=== PATIENT | female | born 1945 | race Two or more races ===

== ENCOUNTER 2017-11-19 17:27 | Inpatient (IN) | payer MEDICARE, OTHER ==
[~2017-11-19] VITALS: Ht 160 cm; Wt 80.8 kg
--- NOTE | 2017-11-19 17:56 | NUR ---
PT BIBRA FROM HOME TO ER BED 07. PER REPORT, FAMILY CALLED 911 CONCERNED ABOUT PT'S WEAKNESS FOR ABOUT 4 DAYS NOW. PT IS VINCENTIAN SPEAKING, PLACED ON MONITOR. AWAITING MD CHERRY.
--- NOTE | 2017-11-19 17:57 | NUR ---
BLOOD SUGAR 385
[2017-11-19] MEDS ORDERED: IV NS 0.9% 500 ML BAG IV ONE (18:30)
[2017-11-19 18:48] LABS: BASOPHILS # (AUTO) 0.1 /CMM (0.0-0.2); BASOPHILS % (AUTO) 0.8 % (0.0-2.0); EOSINOPHILS % (AUTO) 0.9 % (0.0-6.0); HEMATOCRIT 38 % (33-45); HEMOGLOBIN 12.6 g/dL (11.5-14.8); LYMPHOCYTES # (AUTO) 2.1 /CMM (0.8-4.8); LYMPHOCYTES % (AUTO) 25.2 % (20.0-44.0); MEAN CORPUSCULAR HEMOGLOBIN 29 PG (26.0-33.0); MEAN CORPUSCULAR HGB CONC 33 g/dl (31.0-36.0); MEAN CORPUSCULAR VOLUME 87 fL (82-100); MONOCYTES # (AUTO) 0.6 /CMM (0.1-1.30); MONOCYTES % (AUTO) 6.9 % (2.0-12.0); NEUTROPHILS # (AUTO) 5.6 /CMM (1.8-8.9); NEUTROPHILS % (AUTO) 66.2 % (43.0-81.0); PLATELET COUNT (AUTO) 218 /CMM (150-450); RED BLOOD CELL COUNT(AUTO) 4.39 MIL/uL (4.0-5.2); WHITE BLOOD COUNT (AUTO) 8.4 K/uL (4.3-11.0)
[2017-11-19 19:04] LABS: ALANINE AMINOTRANSFERASE 26 U/L (12-78); ALBUMIN 2.7 g/dL (3.4-5.0); ALKALINE PHOSPHATASE 89 U/L (46-116); ASPARTATE AMINOTRANSFERASE 16 U/L (15-37); BILIRUBIN,DIRECT 0.1 mg/dL (0.0-0.2); BILIRUBIN,TOTAL 0.3 mg/dL (0.2-1.0); CARBON DIOXIDE 25 mmol/L (21-32); CHLORIDE 101 mmol/L (98-107); CREATININE 1.7 mg/dL (0.6-1.3); POTASSIUM 5.1 mmol/L (3.5-5.1); SODIUM SERUM 134 mmol/L (136-145); TOTAL PROTEIN, SERUM 6.5 g/dL (6.4-8.2); UREA NITROGEN, BLOOD 65 mg/dL (7-18)
[2017-11-19 19:06] LABS: GLUCOSE 386 mg/dL (74-106); TROPONIN I < 0.017 ng/mL (0.00-0.056)
[2017-11-19 19:13] LABS: INR 0.86 (0.85-1.15)
[2017-11-19] MEDS ORDERED: IV NS 0.9% 1,000 ML BAG IV ONE (19:30)
--- NOTE | 2017-11-19 19:30 | NUR ---
MEDICATED PT ORDERED
[2017-11-19 19:41] LABS: APPEARANCE,URINE Clear (CLEAR); BILIRUBIN,URINE Negative (NEGATIVE); BLOOD, URINE Trace-intact Ery/uL (NEGATIVE); COLOR,URINE Yellow (YELLOW); KETONES,URINE Negative (NEGATIVE); LEUKOCYTE ESTERASE ,URINE Small (NEGATIVE); NITRITE, URINE Positive (NEGATIVE); PROTEIN,URINE Negative (NEGATIVE); UGLUCOSE 250 MG/DL mg/dL (NEGATIVE); UROBILINOGEN,URINE 0.2 EU/dL (0.2)
--- NOTE | 2017-11-19 19:43 | NUR ---
REPORT GIVEN TO SAÚL BOTELLO FOR VIMAL.
[2017-11-19 19:53] LABS: BACTERIA,URINE 3+ /HPF (None Seen); SQUAMOUS EPITHELIAL CELL,UR Few /HPF (None Seen)
[2017-11-19] MEDS ORDERED: CEFTRIAXONE 1GM BAG (ER ONLY) 1 GM/50 ML PIGGYBACK IV ONE (20:00)
--- NOTE | 2017-11-19 20:18 | NUR ---
CALLED NURSING DEVULCANIZER TENDER FOR TELE BED FOR THIS PT.
--- NOTE | 2017-11-19 20:22 | NUR ---
PT IS ASSIGNED TO [facility] RM#: [id number], DX: UROSEPSIS, AND ACCEPTING: MALIKA MARTIN DNP
[2017-11-19 21:00] VITALS: BP 149/77
--- NOTE | 2017-11-19 21:00 | NUR ---
TELE/RN NOTES RECEIVED PT. FROM ER VIA [facility]. PT. IS AWAKE, ALERT AND ORIENTED X2. BREATHING EVEN AND UNLABORED ON ROOM AIR. NO SOB, RESPIRATORY DISTRESS OR S/S OF PAIN NOTED AT THIS TIME. ORIENTED PT. TO ROOM. PLACED EXTERNAL SEWING MACHINE ADJUSTER ON PT. CURRENT RHYTHM = SINUS RHYTHM WITH PVCS HR 76. PT. WITH RIGHT FOREARM 20 GAUGE IV SALINE LOCK PRESENT, PATENT AND INTACT. BED LOCKED AND IN LOWEST POSITION, SIDE RAILS UP X3, BED ALARM ON, AWAITING ADMITTING ORDERS, WILL CONTINUE TO MONITOR.
--- NOTE | 2017-11-19 21:05 | NUR ---
transported pt to tele bed without incident
--- NOTE | 2017-11-19 21:50 | NUR ---
TELE/RN NOTES CALLED [facility] ECOLOGY PROFESSOR TO NOTIFY MARGARITO MARTIN PT. LACTIC ACID REFLEX RESULTED AT 2.3 AND AWAITING ADMISSION ORDERS. PER [facility]OLOG[facility] PROFESSOR SERVICE SECURITY CONTROL ASSESSOR VERONICA WILL BE PAGED. AWAITING CALL BACK.
--- NOTE | 2017-11-19 22:28 | NUR ---
TELE/RN NOTES RECEIVED NO CALL BACK FROM MARGARITO MARTIN. CALLED [facility] GARNETT MECHANIC SERVICE AGAIN TO NOTIFY MARGARITO MARTIN PT. LACTIC ACID REFLEX RESULTED AT 2.3 AND AWAITING ADMISSION ORDERS. PER [facility] SERV[facility] MARGARITO MARTIN WILL BE PAGED AGAIN. WILL CONTINUE TO WAIT FOR CALL BACK.
--- NOTE | 2017-11-19 22:40 | NUR ---
TELE/RN NOTES SPOKE WITH [facility] GEODETIC COMPUTATOR MARGARITO MARTIN, NOTIFIED HIM PT. LACTIC ACID REFLEX RESULTED AT 2.3, AND PT. LATEST BLOOD SUGAR IN ER RESULTED AT 386 AND NO INSULIN HAS BEEN GIVEN YET. PER MARGARITO MARTIN "OK, IM WORKING ON THE ADMITTING ORDERS". WILL CONTINUE TO MONITOR.
[2017-11-19] MEDS ORDERED: MAG HYDROX/AL HYDROX/SIMETH 30 ML UDC PO PRN (23:30)
[2017-11-19] MEDS ORDERED: DEXTROSE 50%-WATER 50 ML DISP.SYRIN IV PRN (23:30)
[2017-11-19] MEDS ORDERED: Z GUARD REMEDY 2 OZ OINT TP PRN (23:30)
[2017-11-19] MEDS ORDERED: CEFTRIAXONE 1 G in IV NS 0.9% 50 ML IV SCH (23:30)
[2017-11-19] MEDS ORDERED: MAGNESIUM HYDROXIDE 30 ML UDC PO PRN (23:30)
[2017-11-19] MEDS ORDERED: HYDROCODONE/APAP 5/325MG 1 EACH TABLET PO PRN (23:30)
[2017-11-19] MEDS ORDERED: ACETAMINOPHEN 325 MG TABLET PO PRN (23:30)
[2017-11-19] MEDS ORDERED: ONDANSETRON HCL/PF 4 MG/2 ML VIAL IVP PRN (23:30)
[2017-11-20] VITALS: BP 132/63
[2017-11-20] MEDS: IV NS 0.9% 1,000 ML IV PRN (00:15)
[2017-11-20] MEDS: BLOOD SUGAR DIAGNOSTIC 1 EACH STRIP IN SCH ×5 (00:18→20:29)
[2017-11-20] MEDS: *INSULIN REGULAR(HUMULIN R)HUM 100 UNIT/ML VIAL SQ PRN ×2 (00:25→20:41)
[2017-11-20 04:00] VITALS: BP 128/60
[2017-11-20 06:30] LABS: BASOPHILS % (AUTO) 0.5 % (0.0-2.0); EOSINOPHILS % (AUTO) 2.4 % (0.0-6.0); HEMATOCRIT 39 % (33-45); HEMOGLOBIN 12.8 g/dL (11.5-14.8); LYMPHOCYTES # (AUTO) 2.1 /CMM (0.8-4.8); LYMPHOCYTES % (AUTO) 27.4 % (20.0-44.0); MEAN CORPUSCULAR HEMOGLOBIN 29 PG (26.0-33.0); MEAN CORPUSCULAR HGB CONC 33 g/dl (31.0-36.0); MEAN CORPUSCULAR VOLUME 88 fL (82-100); MONOCYTES # (AUTO) 0.6 /CMM (0.1-1.30); NEUTROPHILS # (AUTO) 4.7 /CMM (1.8-8.9); NEUTROPHILS % (AUTO) 61.7 % (43.0-81.0); PLATELET COUNT (AUTO) 182 /CMM (150-450); RDW COEFFICIENT OF VARIATION 13.6 (11.5-15.0); RED BLOOD CELL COUNT(AUTO) 4.36 MIL/uL (4.0-5.2); WHITE BLOOD COUNT (AUTO) 7.5 K/uL (4.3-11.0)
[2017-11-20 06:38] LABS: CALCIUM, SERUM 7.8 mg/dL (8.5-10.1); CARBON DIOXIDE 30 mmol/L (21-32); CHLORIDE 107 mmol/L (98-107); CREATININE 1.1 mg/dL (0.6-1.3); GLUCOSE 164 mg/dL (74-106); MAGNESIUM 1.4 mg/dL (1.8-2.4); PHOSPHORUS 3.5 mg/dL (2.5-4.9); POTASSIUM 4.3 mmol/L (3.5-5.1); SODIUM SERUM 143 mmol/L (136-145); UREA NITROGEN, BLOOD 42 mg/dL (7-18)
[2017-11-20 06:42] LABS: CHOLESTEROL 156 mg/dL (<200); HDL CHOLESTEROL 48 mg/dL (40-60); LDL 90 mg/dL (0-99); THYROID STIMULATING HORMONE 0.749 uIU/mL (0.358-3.74); TRIGLYCERIDES 139 mg/dL (30-150)
[2017-11-20] MEDS: INSULIN REGULAR, HUMAN 100 UNIT/ML 3 ML VIAL SQ PRN ×3 (06:50→17:18)
--- NOTE | 2017-11-20 06:50 | NUR ---
TELE/RN NOTES PT. IS LYING IN BED RESTING. BREATHING EVEN AND UNLABORED ON ROOM AIR. NO SOB, RESPIRATORY DISTRESS OR S/S OF PAIN NOTED AT THIS TIME. PT. WITH EXTERNAL SOLID GLASS ROD DOWEL MACHINE OPERATOR PRESENT AND INTACT CURRENT RHYTHM = SINUS EUGENIE WITH BBB HR 59. PT. WITH RIGHT FOREARM 20 GAUGE PERIPHERAL IV PRESENT, PATENT AND INTACT ADMINISTERING TO PT. NS @ 75 ML/HR. ALL PT. NEEDS MET. BED LOCKED AND IN LOWEST POSITION, SIDE RAILS UP X3, BED ALARM ON, AWAITING ADMITTING ORDERS, WILL ENDORSE TO DAYSHIFT NURSE FOR CONTINUITY OF CARE.
[2017-11-20] MEDS ORDERED: BLOOD SUGAR DIAGNOSTIC 1 EACH STRIP IN SCH (07:30)
--- NOTE | 2017-11-20 07:30 | NUR ---
DIRECTOR OF CAMPUS RECREATION OPENING NOTE RECEIVED PATIENT IN BED. ALERT ORIENTED X2-3. ON ROOM AIR TOLERATING WELL. IN NO APPARENT DISTRESS OR DISCOMFORT AT THIS TIME. RESPIRATIONS EVEN AND UNLABORED. ABLE TO COMMUNICATE NEEDS IN [place]. DENIES PAIN AND SOB AT THIS TIME. PATIENT IS ON TELE MONITORING SINUS RHYTHM WITH PVC'S. +1 PITTING EDEMA OBSERVED ON BILATERAL LOWER EXTREMITIES. RIGHT FOREARM 18G IVC WITH FLUIDS RUNNING AT 75ML/HR. PATIENT KEPT CLEAN AND COMFORTABLE. ALL NEEDS ATTENDED. SAFETY MEASURES IN PLACE, BED IN LOW LOCKED POSITION, SIDE RAILS UP X2, CALL LIGHT WITHIN EASY REACH. WILL CONTINUE TO MONITOR.
[2017-11-20 08:00] VITALS: BP 125/71
[2017-11-20] MEDS: HEPARIN SODIUM, PORCINE 5000 UNITS/1 ML VIAL SQ SCH ×2 (08:47→21:04)
[2017-11-20] MEDS ORDERED: PANTOPRAZOLE 40 MG VIAL IV SCH (09:00)
--- NOTE | 2017-11-20 09:32 | NUR ---
WOUND CARE CONSULT: PT PRESENTS WITH BLANCHABLE REDNESS TO BUTTOCKS. PT ABLE TO ASSIST WITH TURNING AND REPOSITIONING IN BED. CURRENT KIMBERLY SCORE IS 16. WILL SEE PRN. ALL SKIN PROTECTION RECOMMENDATIONS DISCUSSED WITH NURSING STAFF. MD IN AGREEMENT WITH PLAN OF CARE.
[2017-11-20] MEDS ORDERED: IV NS 0.9% 250 ML IV ONE (11:00)
[2017-11-20] MEDS: Magnesium 1GM/D5W 100ML PREMIX 100 ML IV SCH ×4 (11:48→15:05)
[2017-11-20] MEDS ORDERED: CARV12.52 PO (15:47)
[2017-11-20] MEDS ORDERED: ASPI-1152 PO (15:47)
[2017-11-20] MEDS ORDERED: METF10004 PO (15:47)
[2017-11-20] MEDS ORDERED: MONT10TA22 PO (15:47)
[2017-11-20] MEDS ORDERED: FOLI1TAB16 PO (15:47)
[2017-11-20] MEDS ORDERED: ESCI10TA PO (15:47)
[2017-11-20] MEDS ORDERED: FERR325T23 PO (15:47)
[2017-11-20] MEDS ORDERED: ESOM40CA PO (15:47)
[2017-11-20] MEDS ORDERED: SPIR50TA5 PO (15:47)
[2017-11-20] MEDS ORDERED: ATOR20TA PO (15:47)
[2017-11-20] MEDS ORDERED: POTA-10 PO (15:47)
[2017-11-20] MEDS ORDERED: DONE10TA44 PO (15:47)
[2017-11-20] MEDS ORDERED: AMLO1CAP9 PO (15:47)
[2017-11-20] MEDS ORDERED: LINA145C PO (15:47)
[2017-11-20 16:00] VITALS: BP 142/77
[2017-11-20] MEDS: FERROUS SULFATE (325 MG) 325 MG/TAB TABLET PO SCH (17:16)
[2017-11-20] MEDS: CARVEDILOL 12.5 MG TABLET PO SCH (17:16)
--- NOTE | 2017-11-20 19:44 | NUR ---
MS RN CLOSING NOTE PATIENT IN BED. ALERT ORIENTED X2. FORGETFUL. ON ROOM AIR TOLERATING WELL. IN NO APPARENT DISTRESS OR DISCOMFORT AT THIS TIME. RESPIRATIONS EVEN AND UNLABORED. ABLE TO COMMUNICATE NEEDS IN [place]. DENIES PAIN AND SOB AT THIS TIME. +1 PITTING EDEMA OBSERVED ON BILATERAL LOWER EXTREMITIES. RIGHT FOREARM 18G IVC WITH FLUIDS RUNNING AT 75ML/HR. PATIENT KEPT CLEAN AND COMFORTABLE. ALL NEEDS ATTENDED. SAFETY MEASURES IN PLACE, BED IN LOW LOCKED POSITION, SIDE RAILS UP X2, CALL LIGHT WITHIN EASY REACH, FAMILY AT BEDSIDE. WILL ENDORSE TO PM NURSE FOR VIMAL.
--- NOTE | 2017-11-20 19:50 | NUR ---
MS/RN OPENING NOTES PATIENT IN BED, RESTING COMFORTABLY IN BED, AWAKE, WITH GOOD EYE CONTACT, NO GUARDING OR GRIMACE, CALM AND COOPERTAIVE, FAMILY AT BED SIDE, RECEIVED REPORT FROM AM RN FOR VIMAL, MONITORING FOR ANY CHANGES, SAFETY MEASURES, CALL LIGHTS WITHIN REACH, BED IN LOCK POSITION, BED ALRM, PATIENT FORGETFUL, MONITOR FOR HYPO/HYPERGLYCEMIA, DISCUSSED PLAN OF CARE, MAGNESIUM WAS REPLACED BY AM RN, WILL MONITOR.
[2017-11-20 19:53] VITALS: BP 126/67
[2017-11-20] MEDS ORDERED: CEFTRIAXONE 1 G in IV D5W 50 ML IV SCH (21:00)
[2017-11-20] MEDS ORDERED: CEFTRIAXONE 1 G in IV NS 0.9% 50 ML IV SCH (21:00)
--- NOTE | 2017-11-20 21:00 | NUR ---
MS/RN NOTES DISCUSSED CARE APTT WITH PHARMACY FOR HEPARIN SQ 5000 UNITS WITH APTT RESULT AT 21 LOW BUT NOT CRITICAL, CHARGE NURSE AWARE AND DISCUSSED HX OF CVA, AND BLE EDEMATUS, WITH MD ORDER DVT PROPHYLAXIS, MONITORING FOR ANY CHANGES.,
[2017-11-20 21:01] VITALS: BP 126/67
[2017-11-20] MEDS ORDERED: INSULIN GLARGINE, 100 UNIT/ML CARTRIDGE SQ SCH (22:00)
[2017-11-21] MEDS: IV NS 0.9% 1,000 ML IV PRN (04:53)
[2017-11-21] MEDS: BLOOD SUGAR DIAGNOSTIC 1 EACH STRIP IN SCH ×3 (06:18→17:14)
[2017-11-21] MEDS: INSULIN REGULAR, HUMAN 100 UNIT/ML 3 ML VIAL SQ PRN ×3 (06:35→17:22)
[2017-11-21 06:44] LABS: BASOPHILS % (AUTO) 0.6 % (0.0-2.0); EOSINOPHILS % (AUTO) 3.8 % (0.0-6.0); HEMATOCRIT 38 % (33-45); HEMOGLOBIN 12.5 g/dL (11.5-14.8); LYMPHOCYTES # (AUTO) 2.1 /CMM (0.8-4.8); LYMPHOCYTES % (AUTO) 29.8 % (20.0-44.0); MEAN CORPUSCULAR HEMOGLOBIN 29 PG (26.0-33.0); MEAN CORPUSCULAR HGB CONC 33 g/dl (31.0-36.0); MEAN CORPUSCULAR VOLUME 89 fL (82-100); MONOCYTES # (AUTO) 0.5 /CMM (0.1-1.30); MONOCYTES % (AUTO) 6.9 % (2.0-12.0); NEUTROPHILS # (AUTO) 4.1 /CMM (1.8-8.9); NEUTROPHILS % (AUTO) 58.9 % (43.0-81.0); PLATELET COUNT (AUTO) 183 /CMM (150-450); RDW COEFFICIENT OF VARIATION 14.1 (11.5-15.0); RED BLOOD CELL COUNT(AUTO) 4.28 MIL/uL (4.0-5.2); WHITE BLOOD COUNT (AUTO) 6.9 K/uL (4.3-11.0)
--- NOTE | 2017-11-21 06:52 | NUR ---
314-2 MS/RN NOTES PATIENT ALERT AND ORENTED SKININTACT AND DRY, ASSIST WITH BRP, DENIES PAIN, KEPT COMFORTABLE AND MONITORED FOR ANY CHANGES. CALL LIGHTS WITHIN REACH, BED IN LOCK POSITION WILL ENDORSE TO AM RN FOR VIMAL. mrsa swab done on nares.
[2017-11-21 07:05] LABS: CALCIUM, SERUM 8.4 mg/dL (8.5-10.1); CARBON DIOXIDE 26 mmol/L (21-32); CHLORIDE 106 mmol/L (98-107); CREATININE 1.1 mg/dL (0.6-1.3); GLUCOSE 204 mg/dL (74-106); MAGNESIUM 2.3 mg/dL (1.8-2.4); POTASSIUM 4.6 mmol/L (3.5-5.1); SODIUM SERUM 140 mmol/L (136-145); UREA NITROGEN, BLOOD 28 mg/dL (7-18)
--- NOTE | 2017-11-21 07:20 | NUR ---
MS RN NOTES PATIENT IN BED EYES CLOSED, EASILY ARAOUSABLE. RESPOND TO VERBAL AND TACTILE STIMULI. NO ACUTE DISTRESS NOTED. BREATHING UNLABORED. NO SOB NOTED. AT BEDSIDE. IV ACCESS PATENT AND INTACT, NO REDNESS OR SWELLING NOTED. SAFETY MEASURES IN PLACE. CALL LIGHT WITHIN REACH. WILL CONTINUE TO MONITOR ACCORDINGLY.
[2017-11-21] MEDS ORDERED: PANTOPRAZOLE 40 MG TABLET.DR PO SCH (07:30)
[2017-11-21 08:00] VITALS: BP 151/75
[2017-11-21] MEDS: FERROUS SULFATE (325 MG) 325 MG/TAB TABLET PO SCH ×2 (08:18→17:13)
[2017-11-21] MEDS: CARVEDILOL 12.5 MG TABLET PO SCH ×2 (08:20→17:14)
[2017-11-21] MEDS ORDERED: HYDROCHLOROTHIAZIDE 25 MG TABLET PO SCH (09:00)
[2017-11-21] MEDS ORDERED: DONEPEZIL 5 MG TABLET PO SCH (09:00)
[2017-11-21] MEDS ORDERED: AMLODIPINE BESYLATE 5 MG TABLET PO SCH (09:00)
[2017-11-21] MEDS ORDERED: ASPIRIN EC 81 MG TABLET.DR PO SCH (09:00)
[2017-11-21] MEDS ORDERED: ESCITALOPRAM OXALATE (10 MG) 10 MG TABLET PO SCH (09:00)
[2017-11-21] MEDS ORDERED: LINACLOTIDE 145 MCG PO SCH (09:00)
[2017-11-21] MEDS ORDERED: MONTELUKAST SODIUM (10MG) 10 MG TABLET PO SCH (09:00)
[2017-11-21] MEDS ORDERED: BENAZEPRIL HCL 20 MG TABLET PO SCH (09:00)
[2017-11-21] MEDS ORDERED: POTASSIUM CHLORIDE 10 MEQ TABLET.SA PO SCH (09:00)
[2017-11-21] MEDS ORDERED: FOLIC ACID 1 MG TABLET PO SCH (09:00)
[2017-11-21] MEDS: HEPARIN SODIUM, PORCINE 5000 UNITS/1 ML VIAL SQ SCH (09:13)
[2017-11-21] MEDS ORDERED: CIPR500S3 PO (10:28)
[2017-11-21 16:00] VITALS: BP 129/63
[2017-11-21 17:14] VITALS: BP 129/63
--- NOTE | 2017-11-21 19:00 | NUR ---
MS RN NOTES PATIENT SITTING IN BED, ALERT ORIENTED X 2-3. NO ACUTE DISTRESS NOTED, BREATHING UNLABORED. NO SOB NOTED. DUE MEDICATIONS GIVEN NO ASE NOTED. NEEDS ATTENDED AND ANTICIPATED. DISCHARGE INSTRUCTIONS GIVEN TO THE DAUGHTER SANTOS INCLUDING FOLLOW APPOINTMENT WITH PRIMARY DOCTOR AND NEW PRESCRIPTIONS, VERBALIZED UNDERSTANDING. ALL BELONGINGS ACCOUNTED FOR. SAFETY MEASURES IN PLACE, CALL LIGHT WITHIN REACH. PATIENT FOR DISCHARGE HOME AWAITING FOR CHIEF CONCIERGE. ENDORSED TO NIGHT NURSE FOR CONTINUITY OF CARE
--- NOTE | 2017-11-21 19:35 | NUR ---
STEAM FRAME OPERATOR NOTES RECEIVED PATIENT UP IN WHEELCHAIR, NO SOB, BREATHING EVEN AND UNLABORED AND IN NO ACUTE DISTRESS. PATIENT READY FOR PICKUP, ALL DISCHARGE INSTRUCTIONS GIVEN BY AM SHIFT NURSE, DISCHARGE PACKET WITH PATIENT. PATIENT'S DAUGHTER, SANTOS, AT BEDSIDE TO REDUCTION FURNACE OPERATOR HELPER PATIENT. ALL PATIENT'S BELONGINGS ACCOUNTED FOR. DISCONTINUED PATIENT'S IV PERIPHERAL LINE AND PT TOLERATED PROCEDURE WELL. NOTED IV SITE WITH NO BLEEDING, NO REDNESS ON SITE. PATIENT EXITED UNIT SAFELY VIA WHEELCHAIR IN STABLE CONDITION.
[2017-11-21] MEDS ORDERED: ATORVASTATIN 10 MG TABLET PO SCH (22:00)
== END 2017-11-21 19:00 | disposition home or self-care (01) | DRG 689 ==
LOC: ER 17:30 → TELE 20:27 → MED 11-20 08:55
PROVIDERS: ADMIT Hospitalist; ATTEND Hospitalist
DX: N39.0 Urinary tract infection, site not specified (principal); N17.0 Acute kidney failure with tubular necrosis; E87.1 Hypo-osmolality and hyponatremia; E44.0 Moderate protein-calorie malnutrition; E87.2 Acidosis; I10 Essential (primary) hypertension; E11.65 Type 2 diabetes mellitus with hyperglycemia; E83.42 Hypomagnesemia; E83.51 Hypocalcemia; B96.89 Other specified bacterial agents as the cause of diseases classified elsewhere
CPT/HCPCS: 36415; 70450-TC; 71045-TC; 80048-TC; 80061-TC; 80076-TC; 81000-TC; 82962-TC; 83605-TC; 83735-TC; 84100-TC; 84443-TC; 84484-TC; 85025-TC; 85730-TC; 87040-TC; 87081-TC; 87086-TC; 87186-TC; A4216; A4606; C9113; J0696; J1644; J1815; J3475; J7030; J7040; J7050; J7060; Z7610

== ENCOUNTER 2022-10-19 13:34 | Inpatient (IN) | payer MEDICARE, OTHER ==
[~2022-10-19] VITALS: Ht 167.6 cm; Wt 64.4 kg
[~2022-10-19 13:34] MED LIST: AMLO-102 PO; ASPI-1420 PO; ATOR20TA PO; CARV12.52 PO; CIPR500S3 PO; DONE10TA44 PO; ESCI10TA PO; ESOM40CA PO; FERR325T23 PO; FOLI1TAB16 PO; LINA145C PO; METF-442 PO; MONT10TA22 PO; POTA-10 PO; SPIR50TA5 PO
--- NOTE | 2022-10-19 14:00 | NUR ---
LOVE RA39 From Home "Family called weak/low O2 sats usually at 2L sats initially 89%. @6L=95%. BS-268 BREATHING EVEN AND UNLABORED, A/O X0, AWAKE WITH PURPOSEFUL MOVEMENT. CONNECTED TO BEDSIDE MONITOR VITALS WNL. BED LOCKED INLOWEST POSTION SIDE RAILS UP.
--- NOTE | 2022-10-19 14:06 | NUR ---
MOVE SHEET SUBMITTED.
--- NOTE | 2022-10-19 14:15 | NUR ---
URINE COLLECTED AND SENT TO LAB
--- NOTE | 2022-10-19 14:15 | NUR ---
BLOOD AND CULTURES DRAWN AND SENT TO LAB.
[2022-10-19 14:23] LABS: BASOPHILS # (AUTO) 0.1 K/uL (0.0-0.2); BASOPHILS % (AUTO) 1.2 % (0.0-2.0); HEMATOCRIT 34 % (33-45); HEMOGLOBIN 10.4 g/dL (11.5-14.8); LYMPHOCYTES # (AUTO) 1.4 K/uL (0.8-4.8); LYMPHOCYTES % (AUTO) 22.9 % (20.0-44.0); MEAN CORPUSCULAR HGB CONC 30 g/dl (31.0-36.0); MEAN CORPUSCULAR VOLUME 79 fL (82-100); MONOCYTES # (AUTO) 0.5 K/uL (0.1-1.30); MONOCYTES % (AUTO) 7.8 % (2.0-12.0); NEUTROPHILS # (AUTO) 3.7 K/uL (1.8-8.9); NEUTROPHILS % (AUTO) 59.1 % (43.0-81.0); PLATELET COUNT (AUTO) 191 K/uL (150-450); RED BLOOD CELL COUNT(AUTO) 4.36 MIL/uL (4.0-5.2); WHITE BLOOD COUNT (AUTO) 6.3 K/uL (4.3-11.0)
[2022-10-19 14:27] LABS: BILIRUBIN,URINE NEGATIVE (NEGATIVE); COLOR,URINE YELLOW (YELLOW); LEUKOCYTE ESTERASE ,URINE TRACE (NEGATIVE); NITRITE, URINE NEGATIVE (NEGATIVE); PROTEIN,URINE 2+ mg/dl (NEGATIVE); UGLUCOSE TRACE mg/dL (NEGATIVE); UROBILINOGEN,URINE 0.2 EU/dL (0.2)
[2022-10-19 14:28] LABS: ABG BASE EXCESS -2.1 mmol/L; ABG OXYGEN SATURATION 97.8 % (92.0-98.5); ABG PCO2 39.6 mmHg (35.0-45.0); ABG PH 7.379 (7.350-7.450); ABG PO2 108.5 mmHg (75.0-100.0); COHb 0.3 % (0.5-1.5); MetHb 0.3 % (0.0-1.5); O2Hb 97.2 % (94.0-97.0); SITE, ABG Right Radial; VENT MODE, BG 5L NC
[2022-10-19 14:44] LABS: CALCIUM, SERUM 9.2 mg/dL (8.5-10.1); CARBON DIOXIDE 25 mmol/L (21-32); CHLORIDE 118 mmol/L (98-107); CREATININE 2.9 mg/dL (0.6-1.3); GLUCOSE 213 mg/dL (74-106); POTASSIUM 4.2 mmol/L (3.5-5.1); SODIUM SERUM 153 mmol/L (136-145); UREA NITROGEN, BLOOD 51 mg/dL (7-18)
[2022-10-19 14:44] LABS: BACTERIA,URINE 1+ /HPF (None Seen); HYALINE CASTS, URINE Few /LPF (None Seen); MUCUS,URINE Few /LPF (None Seen)
[2022-10-19 15:00] LABS: ALANINE AMINOTRANSFERASE 16 U/L (12-78); ALBUMIN 2.3 g/dL (3.4-5.0); ALKALINE PHOSPHATASE 59 U/L (46-116); ASPARTATE AMINOTRANSFERASE 16 U/L (15-37); BILIRUBIN,DIRECT 0.1 mg/dL (0.0-0.2); BILIRUBIN,TOTAL 0.2 mg/dL (0.2-1.0); TOTAL PROTEIN, SERUM 6.5 g/dL (6.4-8.2)
[2022-10-19] MEDS ORDERED: KETOROLAC TROMETHAMINE INJ 30 MG/ML VIAL ONE (15:31)
--- NOTE | 2022-10-19 15:36 | NUR ---
[facility] CALLED MANAGER TRAVEL PAGED.
--- NOTE | 2022-10-19 15:50 | NUR ---
PT IS FULL CODE
--- NOTE | 2022-10-19 15:50 | NUR ---
[facility] [phone]
[2022-10-19] MEDS ORDERED: ALBUTEROL FS 2.5 MG/3 ML VIAL.NEB NEB ONE (16:00)
[2022-10-19] MEDS ORDERED: IPRATROPIUM NEB FS 0.5 MG/2.5 ML AMPUL.NEB NEB ONE (16:00)
[2022-10-19] MEDS ORDERED: methylPREDNISolone SOD SUCC 125 MG/2ML VIAL IV ONE (16:00)
[2022-10-19] MEDS ORDERED: methylPREDNISolone SOD SUCC 125 MG/2ML VIAL ONE (16:11)
--- NOTE | 2022-10-19 16:18 | NUR ---
rt at bedside for breathing treatment
[2022-10-19] MEDS ORDERED: ALBUTEROL FS 2.5 MG/3 ML VIAL.NEB ONE (16:19)
[2022-10-19] MEDS ORDERED: IPRATROPIUM NEB FS 0.5 MG/2.5 ML AMPUL.NEB ONE (16:19)
[2022-10-19 16:27] VITALS: O2SAT 99
[2022-10-19 16:37] VITALS: O2SAT 98
--- NOTE | 2022-10-19 16:41 | NUR ---
US TECH AT BEDSIDE
--- NOTE | 2022-10-19 18:05 | NUR ---
BED GIVEN 309-2
--- NOTE | 2022-10-19 18:57 | NUR ---
handoff report given to melida carrasquillo for inpatient services.
--- NOTE | 2022-10-19 18:58 | NUR ---
TRANSFER AFTER SHIFT CHANGE
--- NOTE | 2022-10-19 19:41 | NUR ---
PT TRANSFER W/ ACLS PROTOCAL. PT REAMINED STABLE THROUGHT TRASNFER. BEDSIDE NURSE WAS PRESENT AT BEDSIDE TO RECIEVE PT.
[2022-10-19 20:00] VITALS: BP_SYST 132; BP_SYST 153; BP_DIAS 68; BP_DIAS 76; TEMP 97.5; O2SAT 93; O2SAT 98
--- NOTE | 2022-10-19 20:00 | NUR ---
sample stitcher notes Received Pt from ER nurse SAÚL Fischer. Pt is alert and orientedX0, non verbal and answer by nodding head. Per ER nurse Pt is on 6 L NC. VS is stable. O2 sat is 98% at the bedside. No SOB. No S/S of distress noted. IV site at L hand# 20 is clean, intact and patent. L forearm # 20 is clean, intact and flushes well. On tele monitor showed SR. Skin assessment is done and preformed. Pt's skin is intact. Noted BLE ext swollen, is aware. Pt's belonging was checked Pt KIARA San. Safety precautions is maintained. Bed at low position, brakes locked, side rails upX3, hob elevated, bed alarm is on and call light is within reach. Will continue to monitor.
--- NOTE | 2022-10-19 21:01 | NUR ---
RN notes Called Pt's daughter [place] [phone] regarding Pt's mom new admitted from ER and left a message. Awaiting for Pt's daughter to call back.
--- NOTE | 2022-10-19 21:12 | NUR ---
RN notes Called [phone], the number from Pt's chart. It was invalid number.
[2022-10-19] MEDS: CEFTRIAXONE 1 G in IV D5W 50 ML IV SCH (21:38)
[2022-10-19] MEDS: DONEPEZIL 5 MG TABLET PO SCH (22:00)
[2022-10-19] MEDS: MONTELUKAST SODIUM (10MG) 10 MG TABLET PO SCH (22:00)
[2022-10-19] MEDS: ATORVASTATIN 10 MG TABLET PO SCH (22:00)
--- NOTE | 2022-10-19 22:10 | NUR ---
RN notes Dr. Haskins at the bedside for eval. MD ordered mild sliding scale blood sugar and swallow eval. Order carried out. charge nurse is aware and informed. Will continue to monitor.
--- NOTE | 2022-10-19 22:20 | NUR ---
RN notes Spoke with Pt's daughter Edith. Daughter informed that Pt has never received vaccinations and no vaccines at all.
--- NOTE | 2022-10-19 22:33 | NUR ---
RN notes Pt is non verbal and only nodding head and not following directions. Held pm meds because Pt failed nursing bed side swallow eval. Dr. Haskins is aware and informed. Daughter Edith is aware and informed. Swallow eval ordered. Will continue to monitor.
--- NOTE | 2022-10-19 22:40 | NUR ---
RN notes Pt's daughter Edith ([phone]) at the bedside. Explained about Plan of care. Edith stated that her mom is breathing better on 6 L nc. Edith also aware that Pt's mom is non verbal and only nodding her head. Edith also aware that her mom failed swallow eval and not following directions. Edith also informed that Pt had history of CVA and L sided weakness from CVA. Edith also informed that her mom uses oxygen at home at 2 L and still having sob and Edith refuses all vaccinations and no vaccines for Pt. Pt also not ambulating at home. Edith verbalize understanding and appreciate the info and help from staffs.
--- NOTE | 2022-10-19 23:00 | NUR ---
RN notes Gave Pt's blanket and pijama to daughter Edith. daughter at the bedside.
--- NOTE | 2022-10-19 23:19 | NUR ---
RN notes Spoke with Pt's daughter regarding code status. Edith wants full code for her mom. cosigned by SAÚL Wayne.
[2022-10-19] MEDS ORDERED: MAG HYDROX/AL HYDROX/SIMETH 30 ML UDC PO PRN (23:30)
[2022-10-19] MEDS ORDERED: MAGNESIUM HYDROXIDE 30 ML UDC PO PRN (23:30)
[2022-10-19] MEDS ORDERED: ONDANSETRON HCL/PF 4 MG/2 ML VIAL IVP PRN (23:30)
[2022-10-19] MEDS ORDERED: ACETAMINOPHEN 325 MG TABLET PO PRN (23:30)
[2022-10-19] MEDS ORDERED: IV 1/2NS 1000 ML 1,000 ML IV PRN (23:30)
[2022-10-19] MEDS ORDERED: DEXTROSE 50%-WATER 50 ML DISP.SYRIN IV PRN (23:30)
[2022-10-19] MEDS ORDERED: Z GUARD REMEDY 4 OZ OINT TP PRN (23:30)
[2022-10-19 23:56] VITALS: O2SAT 97
[2022-10-19] MEDS: IPRATROPIUM NEB FS 0.5 MG/2.5 ML AMPUL.NEB NEB SCH (23:56)
[2022-10-19] MEDS: ALBUTEROL FS 2.5 MG/0.5 ML VIAL.NEB NEB SCH (23:56)
[2022-10-20] VITALS (19 sets, daily range): BP systolic 114–127; BP diastolic 61–111; TEMP 97.6–98.5; O2SAT 94–99
--- NOTE | 2022-10-20 | NUR ---
RN notes Rt at the bedside for breathing tx. O2 sat is 97% on 2 L NC. No SOB. No S/s of distress noted. Pt is awake and respond by nodding head. NO SOB per Pt by confirming "yes" by nodding head. will continue to monitor.
[2022-10-20] MEDS: ENOXAPARIN SODIUM 30 MG/0.3 ML DISP.SYRIN SQ SCH ×2 (00:01→21:30)
[2022-10-20] MEDS: ALBUTEROL FS 2.5 MG/0.5 ML VIAL.NEB NEB SCH ×6 (02:49→23:39)
[2022-10-20] MEDS: IPRATROPIUM NEB FS 0.5 MG/2.5 ML AMPUL.NEB NEB SCH ×6 (02:49→23:39)
[2022-10-20] MEDS ORDERED: methylPREDNISolone SOD SUCC 40 MG/ML VIAL ONE (04:20)
[2022-10-20] MEDS ORDERED: methylPREDNISolone SOD SUCC 40 MG/ML VIAL IV SCH (05:00)
[2022-10-20] MEDS: BLOOD SUGAR DIAGNOSTIC 1 EACH STRIP IN SCH ×5 (06:32→23:27)
[2022-10-20] MEDS: INSULIN REGULAR, HUMAN 100 UNIT/ML 3 ML VIAL SQ PRN ×3 (06:32→23:34)
--- NOTE | 2022-10-20 06:33 | NUR ---
RN notes Pt's blood sugar 357. held coverage for NPO status. will continue to monitor.
--- NOTE | 2022-10-20 06:40 | NUR ---
RN closing notes Pt is resting in bed comfortbaly. Pt is A/OX0 and non verbal. On 2 L NC. No SOB. No S/S of distress noted. IV site at L hand# 20 is clean, intact and infusing well 1/2NS@ 75 ml/hr. IV site at L forearm# 20 is clean, intact and SL. tele monitor showed SR with BBB hr at 96. Routine meds were given as ordered. NPO. Gordon cath is intact and draining yellow urine. Kept Pt clean, dry and comfortable. Safety precautions is maintained. bed at low position, brakes locked, side rails upX3, hob elevated, bed alarm is on, walker at the bedside and call light is within reach. Will endorse to am nurse for VIMAL.
[2022-10-20 06:53] LABS: BASOPHILS % (AUTO) 0.3 % (0.0-2.0); HEMATOCRIT 38 % (33-45); HEMOGLOBIN 11.2 g/dL (11.5-14.8); LYMPHOCYTES # (AUTO) 1.3 K/uL (0.8-4.8); LYMPHOCYTES % (AUTO) 20.4 % (20.0-44.0); MEAN CORPUSCULAR HGB CONC 30 g/dl (31.0-36.0); MEAN CORPUSCULAR VOLUME 80 fL (82-100); MONOCYTES # (AUTO) 0.1 K/uL (0.1-1.30); MONOCYTES % (AUTO) 0.9 % (2.0-12.0); NEUTROPHILS # (AUTO) 5.2 K/uL (1.8-8.9); NEUTROPHILS % (AUTO) 78.4 % (43.0-81.0); PLATELET COUNT (AUTO) 193 K/uL (150-450); RED BLOOD CELL COUNT(AUTO) 4.75 MIL/uL (4.0-5.2); WHITE BLOOD COUNT (AUTO) 6.6 K/uL (4.3-11.0)
[2022-10-20 07:36] LABS: ALANINE AMINOTRANSFERASE 14 U/L (12-78); ALBUMIN 2.4 g/dL (3.4-5.0); ALKALINE PHOSPHATASE 65 U/L (46-116); ASPARTATE AMINOTRANSFERASE 15 U/L (15-37); BILIRUBIN,TOTAL 0.3 mg/dL (0.2-1.0); CALCIUM, SERUM 9.4 mg/dL (8.5-10.1); CARBON DIOXIDE 19 mmol/L (21-32); CHLORIDE 115 mmol/L (98-107); GLUCOSE 399 mg/dL (74-106); MAGNESIUM 2.6 mg/dL (1.8-2.4); PHOSPHORUS 6.4 mg/dL (2.5-4.9); POTASSIUM 5.2 mmol/L (3.5-5.1); SODIUM SERUM 150 mmol/L (136-145); UREA NITROGEN, BLOOD 65 mg/dL (7-18)
[2022-10-20] MEDS: PANTOPRAZOLE 40 MG VIAL IV SCH (09:00)
[2022-10-20] MEDS: ESCITALOPRAM OXALATE (10 MG) 10 MG TABLET PO SCH (09:00)
[2022-10-20] MEDS: FOLIC ACID 1 MG TABLET PO SCH (09:00)
[2022-10-20] MEDS: FERROUS SULFATE (325 MG) 325 MG/TAB TABLET PO SCH ×2 (09:00→16:21)
[2022-10-20] MEDS: ASPIRIN EC 81 MG TABLET.DR PO SCH (09:00)
[2022-10-20] MEDS ORDERED: SODIUM POLYSTYRENE SULF. PWD 15 GM UDC PO ONE (09:30)
[2022-10-20 10:08] LABS: PHOSPHORUS 6.6 mg/dL (2.5-4.9)
[2022-10-20 10:50] LABS: THYROID STIMULATING HORMONE 0.676 uIU/mL (0.358-3.74)
[2022-10-20] MEDS: CARVEDILOL 12.5 MG TABLET PO SCH ×2 (11:33→16:23)
--- NOTE | 2022-10-20 13:20 | NUR ---
RN NOTES TOOK OVER CARE FOR PATIENT. SEEN PT AWAKE IN BED IN NO ACUTE SIGNS OF DISTRESS. A/O X0. NON-VERBAL. HOB ELEVATED. ON 02 VIA N/C AT 2LPM, TOLERATING WELL , BREATHING EVEN AND UNLABORED. IVF OF NS @ 75ML/HR, INFUSING ORDERED TO LFA IV ACCESS, NO S/S OF INFILTRATION AT SITE NOTED. ALL SAFETY MEASURES KEPT IN PLACE. WILL CONTINUE TO MONITOR
--- NOTE | 2022-10-20 14:18 | NUR ---
Patient is a 77 year old Chinese female presented to [facility] with COPD and dementia. Patient is confused and unable to answer any questions in any language. The phone number provided to call the next of kin is incorrect.
[2022-10-20] MEDS: predniSONE 20 MG TABLET PO SCH ×2 (14:49→20:42)
--- NOTE | 2022-10-20 18:54 | NUR ---
RN CLOSING NOTES PATIENT AWAKE IN BED. ON NASAL CANNULA AT 2L. TOLERATING WELL AND NO SIGNS OF RESPIRATORY DISTRESS; HAS IV ACCESS ON RHAND #20G WITH IVF 1/2 NS @75ML/HR. INTACT, PATENT, AND FLUSHING WELL. ON FINNEGAN CATHETER WITH 350 ML OUTPUT DRAINING CLEAR YELLOW URINE; ON ASPIRATION PRECAUTION. ALL SCHED MEDS WERE GIVEN. BED IN LOW AND LOCK POSITION. TRAY TABLE AND CALL LIGHT WITHIN EASY REACH, BED ALARM ON. SAFETY MEASURES MAINTAINED AT ALL TIMES. WILL ENDORSE TO THE FOOD SERVER NURSE. Addendum: 10/20/22 at 1952 by JOYCE JEFFERS RN ADDENDUM: PT IS ON TELE-MONITOR WITH CURRENT READING OF ST WITH BBB'S HR 87, NO S/S OF CARDIAC DISTRESS NOTED DURING SHIFT.
--- NOTE | 2022-10-20 19:00 | NUR ---
RN OPENING NOTE RECEIVED PT AWAKE IN BED. PT IS A/O X 0, OPEN EYES AND NODDING HEAD. PT IS 2L O2 INHALATION VIA NASAL CANNULA TOLERATING WELL, BREATHING EVEN AND UNLABORED @ THIS TIME. PT IV PRESENT ON THE LEFT HAND 20G, INFILTRATED; LEFT FOREARM #20G INFILTRATED; RIGHT HAND, PATENT, INTACT AND FLUSHES WELL W/ NO S&SX OF INFILTRATION @ SITE NOTED. PT CUSTOMER ENERGY SPECIALIST IS IN PLACE WITH CURRENT READING OF SINUS RHYTHM. PT FINNEGAN CATHETER IS IN PLACE DRAINING YELLOW COLORED URINE. SAFETY MEASURES IS IN PLACE. BED IN LOWEST AND LOCKED POSITION. SIDE RAILS UP X 4. BEDSIDE TABLE AND CALL LIGHT IS EASY REACH. BED ALARM IS ON. WILL CONTINUE TO MONITOR PT ACCORDINGLY .
[2022-10-20] MEDS: CEFTRIAXONE 1 G in IV D5W 50 ML IV SCH (20:41)
[2022-10-20] MEDS: DONEPEZIL 5 MG TABLET PO SCH (21:32)
[2022-10-20] MEDS: MONTELUKAST SODIUM (10MG) 10 MG TABLET PO SCH (21:32)
[2022-10-20] MEDS: ATORVASTATIN 10 MG TABLET PO SCH (21:32)
[2022-10-21] VITALS (11 sets, daily range): BP systolic 135; BP diastolic 80; TEMP 97.1; O2SAT 93–99
[2022-10-21] MEDS: ALBUTEROL FS 2.5 MG/0.5 ML VIAL.NEB NEB SCH ×6 (03:30→22:39)
[2022-10-21] MEDS: IPRATROPIUM NEB FS 0.5 MG/2.5 ML AMPUL.NEB NEB SCH ×6 (03:30→22:39)
[2022-10-21] MEDS: predniSONE 20 MG TABLET PO SCH (05:11)
[2022-10-21] MEDS: BLOOD SUGAR DIAGNOSTIC 1 EACH STRIP IN SCH ×4 (06:32→22:31)
[2022-10-21] MEDS: INSULIN REGULAR, HUMAN 100 UNIT/ML 3 ML VIAL SQ PRN ×4 (06:34→22:36)
--- NOTE | 2022-10-21 06:41 | NUR ---
RN CLOSING NOTE PT AWAKE & RESTING COMFORTABLY IN BED. PT IS A/O X 0, OPEN EYES AND NODDING HEAD. PT IS 2L O2 INHALATION VIA NASAL CANNULA W/ NO RESPIRATORY DISTRESS @ THIS TIME. PT IV PRESENT ON THE LEFT HAND 20G, INFILTRATED; LEFT FOREARM #20G INFILTRATED; RIGHT HAND, PATENT, INTACT AND FLUSHES WELL W/ NO S&SX OF INFILTRATION @ SITE NOTED. PT FIELD HAULER IS IN PLACE WITH CURRENT READING OF SINUS RHYTHM, HR 82BPM. PT FINNEGAN CATHETER IS IN PLACE DRAINING YELLOW COLORED URINE. SAFETY MEASURES IS IN PLACE. BED IN LOWEST AND LOCKED POSITION. SIDE RAILS UP X 4. BEDSIDE TABLE AND CALL LIGHT IS EASY REACH. BED ALARM IS ON. WILL ENDORSE PT TO THE NEXT SHIFT FOR VIMAL.
--- NOTE | 2022-10-21 07:27 | NUR ---
FIRER POWERHOUSE OPENING NOTE Received patient in asleep, arouses easily. A/O x 0, no c/o pain/discomfort noted at this time. IV access in left hand #20G, sl. On O2 via nc at 2lpm, tolerating well. On tele monitor with current reading of SR at 82. Safety measures maintained: bed in lowest locked position, side rails up x2, call light and tray table within easy reach. Will continue to monitor. Addendum: 10/21/22 at 1249 by Vane Wharton RN Addendum.. Patient with briggs connected to urine bag draining via gravity clear yellow urine.
[2022-10-21 07:37] LABS: BASOPHILS % (AUTO) 0.1 % (0.0-2.0); HEMATOCRIT 35 % (33-45); HEMOGLOBIN 10.4 g/dL (11.5-14.8); LYMPHOCYTES # (AUTO) 1.4 K/uL (0.8-4.8); LYMPHOCYTES % (AUTO) 16.4 % (20.0-44.0); MEAN CORPUSCULAR HGB CONC 30 g/dl (31.0-36.0); MEAN CORPUSCULAR VOLUME 78 fL (82-100); MONOCYTES # (AUTO) 0.1 K/uL (0.1-1.30); MONOCYTES % (AUTO) 1.6 % (2.0-12.0); NEUTROPHILS # (AUTO) 6.8 K/uL (1.8-8.9); NEUTROPHILS % (AUTO) 81.9 % (43.0-81.0); PLATELET COUNT (AUTO) 207 K/uL (150-450); RED BLOOD CELL COUNT(AUTO) 4.43 MIL/uL (4.0-5.2); WHITE BLOOD COUNT (AUTO) 8.3 K/uL (4.3-11.0)
[2022-10-21 07:43] LABS: CALCIUM, SERUM 9.2 mg/dL (8.5-10.1); CARBON DIOXIDE 23 mmol/L (21-32); CHLORIDE 116 mmol/L (98-107); CREATININE 2.9 mg/dL (0.6-1.3); GLUCOSE 394 mg/dL (74-106); POTASSIUM 5.1 mmol/L (3.5-5.1); SODIUM SERUM 152 mmol/L (136-145)
[2022-10-21 08:13] LABS: UREA NITROGEN, BLOOD 85 mg/dL (7-18)
[2022-10-21] MEDS: ASPIRIN EC 81 MG TABLET.DR PO SCH (09:12)
[2022-10-21] MEDS: PANTOPRAZOLE 40 MG VIAL IV SCH (09:12)
[2022-10-21] MEDS: ESCITALOPRAM OXALATE (10 MG) 10 MG TABLET PO SCH (09:12)
[2022-10-21] MEDS: FERROUS SULFATE (325 MG) 325 MG/TAB TABLET PO SCH ×2 (09:13→16:35)
[2022-10-21] MEDS: FOLIC ACID 1 MG TABLET PO SCH (09:13)
[2022-10-21] MEDS: CARVEDILOL 12.5 MG TABLET PO SCH ×2 (09:13→16:35)
[2022-10-21 10:40] LABS: BILIRUBIN,URINE NEGATIVE (NEGATIVE); COLOR,URINE YELLOW (YELLOW); LEUKOCYTE ESTERASE ,URINE NEGATIVE (NEGATIVE); NITRITE, URINE NEGATIVE (NEGATIVE); PH,URINE 5.5 (5.0-8.0); PROTEIN,URINE 2+ mg/dl (NEGATIVE); UGLUCOSE 2+ mg/dL (NEGATIVE); UROBILINOGEN,URINE 0.2 EU/dL (0.2)
[2022-10-21 11:24] LABS: BACTERIA,URINE Rare /HPF (None Seen); SQUAMOUS EPITHELIAL CELL,UR Few /HPF (None Seen); WBC,URINE 0-3 /HPF (0-3)
[2022-10-21 11:46] LABS: CREATININE, URINE 48.1 MG/DL (30.0-125.0)
[2022-10-21 11:56] LABS: EOSINOPHIL,URINE None Seen
--- NOTE | 2022-10-21 12:00 | NUR ---
RN NOTE Patient bs-423, 10 units regular given, MD aware.
[2022-10-21] MEDS: IV 1/2NS 1000 ML 1,000 ML IV PRN ×2 (12:39→22:02)
--- NOTE | 2022-10-21 14:48 | NUR ---
RN NOTE Rechecked BS-391. Will continue to monitor.
--- NOTE | 2022-10-21 19:00 | NUR ---
RN OPENING NOTE RECEIVED PT AWAKE IN BED W/ DAUGHTER @ BEDSIDE. PT IS A/O X 0, NON VERBAL, NOD HEAD. PT IS IN 2L O2 INHALATION VIA NASAL CANNULA, TOLERATING WELL, BREATHING EVEN AND UNLABORED @ THIS TIME. PT IV PRESENT @ ON THE RIGHT HAND #22G RUNNING 1/2 NS @ 100MLS/HR, PATENT, INTACT AND FLUSHES WELL W/ NO S &SX OF INFILTRATION @ SITE NOTED. PT FINNEGAN CATHETER IS IN PLACE DRAINING COLORED URINE SAFETY MEASURE IS IN PLACE. BED IN LOWEST AND LOCKED POSITION. SIDE RAILS UP X 4. BEDSIDE TABLE AND CALL LIGHT IS EASY REACH. BED ALARM IS ON. WILL CONTINUE TO MONITOR PT ACCORDINGLY. .
--- NOTE | 2022-10-21 19:23 | NUR ---
ALL AROUND PRESSER CLOSING NOTE Patient resting in bed. A/O x 0, no c/o pain/discomfort noted at this time. IV access in right hand #20g running 1/5NS at 100ml/hr. On O2 via nc at 2lpm, tolerating well. On tele monitor with current reading of SR. With briggs draining via gravity yellow urine. Needs attended. Turned and repositioned. Safety measures maintained: bed in lowest locked position, side rails up x2, call light and tray table within easy reach. Will endorse yana to manager night.
[2022-10-21] MEDS: CEFTRIAXONE 1 G in IV D5W 50 ML IV SCH (21:52)
[2022-10-21] MEDS: ATORVASTATIN 10 MG TABLET PO SCH (21:53)
[2022-10-21] MEDS: MONTELUKAST SODIUM (10MG) 10 MG TABLET PO SCH (21:53)
[2022-10-21] MEDS: DONEPEZIL 5 MG TABLET PO SCH (21:53)
[2022-10-21] MEDS: ENOXAPARIN SODIUM 30 MG/0.3 ML DISP.SYRIN SQ SCH (21:53)
[2022-10-22] VITALS (15 sets, daily range): BP systolic 115–154; BP diastolic 54–73; TEMP 97.4–98.1; O2SAT 95–98
[2022-10-22] MEDS: ALBUTEROL FS 2.5 MG/0.5 ML VIAL.NEB NEB SCH ×5 (02:35→20:21)
[2022-10-22] MEDS: IPRATROPIUM NEB FS 0.5 MG/2.5 ML AMPUL.NEB NEB SCH ×5 (02:35→20:21)
[2022-10-22 06:36] LABS: BASOPHILS % (AUTO) 0.1 % (0.0-2.0); HEMATOCRIT 35 % (33-45); HEMOGLOBIN 10.3 g/dL (11.5-14.8); LYMPHOCYTES # (AUTO) 1.6 K/uL (0.8-4.8); LYMPHOCYTES % (AUTO) 16.9 % (20.0-44.0); MEAN CORPUSCULAR HGB CONC 30 g/dl (31.0-36.0); MEAN CORPUSCULAR VOLUME 78 fL (82-100); MONOCYTES # (AUTO) 0.7 K/uL (0.1-1.30); MONOCYTES % (AUTO) 7.4 % (2.0-12.0); NEUTROPHILS # (AUTO) 7.2 K/uL (1.8-8.9); NEUTROPHILS % (AUTO) 75.6 % (43.0-81.0); PLATELET COUNT (AUTO) 201 K/uL (150-450); RED BLOOD CELL COUNT(AUTO) 4.44 MIL/uL (4.0-5.2); WHITE BLOOD COUNT (AUTO) 9.6 K/uL (4.3-11.0)
[2022-10-22] MEDS: BLOOD SUGAR DIAGNOSTIC 1 EACH STRIP IN SCH ×4 (06:40→21:40)
[2022-10-22] MEDS: INSULIN REGULAR, HUMAN 100 UNIT/ML 3 ML VIAL SQ PRN ×4 (06:41→21:43)
--- NOTE | 2022-10-22 06:51 | NUR ---
RN CLOSING NOTE PT AWAKE & RESTING COMFORTABLY IN BED. PT IS A/O X 0, NON VERBAL, NOD HEAD. PT IS IN 2L O2 INHALATION VIA NASAL CANNULA, W/ NO S&SX OF RESPIRATORY DISTRESS @ THIS TIME. PT IV PRESENT @ ON THE RIGHT HAND #22G RUNNING 1/2 NS @ 100MLS/HR, PATENT, INTACT AND FLUSHES WELL W/ NO S &SX OF INFILTRATION @ SITE NOTED. PT CARDIA C MONITOR IS IN PLACE WITH CURRENT READING OF SINUS RHYTHM W/ BBB AND SOME PVC , HR OF 73 BPM. PT FINNEGAN CATHETER IS IN PLACE DRAINING COLORED URINE SAFETY MEASURE IS IN PLACE. BED IN LOWEST AND LOCKED POSITION. SIDE RAILS UP X 4. BEDSIDE TABLE AND CALL LIGHT IS EASY REACH. BED ALARM IS ON. WILL ENDORSE PT TO THE NEXT SHIFT FOR VIMAL.
[2022-10-22 07:09] LABS: CALCIUM, SERUM 9.2 mg/dL (8.5-10.1); CARBON DIOXIDE 23 mmol/L (21-32); CHLORIDE 117 mmol/L (98-107); CREATININE 2.5 mg/dL (0.6-1.3); GLUCOSE 257 mg/dL (74-106); POTASSIUM 4.3 mmol/L (3.5-5.1); SODIUM SERUM 150 mmol/L (136-145)
[2022-10-22 07:10] LABS: UREA NITROGEN, BLOOD 80 mg/dL (7-18)
--- NOTE | 2022-10-22 07:25 | NUR ---
OPENING NOTES PATIENT AWAKE IN BED, A/O X0. NO S/S OF PAIN NOTED AT THIS TIME. ON O2 AT 2 LPM VIA NASAL CANNULA, BREATHING EVEN AND UNLABORED, NO DISTRESS OR SOB NOTED. IV ACCESS RIGHT HAND #22G WITH 1/2 NS AT 100 ML/HOUR, INTACT, PATENT AND INFUSING WELL. PATIENT HAS A FINNEGAN CATHETER IN PLACE, DRAINING WELL. PATIENT ON EXTERNAL FIRER DIESEL LOCOMOTIVE WITH READING OF SINUS RHYTHM WITH HR OF 66, NO CARDIAC DISTRESS NOTED. FALL AND SAFETY MEASURES IN PLACE AND MAINTAINED AT ALL TIMES, BED ALARM ON, BED IN LOW AND LOCK POSITION, CALL LIGHT AND TABLE WITHIN EASY REACH, SIDE RAILS UP X2. WILL CONTINUE TO MONITOR THE PATIENT.
[2022-10-22] MEDS: ASPIRIN EC 81 MG TABLET.DR PO SCH (09:09)
[2022-10-22] MEDS: ESCITALOPRAM OXALATE (10 MG) 10 MG TABLET PO SCH (09:09)
[2022-10-22] MEDS: FOLIC ACID 1 MG TABLET PO SCH (09:09)
[2022-10-22] MEDS: PANTOPRAZOLE 40 MG/PACK PACK PO SCH (09:09)
[2022-10-22] MEDS: CARVEDILOL 12.5 MG TABLET PO SCH ×2 (09:10→16:55)
[2022-10-22] MEDS: FERROUS SULFATE (325 MG) 325 MG/TAB TABLET PO SCH ×2 (09:10→16:55)
--- NOTE | 2022-10-22 12:00 | NUR ---
RN NOTE ACCUCHECK DONE WITH BLOOD SUGAR LEVEL OF 234, 4 UNITS INSULIN GIVEN PER SLIDING SCALE. WILL CONTINUE TO MONITOR THE PATIENT
[2022-10-22] MEDS ORDERED: Z GUARD REMEDY 4 OZ OINT TP PRN (13:00)
--- NOTE | 2022-10-22 19:38 | NUR ---
CLOSING NOTES PATIENT AWAKE IN BED, A/O X0. NO S/S OF PAIN NOTED AT THIS TIME. ON O2 AT 2 LPM VIA NASAL CANNULA, BREATHING EVEN AND UNLABORED, NO DISTRESS OR SOB NOTED. IV ACCESS RIGHT HAND #22G SL INTACT, PATENT AND FLUSHING WELL. PATIENT HAS A FINNEGAN CATHETER IN PLACE, DRAINING WELL WITH YELLOW COLORED URINE WITH OUTPUT OF 700 ML. TURN TO SIDES Q2H PER PROTOCOL. SKIN CARE IMPLEMENTED. FALL AND SAFETY MEASURES IN PLACE AND MAINTAINED AT ALL TIMES, BED ALARM ON, BED IN LOW AND LOCK POSITION, CALL LIGHT AND TABLE WITHIN EASY REACH, SIDE RAILS UP X2. WILL ENDORSE TO MANAGER APPLICATION NURSE
--- NOTE | 2022-10-22 21:43 | NUR ---
ACCU CHECK Finger stick bld glucose 219mg/dl. Given insulin per parameters, co-signed by SAÚL Sandhu.
[2022-10-22] MEDS: MONTELUKAST SODIUM (10MG) 10 MG TABLET PO SCH (21:46)
[2022-10-22] MEDS: ATORVASTATIN 10 MG TABLET PO SCH (21:46)
[2022-10-22] MEDS: DONEPEZIL 5 MG TABLET PO SCH (21:46)
[2022-10-22] MEDS: ENOXAPARIN SODIUM 30 MG/0.3 ML DISP.SYRIN SQ SCH (21:53)
--- NOTE | 2022-10-22 21:53 | NUR ---
ANTICOAGULANT H/H 10.3 plt 201 No bleeding. Given Lovenox injection, co-signed by SAÚL Sandhu.
[2022-10-23] VITALS (13 sets, daily range): BP systolic 115–139; BP diastolic 59–79; TEMP 97–97.7; O2SAT 95–99
[2022-10-23] MEDS: IPRATROPIUM NEB FS 0.5 MG/2.5 ML AMPUL.NEB NEB SCH ×7 (00:08→23:30)
[2022-10-23] MEDS: ALBUTEROL FS 2.5 MG/0.5 ML VIAL.NEB NEB SCH ×7 (00:08→23:30)
[2022-10-23] MEDS: BLOOD SUGAR DIAGNOSTIC 1 EACH STRIP IN SCH ×4 (05:30→21:36)
[2022-10-23] MEDS: INSULIN REGULAR, HUMAN 100 UNIT/ML 3 ML VIAL SQ PRN ×4 (05:30→21:50)
--- NOTE | 2022-10-23 05:30 | NUR ---
ACCU CHECK Finger stick bld glucose 296mg/dl. Given insulin per parameters, co-signed by SAÚL Sandhu.
--- NOTE | 2022-10-23 06:05 | NUR ---
END OF SHIFT REPORT Patient in bed, nonverbal, slept most of the night. Oxygen sat 97% in 2L NC, observed no sob at rest. No cough, no respiratory distress during the night, on Neb q4h. Afebrile. Gordon cath to drainage, output 1600ml yellow clear, no BM. Turned and repositioned, offload extremities. Will endorse to oncoming RN.
[2022-10-23 06:14] LABS: BASOPHILS % (AUTO) 0.2 % (0.0-2.0); EOSINOPHILS % (AUTO) 6.4 % (0.0-6.0); HEMATOCRIT 36 % (33-45); HEMOGLOBIN 10.8 g/dL (11.5-14.8); LYMPHOCYTES # (AUTO) 2.3 K/uL (0.8-4.8); LYMPHOCYTES % (AUTO) 32.2 % (20.0-44.0); MEAN CORPUSCULAR HGB CONC 30 g/dl (31.0-36.0); MEAN CORPUSCULAR VOLUME 80 fL (82-100); MONOCYTES # (AUTO) 0.6 K/uL (0.1-1.30); MONOCYTES % (AUTO) 7.9 % (2.0-12.0); NEUTROPHILS # (AUTO) 3.8 K/uL (1.8-8.9); NEUTROPHILS % (AUTO) 53.3 % (43.0-81.0); PLATELET COUNT (AUTO) 188 K/uL (150-450); RED BLOOD CELL COUNT(AUTO) 4.54 MIL/uL (4.0-5.2); WHITE BLOOD COUNT (AUTO) 7.1 K/uL (4.3-11.0)
[2022-10-23 06:20] LABS: CALCIUM, SERUM 8.9 mg/dL (8.5-10.1); CARBON DIOXIDE 24 mmol/L (21-32); CHLORIDE 119 mmol/L (98-107); CREATININE 2.4 mg/dL (0.6-1.3); GLUCOSE 336 mg/dL (74-106); POTASSIUM 5.1 mmol/L (3.5-5.1); SODIUM SERUM 152 mmol/L (136-145); UREA NITROGEN, BLOOD 72 mg/dL (7-18)
--- NOTE | 2022-10-23 07:43 | NUR ---
RN OPENING NOTES PATIENT AWAKE IN BED RESTING, A/O X 0, NONVERBAL, OPENS EYES. NO S/S OF PAIN NOTED AT THIS TIME. ON 2L OXYGEN VIA NC, BREATHING EVEN AND UNLABORED, NO DISTRESS OR SOB NOTED. IV ACCESS R HAND #22G INTACT, PATENT AND FLUSHING WELL. FALL AND SAFETY PRECAUTIONS IN PLACE, BED ALARM ON, BED IN LOW AND LOCK POSITION, CALL LIGHT AND TABLE WITHIN EASY REACH, SIDE RAIL UP X2, WILL CONTINUE TO MONITOR.
[2022-10-23] MEDS ORDERED: DEXTROSE 50%-WATER 50 ML DISP.SYRIN IV PRN (08:30)
[2022-10-23] MEDS ORDERED: *INSULIN REGULAR(HUMULIN R)HUM 100 UNIT/ML VIAL SQ PRN (08:30)
[2022-10-23] MEDS ORDERED: INSULIN REGULAR, HUMAN 100 UNIT/ML 3 ML VIAL SQ PRN (08:30)
[2022-10-23] MEDS: FERROUS SULFATE (325 MG) 325 MG/TAB TABLET PO SCH ×2 (08:40→17:28)
[2022-10-23] MEDS: PANTOPRAZOLE 40 MG/PACK PACK PO SCH (08:40)
[2022-10-23] MEDS: ESCITALOPRAM OXALATE (10 MG) 10 MG TABLET PO SCH (08:40)
[2022-10-23] MEDS: FOLIC ACID 1 MG TABLET PO SCH (08:40)
[2022-10-23] MEDS: ASPIRIN EC 81 MG TABLET.DR PO SCH (08:40)
[2022-10-23] MEDS: CARVEDILOL 12.5 MG TABLET PO SCH ×2 (08:41→17:28)
[2022-10-23] MEDS: INSULIN GLARGINE, 100 UNIT/ML CARTRIDGE SQ SCH ×2 (08:51→21:40)
--- NOTE | 2022-10-23 18:37 | NUR ---
RN CLOSING NOTES PATIENT AWAKE IN BED RESTING, A/O X 0, NONVERBAL, OPENS EYES. NO S/S OF PAIN NOTED AT THIS TIME. ON 2L OXYGEN VIA NC, BREATHING EVEN AND UNLABORED, NO DISTRESS OR SOB NOTED. IV ACCESS R HAND #22G INTACT, PATENT AND FLUSHING WELL. PATIENT WITH FINNEGAN CATHETER IN PLACE, DRAINING WELL, OUTPUT 700ML, YELLOW CLEAR URINE. SCHEDULE MEDICATIONS ADMINISTERED. PATIENT WAS ENCOURAGE TO DRINK WATER, PATIENT WAS TURNED AND REPOSITION PER PROTOCOL. ALL NEEDS ATTENDED AND ANTICIPATED. FALL AND SAFETY PRECAUTIONS IN PLACE, BED ALARM ON, BED IN LOW AND LOCK POSITION, CALL LIGHT AND TABLE WITHIN EASY REACH, SIDE RAIL UP X2, WILL ENDORSE TO [employer] SCHOOL PRINCIPAL NURSE.
[2022-10-23] MEDS: MONTELUKAST SODIUM (10MG) 10 MG TABLET PO SCH (21:36)
[2022-10-23] MEDS: ATORVASTATIN 10 MG TABLET PO SCH (21:37)
[2022-10-23] MEDS: DONEPEZIL 5 MG TABLET PO SCH (21:38)
[2022-10-23] MEDS: ENOXAPARIN SODIUM 30 MG/0.3 ML DISP.SYRIN SQ SCH (21:51)
[2022-10-24] VITALS (12 sets, daily range): BP systolic 128; BP diastolic 75–79; TEMP 98; O2SAT 94–99
--- NOTE | 2022-10-24 03:29 | NUR ---
im bed asleep resp even and unlabored skin warm and dry at this time needs assist max when turned and repositioned on 2 liters 02 and sats 95% daughter came to visit last night and fed her food from home pt is a feeder and ate well for the daughter
[2022-10-24] MEDS: IPRATROPIUM NEB FS 0.5 MG/2.5 ML AMPUL.NEB NEB SCH ×6 (03:30→23:31)
[2022-10-24] MEDS: ALBUTEROL FS 2.5 MG/0.5 ML VIAL.NEB NEB SCH ×6 (03:30→23:31)
--- NOTE | 2022-10-24 06:31 | NUR ---
MS RN OPENING NOTES: PATIENT SLEEP IN BED AROUSABLE TO VERBAL STIMULI, BED IN LOW POSITION CALL LIGHTS WITHIN REACH, NO COMPLAIN OF PAIN AND DISCOMFORT AT THIS TIME, ON O2 INHALATION AT 2LPM SATURATING WELL, NO SOB WAS OBSERVED, PATIENT WAS REPOSITION, PATIENT KEPT CLEAN AND DRY ALL NEEDS MET ENDORSE TO INCOMING SHIFT.
[2022-10-24 06:38] LABS: BASOPHILS % (AUTO) 0.2 % (0.0-2.0); EOSINOPHILS % (AUTO) 6.8 % (0.0-6.0); HEMATOCRIT 36 % (33-45); HEMOGLOBIN 10.8 g/dL (11.5-14.8); LYMPHOCYTES # (AUTO) 2.4 K/uL (0.8-4.8); LYMPHOCYTES % (AUTO) 27.2 % (20.0-44.0); MEAN CORPUSCULAR HGB CONC 30 g/dl (31.0-36.0); MEAN CORPUSCULAR VOLUME 79 fL (82-100); MONOCYTES # (AUTO) 0.7 K/uL (0.1-1.30); MONOCYTES % (AUTO) 8.3 % (2.0-12.0); NEUTROPHILS % (AUTO) 57.5 % (43.0-81.0); PLATELET COUNT (AUTO) 213 K/uL (150-450); RED BLOOD CELL COUNT(AUTO) 4.54 MIL/uL (4.0-5.2); WHITE BLOOD COUNT (AUTO) 8.7 K/uL (4.3-11.0)
[2022-10-24] MEDS: BLOOD SUGAR DIAGNOSTIC 1 EACH STRIP IN SCH ×4 (06:49→22:35)
[2022-10-24 06:50] LABS: CALCIUM, SERUM 9.1 mg/dL (8.5-10.1); CARBON DIOXIDE 25 mmol/L (21-32); CHLORIDE 125 mmol/L (98-107); CREATININE 2.4 mg/dL (0.6-1.3); GLUCOSE 179 mg/dL (74-106); POTASSIUM 4.8 mmol/L (3.5-5.1); UREA NITROGEN, BLOOD 65 mg/dL (7-18)
[2022-10-24 06:54] LABS: SODIUM SERUM 159 mmol/L (136-145)
[2022-10-24] MEDS ORDERED: IV D5W 1,000 ML IV SCH (08:00)
[2022-10-24] MEDS ORDERED: IV D5/0.45 NACL 1,000 ML IV PRN (08:00)
[2022-10-24] MEDS: FOLIC ACID 1 MG TABLET PO SCH (09:52)
[2022-10-24] MEDS: ESCITALOPRAM OXALATE (10 MG) 10 MG TABLET PO SCH (09:52)
[2022-10-24] MEDS: PANTOPRAZOLE 40 MG/PACK PACK PO SCH (09:54)
[2022-10-24] MEDS: CARVEDILOL 12.5 MG TABLET PO SCH ×2 (09:54→16:57)
[2022-10-24] MEDS: ASPIRIN EC 81 MG TABLET.DR PO SCH (09:54)
[2022-10-24] MEDS: FERROUS SULFATE (325 MG) 325 MG/TAB TABLET PO SCH ×2 (09:54→16:56)
[2022-10-24] MEDS: predniSONE 20 MG TABLET PO SCH (11:08)
[2022-10-24] MEDS: INSULIN REGULAR, HUMAN 100 UNIT/ML 3 ML VIAL SQ PRN (12:26)
[2022-10-24] MEDS ORDERED: DEXTROSE 50%-WATER 50 ML DISP.SYRIN IV PRN (12:30)
[2022-10-24] MEDS: *INSULIN REGULAR(HUMULIN R)HUM 100 UNIT/ML VIAL SQ PRN ×2 (17:11→22:49)
[2022-10-24] MEDS: BLOOD SUGAR DIAGNOSTIC 1 EACH STRIP VI SCH ×2 (18:05→22:35)
--- NOTE | 2022-10-24 18:36 | NUR ---
RN CLOSING NOTES PATIENT RESTFUL IN BED,SATURATING WELL WITH OXYGEN ON 2L VIA NC,NO SOB NOTED NO SIGNS OF DISCOMFORT/PAIN NOTED OR VERBALIZED AT THE MOMENT,.PATIENT IS A&O x1,MOSTLY NON VERBAL,OPENS EYES WHEN ARM IS PULLED ,UNABLE TO MAKE NEEDS KNOWN TO STAFF. PATIENT HAS AN IV ACCESS RT HAND INTACT,&SALINE LOCKED.SKIN IS INTACT. HAS A FINNEGAN CATHETER AND DRAINING WELL. FALL AND SAFETY MEASURES IN PLACE,BED IN A LOWER POSITION AND LOCKED,BED RAILS UP x3 ,CALL LIGHT AND TABLE WITHIN REACH. NO ISSUES RAISED,LEFT COMFORTABLE IN BED.WILL ENDORSE TO THE WEATHERIZATION COORDINATOR NURSE
--- NOTE | 2022-10-24 19:30 | NUR ---
MS RN OPENING NOTES RECEIVED PATIENT AWAKE IN BED RESTING, A/O X 0, NONVERBAL, OPENS EYES. AT BED SIDE. NO S/S OF PAIN NOTED AT THIS TIME. ON 2L OXYGEN VIA NC, BREATHING EVEN AND UNLABORED, NO DISTRESS OR SOB NOTED. IV ACCESS R HAND #22G INTACT, PATENT AND FLUSHING WELL. FALL AND SAFETY PRECAUTIONS IN PLACE, BED ALARM ON, BED IN LOW AND LOCK POSITION, CALL LIGHT AND TABLE WITHIN EASY REACH, SIDE RAIL UP X2, WILL CONTINUE TO MONITOR CLOSELY.
[2022-10-24] MEDS: DONEPEZIL 5 MG TABLET PO SCH (22:06)
[2022-10-24] MEDS: ATORVASTATIN 10 MG TABLET PO SCH (22:06)
[2022-10-24] MEDS: MONTELUKAST SODIUM (10MG) 10 MG TABLET PO SCH (22:06)
[2022-10-24] MEDS: ENOXAPARIN SODIUM 30 MG/0.3 ML DISP.SYRIN SQ SCH (22:07)
[2022-10-25] VITALS (15 sets, daily range): BP systolic 98–142; BP diastolic 56–67; TEMP 98–98.3; O2SAT 96–100
[2022-10-25] MEDS: IPRATROPIUM NEB FS 0.5 MG/2.5 ML AMPUL.NEB NEB SCH ×6 (03:57→23:38)
[2022-10-25] MEDS: ALBUTEROL FS 2.5 MG/0.5 ML VIAL.NEB NEB SCH ×6 (03:57→23:38)
[2022-10-25] MEDS: INSULIN REGULAR, HUMAN 100 UNIT/ML 3 ML VIAL SQ PRN ×3 (06:11→17:23)
[2022-10-25] MEDS: BLOOD SUGAR DIAGNOSTIC 1 EACH STRIP IN SCH (06:14)
--- NOTE | 2022-10-25 06:33 | NUR ---
MS RN CLOSING NOTES PATIENT AWAKE IN BED RESTING, A/O X 0, NONVERBAL, OPENS EYES. NO S/S OF PAIN NOTED AT THIS TIME. ON 2L OXYGEN VIA NC, BREATHING EVEN AND UNLABORED, NO DISTRESS OR SOB NOTED. IV ACCESS R HAND #22G INTACT, PATENT AND FLUSHING WELL.ON D5 W HYDRATION AT 75 ML /HR. ALL DUE MEDS GIVEN ORDER. FINNEGAN CATHATER INTACT AND DRAINING WELL. URINE OUTPUT NOTED 900 ML. FALL AND SAFETY PRECAUTIONS IN PLACE, BED ALARM ON, BED IN LOW AND LOCK POSITION, CALL LIGHT AND TABLE WITHIN EASY REACH, SIDE RAIL UP X2, WILL ENDORSE FOR VIMAL.
[2022-10-25 06:37] LABS: BASOPHILS % (AUTO) 0.2 % (0.0-2.0); EOSINOPHILS % (AUTO) 2.5 % (0.0-6.0); HEMATOCRIT 37 % (33-45); HEMOGLOBIN 10.7 g/dL (11.5-14.8); LYMPHOCYTES # (AUTO) 1.9 K/uL (0.8-4.8); MEAN CORPUSCULAR HGB CONC 29 g/dl (31.0-36.0); MEAN CORPUSCULAR VOLUME 82 fL (82-100); MONOCYTES # (AUTO) 0.7 K/uL (0.1-1.30); MONOCYTES % (AUTO) 7.8 % (2.0-12.0); NEUTROPHILS # (AUTO) 6.1 K/uL (1.8-8.9); NEUTROPHILS % (AUTO) 68.5 % (43.0-81.0); PLATELET COUNT (AUTO) 198 K/uL (150-450); RED BLOOD CELL COUNT(AUTO) 4.48 MIL/uL (4.0-5.2)
[2022-10-25 07:21] LABS: CALCIUM, SERUM 9.3 mg/dL (8.5-10.1); CARBON DIOXIDE 23 mmol/L (21-32); CHLORIDE 123 mmol/L (98-107); CREATININE 2.3 mg/dL (0.6-1.3); GLUCOSE 234 mg/dL (74-106); UREA NITROGEN, BLOOD 59 mg/dL (7-18)
[2022-10-25 07:31] LABS: SODIUM SERUM 157 mmol/L (136-145)
[2022-10-25] MEDS: BLOOD SUGAR DIAGNOSTIC 1 EACH STRIP VI SCH ×4 (07:39→22:01)
--- NOTE | 2022-10-25 08:00 | NUR ---
MS RN OPENING NOTES RECEIVED PATIENT RESTFUL IN BED,SATURATING WELL WITH OXYGEN ON 2L VIA NC,NO SOB NOTED NO SIGNS OF DISCOMFORT/PAIN NOTED OR VERBALIZED AT THE MOMENT,.PATIENT IS A&O x1,MOSTLY NON VERBAL,OPENS EYES WHEN ARM IS PULLED ,UNABLE TO MAKE NEEDS KNOWN TO STAFF. PATIENT HAS AN IV ACCESS RT HAND INTACT,&SALINE LOCKED.SKIN IS INTACT. HAS A FINNEGAN CATHETER AND DRAINING WELL. FALL AND SAFETY MEASURES IN PLACE,BED IN A LOWER POSITION AND LOCKED,BED RAILS UP x3 ,CALL LIGHT AND TABLE WITHIN REACH. NO ISSUES RAISED,LEFT COMFORTABLE IN BED.CONTINUES TO MONITOR PATIENT THROUGH OUT SHIFT &HOURLY ROUNDING/PRN
[2022-10-25] MEDS: predniSONE 20 MG TABLET PO SCH (08:53)
[2022-10-25] MEDS: ESCITALOPRAM OXALATE (10 MG) 10 MG TABLET PO SCH (08:54)
[2022-10-25] MEDS: CARVEDILOL 12.5 MG TABLET PO SCH ×2 (08:54→17:49)
[2022-10-25] MEDS: FERROUS SULFATE (325 MG) 325 MG/TAB TABLET PO SCH ×2 (08:54→17:49)
[2022-10-25] MEDS: FOLIC ACID 1 MG TABLET PO SCH (08:54)
[2022-10-25] MEDS: PANTOPRAZOLE 40 MG/PACK PACK PO SCH (08:55)
[2022-10-25] MEDS: ASPIRIN EC 81 MG TABLET.DR PO SCH (08:55)
--- NOTE | 2022-10-25 18:26 | NUR ---
MS RN CLOSING NOTES PATIENT RESTFUL IN BED,BREATHING WELL ON ROOM AIR,EVENLY AND UNLABORED. NO SIGNS OF DISCOMFORT/PAIN NOTED OR VERBALIZED AT THE MOMENT,.PATIENT IS A&O x3 , PATIENT HAS AN IV ACCESS RFA 20G INTACT,&SALINE LOCKED. USES BEDPAN WITH MINIMAL ASSISTANCE. FALL AND SAFETY MEASURES IN PLACE,BED IN A LOWER POSITION AND LOCKED,BED RAILS UP x3 ,CALL LIGHT AND TABLE WITHIN REACH. NO ISSUES RAISED,LEFT COMFORTABLE IN BED.WILL ENDORSE TO THE AUTOMOBILE BODY CUSTOMIZER NURSE
--- NOTE | 2022-10-25 18:27 | NUR ---
MS RN CLOSING NOTES PATIENT RESTFUL IN BED,SATURATING WELL WITH OXYGEN ON 2L VIA NC,NO SOB NOTED NO SIGNS OF DISCOMFORT/PAIN NOTED OR VERBALIZED AT THE MOMENT,.PATIENT IS A&O x1,MOSTLY NON VERBAL,OPENS EYES WHEN ARM IS PULLED ,UNABLE TO MAKE NEEDS KNOWN TO STAFF. PATIENT HAS AN IV ACCESS RT HAND INTACT,&DF IV IN GOOD PROGRESS.SKIN IS INTACT. HAS A FINNEGAN CATHETER AND DRAINING WELL. FALL AND SAFETY MEASURES IN PLACE,BED IN A LOWER POSITION AND LOCKED,BED RAILS UP x3 ,CALL LIGHT AND TABLE WITHIN REACH. NO ISSUES RAISED,LEFT COMFORTABLE IN BED.WILL ENDORSE TO THE GEOLOGY SCIENTIST NURSE
--- NOTE | 2022-10-25 19:25 | NUR ---
MS RN OPENING NOTES: PATIENT AWAKE IN BED, EYES OPEN, NONVERBAL. SATING 97% ON 2L VIA NC, NO SOB. IV PERIPHERAL LINE AT RIGHT HAND, INTACT, WITH IV FLUIDS INFUSING. NPO EXCEPT MEDS. BED ALARM ON, BED IN LOWEST POSITION. FAMILY AT BEDSIDE. WILL CONTINUE TO MONITOR.
[2022-10-25] MEDS: IV D5W 1,000 ML IV PRN (20:27)
[2022-10-25] MEDS: MONTELUKAST SODIUM (10MG) 10 MG TABLET PO SCH (21:36)
[2022-10-25] MEDS: ATORVASTATIN 10 MG TABLET PO SCH (21:36)
[2022-10-25] MEDS: DONEPEZIL 5 MG TABLET PO SCH (21:36)
[2022-10-25] MEDS: ENOXAPARIN SODIUM 30 MG/0.3 ML DISP.SYRIN SQ SCH (21:50)
--- NOTE | 2022-10-25 21:53 | NUR ---
MS RN NOTES: H/H 10.7, PLT 198, NO S/S OF BLEEDING. LOVENOX INJECTION GIVEN. COSIGNED BY JULIEN HAYS.
[2022-10-25] MEDS: *INSULIN REGULAR(HUMULIN R)HUM 100 UNIT/ML VIAL SQ PRN (22:09)
--- NOTE | 2022-10-25 22:12 | NUR ---
MS RN NOTES: BLOOD SUGAR 254, INSULIN INJECTION GIVEN PER PARAMETERS. COSIGNED BY JULIEN HAYS.
[2022-10-26] VITALS (12 sets, daily range): BP systolic 124–136; BP diastolic 70–75; TEMP 97.4–97.5; O2SAT 95–100
[2022-10-26] MEDS: IPRATROPIUM NEB FS 0.5 MG/2.5 ML AMPUL.NEB NEB SCH ×6 (03:50→23:51)
[2022-10-26] MEDS: ALBUTEROL FS 2.5 MG/0.5 ML VIAL.NEB NEB SCH ×6 (03:50→23:51)
[2022-10-26 06:45] LABS: BASOPHILS % (AUTO) 0.4 % (0.0-2.0); EOSINOPHILS % (AUTO) 4.5 % (0.0-6.0); HEMATOCRIT 37 % (33-45); HEMOGLOBIN 10.8 g/dL (11.5-14.8); LYMPHOCYTES % (AUTO) 24.1 % (20.0-44.0); MEAN CORPUSCULAR HGB CONC 29 g/dl (31.0-36.0); MEAN CORPUSCULAR VOLUME 81 fL (82-100); MONOCYTES # (AUTO) 0.6 K/uL (0.1-1.30); MONOCYTES % (AUTO) 6.8 % (2.0-12.0); NEUTROPHILS # (AUTO) 5.2 K/uL (1.8-8.9); NEUTROPHILS % (AUTO) 64.2 % (43.0-81.0); PLATELET COUNT (AUTO) 161 K/uL (150-450); RED BLOOD CELL COUNT(AUTO) 4.51 MIL/uL (4.0-5.2); WHITE BLOOD COUNT (AUTO) 8.1 K/uL (4.3-11.0)
[2022-10-26] MEDS: BLOOD SUGAR DIAGNOSTIC 1 EACH STRIP VI SCH ×4 (06:56→21:45)
--- NOTE | 2022-10-26 07:00 | NUR ---
MS RN NOTES: BLOOD SUGAR 173, INSULIN INJECTION GIVEN PER PARAMETERS. COSIGNED BY JULIEN HAYS.
[2022-10-26] MEDS: INSULIN REGULAR, HUMAN 100 UNIT/ML 3 ML VIAL SQ PRN ×3 (07:01→17:34)
[2022-10-26 07:13] LABS: CALCIUM, SERUM 9.4 mg/dL (8.5-10.1); CARBON DIOXIDE 24 mmol/L (21-32); CHLORIDE 120 mmol/L (98-107); CREATININE 2.2 mg/dL (0.6-1.3); GLUCOSE 180 mg/dL (74-106); MAGNESIUM 2.7 mg/dL (1.8-2.4); PHOSPHORUS 4.2 mg/dL (2.5-4.9); POTASSIUM 4.8 mmol/L (3.5-5.1); SODIUM SERUM 152 mmol/L (136-145); UREA NITROGEN, BLOOD 60 mg/dL (7-18)
--- NOTE | 2022-10-26 07:34 | NUR ---
MS RN OPENING NOTE (day shift) RECEIVED PATIENT RESTFUL IN BED, SATURATING WELL (99%) WITH OXYGEN ON 2L VIA NC. NO SOB NOTED. NO SIGNS OF DISCOMFORT/PAIN NOTED nOR VERBALIZED AT THE MOMENT. PATIENT IS A&O x1, MOSTLY NON VERBAL,OPENS EYES WHEN ARM IS PULLED ,UNABLE TO MAKE NEEDS KNOWN TO STAFF. PATIENT IS WITHOUT AN IV ACCESS AFTER MULTIPLE ATTEMPTS TO RE-INSERT AN IV CATHETER BY LEAK OPERATOR [employer]. SKIN IS INTACT. PATIENT HAS A FINNEGAN CATHETER, DRAINING WELL INTO GRAVITY DRAIN BAG. FALL AND SAFETY MEASURES IN PLACE,BED IN A LOWER POSITION AND LOCKED,BED RAILS UP x 3 ,CALL LIGHT AND TABLE WITHIN REACH. NO ISSUES RAISED,LEFT COMFORTABLE IN BED.CONTINUES TO MONITOR PATIENT THROUGH OUT SHIFT & HOURLY ROUNDING NEEDED. PATIENT IS NPO EXCEPT MEDICATIONS ON ASPIRATION PRECAUTIONS FOR DYSPHAGIA. WILL MAKE FURTHER ATTEMPTS TO START AN IV DUE TO ORDER FOR IV FLUIDS.
--- NOTE | 2022-10-26 07:38 | NUR ---
MS RN CLOSING NOTES: PATIENT AWAKE IN BED, EYES OPEN, NONVERBAL. SATING 97% ON 2L VIA NC, NO SOB. NPO EXCEPT MEDS. FINNEGAN CATHETER INTACT, DRAINING OUTPUT 400ML. NO RESPIRATORY DISTRESS DURING THE NIGHT. PLAN FOR POSSIBLE DC TO [facility]. CM FOLLOWING. BED ALARM ON, BED IN LOWEST POSITION. FALL PRECAUTION MAINTAINED. ENDORSED TO SAÚL DEVRIES.
[2022-10-26] MEDS: ASPIRIN EC 81 MG TABLET.DR PO SCH (09:48)
[2022-10-26] MEDS: PANTOPRAZOLE 40 MG/PACK PACK PO SCH (09:49)
[2022-10-26] MEDS: ESCITALOPRAM OXALATE (10 MG) 10 MG TABLET PO SCH (09:49)
[2022-10-26] MEDS: predniSONE 20 MG TABLET PO SCH (09:49)
[2022-10-26] MEDS: FOLIC ACID 1 MG TABLET PO SCH (09:49)
[2022-10-26] MEDS: CARVEDILOL 12.5 MG TABLET PO SCH ×2 (09:49→17:49)
[2022-10-26] MEDS: FERROUS SULFATE (325 MG) 325 MG/TAB TABLET PO SCH ×2 (09:49→17:49)
--- NOTE | 2022-10-26 11:06 | NUR ---
RESUMED IV FLUID INFUSION MS RN NOTE (DAY SHIFT) New # 20 gauge PIV catheter inserted to right forearm after 3 previous failed attempts. Connected patient to D5 W iv fluid to infuse @ 75 mLs/hr. Iv fluids seem to be infusing without any complications of IV therapy.
--- NOTE | 2022-10-26 19:00 | NUR ---
MS RN CLOSING NOTE (DAY SHIFT) PATIENT RESTFUL IN BED,SATURATING WELL WITH OXYGEN ON 2L VIA NC. NO SOB NOTED. MAINTAINING NPO STATUS EXCEPT MEDS CRUSHED IN APPLE SAUCE. MAINTAINING ASPIRATION PRECAUTIONS. NO SIGNS OF DISCOMFORT/PAIN NOTED OR VERBALIZED AT THE MOMENT .PATIENT IS A&O x1,MOSTLY NON VERBAL. STILL UNABLE TO MAKE NEEDS KNOWN TO STAFF. RIGHT FOREARM IV ACCESS STILL INTACT AND PATENT, INFUSING D5W @ 75 mLs/hr. HAS A FINNEGAN CATHETER AND DRAINING WELL. FALL AND SAFETY MEASURES IN PLACE,BED IN A LOWER POSITION, LOCKED,BED RAILS UP x3 ,CALL LIGHT AND TABLE WITHIN REACH. WILL ENDORSE TO THE CASUALTY UNDERWRITER NURSE FOR VIMAL.
--- NOTE | 2022-10-26 19:15 | NUR ---
MS RN OPENING NOTES: PATIENT AWAKE IN BED, EYES OPEN, NONVERBAL. SATING 96% ON 2L VIA NC, NO SOB. IV PERIPHERAL LINE AT RIGHT FOREARM, INTACT, WITH IV FLUIDS INFUSING. FINNEGAN CATHETER INTACT. NPO EXCEPT MEDS. BED ALARM ON, BED IN LOWEST POSITION. FAMILY AT BEDSIDE. WILL CONTINUE TO MONITOR.
[2022-10-26] MEDS: ATORVASTATIN 10 MG TABLET PO SCH (21:22)
[2022-10-26] MEDS: DONEPEZIL 5 MG TABLET PO SCH (21:22)
[2022-10-26] MEDS: MONTELUKAST SODIUM (10MG) 10 MG TABLET PO SCH (21:22)
[2022-10-26] MEDS: ENOXAPARIN SODIUM 30 MG/0.3 ML DISP.SYRIN SQ SCH (21:23)
--- NOTE | 2022-10-26 21:23 | NUR ---
MS SAÚL NOTES: H/H 10.837, PLT 161, NO S/S OF BLEEDING. LOVENOX INJECTION GIVEN. COSIGNED BY UZAIR HAYS.
[2022-10-26] MEDS: *INSULIN REGULAR(HUMULIN R)HUM 100 UNIT/ML VIAL SQ PRN (21:48)
--- NOTE | 2022-10-26 21:48 | NUR ---
RN NOTES: BLOOD SUGAR 254, INSULIN INJECTION GIVEN PER PARAMETERS. COSIGNED BY UZAIR HAYS.
[2022-10-27] VITALS (12 sets, daily range): BP systolic 112–161; BP diastolic 59–83; TEMP 97.6–98.4; O2SAT 94–99
[2022-10-27] MEDS: IV D5W 1,000 ML IV PRN ×2 (01:19→18:29)
[2022-10-27] MEDS: ALBUTEROL FS 2.5 MG/0.5 ML VIAL.NEB NEB SCH ×5 (03:49→20:01)
[2022-10-27] MEDS: IPRATROPIUM NEB FS 0.5 MG/2.5 ML AMPUL.NEB NEB SCH ×5 (03:49→20:01)
[2022-10-27 05:51] LABS: BASOPHILS % (AUTO) 0.3 % (0.0-2.0); EOSINOPHILS % (AUTO) 3.5 % (0.0-6.0); HEMATOCRIT 35 % (33-45); HEMOGLOBIN 10.3 g/dL (11.5-14.8); LYMPHOCYTES # (AUTO) 1.8 K/uL (0.8-4.8); LYMPHOCYTES % (AUTO) 18.3 % (20.0-44.0); MEAN CORPUSCULAR HGB CONC 30 g/dl (31.0-36.0); MEAN CORPUSCULAR VOLUME 80 fL (82-100); MONOCYTES # (AUTO) 0.7 K/uL (0.1-1.30); MONOCYTES % (AUTO) 7.1 % (2.0-12.0); NEUTROPHILS # (AUTO) 7.1 K/uL (1.8-8.9); NEUTROPHILS % (AUTO) 70.8 % (43.0-81.0); PLATELET COUNT (AUTO) 182 K/uL (150-450); RED BLOOD CELL COUNT(AUTO) 4.35 MIL/uL (4.0-5.2)
[2022-10-27 06:04] LABS: CARBON DIOXIDE 23 mmol/L (21-32); CHLORIDE 118 mmol/L (98-107); CREATININE 2.1 mg/dL (0.6-1.3); GLUCOSE 269 mg/dL (74-106); SODIUM SERUM 148 mmol/L (136-145); UREA NITROGEN, BLOOD 59 mg/dL (7-18)
--- NOTE | 2022-10-27 06:35 | NUR ---
MS RN CLOSING NOTES: PATIENT ASLEEP IN BED, COMFORTABLE. NO S/S OF DISTRESS NOTED. ON 2L VIA NC, NO SOB. IV PERIPHERAL LINE AT RIGHT FOREARM, INTACT, WITH IV FLUIDS INFUSING. FINNEGAN CATHETER INTACT, DRAINING OUTPUT 350ML. NPO EXCEPT MEDS. SCHEDULED MEDICATIONS ADMINISTERED. FALL AND SAFETY PRECAUTIONS MAINTAINED. BED ALARM ON, BED LOW AND LOCKED POSITION. WILL ENDORSE TO AM NURSE.
[2022-10-27] MEDS: BLOOD SUGAR DIAGNOSTIC 1 EACH STRIP VI SCH ×4 (06:47→22:27)
[2022-10-27] MEDS: INSULIN REGULAR, HUMAN 100 UNIT/ML 3 ML VIAL SQ PRN ×3 (07:08→17:06)
--- NOTE | 2022-10-27 07:46 | NUR ---
MS RN OPENING NOTE RECEIVED PATIENT AWAKE IN BED, WITH ONGOING NEBULIZATION. NO SOB NOTED. NO SIGNS OF DISCOMFORT/PAIN NOTED nOR VERBALIZED AT THE MOMENT. PATIENT IS A&O x1, MOSTLY NON VERBAL,OPENS EYES WHEN ARM IS PULLED ,IV ACCESS ON RFA G20, INTACT AND PATENT WITH RUNNING D5W AT 75 ML/HR. PATIENT HAS A FINNEGAN CATHETER, DRAINING WELL INTO GRAVITY DRAIN BAG. FALL AND SAFETY MEASURES IN PLACE,BED IN A LOWER POSITION AND LOCKED,BED RAILS UP x 3 ,CALL LIGHT AND TABLE WITHIN REACH. ON ASPIRATION PRECAUTION. WILL CONTINUE TO MONITOR THE PATIENT.
[2022-10-27] MEDS: ESCITALOPRAM OXALATE (10 MG) 10 MG TABLET PO SCH (08:19)
[2022-10-27] MEDS: FERROUS SULFATE (325 MG) 325 MG/TAB TABLET PO SCH ×2 (08:19→16:57)
[2022-10-27] MEDS: predniSONE 20 MG TABLET PO SCH (08:19)
[2022-10-27] MEDS: ASPIRIN EC 81 MG TABLET.DR PO SCH (08:19)
[2022-10-27] MEDS: PANTOPRAZOLE 40 MG/PACK PACK PO SCH (08:19)
[2022-10-27] MEDS: FOLIC ACID 1 MG TABLET PO SCH (08:19)
[2022-10-27] MEDS: CARVEDILOL 12.5 MG TABLET PO SCH ×3 (08:36→16:57)
[2022-10-27] MEDS ORDERED: LINA5TAB PO (11:02)
--- NOTE | 2022-10-27 11:20 | NUR ---
RN NOTES SWALLOW NURSING ASSESSMENT DONE, PATIENT ABLE TO TOLERATE PUDDING AND APPLE SAUCE W/O CHOCKING, COUGHING OR ASPIRATION. DR CASTILLO MADE AWARE.
--- NOTE | 2022-10-27 13:39 | NUR ---
RN NOTES CALLED [facility] TO GIVE REPORT, SPOKED TO IRMA RN DIRECTOR. SHE REQUESTED TO DO RAPID COVID-19 TEST AND WAS DONE. AWAITING FOR RESULTS.
--- NOTE | 2022-10-27 14:00 | NUR ---
RN NOTES Pt seen and reevaluated by speech therapist with high suspicion for silent aspiration cannot be ruled out at this time. Increasing risk for aspiration. Pt is not safe to have PO except limited textures to provide medication. Will continue to closely monitor for any s//s of aspiration.
--- NOTE | 2022-10-27 14:58 | NUR ---
RN NOTE- PT SEEN AT BEDSIDE BY STATED PT TOO LETHARGIC, DELAYED SWALLOW AND SOMNOLENCE. DR CASTILLO CANCELED DC.
--- NOTE | 2022-10-27 15:32 | NUR ---
RN NOTES CALLED THE DAUGHTER- PRIMITIVO INFORMING DISCHARGE ORDER WAS CANCELLED DUE TO HIGH RISK FOR ASPIRATION. VERBALIZED UNDERSTANDING
--- NOTE | 2022-10-27 18:39 | NUR ---
MS RN CLOSING NOTES: PATIENT AWAKE IN BED WITH HOB ELEVATED. NO S/S OF DISTRESS NOTED. ON 2L VIA NC, NO SOB. IV PERIPHERAL LINE AT RIGHT FOREARM G20, INTACT, WITH IV OF D5W AT 75 ML/HR INFUSING WELL. FINNEGAN CATHETER INTACT, DRAINING OUTPUT 400 ML. ON NPO EXCEPT MEDS. SCHEDULED MEDICATIONS ADMINISTERED. FALL AND SAFETY PRECAUTIONS MAINTAINED. BED ALARM ON, BED LOW AND LOCKED POSITION. WILL ENDORSE TO ELECTRICAL PROJECT ENGINEER NURSE FOR VIMAL.
--- NOTE | 2022-10-27 19:30 | NUR ---
RN MS OPENING NOTES RECEIVED PATIENT IN BED, A/O X 1 NON VERBAL ABLE TO OPEN EYES ON VERBAL AND PAIN STIMULI, ON HIGH BACK REST POSITION. HOOKED TO NASAL CANNULA AT 2 LPM SATURATING WELL NO EPISODES OF /SOB NOTED AT THIS TIME; ON BED REST USES DIAPER AND WITH INDWELLING FINNEGAN CATHETER CONNECTED TO URINE BAG NOTED URINE OUTPUT. WITH IV ACCESS AT RFA #20G WITH D5W AT 75ML/HR INFUSING WELL NO INFILTRATION OR SWELLING NOTED, NO PAIN OT DISCOMFORT NOTED AT THIS TIME.KEPT PATIENT WARM AND COMFORTABLE; KEPT SIDE RAILS UP X 2 ALL THE TIME; KEPT CALL LIGHT WITHIN AT REACH. KEPT PATIENT WARM AND COMFORTABLE. WILL CONTINUE TO MONITOR.
[2022-10-27] MEDS: MONTELUKAST SODIUM (10MG) 10 MG TABLET PO SCH (22:23)
[2022-10-27] MEDS: DONEPEZIL 5 MG TABLET PO SCH (22:23)
[2022-10-27] MEDS: ATORVASTATIN 10 MG TABLET PO SCH (22:23)
[2022-10-27] MEDS: ENOXAPARIN SODIUM 30 MG/0.3 ML DISP.SYRIN SQ SCH (22:24)
[2022-10-27] MEDS: *INSULIN REGULAR(HUMULIN R)HUM 100 UNIT/ML VIAL SQ PRN (22:33)
[2022-10-28] VITALS (14 sets, daily range): BP systolic 127–130; BP diastolic 60–62; TEMP 97.8–98.6; O2SAT 94–98
[2022-10-28] MEDS: IPRATROPIUM NEB FS 0.5 MG/2.5 ML AMPUL.NEB NEB SCH ×8 (00:35→23:25)
[2022-10-28] MEDS: ALBUTEROL FS 2.5 MG/0.5 ML VIAL.NEB NEB SCH ×8 (00:35→23:25)
[2022-10-28] MEDS: BLOOD SUGAR DIAGNOSTIC 1 EACH STRIP VI SCH ×4 (06:10→22:09)
[2022-10-28] MEDS: INSULIN REGULAR, HUMAN 100 UNIT/ML 3 ML VIAL SQ PRN ×3 (06:11→16:45)
--- NOTE | 2022-10-28 06:38 | NUR ---
RN MS CLOSING NOTES PATIENT IS IN BED, A/O X 1 NON VERBAL ABLE TO OPEN EYES ON VERBAL AND PAIN STIMULI, ON HIGH BACK REST POSITION. HOOKED TO NASAL CANNULA AT 2 LPM SATURATING WELL NO EPISODES OF /SOB NOTED AT THIS TIME; ON BED REST USES DIAPER AND WITH INDWELLING FINNEGAN CATHETER CONNECTED TO URINE BAG NOTED URINE OUTPUT. WITH IV ACCESS AT RFA #20G WITH D5W AT 75ML/HR INFUSING WELL NO INFILTRATION OR SWELLING NOTED, NO PAIN OT DISCOMFORT NOTED AT THIS TIME ALL DUE MEDICATIONS GIVEN ORDERED; ALL NEEDS ATTENDED; PM CARE RENDERED; TURNED PATIENT EVERY 2 HOURS, KEPT HEAD OR THE BED ELEVATED AT ALL TIME, ON ASPIRATION PRECAUTION. KEPT PATIENT WARM AND COMFORTABLE KEPT BED ON MODERATE HIGH BACK REST POSITION, KEPT SIDE RAILS UP X 2 ALL THE TIME, KEPT CALL LIGHT WITHIN AT REACH. WILL ENDORSED TO AM SHIFT FOR VIMAL.
--- NOTE | 2022-10-28 07:28 | NUR ---
RN MS OPENING NOTES RECEIVED PATIENT IN BED, A/O X 1, NON VERBAL BUT ABLE TO OPEN EYES ON VERBAL AND PAIN STIMULI, ON HIGH BACK REST POSITION. WITH NASAL CANNULA AT 2 LPM SATURATING WELL, NO EPISODES OF /SOB AT THIS TIME. ON BED REST USES DIAPER AND WITH INDWELLING FINNEGAN CATHETER CONNECTED TO URINE BAG NOTED URINE OUTPUT. WITH IV ACCESS AT RFA #20G WITH D5W AT 75ML/HR INTACT, PATENT AND INFUSING WELL WITH NO INFILTRATION OR SWELLING NOTED. NO PAIN OR DISCOMFORT NOTED AT THIS TIME. KEPT PATIENT WARM AND COMFORTABLE. SAFERTY MEASURES IN PLACE, SIDE RAILS UP X 2 ALL THE TIME, CALL LIGHT AND TABLE WITHIN REACH. WILL CONTINUE TO MONITOR.
[2022-10-28 08:47] LABS: BASOPHILS % (AUTO) 0.4 % (0.0-2.0); EOSINOPHILS % (AUTO) 6.4 % (0.0-6.0); HEMATOCRIT 35 % (33-45); HEMOGLOBIN 10.2 g/dL (11.5-14.8); LYMPHOCYTES # (AUTO) 1.8 K/uL (0.8-4.8); LYMPHOCYTES % (AUTO) 23.3 % (20.0-44.0); MEAN CORPUSCULAR HGB CONC 29 g/dl (31.0-36.0); MEAN CORPUSCULAR VOLUME 81 fL (82-100); MONOCYTES # (AUTO) 0.6 K/uL (0.1-1.30); MONOCYTES % (AUTO) 8.3 % (2.0-12.0); NEUTROPHILS # (AUTO) 4.8 K/uL (1.8-8.9); NEUTROPHILS % (AUTO) 61.6 % (43.0-81.0); PLATELET COUNT (AUTO) 155 K/uL (150-450); RED BLOOD CELL COUNT(AUTO) 4.36 MIL/uL (4.0-5.2); WHITE BLOOD COUNT (AUTO) 7.8 K/uL (4.3-11.0)
[2022-10-28] MEDS: ESCITALOPRAM OXALATE (10 MG) 10 MG TABLET PO SCH (08:48)
[2022-10-28] MEDS: predniSONE 20 MG TABLET PO SCH (08:49)
[2022-10-28] MEDS: ASPIRIN EC 81 MG TABLET.DR PO SCH (08:49)
[2022-10-28] MEDS: FERROUS SULFATE (325 MG) 325 MG/TAB TABLET PO SCH ×2 (08:49→16:22)
[2022-10-28] MEDS: FOLIC ACID 1 MG TABLET PO SCH (08:49)
[2022-10-28] MEDS: PANTOPRAZOLE 40 MG/PACK PACK PO SCH (08:49)
[2022-10-28] MEDS: CARVEDILOL 12.5 MG TABLET PO SCH ×2 (08:49→16:22)
[2022-10-28 09:07] LABS: CALCIUM, SERUM 8.9 mg/dL (8.5-10.1); CARBON DIOXIDE 25 mmol/L (21-32); CHLORIDE 120 mmol/L (98-107); CREATININE 2.1 mg/dL (0.6-1.3); GLUCOSE 226 mg/dL (74-106); POTASSIUM 4.9 mmol/L (3.5-5.1); SODIUM SERUM 152 mmol/L (136-145); UREA NITROGEN, BLOOD 58 mg/dL (7-18)
--- NOTE | 2022-10-28 18:40 | NUR ---
RN MS CLOSING NOTES PATIENT AWAKE IN BED, A/O X 1, NON VERBAL BUT ABLE TO OPEN EYES ON VERBAL AND PAIN STIMULI, ON HIGH BACK REST POSITION. WITH NASAL CANNULA AT 2 LPM, SATURATING WELL AND NO EPISODES OF /SOB NOTED AT THIS TIME. ON BED REST, WITH INDWELLING FINNEGAN CATHETER CONNECTED TO URINE BAG, WITH CLEAR AND YELLOW URINE OUTPUT. IV ACCESS AT RFA #20G WITH D5W @ 75ML/HRS, NOT INFUSING AT THIS TIME BECAUSE PATIENT BLOOD SUGAR WAS HIGH, DRHilaria AWARE. NO INFILTRATION OR SWELLING NOTED, NO PAIN OR DISCOMFORT NOTED AT THIS TIME. ALL DUE MEDICATIONS GIVEN ORDERED; ALL NEEDS ATTENDED; AM CARE RENDERED; TURNED AND REPOSITIONED PATIENT EVERY 2 HOURS, KEPT HEAD OF THE BED ELEVATED AT ALL TIME, ON ASPIRATION PRECAUTION. KEPT PATIENT WARM AND COMFORTABLE, KEPT BED ON MODERATE HIGH BACK REST POSITION, KEPT SIDE RAILS UP X 2 ALL THE TIME, KEPT CALL LIGHT WITHIN AT REACH. WILL ENDORSED TO THE FURNITURE BUILDER NURSE FOR VIMAL.
--- NOTE | 2022-10-28 19:11 | NUR ---
MS RN OPENING NOTES RECEIVED PATIENT AWAKE IN BED RESTING, A/O X 0, NONVERBAL. NODS HER HEAD WHEN ASKING QUESTIONS. NO S/S OF PAIN NOTED AT THIS TIME. ON 2L OXYGEN VIA NC, BREATHING EVEN AND UNLABORED, NO DISTRESS OR SOB NOTED. IV ACCESS RFA #20G INTACT, PATENT AND FLUSHING WELL. ALL NEEDS ATTENDED. ALL FALL AND SAFETY PRECAUTIONS IN PLACE, BED ALARM ON, BED IN LOW AND LOCK POSITION, CALL LIGHT AND TABLE WITHIN EASY REACH, SIDE RAIL UP X2, KEPT HEAD OF THE BED ELEVATED ALL THE TIMES FOR ASPIRATION PRECAUTION. WILL CONTINUE TO MONITOR CLOSELY.
[2022-10-28] MEDS: DONEPEZIL 5 MG TABLET PO SCH (21:28)
[2022-10-28] MEDS: MONTELUKAST SODIUM (10MG) 10 MG TABLET PO SCH (21:28)
[2022-10-28] MEDS: ATORVASTATIN 10 MG TABLET PO SCH (21:28)
[2022-10-28] MEDS: ENOXAPARIN SODIUM 30 MG/0.3 ML DISP.SYRIN SQ SCH (21:30)
[2022-10-28] MEDS: *INSULIN REGULAR(HUMULIN R)HUM 100 UNIT/ML VIAL SQ PRN (22:12)
--- NOTE | 2022-10-28 22:38 | NUR ---
RN NOTES BLOOD SUGAR CHECK RESULT NOTED 270. PER SLIDING SCALE 6 UNITS INSULIN GIVEN.
[2022-10-29] VITALS (14 sets, daily range): BP systolic 131–139; BP diastolic 52–66; TEMP 97.7–98.3; O2SAT 94–100
[2022-10-29] MEDS: ALBUTEROL FS 2.5 MG/0.5 ML VIAL.NEB NEB SCH ×6 (04:15→23:38)
[2022-10-29] MEDS: IPRATROPIUM NEB FS 0.5 MG/2.5 ML AMPUL.NEB NEB SCH ×6 (04:15→23:38)
[2022-10-29] MEDS: BLOOD SUGAR DIAGNOSTIC 1 EACH STRIP VI SCH ×4 (06:16→21:50)
[2022-10-29] MEDS: INSULIN REGULAR, HUMAN 100 UNIT/ML 3 ML VIAL SQ PRN ×3 (06:18→17:14)
--- NOTE | 2022-10-29 06:21 | NUR ---
RN NOTES BLOOD SUGAR CHECK NOTED 251. INSULIN PER SLIDING SCALE , 9 UNITS GIVEN ORDER.
--- NOTE | 2022-10-29 06:41 | NUR ---
MS RN CLOSING NOTES PATIENT AWAKE IN BED RESTING, A/O X 0, NONVERBAL. NODS HER HEAD WHEN ASKING QUESTIONS. NO S/S OF PAIN NOTED AT THIS TIME. ON 2L OXYGEN VIA NC, BREATHING EVEN AND UNLABORED, NO DISTRESS OR SOB NOTED. IV ACCESS RFA #20G INTACT, PATENT AND FLUSHING WELL. ALL DUE MEDS GIVEN ORDER.ALL NEEDS ATTENDED. ALL FALL AND SAFETY PRECAUTIONS IN PLACE, BED ALARM ON, BED IN LOW AND LOCK POSITION, CALL LIGHT AND TABLE WITHIN EASY REACH, SIDE RAIL UP X2, KEPT HEAD OF THE BED ELEVATED ALL THE TIMES FOR ASPIRATION PRECAUTION. WILL ENDORSE FOR VIMAL.
[2022-10-29 06:44] LABS: BASOPHILS % (AUTO) 0.4 % (0.0-2.0); EOSINOPHILS % (AUTO) 4.8 % (0.0-6.0); HEMATOCRIT 29 % (33-45); HEMOGLOBIN 8.8 g/dL (11.5-14.8); LYMPHOCYTES % (AUTO) 28.9 % (20.0-44.0); MEAN CORPUSCULAR HGB CONC 30 g/dl (31.0-36.0); MEAN CORPUSCULAR VOLUME 79 fL (82-100); MONOCYTES # (AUTO) 0.5 K/uL (0.1-1.30); MONOCYTES % (AUTO) 7.2 % (2.0-12.0); NEUTROPHILS % (AUTO) 58.7 % (43.0-81.0); PLATELET COUNT (AUTO) 133 K/uL (150-450); RED BLOOD CELL COUNT(AUTO) 3.69 MIL/uL (4.0-5.2); WHITE BLOOD COUNT (AUTO) 6.8 K/uL (4.3-11.0)
--- NOTE | 2022-10-29 07:30 | NUR ---
RN MS OPENING NOTES RECEIVED PATIENT AWAKE IN BED, A/O X 1, NON VERBAL BUT ABLE TO OPEN EYES ON VERBAL AND PAIN STIMULI, ON HIGH BACK REST POSITION. WITH NASAL CANNULA AT 2 LPM SATURATING WELL, NO EPISODES OF /SOB AT THIS TIME. ON BED REST USES DIAPER AND WITH INDWELLING FINNEGAN CATHETER CONNECTED TO URINE BAG NOTED URINE OUTPUT. WITH IV ACCESS AT RFA #20G WITH D5W AT 75ML/HR INTACT, PATENT AND INFUSING WELL WITH NO INFILTRATION OR SWELLING NOTED. NO PAIN OR DISCOMFORT NOTED AT THIS TIME. KEPT PATIENT WARM AND COMFORTABLE. SAFERTY MEASURES IN PLACE, SIDE RAILS UP X 2 ALL THE TIME, CALL LIGHT AND TABLE WITHIN REACH. WILL CONTINUE TO MONITOR.
[2022-10-29 07:33] LABS: CALCIUM, SERUM 8.5 mg/dL (8.5-10.1); CARBON DIOXIDE 24 mmol/L (21-32); CHLORIDE 120 mmol/L (98-107); GLUCOSE 301 mg/dL (74-106); MAGNESIUM 2.6 mg/dL (1.8-2.4); PHOSPHORUS 3.2 mg/dL (2.5-4.9); POTASSIUM 4.9 mmol/L (3.5-5.1); SODIUM SERUM 150 mmol/L (136-145); UREA NITROGEN, BLOOD 60 mg/dL (7-18)
[2022-10-29] MEDS: PANTOPRAZOLE 40 MG/PACK PACK PO SCH (08:46)
[2022-10-29] MEDS: FOLIC ACID 1 MG TABLET PO SCH (08:46)
[2022-10-29] MEDS: ASPIRIN EC 81 MG TABLET.DR PO SCH (08:46)
[2022-10-29] MEDS: ESCITALOPRAM OXALATE (10 MG) 10 MG TABLET PO SCH (08:46)
[2022-10-29] MEDS: predniSONE 20 MG TABLET PO SCH (08:47)
[2022-10-29] MEDS: CARVEDILOL 12.5 MG TABLET PO SCH ×2 (08:47→16:36)
[2022-10-29] MEDS: FERROUS SULFATE (325 MG) 325 MG/TAB TABLET PO SCH ×2 (08:47→16:33)
[2022-10-29] MEDS: IV D5W 1,000 ML IV SCH (10:35)
--- NOTE | 2022-10-29 16:57 | NUR ---
RN NOTE PATIENT ACCIDENTALLY SCRATCH HER RIGHT THIGH WHILE TRYING TO REMOVE THE FINNEGAN CATHETER STAT LOCK ON HER THIGH. TOOK PHOTO AND FILED IT ON HER CHART. WILL CONTINUE TO MONITOR.
--- NOTE | 2022-10-29 18:32 | NUR ---
RN MS CLOSING NOTES PATIENT AWAKE IN BED, A/O X 1, NON VERBAL BUT ABLE TO OPEN EYES ON VERBAL AND PAIN STIMULI, ON HIGH BACK REST POSITION. WITH NASAL CANNULA AT 2 LPM, SATURATING WELL AND NO EPISODES OF /SOB NOTED AT THIS TIME. ON BED REST, WITH INDWELLING FINNEGAN CATHETER CONNECTED TO URINE BAG, WITH CLEAR AND YELLOW URINE OUTPUT. IV ACCESS AT RFA #20G WITH D5W @ 100MLS/HR. NO INFILTRATION OR SWELLING NOTED, NO PAIN OR DISCOMFORT NOTED AT THIS TIME. PATIENT HAS A SCRATCH ON HER RIGHT THIGH, TOOK PHOTO AND FILED IT ON HER CHART. ALL DUE MEDICATIONS GIVEN ORDERED; ALL NEEDS ATTENDED; AM CARE RENDERED; TURNED AND REPOSITIONED PATIENT EVERY 2 HOURS, KEPT HEAD OF THE BED ELEVATED AT ALL TIME, ON ASPIRATION PRECAUTION. KEPT PATIENT WARM AND COMFORTABLE, KEPT BED ON MODERATE HIGH BACK REST POSITION, KEPT SIDE RAILS UP X 2 ALL THE TIME, KEPT CALL LIGHT WITHIN AT REACH. WILL ENDORSED TO THE SHOEMAKER APPRENTICE NURSE FOR VIMAL.
--- NOTE | 2022-10-29 19:20 | NUR ---
MS RN OPENING NOTES: PATIENT AWAKE IN BED, ON MODERATE HIGH BACKREST. A/O X 1, NON VERBAL, OPEN EYES ON VERBAL STIMULI. NO S/S OF PAIN OR DISCOMFORT NOTED AT THIS TIME. WITH O2 AT 2LPM VIA NC, NO EPISODES OF /SOB AT THIS TIME. IV ACCESS AT RFA #20G INTACT AND PATENT, RUNNING WITH D5W AT 100 ML/HR INFUSING WELL. WITH FINNEGAN CATHETER CONNECTED TO URINE BAG NOTED URINE OUTPUT. FALL AND SAFETY MEASURES IN PLACE. BED IN LOW AND LOCKED POSITION, SIDE RAILS UP X2, CALL LIGHT AND TABLE WITHIN EASY REACH. WILL CONTINUE TO MONITOR.
[2022-10-29] MEDS: MONTELUKAST SODIUM (10MG) 10 MG TABLET PO SCH (21:29)
[2022-10-29] MEDS: ATORVASTATIN 10 MG TABLET PO SCH (21:29)
[2022-10-29] MEDS: DONEPEZIL 5 MG TABLET PO SCH (21:29)
[2022-10-29] MEDS: ENOXAPARIN SODIUM 30 MG/0.3 ML DISP.SYRIN SQ SCH (21:31)
--- NOTE | 2022-10-29 21:50 | NUR ---
MS RN NOTES: BLOOD SUGAR 263, INSULIN INJECTION GIVEN PER PARAMETERS. COSIGNED BY AJIT HAYS.
[2022-10-29] MEDS: *INSULIN REGULAR(HUMULIN R)HUM 100 UNIT/ML VIAL SQ PRN (21:54)
--- NOTE | 2022-10-29 22:30 | NUR ---
MS RN NOTES: NOTED PATIENT'S IV ACCESS INFILTRATED. REMOVED AND CHECKED COMPLETENESS OF IV CATHETER. REINSERTED NEW ACCESS AT LEFT HAND G 24, INTACT AND PATENT, FLUSHING WELL WITH NS.
[2022-10-30] VITALS (12 sets, daily range): BP systolic 127–129; BP diastolic 66–79; TEMP 97.6–98.1; O2SAT 95–99
[2022-10-30] MEDS: IV D5W 1,000 ML IV SCH ×3 (00:26→16:03)
[2022-10-30] MEDS: ALBUTEROL FS 2.5 MG/0.5 ML VIAL.NEB NEB SCH ×6 (03:45→23:30)
[2022-10-30] MEDS: IPRATROPIUM NEB FS 0.5 MG/2.5 ML AMPUL.NEB NEB SCH ×6 (03:45→23:30)
[2022-10-30 06:11] LABS: CALCIUM, SERUM 8.5 mg/dL (8.5-10.1); CARBON DIOXIDE 23 mmol/L (21-32); CHLORIDE 116 mmol/L (98-107); CREATININE 1.8 mg/dL (0.6-1.3); GLUCOSE 279 mg/dL (74-106); MAGNESIUM 2.5 mg/dL (1.8-2.4); PHOSPHORUS 3.5 mg/dL (2.5-4.9); POTASSIUM 4.9 mmol/L (3.5-5.1); SODIUM SERUM 145 mmol/L (136-145); UREA NITROGEN, BLOOD 54 mg/dL (7-18)
[2022-10-30 06:27] LABS: BASOPHILS % (AUTO) 0.5 % (0.0-2.0); EOSINOPHILS % (AUTO) 6.1 % (0.0-6.0); HEMATOCRIT 35 % (33-45); HEMOGLOBIN 9.9 g/dL (11.5-14.8); LYMPHOCYTES # (AUTO) 2.2 K/uL (0.8-4.8); LYMPHOCYTES % (AUTO) 28.2 % (20.0-44.0); MEAN CORPUSCULAR HGB CONC 28 g/dl (31.0-36.0); MEAN CORPUSCULAR VOLUME 84 fL (82-100); MONOCYTES # (AUTO) 0.6 K/uL (0.1-1.30); MONOCYTES % (AUTO) 7.2 % (2.0-12.0); NEUTROPHILS # (AUTO) 4.6 K/uL (1.8-8.9); PLATELET COUNT (AUTO) 136 K/uL (150-450); RED BLOOD CELL COUNT(AUTO) 4.15 MIL/uL (4.0-5.2); WHITE BLOOD COUNT (AUTO) 7.9 K/uL (4.3-11.0)
[2022-10-30] MEDS: BLOOD SUGAR DIAGNOSTIC 1 EACH STRIP VI SCH ×4 (06:31→21:30)
[2022-10-30] MEDS: INSULIN REGULAR, HUMAN 100 UNIT/ML 3 ML VIAL SQ PRN ×3 (06:33→17:35)
--- NOTE | 2022-10-30 06:33 | NUR ---
MS RN NOTES: BLOOD SUGAR 253, INSULIN INJECTION GIVEN PER PARAMETERS. COSIGNED BY AJIT HAYS.
--- NOTE | 2022-10-30 06:48 | NUR ---
MS RN CLOSING NOTES: PATIENT ASLEEP IN BED, ON MODERATE HIGH BACKREST. A/O X 1, NON VERBAL, OPEN EYES ON VERBAL STIMULI. NO S/S OF PAIN OR DISCOMFORT NOTED AT THIS TIME. WITH O2 AT 2LPM VIA NC, NO EPISODES OF /SOB AT THIS TIME. IV ACCESS AT LEFT HAND #24G INTACT AND PATENT, RUNNING WITH D5W AT 100 ML/HR INFUSING WELL. WITH FINNEGAN CATHETER CONNECTED TO URINE BAG, DRAINING OUTPUT 600CC. SCHEDULED MEDICATIONS ADMINISTERED. FALL AND SAFETY MEASURES IN PLACE. BED IN LOW AND LOCKED POSITION, SIDE RAILS UP X2, CALL LIGHT WITHIN EASY REACH. ALL NEEDS ATTENDED AND ANTICIPATED. WILL ENDORSE TO AM NURSE.
--- NOTE | 2022-10-30 07:25 | NUR ---
RN OPENING NOTE RECEIVED PATIENT IN BED AWAKE, A/O X1, NON-VERBAL RESPONSIVE TO VERBAL STIMULI. NO SIGNS OF ACUTE DISTRESS NOTED. ON O2 INHALATION @ 2LPM VIA N/C, NO SOB NOTED, BREATHING EVEN AND UNLABORED. NO S/SX OF PAIN AT THIS TIME. NOTED WITH IV ACCESS ON LEFT HAND #24G, INTACT AND PATENT RUNNING D5W @100ML/HR. SAFETY MEASURE IN PLACE, BED IN LOW AND LOCKED POSITION, SIDE RAILS UP X2, CALL LIGHT PLACED WITHIN EASY REACH. WILL CONTINUE TO MONITOR PATIENT.
[2022-10-30] MEDS: ESCITALOPRAM OXALATE (10 MG) 10 MG TABLET PO SCH (08:19)
[2022-10-30] MEDS: predniSONE 20 MG TABLET PO SCH (08:19)
[2022-10-30] MEDS: FOLIC ACID 1 MG TABLET PO SCH (08:19)
[2022-10-30] MEDS: PANTOPRAZOLE 40 MG/PACK PACK PO SCH (08:19)
[2022-10-30] MEDS: ASPIRIN EC 81 MG TABLET.DR PO SCH (08:19)
[2022-10-30] MEDS: CARVEDILOL 12.5 MG TABLET PO SCH ×2 (08:21→17:13)
[2022-10-30] MEDS: FERROUS SULFATE (325 MG) 325 MG/TAB TABLET PO SCH ×2 (09:16→17:13)
[2022-10-30] MEDS: GLUCERNA SHAKE 237 ML CAN PO SCH (17:13)
--- NOTE | 2022-10-30 18:42 | NUR ---
RN CLOSING NOTE PATIENT IN BED AWAKE, A/O X1, NON-VERBAL RESPONSIVE TO VERBAL STIMULI. NO SIGNS OF ACUTE DISTRESS NOTED. REMAINS ON O2 INHALATION @ 2LPM VIA N/C, NO SOB NOTED, BREATHING EVEN AND UNLABORED, PATIENT WITH EPISODES OF REMOVING N/C. NO S/SX OF PAIN AT THIS TIME. IV ACCESS ON LEFT HAND #24G, INTACT AND PATENT RUNNING D5W @100ML/HR. ALL DUE MEDS GIVEN. ASPIRATION PRECAUTIONS OBSERVED. SAFETY MEASURE IN PLACE, BED IN LOW AND LOCKED POSITION, SIDE RAILS UP X2, CALL LIGHT PLACED WITHIN EASY REACH. WILL ENDORSE TO NEXT SHIFT FOR CONTINUITY OF CARE
--- NOTE | 2022-10-30 19:10 | NUR ---
MS RN OPENING NOTES: PATIENT AWAKE IN BED, ON MODERATE HIGH BACKREST. A/O X 1, NON VERBAL, OPEN EYES ON VERBAL STIMULI. NO S/S OF PAIN OR DISCOMFORT NOTED AT THIS TIME. WITH O2 AT 2LPM VIA NC, NO EPISODES OF /SOB AT THIS TIME. IV ACCESS AT LEFT HAND #24G INTACT AND PATENT, RUNNING WITH D5W AT 100 ML/HR INFUSING WELL. WITH FINNEGAN CATHETER CONNECTED TO URINE BAG. FALL AND SAFETY MEASURES IN PLACE. BED IN LOW AND LOCKED POSITION, SIDE RAILS UP X2, CALL LIGHT WITHIN EASY REACH. FAMILY AT BEDSIDE. WILL CONTINUE TO MONITOR.
--- NOTE | 2022-10-30 20:28 | NUR ---
Pt keeps removing aerosol mask when attempting to give breathing tx. No resp distress noted at this time. Pt SpO2 97% on room air.
[2022-10-30] MEDS: DONEPEZIL 5 MG TABLET PO SCH (21:06)
[2022-10-30] MEDS: MONTELUKAST SODIUM (10MG) 10 MG TABLET PO SCH (21:06)
[2022-10-30] MEDS: ATORVASTATIN 10 MG TABLET PO SCH (21:07)
[2022-10-30] MEDS: ENOXAPARIN SODIUM 30 MG/0.3 ML DISP.SYRIN SQ SCH (21:08)
[2022-10-30] MEDS: *INSULIN REGULAR(HUMULIN R)HUM 100 UNIT/ML VIAL SQ PRN (21:33)
--- NOTE | 2022-10-30 21:33 | NUR ---
MS RN NOTES: BLOOD SUGAR 272, INSULIN INJECTION GIVEN PER PARAMETERS. COSIGNED BY AJIT HAYS.
[2022-10-31] MEDS: IV D5W 1,000 ML IV SCH (02:06)
[2022-10-31] MEDS: IPRATROPIUM NEB FS 0.5 MG/2.5 ML AMPUL.NEB NEB SCH ×3 (03:30→10:34)
[2022-10-31] MEDS: ALBUTEROL FS 2.5 MG/0.5 ML VIAL.NEB NEB SCH ×3 (03:30→10:34)
[2022-10-31 06:05] LABS: BASOPHILS % (AUTO) 0.4 % (0.0-2.0); EOSINOPHILS % (AUTO) 4.7 % (0.0-6.0); HEMATOCRIT 31 % (33-45); HEMOGLOBIN 9.1 g/dL (11.5-14.8); MEAN CORPUSCULAR HGB CONC 30 g/dl (31.0-36.0); MEAN CORPUSCULAR VOLUME 82 fL (82-100); MONOCYTES # (AUTO) 0.5 K/uL (0.1-1.30); MONOCYTES % (AUTO) 6.3 % (2.0-12.0); NEUTROPHILS # (AUTO) 4.8 K/uL (1.8-8.9); NEUTROPHILS % (AUTO) 62.6 % (43.0-81.0); PLATELET COUNT (AUTO) 127 K/uL (150-450); WHITE BLOOD COUNT (AUTO) 7.7 K/uL (4.3-11.0)
[2022-10-31 06:18] LABS: CALCIUM, SERUM 8.2 mg/dL (8.5-10.1); CARBON DIOXIDE 22 mmol/L (21-32); CHLORIDE 109 mmol/L (98-107); CREATININE 1.7 mg/dL (0.6-1.3); GLUCOSE 304 mg/dL (74-106); POTASSIUM 4.6 mmol/L (3.5-5.1); SODIUM SERUM 138 mmol/L (136-145); UREA NITROGEN, BLOOD 43 mg/dL (7-18)
[2022-10-31] MEDS: BLOOD SUGAR DIAGNOSTIC 1 EACH STRIP VI SCH ×2 (06:27→11:28)
[2022-10-31] MEDS: INSULIN REGULAR, HUMAN 100 UNIT/ML 3 ML VIAL SQ PRN (06:29)
--- NOTE | 2022-10-31 06:29 | NUR ---
RN NOTES: BLOOD SUGAR 270, INSULIN INJECTION GIVEN PER PARAMETERS. COSIGNED BY AJIT HAYS.
--- NOTE | 2022-10-31 06:39 | NUR ---
MS RN CLOSING NOTES: PATIENT ASLEEP ON BED, ON MODERATE HIGH BACKREST. A/O X 1, NON VERBAL, OPENS EYES ON VERBAL STIMULI. NO S/S OF PAIN OR DISCOMFORT NOTED AT THIS TIME. WITH O2 AT 2LPM VIA NC, NO EPISODES OF /SOB NOTED, O2 SAT AT 99%. IV ACCESS AT LEFT HAND #24G INTACT AND PATENT, RUNNING WITH D5W AT 100 ML/HR INFUSING WELL. WITH FINNEGAN CATHETER CONNECTED TO URINE BAG DRAINING OUTPUT 600CC. SCHEDULED MEDICATIONS ADMINISTERED. FALL AND SAFETY MEASURES IN PLACE. BED IN LOW AND LOCKED POSITION, SIDE RAILS UP X2, CALL LIGHT WITHIN EASY REACH. ALL NEEDS ATTENDED AND ANTICIPATED. WILL ENDORSE TO AM NURSE.
--- NOTE | 2022-10-31 07:38 | NUR ---
MS RN OPENING NOTES: PATIENT ASLEEP IN BED , AROUSABLE . A/O X 1, NON VERBAL, OPEN EYES ON VERBAL STIMULI. NO S/S OF PAIN OR DISCOMFORT NOTED AT THIS TIME. WITH O2 AT 2LPM VIA NC, NO EPISODES OF /SOB AT THIS TIME. IV ACCESS AT LEFT HAND #24G INTACT AND PATENT, RUNNING WITH D5W AT 100 ML/HR INFUSING WELL. WITH FINNEGAN CATHETER CONNECTED TO URINE BAG. FALL AND SAFETY MEASURES IN PLACE. BED IN LOW AND LOCKED POSITION, SIDE RAILS UP X2, CALL LIGHT WITHIN EASY REACH. FAMILY AT BEDSIDE. WILL CONTINUE TO MONITOR.
[2022-10-31 07:40] VITALS: BP 122/52; TEMP 97.5; O2SAT 96
[2022-10-31 07:45] VITALS: O2SAT 99
[2022-10-31 07:55] VITALS: O2SAT 99
[2022-10-31] MEDS: GLUCERNA SHAKE 237 ML CAN PO SCH ×2 (08:05→11:28)
[2022-10-31] MEDS ORDERED: IV D5W 1,000 ML IV PRN (08:40)
[2022-10-31] MEDS: predniSONE 20 MG TABLET PO SCH (09:06)
[2022-10-31] MEDS: FOLIC ACID 1 MG TABLET PO SCH (09:06)
[2022-10-31] MEDS: ASPIRIN EC 81 MG TABLET.DR PO SCH (09:06)
[2022-10-31] MEDS: FERROUS SULFATE (325 MG) 325 MG/TAB TABLET PO SCH (09:06)
[2022-10-31 09:07] VITALS: BP 122/52
[2022-10-31] MEDS: CARVEDILOL 12.5 MG TABLET PO SCH (09:07)
[2022-10-31] MEDS: PANTOPRAZOLE 40 MG/PACK PACK PO SCH (09:07)
[2022-10-31] MEDS: ESCITALOPRAM OXALATE (10 MG) 10 MG TABLET PO SCH (09:08)
[2022-10-31 10:34] VITALS: O2SAT 97
[2022-10-31 10:44] VITALS: O2SAT 99
--- NOTE | 2022-10-31 13:00 | NUR ---
VIDEO RENTAL CLERK NOTES PATIENT IS WITH ORDER FOR DISCHARGE TO [facility] AND GOING TO [facility] , ALL PAPERS WAS PREPARED AND PATIENT IS ALERT X1 AND NON VERBAL , DISCHARGE INSTRUCTIONS PROVIDED TO THE NURSE [facility]ER[facility] IN [place] IN [facility] , ALSO REPORT WAS GIVEN TO EMT PERSONNEL AND ALL DISCHARGE PAPERS WAS ENDORSED TO THEM . TRANSPORTATION WAS PROVIDED BY AMBULANCE VIA GURNEY IV ACCESS REMOVED AND IV BADGE REMOVED AND PATIENT LEFT IN A STABLE CONDITION WITH EMT AMBULANCE
== END 2022-10-31 13:00 | DRG 189 ==
LOC: ER 14:00 → TELE 18:40 → MED 10-22 11:19
PROVIDERS: ADMIT Internal Medicine; ATTEND Internal Medicine
DX: J96.21 Acute and chronic respiratory failure with hypoxia (principal); G93.41 Metabolic encephalopathy; N17.0 Acute kidney failure with tubular necrosis; J44.1 Chronic obstructive pulmonary disease with (acute) exacerbation; E46 Unspecified protein-calorie malnutrition; E87.0 Hyperosmolality and hypernatremia; E87.20 Acidosis, unspecified; E11.65 Type 2 diabetes mellitus with hyperglycemia; E78.5 Hyperlipidemia, unspecified; E86.0 Dehydration; E86.1 Hypovolemia; R13.10 Dysphagia, unspecified; G30.9 Alzheimer's disease, unspecified; F02.80 Dementia in other diseases classified elsewhere, unspecified severity, without behavioral disturbance, psychotic disturbance, mood disturbance, and anxiety; E88.09 Other disorders of plasma-protein metabolism, not elsewhere classified; Z79.84 Long term (current) use of oral hypoglycemic drugs; Z99.81 Dependence on supplemental oxygen; N18.9 Chronic kidney disease, unspecified; E87.5 Hyperkalemia; E83.41 Hypermagnesemia; Z86.73 Personal history of transient ischemic attack (TIA), and cerebral infarction without residual deficits; I12.9 Hypertensive chronic kidney disease with stage 1 through stage 4 chronic kidney disease, or unspecified chronic kidney disease; R78.89 Finding of other specified substances, not normally found in blood; Z68.22 Body mass index [BMI] 22.0-22.9, adult
CPT/HCPCS: 36415; 36600; 70450-TC; 71045-TC; 76770-TC; 80048-TC; 80053-TC; 80076-TC; 81001; 82533; 82570-TC; 82803-TC; 82962-TC; 83605-TC; 83735-TC; 83880; 84100-TC; 84300-TC; 84443-TC; 84484-TC; 85025-TC; 85378-TC; 85730-TC; 86706; 86803; 87040-TC; 87081-TC; 87086-TC; 92526; 92611-TC; 93307-TC; 93970-TC; 94762-TC; 94799-TC; 97112-TC; 97530-TC; A4223; C9113; G0378; J0696; J1650; J1815; J1885; J2920; J2930; J3490; J7040; J7042; J7060; J7070

== ENCOUNTER 2022-11-14 12:01 | Inpatient (IN) | payer MEDICARE, OTHER ==
[~2022-11-14] VITALS: Ht 167.6 cm; Wt 64.1 kg
[2022-11-14] VITALS (10 sets, daily range): BP systolic 94–129; BP diastolic 48–82; TEMP 97.3–97.6; O2SAT 95–100
[~2022-11-14 12:01] MED LIST changes: -CIPR500S3 PO; +LINA5TAB PO; -METF-442 PO; -POTA-10 PO; -SPIR50TA5 PO
[2022-11-14] MEDS ORDERED: INSU100V3 SQ (12:18)
[2022-11-14] MEDS ORDERED: ASPI-1169 PO (12:18)
[2022-11-14] MEDS ORDERED: OMEP20CA15 PO (12:18)
[2022-11-14] MEDS ORDERED: POLY15DR40 EACHEYE (12:18)
[2022-11-14] MEDS ORDERED: ACET-868 PO (12:18)
[2022-11-14] MEDS ORDERED: IV NS 0.9% 1,000 ML BAG IV ONE ×2 (12:30→14:00)
[2022-11-14 12:47] LABS: BASOPHILS # (AUTO) 0.1 K/uL (0.0-0.2); BASOPHILS % (AUTO) 0.7 % (0.0-2.0); EOSINOPHILS # (AUTO) 0.3 K/uL (0.0-0.7); EOSINOPHILS % (AUTO) 3.9 % (0.0-6.0); HEMATOCRIT 47 % (33-45); HEMOGLOBIN 13.1 g/dL (11.5-14.8); LYMPHOCYTES % (AUTO) 22.7 % (20.0-44.0); MEAN CORPUSCULAR HEMOGLOBIN 24 PG (26.0-33.0); MEAN CORPUSCULAR HGB CONC 28 g/dl (31.0-36.0); MEAN CORPUSCULAR VOLUME 87 fL (82-100); MONOCYTES # (AUTO) 0.5 K/uL (0.1-1.30); MONOCYTES % (AUTO) 5.8 % (2.0-12.0); NEUTROPHILS % (AUTO) 66.9 % (43.0-81.0); PLATELET COUNT (AUTO) 219 K/uL (150-450); RED BLOOD CELL COUNT(AUTO) 5.45 MIL/uL (4.0-5.2); RED CELL DISTRIBUTION WIDTH 21.4 % (11.5-15.0)
[2022-11-14 13:03] LABS: INR 0.97 (0.91-1.10); PARTIAL THROMBOPLASTIN TIME 20.9 SEC (24.3-34.3); PROTHROMBIN TIME 10.2 SECS (9.2-11.1)
[2022-11-14 13:04] LABS: SERUM AMMONIA < 11 umol/L (11-32)
[2022-11-14 13:16] LABS: THYROID STIMULATING HORMONE 0.847 uIU/mL (0.358-3.74)
[2022-11-14 13:21] LABS: LACTIC ACID 2.2 mmol/L (0.4-2.0)
[2022-11-14] MEDS ORDERED: VANCOMYCIN 1 GM in IV D5W 250 ML IV ONE (14:00)
[2022-11-14] MEDS ORDERED: MEROPENEM 1 G in IV NS 0.9% 100 ML IV ONE (14:00)
[2022-11-14] MEDS ORDERED: KETOROLAC TROMETHAMINE INJ 30 MG/ML VIAL IV ONE (14:00)
[2022-11-14] MEDS ORDERED: ACETAMINOPHEN 650 MG/SUPP.RECT RC ONE ×2 (14:00→15:02)
[2022-11-14 14:03] LABS: ALANINE AMINOTRANSFERASE 15 U/L (12-78); ALBUMIN 2.7 g/dL (3.4-5.0); ALKALINE PHOSPHATASE 84 U/L (46-116); ASPARTATE AMINOTRANSFERASE 18 U/L (15-37); BILIRUBIN,DIRECT 0.1 mg/dL (0.0-0.2); BILIRUBIN,TOTAL 0.4 mg/dL (0.2-1.0); CALCIUM, SERUM 9.8 mg/dL (8.5-10.1); CARBON DIOXIDE 26 mmol/L (21-32); CREATININE 3.9 mg/dL (0.6-1.3); GLUCOSE 357 mg/dL (74-106); TOTAL PROTEIN, SERUM 7.5 g/dL (6.4-8.2); UREA NITROGEN, BLOOD 58 mg/dL (7-18)
[2022-11-14 14:04] LABS: CHLORIDE 129 mmol/L (98-107); POTASSIUM 6.8 mmol/L (3.5-5.1); SODIUM SERUM 167 mmol/L (136-145)
[2022-11-14 14:05] LABS: SALICYLATE < 2.3 mg/dL (2.8-20.0)
[2022-11-14] MEDS ORDERED: ALBUTEROL FS 2.5 MG/3 ML VIAL.NEB NEB ONE (14:30)
[2022-11-14] MEDS ORDERED: INSULIN REGULAR, HUMAN 100 UNIT/ML 10 ML VIAL IV ONE (14:30)
[2022-11-14] MEDS ORDERED: CALCIUM CHLORIDE 1,000 MG/10 ML DISP.SYRIN IV ONE (14:30)
[2022-11-14] MEDS ORDERED: SODIUM BICARBONATE SYR 50 MEQ/50 ML DISP.SYRIN IV ONE (14:30)
[2022-11-14] MEDS ORDERED: INSULIN REGULAR, HUMAN 100 UNIT/ML 10 ML VIAL ONE (14:39)
[2022-11-14] MEDS ORDERED: CALCIUM CHLORIDE 1,000 MG/10 ML DISP.SYRIN ONE (14:39)
[2022-11-14] MEDS ORDERED: SODIUM BICARBONATE SYR 50 MEQ/50 ML DISP.SYRIN ONE (14:39)
[2022-11-14] MEDS ORDERED: ONDANSETRON HCL/PF 4 MG/2 ML VIAL IVP PRN (15:00)
[2022-11-14] MEDS ORDERED: ACETAMINOPHEN 325 MG TABLET PO PRN (15:00)
[2022-11-14] MEDS ORDERED: Z GUARD REMEDY 4 OZ OINT TP PRN (15:00)
[2022-11-14] MEDS ORDERED: KETOROLAC TROMETHAMINE 15 MG/ML VIAL ONE (15:02)
[2022-11-14] MEDS ORDERED: ALBUTEROL FS 2.5 MG/3 ML VIAL.NEB ONE (15:03)
[2022-11-14 16:26] LABS: ABG BASE EXCESS -4.2 mmol/L; ABG OXYGEN SATURATION 95.5 % (92.0-98.5); ABG PCO2 53.4 mmHg (35.0-45.0); ABG PH 7.256 (7.350-7.450); ABG PO2 84.9 mmHg (75.0-100.0); ABG TOTAL HEMOGLOBIN 11.2 G/dL (12.0-16.0); AaDO2 175.2 mmHg; COHb 0.2 % (0.5-1.5); MetHb 0.3 % (0.0-1.5); SITE, ABG Right Radial; VENT MODE, BG 6L NC
[2022-11-14] MEDS: CEFEPIME 1 GM in IV D5W 50 ML IV SCH (16:34)
[2022-11-14] MEDS ORDERED: DEXTROSE 50%-WATER 50 ML DISP.SYRIN IV PRN (17:00)
[2022-11-14] MEDS: IV D5W 1,000 ML IV PRN (17:28)
[2022-11-14] MEDS: HEPARIN SODIUM, PORCINE 5000 UNITS/1 ML VIAL SQ SCH (17:29)
[2022-11-14] MEDS: BLOOD SUGAR DIAGNOSTIC 1 EACH STRIP IN SCH ×2 (17:41→23:12)
[2022-11-14] MEDS: INSULIN REGULAR, HUMAN 100 UNIT/ML 3 ML VIAL SQ PRN ×2 (17:59→23:19)
[2022-11-14 18:55] LABS: AMPHETAMINE, URINE NEGATIVE (NEGATIVE); BARBITURATE, URINE NEGATIVE (NEGATIVE); BENZODIAZEPINE, URINE NEGATIVE (NEGATIVE); CANNABINOID, URINE NEGATIVE (NEGATIVE); COCCAINE, URINE NEGATIVE (NEGATIVE); OPIATE, URINE NEGATIVE (NEGATIVE); PHENCYCLIDINE SCREEN,URINE NEGATIVE (NEGATIVE)
[2022-11-14 19:09] LABS: CALCIUM, SERUM 10.1 mg/dL (8.5-10.1); CARBON DIOXIDE 27 mmol/L (21-32); CREATININE 3.6 mg/dL (0.6-1.3); GLUCOSE 344 mg/dL (74-106); POTASSIUM 5.1 mmol/L (3.5-5.1); UREA NITROGEN, BLOOD 56 mg/dL (7-18)
[2022-11-14 19:17] LABS: APPEARANCE,URINE SLIGHTLY CLOUDY (CLEAR); BILIRUBIN,URINE NEGATIVE (NEGATIVE); BLOOD, URINE 2+ Ery/uL (NEGATIVE); COLOR,URINE YELLOW (YELLOW); KETONES,URINE NEGATIVE (NEGATIVE); LEUKOCYTE ESTERASE ,URINE 1+ (NEGATIVE); NITRITE, URINE NEGATIVE (NEGATIVE); PROTEIN,URINE 2+ mg/dl (NEGATIVE); UGLUCOSE NEGATIVE (NEGATIVE); UROBILINOGEN,URINE 0.2 EU/dL (0.2)
[2022-11-14 19:32] LABS: ADD URINE CULTURE YES; BACTERIA,URINE 1+ /HPF (None Seen)
[2022-11-14 19:34] LABS: CHLORIDE 134 mmol/L (98-107); SODIUM SERUM 170 mmol/L (136-145)
[2022-11-14 19:35] LABS: MUCUS,URINE Moderate /LPF (None Seen)
[2022-11-15] VITALS (27 sets, daily range): BP systolic 115–151; BP diastolic 49–79; TEMP 97.5–98.2; O2SAT 96–100
[2022-11-15] MEDS: IV D5W 1,000 ML IV PRN ×4 (01:35→23:44)
[2022-11-15 04:25] LABS: BASOPHILS # (AUTO) 0.1 K/uL (0.0-0.2); BASOPHILS % (AUTO) 0.9 % (0.0-2.0); EOSINOPHILS # (AUTO) 0.6 K/uL (0.0-0.7); EOSINOPHILS % (AUTO) 8.6 % (0.0-6.0); HEMATOCRIT 34 % (33-45); HEMOGLOBIN 9.6 g/dL (11.5-14.8); LYMPHOCYTES # (AUTO) 1.4 K/uL (0.8-4.8); LYMPHOCYTES % (AUTO) 20.3 % (20.0-44.0); MEAN CORPUSCULAR HEMOGLOBIN 24 PG (26.0-33.0); MEAN CORPUSCULAR HGB CONC 28 g/dl (31.0-36.0); MEAN CORPUSCULAR VOLUME 85 fL (82-100); MONOCYTES # (AUTO) 0.4 K/uL (0.1-1.30); NEUTROPHILS # (AUTO) 4.3 K/uL (1.8-8.9); NEUTROPHILS % (AUTO) 64.2 % (43.0-81.0); PLATELET COUNT (AUTO) 149 K/uL (150-450); RED BLOOD CELL COUNT(AUTO) 4.02 MIL/uL (4.0-5.2); RED CELL DISTRIBUTION WIDTH 19.8 % (11.5-15.0); WHITE BLOOD COUNT (AUTO) 6.7 K/uL (4.3-11.0)
[2022-11-15 04:53] LABS: CREATINE KINASE, TOTAL 30 U/L (26-192)
[2022-11-15 05:05] LABS: ALANINE AMINOTRANSFERASE 10 U/L (12-78); ALBUMIN 1.9 g/dL (3.4-5.0); ALKALINE PHOSPHATASE 64 U/L (46-116); ASPARTATE AMINOTRANSFERASE 10 U/L (15-37); BILIRUBIN,TOTAL 0.3 mg/dL (0.2-1.0); CALCIUM, SERUM 9.2 mg/dL (8.5-10.1); CARBON DIOXIDE 26 mmol/L (21-32); CREATININE 3.1 mg/dL (0.6-1.3); GLUCOSE 325 mg/dL (74-106); MAGNESIUM 2.3 mg/dL (1.8-2.4); PHOSPHORUS 3.9 mg/dL (2.5-4.9); POTASSIUM 4.8 mmol/L (3.5-5.1); TOTAL PROTEIN, SERUM 5.4 g/dL (6.4-8.2); UREA NITROGEN, BLOOD 54 mg/dL (7-18)
[2022-11-15 05:22] LABS: CHLORIDE 130 mmol/L (98-107); SODIUM SERUM 162 mmol/L (136-145)
[2022-11-15] MEDS: BLOOD SUGAR DIAGNOSTIC 1 EACH STRIP IN SCH ×4 (05:32→23:33)
[2022-11-15] MEDS: INSULIN REGULAR, HUMAN 100 UNIT/ML 3 ML VIAL SQ PRN ×4 (05:35→23:36)
[2022-11-15] MEDS: HEPARIN SODIUM, PORCINE 5000 UNITS/1 ML VIAL SQ SCH ×2 (08:21→17:00)
[2022-11-15 08:56] LABS: ABG BASE EXCESS -2.7 mmol/L; ABG OXYGEN SATURATION 93.5 % (92.0-98.5); ABG PCO2 50.9 mmHg (35.0-45.0); ABG PH 7.293 (7.350-7.450); ABG PO2 67.5 mmHg (75.0-100.0); ABG TOTAL HEMOGLOBIN 10.6 G/dL (12.0-16.0); AaDO2 43.1 mmHg; COHb 0.3 % (0.5-1.5); MetHb 0.3 % (0.0-1.5); O2Hb 92.9 % (94.0-97.0); SITE, ABG Right Radial; VENT MODE, BG nasal cannula
[2022-11-15] MEDS: IPRATROPIUM NEB FS 0.5 MG/2.5 ML AMPUL.NEB NEB SCH ×3 (10:30→19:45)
[2022-11-15] MEDS: ALBUTEROL HALF STRENGTH 1.25 MG/3 ML VIAL.NEB NEB SCH ×3 (10:30→19:45)
[2022-11-15] MEDS: CEFEPIME 1 GM in IV D5W 50 ML IV SCH (17:24)
[2022-11-16] VITALS (16 sets, daily range): BP systolic 99–152; BP diastolic 52–77; TEMP 97.6–98.2; O2SAT 96–100
[2022-11-16] MEDS: IPRATROPIUM NEB FS 0.5 MG/2.5 ML AMPUL.NEB NEB SCH ×4 (00:56→20:15)
[2022-11-16] MEDS: ALBUTEROL HALF STRENGTH 1.25 MG/3 ML VIAL.NEB NEB SCH ×4 (00:56→20:15)
[2022-11-16] MEDS: BLOOD SUGAR DIAGNOSTIC 1 EACH STRIP IN SCH ×3 (05:32→17:07)
[2022-11-16] MEDS: INSULIN REGULAR, HUMAN 100 UNIT/ML 3 ML VIAL SQ PRN ×3 (05:33→17:10)
[2022-11-16] MEDS: IV D5W 1,000 ML IV PRN ×3 (06:23→21:57)
[2022-11-16 07:07] LABS: PTH, INTACT 58 pg/mL (15-65)
[2022-11-16 08:13] LABS: CALCIUM, SERUM 8.8 mg/dL (8.5-10.1); CARBON DIOXIDE 25 mmol/L (21-32); CHLORIDE 114 mmol/L (98-107); CREATININE 2.3 mg/dL (0.6-1.3); GLUCOSE 274 mg/dL (74-106); POTASSIUM 4.1 mmol/L (3.5-5.1); SODIUM SERUM 146 mmol/L (136-145); UREA NITROGEN, BLOOD 40 mg/dL (7-18)
[2022-11-16] MEDS: HEPARIN SODIUM, PORCINE 5000 UNITS/1 ML VIAL SQ SCH ×2 (09:16→16:52)
[2022-11-16 09:31] LABS: ABG BASE EXCESS -0.7 mmol/L; ABG OXYGEN SATURATION 95.7 % (92.0-98.5); ABG PCO2 45.2 mmHg (35.0-45.0); ABG PH 7.359 (7.350-7.450); ABG PO2 79.5 mmHg (75.0-100.0); ABG TOTAL HEMOGLOBIN 10.2 G/dL (12.0-16.0); AaDO2 37.8 mmHg; COHb 0.3 % (0.5-1.5); MetHb 0.4 % (0.0-1.5); SITE, ABG Right Radial; VENT MODE, BG nasal cannula
[2022-11-16] MEDS: CEFEPIME 1 GM in IV D5W 50 ML IV SCH (16:19)
[2022-11-16] MEDS ORDERED: MORPHINE SULFATE INJ 2 MG/ML DISP.SYRIN IV ONE (21:30)
[2022-11-17] VITALS (12 sets, daily range): BP systolic 116–152; BP diastolic 59–88; TEMP 97.4–99; O2SAT 94–100
[2022-11-17] MEDS: BLOOD SUGAR DIAGNOSTIC 1 EACH STRIP IN SCH ×5 (00:35→23:50)
[2022-11-17] MEDS: INSULIN REGULAR, HUMAN 100 UNIT/ML 3 ML VIAL SQ PRN ×5 (00:36→23:50)
[2022-11-17] MEDS: IPRATROPIUM NEB FS 0.5 MG/2.5 ML AMPUL.NEB NEB SCH ×4 (01:05→19:50)
[2022-11-17] MEDS: ALBUTEROL HALF STRENGTH 1.25 MG/3 ML VIAL.NEB NEB SCH ×4 (01:05→19:50)
[2022-11-17] MEDS: IV D5W 1,000 ML IV PRN (06:24)
[2022-11-17 07:07] LABS: *SPE A/G RATIO 0.7 (0.7-1.7); *SPE ALPHA-1-GLOBULIN 0.3 g/dL (0.0-0.4); *SPE BETA GLOBULIN 0.9 g/dL (0.7-1.3); *SPE GLOBULIN, TOTAL 2.8 g/dL (2.2-3.9); *SPE M-SPIKE Not Observed g/dL (Not Observed); *SPE PROTEIN TOTAL 4.8 g/dL (6.0-8.5); *SPEGAMMA GLOBULIN 0.6 g/dL (0.4-1.8)
[2022-11-17] MEDS: HEPARIN SODIUM, PORCINE 5000 UNITS/1 ML VIAL SQ SCH ×2 (08:09→16:55)
[2022-11-17] MEDS: IV 1/2NS 1000 ML 1,000 ML IV PRN (11:55)
[2022-11-17] MEDS ORDERED: FLUCONAZOLE IN NS 100 MG in PREMIX 1 EA IV ONE ×2 (16:00)
[2022-11-18] VITALS (12 sets, daily range): BP systolic 112–144; BP diastolic 64–98; TEMP 97.4–98.7; O2SAT 94–100
[2022-11-18] MEDS: ALBUTEROL HALF STRENGTH 1.25 MG/3 ML VIAL.NEB NEB SCH ×4 (02:09→20:45)
[2022-11-18] MEDS: IPRATROPIUM NEB FS 0.5 MG/2.5 ML AMPUL.NEB NEB SCH ×4 (02:09→20:45)
[2022-11-18] MEDS: IV 1/2NS 1000 ML 1,000 ML IV PRN ×2 (02:17→14:27)
[2022-11-18] MEDS: BLOOD SUGAR DIAGNOSTIC 1 EACH STRIP IN SCH ×3 (06:13→17:18)
[2022-11-18] MEDS: INSULIN REGULAR, HUMAN 100 UNIT/ML 3 ML VIAL SQ PRN ×3 (06:13→17:20)
[2022-11-18 09:15] LABS: BASOPHILS % (AUTO) 0.5 % (0.0-2.0); EOSINOPHILS # (AUTO) 0.6 K/uL (0.0-0.7); EOSINOPHILS % (AUTO) 8.5 % (0.0-6.0); HEMATOCRIT 33 % (33-45); HEMOGLOBIN 9.9 g/dL (11.5-14.8); LYMPHOCYTES # (AUTO) 1.7 K/uL (0.8-4.8); MEAN CORPUSCULAR HEMOGLOBIN 24 PG (26.0-33.0); MEAN CORPUSCULAR HGB CONC 30 g/dl (31.0-36.0); MEAN CORPUSCULAR VOLUME 78 fL (82-100); MONOCYTES # (AUTO) 0.4 K/uL (0.1-1.30); MONOCYTES % (AUTO) 6.8 % (2.0-12.0); NEUTROPHILS # (AUTO) 3.9 K/uL (1.8-8.9); NEUTROPHILS % (AUTO) 59.2 % (43.0-81.0); PLATELET COUNT (AUTO) 123 K/uL (150-450); RED BLOOD CELL COUNT(AUTO) 4.15 MIL/uL (4.0-5.2); RED CELL DISTRIBUTION WIDTH 19.1 % (11.5-15.0); WHITE BLOOD COUNT (AUTO) 6.6 K/uL (4.3-11.0)
[2022-11-18] MEDS: HEPARIN SODIUM, PORCINE 5000 UNITS/1 ML VIAL SQ SCH ×2 (09:43→17:19)
[2022-11-18 09:50] LABS: ALANINE AMINOTRANSFERASE 14 U/L (12-78); ALBUMIN 1.7 g/dL (3.4-5.0); ALKALINE PHOSPHATASE 77 U/L (46-116); ASPARTATE AMINOTRANSFERASE 16 U/L (15-37); BILIRUBIN,TOTAL 0.3 mg/dL (0.2-1.0); CALCIUM, SERUM 8.7 mg/dL (8.5-10.1); CARBON DIOXIDE 23 mmol/L (21-32); CHLORIDE 115 mmol/L (98-107); CREATININE 1.7 mg/dL (0.6-1.3); GLUCOSE 136 mg/dL (74-106); MAGNESIUM 1.7 mg/dL (1.8-2.4); PHOSPHORUS 3.1 mg/dL (2.5-4.9); POTASSIUM 4.1 mmol/L (3.5-5.1); SODIUM SERUM 146 mmol/L (136-145); TOTAL PROTEIN, SERUM 5.3 g/dL (6.4-8.2); UREA NITROGEN, BLOOD 26 mg/dL (7-18)
[2022-11-19] VITALS (11 sets, daily range): BP systolic 121–135; BP diastolic 61–84; TEMP 97.4–98.5; O2SAT 95–100
[2022-11-19] MEDS: INSULIN REGULAR, HUMAN 100 UNIT/ML 3 ML VIAL SQ PRN ×3 (00:06→12:08)
[2022-11-19] MEDS: BLOOD SUGAR DIAGNOSTIC 1 EACH STRIP IN SCH ×4 (00:09→17:15)
[2022-11-19] MEDS: IPRATROPIUM NEB FS 0.5 MG/2.5 ML AMPUL.NEB NEB SCH ×4 (02:15→19:29)
[2022-11-19] MEDS: ALBUTEROL HALF STRENGTH 1.25 MG/3 ML VIAL.NEB NEB SCH ×4 (02:15→19:29)
[2022-11-19 06:31] LABS: BASOPHILS % (AUTO) 0.5 % (0.0-2.0); EOSINOPHILS # (AUTO) 0.6 K/uL (0.0-0.7); EOSINOPHILS % (AUTO) 8.9 % (0.0-6.0); HEMATOCRIT 31 % (33-45); HEMOGLOBIN 9.3 g/dL (11.5-14.8); LYMPHOCYTES # (AUTO) 1.6 K/uL (0.8-4.8); MEAN CORPUSCULAR HEMOGLOBIN 24 PG (26.0-33.0); MEAN CORPUSCULAR HGB CONC 30 g/dl (31.0-36.0); MEAN CORPUSCULAR VOLUME 79 fL (82-100); MONOCYTES # (AUTO) 0.5 K/uL (0.1-1.30); MONOCYTES % (AUTO) 7.6 % (2.0-12.0); NEUTROPHILS # (AUTO) 3.9 K/uL (1.8-8.9); PLATELET COUNT (AUTO) 148 K/uL (150-450); RED BLOOD CELL COUNT(AUTO) 3.92 MIL/uL (4.0-5.2); RED CELL DISTRIBUTION WIDTH 19.3 % (11.5-15.0); WHITE BLOOD COUNT (AUTO) 6.6 K/uL (4.3-11.0)
[2022-11-19 06:38] LABS: ALANINE AMINOTRANSFERASE 11 U/L (12-78); ALBUMIN 1.7 g/dL (3.4-5.0); ALKALINE PHOSPHATASE 77 U/L (46-116); ASPARTATE AMINOTRANSFERASE 18 U/L (15-37); BILIRUBIN,TOTAL 0.3 mg/dL (0.2-1.0); CALCIUM, SERUM 8.4 mg/dL (8.5-10.1); CARBON DIOXIDE 22 mmol/L (21-32); CHLORIDE 113 mmol/L (98-107); CREATININE 1.6 mg/dL (0.6-1.3); GLUCOSE 141 mg/dL (74-106); MAGNESIUM 1.7 mg/dL (1.8-2.4); PHOSPHORUS 3.7 mg/dL (2.5-4.9); POTASSIUM 4.2 mmol/L (3.5-5.1); SODIUM SERUM 144 mmol/L (136-145); TOTAL PROTEIN, SERUM 5.3 g/dL (6.4-8.2); UREA NITROGEN, BLOOD 22 mg/dL (7-18)
[2022-11-19] MEDS: HEPARIN SODIUM, PORCINE 5000 UNITS/1 ML VIAL SQ SCH ×2 (09:45→17:24)
[2022-11-19] MEDS: IV 1/2NS 1000 ML 1,000 ML IV PRN (10:24)
[2022-11-19] MEDS ORDERED: Magnesium 1GM/D5W 100ML PREMIX 100 ML IV SCH (10:30)
[2022-11-20] VITALS (13 sets, daily range): BP systolic 129–145; BP diastolic 66–83; TEMP 97.5–98.3; O2SAT 93–100
[2022-11-20] MEDS: BLOOD SUGAR DIAGNOSTIC 1 EACH STRIP IN SCH ×4 (00:01→17:07)
[2022-11-20] MEDS: INSULIN REGULAR, HUMAN 100 UNIT/ML 3 ML VIAL SQ PRN ×2 (00:02→05:23)
[2022-11-20] MEDS: ALBUTEROL HALF STRENGTH 1.25 MG/3 ML VIAL.NEB NEB SCH ×4 (00:31→19:47)
[2022-11-20] MEDS: IPRATROPIUM NEB FS 0.5 MG/2.5 ML AMPUL.NEB NEB SCH ×4 (00:31→19:47)
[2022-11-20] MEDS: IV 1/2NS 1000 ML 1,000 ML IV PRN ×2 (02:29→17:00)
[2022-11-20] MEDS: HEPARIN SODIUM, PORCINE 5000 UNITS/1 ML VIAL SQ SCH ×2 (08:28→17:06)
[2022-11-21] VITALS (10 sets, daily range): BP systolic 132–143; BP diastolic 65–77; TEMP 97.9–98.8; O2SAT 95–100
[2022-11-21] MEDS: BLOOD SUGAR DIAGNOSTIC 1 EACH STRIP IN SCH ×4 (00:14→17:00)
[2022-11-21] MEDS: INSULIN REGULAR, HUMAN 100 UNIT/ML 3 ML VIAL SQ PRN ×4 (00:20→18:05)
[2022-11-21] MEDS: IPRATROPIUM NEB FS 0.5 MG/2.5 ML AMPUL.NEB NEB SCH ×4 (01:29→19:54)
[2022-11-21] MEDS: ALBUTEROL HALF STRENGTH 1.25 MG/3 ML VIAL.NEB NEB SCH ×4 (01:29→19:54)
[2022-11-21] MEDS: IV 1/2NS 1000 ML 1,000 ML IV PRN ×2 (05:15→13:36)
[2022-11-21] MEDS: HEPARIN SODIUM, PORCINE 5000 UNITS/1 ML VIAL SQ SCH (08:13)
[2022-11-21] MEDS: predniSONE 20 MG TABLET PO SCH (10:25)
[2022-11-21] MEDS: GLUCERNA SHAKE 237 ML CAN PO SCH (16:43)
[2022-11-21] MEDS: MIRTAZAPINE 15 MG TABLET PO SCH (21:39)
[2022-11-22] VITALS (11 sets, daily range): BP systolic 117–150; BP diastolic 61–103; TEMP 97.2–207.3; O2SAT 94–100
[2022-11-22] MEDS: BLOOD SUGAR DIAGNOSTIC 1 EACH STRIP IN SCH ×5 (00:09→23:59)
[2022-11-22] MEDS: INSULIN REGULAR, HUMAN 100 UNIT/ML 3 ML VIAL SQ PRN ×4 (00:11→18:39)
[2022-11-22] MEDS: IPRATROPIUM NEB FS 0.5 MG/2.5 ML AMPUL.NEB NEB SCH ×4 (02:05→20:00)
[2022-11-22] MEDS: ALBUTEROL HALF STRENGTH 1.25 MG/3 ML VIAL.NEB NEB SCH ×4 (02:05→20:00)
[2022-11-22] MEDS: IV 1/2NS 1000 ML 1,000 ML IV PRN ×2 (02:42→22:30)
[2022-11-22 07:10] LABS: BASOPHILS % (AUTO) 0.4 % (0.0-2.0); EOSINOPHILS % (AUTO) 0.5 % (0.0-6.0); HEMATOCRIT 25 % (33-45); HEMOGLOBIN 7.6 g/dL (11.5-14.8); LYMPHOCYTES # (AUTO) 0.9 K/uL (0.8-4.8); MEAN CORPUSCULAR HEMOGLOBIN 24 PG (26.0-33.0); MEAN CORPUSCULAR HGB CONC 31 g/dl (31.0-36.0); MEAN CORPUSCULAR VOLUME 77 fL (82-100); MONOCYTES # (AUTO) 0.6 K/uL (0.1-1.30); MONOCYTES % (AUTO) 10.2 % (2.0-12.0); NEUTROPHILS % (AUTO) 71.9 % (43.0-81.0); PLATELET COUNT (AUTO) 183 K/uL (150-450); RED BLOOD CELL COUNT(AUTO) 3.18 MIL/uL (4.0-5.2); WHITE BLOOD COUNT (AUTO) 5.6 K/uL (4.3-11.0)
[2022-11-22 07:23] LABS: CALCIUM, SERUM 8.3 mg/dL (8.5-10.1); CARBON DIOXIDE 23 mmol/L (21-32); CHLORIDE 110 mmol/L (98-107); CREATININE 1.4 mg/dL (0.6-1.3); GLUCOSE 265 mg/dL (74-106); POTASSIUM 4.7 mmol/L (3.5-5.1); SODIUM SERUM 140 mmol/L (136-145); UREA NITROGEN, BLOOD 25 mg/dL (7-18)
[2022-11-22] MEDS: GLUCERNA SHAKE 237 ML CAN PO SCH ×2 (07:54→16:43)
[2022-11-22] MEDS: predniSONE 20 MG TABLET PO SCH (09:12)
[2022-11-22] MEDS: MIRTAZAPINE 15 MG TABLET PO SCH (21:38)
[2022-11-23] VITALS (7 sets, daily range): BP systolic 147–155; BP diastolic 62–103; TEMP 97.3–98.5; O2SAT 92–100
[2022-11-23] MEDS: IPRATROPIUM NEB FS 0.5 MG/2.5 ML AMPUL.NEB NEB SCH ×3 (01:12→13:45)
[2022-11-23] MEDS: ALBUTEROL HALF STRENGTH 1.25 MG/3 ML VIAL.NEB NEB SCH ×3 (01:12→13:45)
[2022-11-23] MEDS: BLOOD SUGAR DIAGNOSTIC 1 EACH STRIP IN SCH ×2 (06:53→12:46)
[2022-11-23] MEDS: INSULIN REGULAR, HUMAN 100 UNIT/ML 3 ML VIAL SQ PRN ×3 (06:54→12:50)
[2022-11-23] MEDS: GLUCERNA SHAKE 237 ML CAN PO SCH (08:49)
[2022-11-23] MEDS: predniSONE 20 MG TABLET PO SCH (09:52)
[2022-11-23 09:54] LABS: CALCIUM, SERUM 8.6 mg/dL (8.5-10.1); CARBON DIOXIDE 22 mmol/L (21-32); CHLORIDE 112 mmol/L (98-107); CREATININE 1.5 mg/dL (0.6-1.3); GLUCOSE 149 mg/dL (74-106); SODIUM SERUM 142 mmol/L (136-145); UREA NITROGEN, BLOOD 22 mg/dL (7-18)
[2022-11-23 09:59] LABS: BASOPHILS # (AUTO) 0.1 K/uL (0.0-0.2); BASOPHILS % (AUTO) 0.7 % (0.0-2.0); EOSINOPHILS # (AUTO) 0.1 K/uL (0.0-0.7); EOSINOPHILS % (AUTO) 1.3 % (0.0-6.0); HEMATOCRIT 30 % (33-45); LYMPHOCYTES # (AUTO) 1.9 K/uL (0.8-4.8); LYMPHOCYTES % (AUTO) 22.5 % (20.0-44.0); MEAN CORPUSCULAR HEMOGLOBIN 24 PG (26.0-33.0); MEAN CORPUSCULAR HGB CONC 30 g/dl (31.0-36.0); MEAN CORPUSCULAR VOLUME 80 fL (82-100); MONOCYTES # (AUTO) 0.7 K/uL (0.1-1.30); MONOCYTES % (AUTO) 7.6 % (2.0-12.0); NEUTROPHILS # (AUTO) 5.9 K/uL (1.8-8.9); NEUTROPHILS % (AUTO) 67.9 % (43.0-81.0); PLATELET COUNT (AUTO) 249 K/uL (150-450); RED BLOOD CELL COUNT(AUTO) 3.76 MIL/uL (4.0-5.2); RED CELL DISTRIBUTION WIDTH 19.7 % (11.5-15.0); WHITE BLOOD COUNT (AUTO) 8.7 K/uL (4.3-11.0)
[2022-11-23] MEDS ORDERED: MIRT-121 PO (12:35)
[2022-11-23] MEDS ORDERED: PRED5TAB48 PO (12:35)
[2022-11-23] MEDS ORDERED: PRED20TA PO (12:35)
[2022-11-23] MEDS ORDERED: IPRA0.2S9 NEB (12:35)
[2022-11-23] MEDS ORDERED: ALBU1.25 NEB (12:35)
[2022-11-23] MEDS ORDERED: NUT.237L45 PO (12:35)
[2022-11-23] MEDS: IV 1/2NS 1000 ML 1,000 ML IV PRN (13:03)
== END 2022-11-23 15:20 | DRG 871 ==
LOC: ER 12:27 → TELE1 14:05 → ICU 15:33 → TELE-TD 11-16 14:41 → TELE1 11-17 13:43
PROVIDERS: ADMIT Internal Medicine; ATTEND Nurse Practitioner Acute Care
PROC: 5A09557 Assistance with Respiratory Ventilation, Greater than 96 Consecutive Hours, Continuous Positive Airway Pressure (ICD-10-PCS; 2022-11-14)
PROC: 05HB33Z Insertion of Infusion Device into Right Basilic Vein, Percutaneous Approach (ICD-10-PCS; principal; 2022-11-15)
DX: A41.9 Sepsis, unspecified organism (principal); E43 Unspecified severe protein-calorie malnutrition; G92.8 Other toxic encephalopathy; N17.0 Acute kidney failure with tubular necrosis; I21.A1 Myocardial infarction type 2; J96.02 Acute respiratory failure with hypercapnia; J96.01 Acute respiratory failure with hypoxia; I13.0 Hypertensive heart and chronic kidney disease with heart failure and stage 1 through stage 4 chronic kidney disease, or unspecified chronic kidney disease; E87.0 Hyperosmolality and hypernatremia; E87.20 Acidosis, unspecified; I50.32 Chronic diastolic (congestive) heart failure; B37.49 Other urogenital candidiasis; R62.7 Adult failure to thrive; E87.5 Hyperkalemia; N18.9 Chronic kidney disease, unspecified; E11.22 Type 2 diabetes mellitus with diabetic chronic kidney disease; E78.5 Hyperlipidemia, unspecified; E87.8 Other disorders of electrolyte and fluid balance, not elsewhere classified; D64.9 Anemia, unspecified; E86.0 Dehydration; E88.09 Other disorders of plasma-protein metabolism, not elsewhere classified; G30.9 Alzheimer's disease, unspecified; F02.80 Dementia in other diseases classified elsewhere, unspecified severity, without behavioral disturbance, psychotic disturbance, mood disturbance, and anxiety; Z79.4 Long term (current) use of insulin; Z79.82 Long term (current) use of aspirin; Z91.199 Patient's noncompliance with other medical treatment and regimen due to unspecified reason; E86.1 Hypovolemia
CPT/HCPCS: 36410; 36415; 36600; 70450-TC; 71045-TC; 76770-TC; 80048-TC; 80053-TC; 80076-TC; 81001; 82140-TC; 82550-TC; 82803-TC; 82962-TC; 83605-TC; 83735-TC; 83970; 84100-TC; 84155; 84165; 84443-TC; 84484-TC; 85025-TC; 85730-TC; 87040-TC; 87081-TC; 87086-TC; 92526; 92611-TC; 94660; 94799-TC; A4216; A4223; A6403; G0378; J0692; J1450; J1644; J1815; J1885; J2185; J3370; J3475; J3490; J7030; J7050; J7060; J7070

== ENCOUNTER 2022-11-25 19:14 | Inpatient (IN) | payer MEDICARE, OTHER ==
[~2022-11-25] VITALS: Ht 160 cm; Wt 64.4 kg
[~2022-11-25 19:14] MED LIST changes: +ACET-868 GT; +ALBU1.25 NEB; +ASPI-1169 PO; -ASPI-1420 PO; +ATOR20TA GT; -ATOR20TA PO; +CARV12.52 GT; -CARV12.52 PO; +DONE10TA44 GT; -DONE10TA44 PO; -ESCI10TA PO; -ESOM40CA PO; +FERR325T23 GT; -FERR325T23 PO; +FOLI1TAB16 GT; -FOLI1TAB16 PO; +INSU100V3 SQ; +IPRA0.2S9 NEB; -LINA145C PO; -LINA5TAB PO; +MIRT-121 PO; +MONT10TA22 GT; -MONT10TA22 PO; +NUT.237L45 PO; +OMEP20CA15 PO; +POLY15DR40 EACHEYE; +PRED20TA PO; +PRED5TAB48 PO
[2022-11-25 20:40] LABS: BASOPHILS % (AUTO) 0.4 % (0.0-2.0); EOSINOPHILS % (AUTO) 0.2 % (0.0-6.0); HEMATOCRIT 27 % (33-45); HEMOGLOBIN 8.1 g/dL (11.5-14.8); LYMPHOCYTES # (AUTO) 1.2 K/uL (0.8-4.8); LYMPHOCYTES % (AUTO) 12.6 % (20.0-44.0); MEAN CORPUSCULAR HEMOGLOBIN 24 PG (26.0-33.0); MEAN CORPUSCULAR HGB CONC 30 g/dl (31.0-36.0); MEAN CORPUSCULAR VOLUME 80 fL (82-100); MONOCYTES # (AUTO) 0.3 K/uL (0.1-1.30); MONOCYTES % (AUTO) 3.4 % (2.0-12.0); NEUTROPHILS # (AUTO) 8.2 K/uL (1.8-8.9); NEUTROPHILS % (AUTO) 83.4 % (43.0-81.0); PLATELET COUNT (AUTO) 277 K/uL (150-450); RED CELL DISTRIBUTION WIDTH 20.3 % (11.5-15.0); WHITE BLOOD COUNT (AUTO) 9.8 K/uL (4.3-11.0)
[2022-11-25 21:05] LABS: CALCIUM, SERUM 8.7 mg/dL (8.5-10.1); CARBON DIOXIDE 26 mmol/L (21-32); CHLORIDE 115 mmol/L (98-107); CREATININE 1.6 mg/dL (0.6-1.3); GLUCOSE 199 mg/dL (74-106); POTASSIUM 5.7 mmol/L (3.5-5.1); SODIUM SERUM 145 mmol/L (136-145); UREA NITROGEN, BLOOD 40 mg/dL (7-18)
[2022-11-25] MEDS ORDERED: FUROSEMIDE 20 MG/2 ML VIAL IV ONE (22:30)
[2022-11-25] MEDS ORDERED: FUROSEMIDE 20 MG/2 ML VIAL ONE (22:37)
[2022-11-26] VITALS (11 sets, daily range): BP systolic 98–166; BP diastolic 42–90; TEMP 97.5–98; O2SAT 91–100
[2022-11-26] MEDS ORDERED: ONDANSETRON HCL/PF 4 MG/2 ML VIAL IVP PRN
[2022-11-26] MEDS ORDERED: MAG HYDROX/AL HYDROX/SIMETH 30 ML UDC PO PRN
[2022-11-26] MEDS ORDERED: ACETAMINOPHEN 325 MG TABLET PO PRN
[2022-11-26] MEDS ORDERED: ZOLPIDEM TARTRATE 5 MG TABLET PO PRN
[2022-11-26] MEDS ORDERED: MAGNESIUM HYDROXIDE 30 ML UDC PO PRN
[2022-11-26] MEDS ORDERED: Z GUARD REMEDY 4 OZ OINT TP PRN
[2022-11-26] MEDS ORDERED: SODIUM POLYSTYRENE SULFONATE 15 G/60 ML BOTTLE PO ONE (00:30)
[2022-11-26 06:23] LABS: BASOPHILS % (AUTO) 0.4 % (0.0-2.0); EOSINOPHILS # (AUTO) 0.1 K/uL (0.0-0.7); HEMATOCRIT 29 % (33-45); HEMOGLOBIN 8.5 g/dL (11.5-14.8); LYMPHOCYTES # (AUTO) 2.8 K/uL (0.8-4.8); LYMPHOCYTES % (AUTO) 22.9 % (20.0-44.0); MEAN CORPUSCULAR HEMOGLOBIN 24 PG (26.0-33.0); MEAN CORPUSCULAR HGB CONC 29 g/dl (31.0-36.0); MEAN CORPUSCULAR VOLUME 83 fL (82-100); MONOCYTES # (AUTO) 0.7 K/uL (0.1-1.30); MONOCYTES % (AUTO) 5.8 % (2.0-12.0); NEUTROPHILS # (AUTO) 8.5 K/uL (1.8-8.9); NEUTROPHILS % (AUTO) 69.9 % (43.0-81.0); PLATELET COUNT (AUTO) 107 K/uL (150-450); RED BLOOD CELL COUNT(AUTO) 3.52 MIL/uL (4.0-5.2); RED CELL DISTRIBUTION WIDTH 20.5 % (11.5-15.0); WHITE BLOOD COUNT (AUTO) 12.1 K/uL (4.3-11.0)
[2022-11-26] MEDS ORDERED: *INSULIN REGULAR(HUMULIN R)HUM 100 UNIT/ML VIAL SQ PRN ×2 (06:30→22:00)
[2022-11-26] MEDS ORDERED: DEXTROSE 50%-WATER 50 ML DISP.SYRIN IV PRN ×2 (06:30→22:00)
[2022-11-26 06:57] LABS: CALCIUM, SERUM 8.8 mg/dL (8.5-10.1); CARBON DIOXIDE 26 mmol/L (21-32); CHLORIDE 114 mmol/L (98-107); CREATININE 1.5 mg/dL (0.6-1.3); GLUCOSE 165 mg/dL (74-106); PHOSPHORUS 2.7 mg/dL (2.5-4.9); SODIUM SERUM 148 mmol/L (136-145); UREA NITROGEN, BLOOD 40 mg/dL (7-18)
[2022-11-26] MEDS: GLUCERNA SHAKE 237 ML CAN PO SCH ×2 (08:00→17:00)
[2022-11-26] MEDS: BLOOD SUGAR DIAGNOSTIC 1 EACH STRIP VI SCH ×4 (08:02→22:05)
[2022-11-26] MEDS: PANTOPRAZOLE 40 MG VIAL IV SCH (09:00)
[2022-11-26] MEDS ORDERED: BENAZEPRIL HCL 20 MG TABLET PO SCH (09:00)
[2022-11-26] MEDS: CARVEDILOL 12.5 MG TABLET PO SCH ×2 (09:00→17:00)
[2022-11-26] MEDS ORDERED: AMLODIPINE BESYLATE 5 MG TABLET PO SCH (09:00)
[2022-11-26] MEDS: FERROUS SULFATE (325 MG) 325 MG/TAB TABLET PO SCH ×2 (09:00→17:00)
[2022-11-26] MEDS: ASPIRIN 81 MG TAB.CHEW PO SCH (09:00)
[2022-11-26] MEDS: FOLIC ACID 1 MG TABLET PO SCH (09:00)
[2022-11-26] MEDS: POLYVINYL ALCOHOL 15 ML BOTTLE EACHEYE SCH ×3 (10:05→17:18)
[2022-11-26] MEDS ORDERED: IV D5W 1,000 ML IV PRN (10:30)
[2022-11-26] MEDS: IPRATROPIUM NEB FS 0.5 MG/2.5 ML AMPUL.NEB NEB SCH ×3 (11:40→20:14)
[2022-11-26] MEDS: ALBUTEROL HALF STRENGTH 1.25 MG/3 ML VIAL.NEB NEB SCH ×3 (11:41→20:14)
[2022-11-26] MEDS: INSULIN REGULAR, HUMAN 100 UNIT/ML 3 ML VIAL SQ PRN ×2 (12:37→16:48)
[2022-11-26] MEDS: AMLODIPINE BESYLATE 5 MG TABLET PO SCH (17:00)
[2022-11-26] MEDS ORDERED: IV NS 0.9% 500 ML IV ONE (21:00)
[2022-11-26] MEDS ORDERED: BLOOD SUGAR DIAGNOSTIC 1 EACH STRIP VI SCH (22:00)
[2022-11-26] MEDS ORDERED: INSULIN REGULAR, HUMAN 100 UNIT/ML 3 ML VIAL SQ PRN (22:00)
[2022-11-26] MEDS: MIRTAZAPINE 15 MG TABLET PO SCH (22:00)
[2022-11-26] MEDS: MONTELUKAST SODIUM (10MG) 10 MG TABLET PO SCH (22:00)
[2022-11-26] MEDS: DONEPEZIL 5 MG TABLET PO SCH (22:00)
[2022-11-26] MEDS: ATORVASTATIN 10 MG TABLET PO SCH (22:00)
[2022-11-26] MEDS: IV 1/2NS 1000 ML 1,000 ML IV PRN (22:27)
[2022-11-27] VITALS (25 sets, daily range): BP systolic 85–137; BP diastolic 45–86; TEMP 97.3–97.6; O2SAT 95–100
[2022-11-27] MEDS: IPRATROPIUM NEB FS 0.5 MG/2.5 ML AMPUL.NEB NEB SCH ×4 (02:09→19:55)
[2022-11-27] MEDS: ALBUTEROL HALF STRENGTH 1.25 MG/3 ML VIAL.NEB NEB SCH ×4 (02:09→19:55)
[2022-11-27 02:38] LABS: HEMATOCRIT 24 % (33-45); MEAN CORPUSCULAR HEMOGLOBIN 24 PG (26.0-33.0); MEAN CORPUSCULAR HGB CONC 30 g/dl (31.0-36.0)
[2022-11-27 02:44] LABS: BASOPHILS # (AUTO) 0.1 K/uL (0.0-0.2); BASOPHILS % (AUTO) 0.5 % (0.0-2.0); EOSINOPHILS # (AUTO) 0.1 K/uL (0.0-0.7); EOSINOPHILS % (AUTO) 0.7 % (0.0-6.0); LYMPHOCYTES # (AUTO) 2.5 K/uL (0.8-4.8); LYMPHOCYTES % (AUTO) 12.4 % (20.0-44.0); MEAN CORPUSCULAR VOLUME 79 fL (82-100); MONOCYTES % (AUTO) 5.1 % (2.0-12.0); NEUTROPHILS # (AUTO) 16.4 K/uL (1.8-8.9); NEUTROPHILS % (AUTO) 81.3 % (43.0-81.0); PLATELET COUNT (AUTO) 288 K/uL (150-450); RED BLOOD CELL COUNT(AUTO) 2.98 MIL/uL (4.0-5.2); RED CELL DISTRIBUTION WIDTH 20.7 % (11.5-15.0); WHITE BLOOD COUNT (AUTO) 20.2 K/uL (4.3-11.0)
[2022-11-27 02:48] LABS: INR 1.09 (0.91-1.10); PROTHROMBIN TIME 11.4 SECS (9.2-11.1)
[2022-11-27 07:00] LABS: BASOPHILS # (AUTO) 0.1 K/uL (0.0-0.2); BASOPHILS % (AUTO) 0.3 % (0.0-2.0); EOSINOPHILS # (AUTO) 0.2 K/uL (0.0-0.7); EOSINOPHILS % (AUTO) 0.8 % (0.0-6.0); HEMATOCRIT 25 % (33-45); HEMOGLOBIN 7.2 g/dL (11.5-14.8); LYMPHOCYTES # (AUTO) 3.6 K/uL (0.8-4.8); LYMPHOCYTES % (AUTO) 15.8 % (20.0-44.0); MEAN CORPUSCULAR HEMOGLOBIN 24 PG (26.0-33.0); MEAN CORPUSCULAR HGB CONC 29 g/dl (31.0-36.0); MEAN CORPUSCULAR VOLUME 81 fL (82-100); MONOCYTES # (AUTO) 1.1 K/uL (0.1-1.30); MONOCYTES % (AUTO) 4.9 % (2.0-12.0); NEUTROPHILS # (AUTO) 17.8 K/uL (1.8-8.9); NEUTROPHILS % (AUTO) 78.2 % (43.0-81.0); PLATELET COUNT (AUTO) 256 K/uL (150-450); RED BLOOD CELL COUNT(AUTO) 3.05 MIL/uL (4.0-5.2); RED CELL DISTRIBUTION WIDTH 21.1 % (11.5-15.0); WHITE BLOOD COUNT (AUTO) 22.8 K/uL (4.3-11.0)
[2022-11-27 07:11] LABS: CALCIUM, SERUM 8.1 mg/dL (8.5-10.1); CARBON DIOXIDE 25 mmol/L (21-32); CHLORIDE 112 mmol/L (98-107); CREATININE 1.8 mg/dL (0.6-1.3); GLUCOSE 219 mg/dL (74-106); MAGNESIUM 1.8 mg/dL (1.8-2.4); PHOSPHORUS 3.5 mg/dL (2.5-4.9); SODIUM SERUM 145 mmol/L (136-145); UREA NITROGEN, BLOOD 55 mg/dL (7-18)
[2022-11-27] MEDS: BLOOD SUGAR DIAGNOSTIC 1 EACH STRIP VI SCH ×4 (07:59→21:51)
[2022-11-27] MEDS: INSULIN REGULAR, HUMAN 100 UNIT/ML 3 ML VIAL SQ PRN ×3 (08:20→22:52)
[2022-11-27 09:00] LABS: ANISOCYTOSIS 1+; BAND % (MANUAL) 3 % (0.0-5.0); EOSINOPHILS % (MANUAL) 1 % (0-4); LYMPHOCYTES % (MANUAL) 17 % (16-48); MONOCYTES % (MANUAL) 2 % (0-11.0); NEUTROPHILS % (MANUAL) 77 (42-76); OVALOCYTES 1+; PLATELET ESTIMATE ADEQUATE
[2022-11-27] MEDS: FOLIC ACID 1 MG TABLET PO SCH (09:00)
[2022-11-27] MEDS: AMLODIPINE BESYLATE 5 MG TABLET PO SCH (09:00)
[2022-11-27] MEDS ORDERED: IV NS 0.9% 500 ML IV ONE (09:00)
[2022-11-27] MEDS: ASPIRIN 81 MG TAB.CHEW PO SCH (09:00)
[2022-11-27] MEDS ORDERED: Magnesium 1GM/D5W 100ML PREMIX 100 ML IV SCH (09:00)
[2022-11-27] MEDS: CARVEDILOL 12.5 MG TABLET PO SCH ×2 (09:00→17:00)
[2022-11-27] MEDS: PANTOPRAZOLE 40 MG VIAL IV SCH ×2 (09:00→21:50)
[2022-11-27] MEDS: FERROUS SULFATE (325 MG) 325 MG/TAB TABLET PO SCH ×2 (09:00→17:00)
[2022-11-27 09:19] LABS: IRON, SERUM 24 ug/dl (50-175); TOTAL IRON BINDING CAPACITY 157 ug/dl (250-450)
[2022-11-27 09:32] LABS: FERRITIN 957 ng/mL (8-388)
[2022-11-27] MEDS: POLYVINYL ALCOHOL 15 ML BOTTLE EACHEYE SCH ×3 (09:32→17:42)
[2022-11-27] MEDS: GLUCERNA SHAKE 237 ML CAN PO SCH ×2 (09:44→17:00)
[2022-11-27] MEDS: IV 1/2NS 1000 ML 1,000 ML IV PRN ×2 (13:27→14:01)
[2022-11-27] MEDS: PIPERACILLIN /TAZOBACTAM 3.375 G in IV D5W 50 ML IV SCH ×3 (13:27→23:05)
[2022-11-27 14:54] LABS: ABG BASE EXCESS -0.8 mmol/L; ABG OXYGEN SATURATION 96.2 % (92.0-98.5); ABG PCO2 39.9 mmHg (35.0-45.0); ABG PH 7.396 (7.350-7.450); ABG PO2 89.8 mmHg (75.0-100.0); AaDO2 62.8 mmHg; COHb 0.5 % (0.5-1.5); MetHb 0.4 % (0.0-1.5); O2Hb 95.3 % (94.0-97.0); SITE, ABG Right Radial; VENT MODE, BG 2LPM NC
[2022-11-27 20:21] LABS: HEMOGLOBIN 9.8 g/dL (11.5-14.8)
[2022-11-27] MEDS: MIRTAZAPINE 15 MG TABLET PO SCH (22:00)
[2022-11-27] MEDS: MONTELUKAST SODIUM (10MG) 10 MG TABLET PO SCH (22:00)
[2022-11-27] MEDS: DONEPEZIL 5 MG TABLET PO SCH (22:00)
[2022-11-27] MEDS: ATORVASTATIN 10 MG TABLET PO SCH (22:00)
[2022-11-28] VITALS (48 sets, daily range): BP systolic 58–126; BP diastolic 15–99; TEMP 97–97.8; O2SAT 81–100
[2022-11-28] MEDS: IPRATROPIUM NEB FS 0.5 MG/2.5 ML AMPUL.NEB NEB SCH ×4 (02:12→19:54)
[2022-11-28] MEDS: ALBUTEROL HALF STRENGTH 1.25 MG/3 ML VIAL.NEB NEB SCH ×4 (02:12→19:55)
[2022-11-28] MEDS: IV 1/2NS 1000 ML 1,000 ML IV PRN (04:06)
[2022-11-28 04:48] LABS: BASOPHILS # (AUTO) 0.1 K/uL (0.0-0.2); BASOPHILS % (AUTO) 0.8 % (0.0-2.0); EOSINOPHILS # (AUTO) 0.4 K/uL (0.0-0.7); EOSINOPHILS % (AUTO) 2.7 % (0.0-6.0); HEMATOCRIT 23 % (33-45); HEMOGLOBIN 7.2 g/dL (11.5-14.8); LYMPHOCYTES # (AUTO) 2.3 K/uL (0.8-4.8); LYMPHOCYTES % (AUTO) 14.3 % (20.0-44.0); MEAN CORPUSCULAR HEMOGLOBIN 26 PG (26.0-33.0); MEAN CORPUSCULAR HGB CONC 31 g/dl (31.0-36.0); MEAN CORPUSCULAR VOLUME 81 fL (82-100); MONOCYTES # (AUTO) 0.6 K/uL (0.1-1.30); MONOCYTES % (AUTO) 3.7 % (2.0-12.0); NEUTROPHILS # (AUTO) 12.6 K/uL (1.8-8.9); NEUTROPHILS % (AUTO) 78.5 % (43.0-81.0); PLATELET COUNT (AUTO) 192 K/uL (150-450); RED BLOOD CELL COUNT(AUTO) 2.81 MIL/uL (4.0-5.2); RED CELL DISTRIBUTION WIDTH 20.5 % (11.5-15.0); WHITE BLOOD COUNT (AUTO) 16.1 K/uL (4.3-11.0)
[2022-11-28 05:05] LABS: CALCIUM, SERUM 7.7 mg/dL (8.5-10.1); CARBON DIOXIDE 23 mmol/L (21-32); CHLORIDE 113 mmol/L (98-107); CREATININE 2.2 mg/dL (0.6-1.3); GLUCOSE 199 mg/dL (74-106); MAGNESIUM 1.7 mg/dL (1.8-2.4); PHOSPHORUS 3.9 mg/dL (2.5-4.9); POTASSIUM 4.5 mmol/L (3.5-5.1); SODIUM SERUM 145 mmol/L (136-145); UREA NITROGEN, BLOOD 56 mg/dL (7-18)
[2022-11-28] MEDS: PIPERACILLIN /TAZOBACTAM 3.375 G in IV D5W 50 ML IV SCH (05:38)
[2022-11-28] MEDS: BLOOD SUGAR DIAGNOSTIC 1 EACH STRIP VI SCH ×4 (07:46→21:56)
[2022-11-28] MEDS: GLUCERNA SHAKE 237 ML CAN PO SCH ×2 (07:47→16:17)
[2022-11-28] MEDS: FERROUS SULFATE (325 MG) 325 MG/TAB TABLET PO SCH ×2 (07:47→16:17)
[2022-11-28] MEDS: CARVEDILOL 12.5 MG TABLET PO SCH ×2 (07:47→16:17)
[2022-11-28] MEDS: FOLIC ACID 1 MG TABLET PO SCH (07:48)
[2022-11-28] MEDS: PANTOPRAZOLE 40 MG VIAL IV SCH ×2 (09:25→21:18)
[2022-11-28] MEDS: POLYVINYL ALCOHOL 15 ML BOTTLE EACHEYE SCH ×3 (09:25→16:17)
[2022-11-28] MEDS ORDERED: Magnesium 1GM/D5W 100ML PREMIX 100 ML IV SCH (10:00)
[2022-11-28] MEDS ORDERED: IV NS 0.9% 500 ML IV ONE (16:30)
[2022-11-28 17:14] LABS: APPEARANCE,URINE CLEAR (CLEAR); BILIRUBIN,URINE NEGATIVE (NEGATIVE); BLOOD, URINE 1+ Ery/uL (NEGATIVE); COLOR,URINE YELLOW (YELLOW); KETONES,URINE NEGATIVE (NEGATIVE); LEUKOCYTE ESTERASE ,URINE 1+ (NEGATIVE); NITRITE, URINE NEGATIVE (NEGATIVE); PH,URINE 5.5 (5.0-8.0); PROTEIN,URINE 1+ mg/dl (NEGATIVE); UGLUCOSE NEGATIVE (NEGATIVE); UROBILINOGEN,URINE 0.2 EU/dL (0.2)
[2022-11-28 17:38] LABS: HEMOGLOBIN 5.9 g/dL (11.5-14.8)
[2022-11-28] MEDS: INSULIN REGULAR, HUMAN 100 UNIT/ML 3 ML VIAL SQ PRN ×2 (17:48→23:18)
[2022-11-28 18:14] LABS: ADD URINE CULTURE YES; BACTERIA,URINE Few /HPF (None Seen); SQUAMOUS EPITHELIAL CELL,UR Few /HPF (None Seen); YEAST,URINE Many /HPF (None Seen)
[2022-11-28] MEDS ORDERED: PANTOPRAZOLE 80 MG in IV NS 0.9% 500 ML IV PRN (18:30)
[2022-11-28] MEDS ORDERED: ACETAMINOPHEN 650 MG/SUPP.RECT RC PRN (19:30)
[2022-11-28] MEDS: PHENYLEPHRINE 50 MG in IV NS 0.9% 245 ML IV PRN (21:04)
[2022-11-28] MEDS: PIPERACILLIN /TAZOBACTAM 3.375 G in IV D5W 100 ML IV SCH (21:18)
[2022-11-28] MEDS: MUPIROCIN OINT 2% 22 GM TUBE NS SCH (21:43)
[2022-11-28] MEDS: DONEPEZIL 5 MG TABLET PO SCH (21:56)
[2022-11-28] MEDS: MONTELUKAST SODIUM (10MG) 10 MG TABLET PO SCH (21:56)
[2022-11-28] MEDS: ATORVASTATIN 10 MG TABLET PO SCH (21:56)
[2022-11-28] MEDS: MIRTAZAPINE 15 MG TABLET PO SCH (21:56)
[2022-11-29] VITALS (95 sets, daily range): BP systolic 65–155; BP diastolic 25–142; TEMP 97–98.7; O2SAT 85–100
[2022-11-29] MEDS: IV 1/2NS 1000 ML 1,000 ML IV PRN (01:44)
[2022-11-29] MEDS: ALBUTEROL HALF STRENGTH 1.25 MG/3 ML VIAL.NEB NEB SCH ×4 (01:52→19:15)
[2022-11-29] MEDS: IPRATROPIUM NEB FS 0.5 MG/2.5 ML AMPUL.NEB NEB SCH ×4 (01:52→19:15)
[2022-11-29 04:34] LABS: BASOPHILS % (AUTO) 0.1 % (0.0-2.0); EOSINOPHILS % (AUTO) 0.1 % (0.0-6.0); HEMATOCRIT 21 % (33-45); LYMPHOCYTES # (AUTO) 1.4 K/uL (0.8-4.8); LYMPHOCYTES % (AUTO) 6.1 % (20.0-44.0); MEAN CORPUSCULAR HEMOGLOBIN 26 PG (26.0-33.0); MEAN CORPUSCULAR HGB CONC 30 g/dl (31.0-36.0); MEAN CORPUSCULAR VOLUME 87 fL (82-100); MONOCYTES # (AUTO) 1.3 K/uL (0.1-1.30); MONOCYTES % (AUTO) 5.5 % (2.0-12.0); NEUTROPHILS # (AUTO) 20.3 K/uL (1.8-8.9); NEUTROPHILS % (AUTO) 88.2 % (43.0-81.0); PLATELET COUNT (AUTO) 176 K/uL (150-450); RED BLOOD CELL COUNT(AUTO) 2.39 MIL/uL (4.0-5.2)
[2022-11-29 04:43] LABS: HEMOGLOBIN 6.3 g/dL (11.5-14.8)
[2022-11-29 04:44] LABS: CALCIUM, SERUM 7.6 mg/dL (8.5-10.1); CARBON DIOXIDE 19 mmol/L (21-32); CHLORIDE 115 mmol/L (98-107); CREATININE 2.6 mg/dL (0.6-1.3); GLUCOSE 218 mg/dL (74-106); POTASSIUM 4.7 mmol/L (3.5-5.1); SODIUM SERUM 147 mmol/L (136-145); UREA NITROGEN, BLOOD 55 mg/dL (7-18)
[2022-11-29] MEDS: BLOOD SUGAR DIAGNOSTIC 1 EACH STRIP VI SCH ×3 (07:59→17:31)
[2022-11-29] MEDS: GLUCERNA SHAKE 237 ML CAN PO SCH ×2 (07:59→16:20)
[2022-11-29 08:29] LABS: BAND % (MANUAL) 3 % (0.0-5.0); BASOPHILS % (MANUAL) 0 % (0.0-2.0); EOSINOPHILS % (MANUAL) 0 % (0-4); LYMPHOCYTES % (MANUAL) 9 % (16-48); MONOCYTES % (MANUAL) 7 % (0-11.0); NEUTROPHILS % (MANUAL) 81 (42-76); PLATELET ESTIMATE ADEQUATE
[2022-11-29 08:30] LABS: ANISOCYTOSIS 1+; OVALOCYTES 1+
[2022-11-29] MEDS: CARVEDILOL 12.5 MG TABLET PO SCH ×2 (08:51→16:20)
[2022-11-29] MEDS: FOLIC ACID 1 MG TABLET PO SCH (08:52)
[2022-11-29] MEDS: FERROUS SULFATE (325 MG) 325 MG/TAB TABLET PO SCH ×2 (08:52→16:20)
[2022-11-29] MEDS: POLYVINYL ALCOHOL 15 ML BOTTLE EACHEYE SCH ×3 (09:48→16:19)
[2022-11-29] MEDS: PIPERACILLIN /TAZOBACTAM 3.375 G in IV D5W 100 ML IV SCH ×2 (09:48→21:26)
[2022-11-29] MEDS: MUPIROCIN OINT 2% 22 GM TUBE NS SCH ×2 (09:49→21:00)
[2022-11-29 12:02] LABS: HEMATOCRIT 32 % (33-45); HEMOGLOBIN 9.5 g/dL (11.5-14.8); MEAN CORPUSCULAR HEMOGLOBIN 27 PG (26.0-33.0); MEAN CORPUSCULAR HGB CONC 30 g/dl (31.0-36.0); MEAN CORPUSCULAR VOLUME 90 fL (82-100); PLATELET COUNT (AUTO) 161 K/uL (150-450); RED BLOOD CELL COUNT(AUTO) 3.54 MIL/uL (4.0-5.2); RED CELL DISTRIBUTION WIDTH 18.2 % (11.5-15.0); WHITE BLOOD COUNT (AUTO) 23.8 K/uL (4.3-11.0)
[2022-11-29 15:09] LABS: APPEARANCE,URINE SLIGHTLY CLOUDY (CLEAR); BILIRUBIN,URINE NEGATIVE (NEGATIVE); BLOOD, URINE 1+ Ery/uL (NEGATIVE); COLOR,URINE YELLOW (YELLOW); KETONES,URINE NEGATIVE (NEGATIVE); LEUKOCYTE ESTERASE ,URINE 3+ (NEGATIVE); NITRITE, URINE NEGATIVE (NEGATIVE); PH,URINE 5.5 (5.0-8.0); PROTEIN,URINE 2+ mg/dl (NEGATIVE); UGLUCOSE NEGATIVE (NEGATIVE); UROBILINOGEN,URINE 0.2 EU/dL (0.2)
[2022-11-29 15:22] LABS: CREATININE, URINE 75.2 MG/DL (30.0-125.0); URINE TOTAL PROTEIN 115.2 mg/dL (0-11.9)
[2022-11-29 15:27] LABS: ADD URINE CULTURE YES; BACTERIA,URINE 1+ /HPF (None Seen); WBC,URINE TOO NUMEROUS TO COUN /HPF (0-3); YEAST,URINE Many /HPF (None Seen)
[2022-11-29 16:12] LABS: EOSINOPHIL,URINE None Seen
[2022-11-29] MEDS: PANTOPRAZOLE 40 MG VIAL IV SCH (18:33)
[2022-11-29] MEDS: PHENYLEPHRINE 50 MG in IV NS 0.9% 245 ML IV PRN (19:48)
[2022-11-29] MEDS: MIRTAZAPINE 15 MG TABLET PO SCH (22:00)
[2022-11-29] MEDS: ATORVASTATIN 10 MG TABLET PO SCH (22:00)
[2022-11-29] MEDS: DONEPEZIL 5 MG TABLET PO SCH (22:00)
[2022-11-29] MEDS: MONTELUKAST SODIUM (10MG) 10 MG TABLET PO SCH (22:00)
[2022-11-30] VITALS (38 sets, daily range): BP systolic 91–144; BP diastolic 40–112; TEMP 97.6–98.8; O2SAT 90–100
[2022-11-30] MEDS: BLOOD SUGAR DIAGNOSTIC 1 EACH STRIP VI SCH ×5 (00:13→22:52)
[2022-11-30] MEDS: IV 1/2NS 1000 ML 1,000 ML IV PRN ×2 (00:43→15:00)
[2022-11-30] MEDS: IPRATROPIUM NEB FS 0.5 MG/2.5 ML AMPUL.NEB NEB SCH ×4 (01:10→19:23)
[2022-11-30] MEDS: ALBUTEROL HALF STRENGTH 1.25 MG/3 ML VIAL.NEB NEB SCH ×4 (01:10→19:24)
[2022-11-30 03:44] LABS: BASOPHILS # (AUTO) 0.1 K/uL (0.0-0.2); BASOPHILS % (AUTO) 0.5 % (0.0-2.0); EOSINOPHILS # (AUTO) 0.2 K/uL (0.0-0.7); EOSINOPHILS % (AUTO) 1.5 % (0.0-6.0); HEMATOCRIT 23 % (33-45); HEMOGLOBIN 7.4 g/dL (11.5-14.8); LYMPHOCYTES # (AUTO) 1.8 K/uL (0.8-4.8); LYMPHOCYTES % (AUTO) 13.1 % (20.0-44.0); MEAN CORPUSCULAR HEMOGLOBIN 28 PG (26.0-33.0); MEAN CORPUSCULAR HGB CONC 32 g/dl (31.0-36.0); MEAN CORPUSCULAR VOLUME 87 fL (82-100); MONOCYTES # (AUTO) 0.8 K/uL (0.1-1.30); MONOCYTES % (AUTO) 6.2 % (2.0-12.0); NEUTROPHILS # (AUTO) 10.6 K/uL (1.8-8.9); NEUTROPHILS % (AUTO) 78.7 % (43.0-81.0); PLATELET COUNT (AUTO) 163 K/uL (150-450); RED BLOOD CELL COUNT(AUTO) 2.66 MIL/uL (4.0-5.2); RED CELL DISTRIBUTION WIDTH 18.1 % (11.5-15.0); WHITE BLOOD COUNT (AUTO) 13.4 K/uL (4.3-11.0)
[2022-11-30 04:16] LABS: CALCIUM, SERUM 7.8 mg/dL (8.5-10.1); CARBON DIOXIDE 16 mmol/L (21-32); CHLORIDE 115 mmol/L (98-107); CREATININE 3.1 mg/dL (0.6-1.3); GLUCOSE 209 mg/dL (74-106); POTASSIUM 4.1 mmol/L (3.5-5.1); SODIUM SERUM 147 mmol/L (136-145); UREA NITROGEN, BLOOD 55 mg/dL (7-18)
[2022-11-30] MEDS: GLUCERNA SHAKE 237 ML CAN PO SCH ×2 (08:00→17:00)
[2022-11-30] MEDS: CARVEDILOL 12.5 MG TABLET PO SCH ×2 (08:58→17:00)
[2022-11-30] MEDS: PANTOPRAZOLE 40 MG VIAL IV SCH ×2 (08:58→21:44)
[2022-11-30] MEDS: FOLIC ACID 1 MG TABLET PO SCH (08:59)
[2022-11-30] MEDS: FERROUS SULFATE (325 MG) 325 MG/TAB TABLET PO SCH ×2 (08:59→17:00)
[2022-11-30] MEDS: MUPIROCIN OINT 2% 22 GM TUBE NS SCH ×2 (09:00→21:00)
[2022-11-30] MEDS: PIPERACILLIN /TAZOBACTAM 3.375 G in IV D5W 100 ML IV SCH (09:32)
[2022-11-30] MEDS: POLYVINYL ALCOHOL 15 ML BOTTLE EACHEYE SCH ×3 (09:34→18:15)
[2022-11-30 12:24] LABS: HEMOGLOBIN 7.2 g/dL (11.5-14.8)
[2022-11-30 18:06] LABS: HEMOGLOBIN 7.7 g/dL (11.5-14.8)
[2022-11-30] MEDS: ZOSYN IVPB 2.25 G in IV D5W 50ml IV SCH (18:15)
[2022-11-30] MEDS: MIRTAZAPINE 15 MG TABLET PO SCH (21:42)
[2022-11-30] MEDS: ATORVASTATIN 10 MG TABLET PO SCH (21:42)
[2022-11-30] MEDS: DONEPEZIL 5 MG TABLET PO SCH (21:42)
[2022-11-30] MEDS: MONTELUKAST SODIUM (10MG) 10 MG TABLET PO SCH (21:42)
[2022-12-01] VITALS (26 sets, daily range): BP systolic 104–163; BP diastolic 47–94; TEMP 97.6–98.7; O2SAT 94–100
[2022-12-01] MEDS: IPRATROPIUM NEB FS 0.5 MG/2.5 ML AMPUL.NEB NEB SCH ×5 (01:10→19:20)
[2022-12-01] MEDS: ALBUTEROL HALF STRENGTH 1.25 MG/3 ML VIAL.NEB NEB SCH ×5 (01:11→19:20)
[2022-12-01] MEDS: IV 1/2NS 1000 ML 1,000 ML IV PRN ×2 (01:26→17:26)
[2022-12-01 05:05] LABS: BASOPHILS # (AUTO) 0.1 K/uL (0.0-0.2); BASOPHILS % (AUTO) 0.9 % (0.0-2.0); EOSINOPHILS # (AUTO) 0.5 K/uL (0.0-0.7); EOSINOPHILS % (AUTO) 4.8 % (0.0-6.0); HEMATOCRIT 25 % (33-45); HEMOGLOBIN 7.8 g/dL (11.5-14.8); LYMPHOCYTES % (AUTO) 19.6 % (20.0-44.0); MEAN CORPUSCULAR HEMOGLOBIN 28 PG (26.0-33.0); MEAN CORPUSCULAR HGB CONC 32 g/dl (31.0-36.0); MEAN CORPUSCULAR VOLUME 87 fL (82-100); MONOCYTES # (AUTO) 0.9 K/uL (0.1-1.30); MONOCYTES % (AUTO) 8.7 % (2.0-12.0); NEUTROPHILS # (AUTO) 6.6 K/uL (1.8-8.9); PLATELET COUNT (AUTO) 206 K/uL (150-450); RED BLOOD CELL COUNT(AUTO) 2.82 MIL/uL (4.0-5.2); RED CELL DISTRIBUTION WIDTH 18.4 % (11.5-15.0)
[2022-12-01] MEDS: ZOSYN IVPB 2.25 G in IV D5W 50ml IV SCH ×6 (05:15→23:43)
[2022-12-01 05:16] LABS: CALCIUM, SERUM 7.9 mg/dL (8.5-10.1); CARBON DIOXIDE 15 mmol/L (21-32); CHLORIDE 116 mmol/L (98-107); CREATININE 3.4 mg/dL (0.6-1.3); GLUCOSE 152 mg/dL (74-106); POTASSIUM 3.7 mmol/L (3.5-5.1); SODIUM SERUM 147 mmol/L (136-145); UREA NITROGEN, BLOOD 47 mg/dL (7-18)
[2022-12-01] MEDS: GLUCERNA SHAKE 237 ML CAN PO SCH ×2 (08:00→17:00)
[2022-12-01] MEDS: BLOOD SUGAR DIAGNOSTIC 1 EACH STRIP VI SCH ×4 (08:26→22:19)
[2022-12-01] MEDS: CARVEDILOL 12.5 MG TABLET PO SCH ×2 (08:41→17:00)
[2022-12-01] MEDS: FOLIC ACID 1 MG TABLET PO SCH (08:41)
[2022-12-01] MEDS: FERROUS SULFATE (325 MG) 325 MG/TAB TABLET PO SCH ×2 (08:41→17:00)
[2022-12-01] MEDS: POLYVINYL ALCOHOL 15 ML BOTTLE EACHEYE SCH ×3 (08:42→17:31)
[2022-12-01] MEDS: PANTOPRAZOLE 40 MG VIAL IV SCH ×2 (08:45→20:33)
[2022-12-01] MEDS: MUPIROCIN OINT 2% 22 GM TUBE NS SCH ×2 (12:29→20:33)
[2022-12-01] MEDS: DONEPEZIL 5 MG TABLET PO SCH (22:00)
[2022-12-01] MEDS: MIRTAZAPINE 15 MG TABLET PO SCH (22:00)
[2022-12-01] MEDS: MONTELUKAST SODIUM (10MG) 10 MG TABLET PO SCH (22:00)
[2022-12-01] MEDS: ATORVASTATIN 10 MG TABLET PO SCH (22:00)
[2022-12-02] VITALS (26 sets, daily range): BP systolic 126–181; BP diastolic 59–96; TEMP 97.4–98.5; O2SAT 95–100
[2022-12-02] MEDS: IPRATROPIUM NEB FS 0.5 MG/2.5 ML AMPUL.NEB NEB SCH ×4 (01:01→19:30)
[2022-12-02] MEDS: ALBUTEROL HALF STRENGTH 1.25 MG/3 ML VIAL.NEB NEB SCH ×4 (01:01→19:30)
[2022-12-02 03:52] LABS: BASOPHILS # (AUTO) 0.1 K/uL (0.0-0.2); EOSINOPHILS # (AUTO) 0.5 K/uL (0.0-0.7); EOSINOPHILS % (AUTO) 7.2 % (0.0-6.0); HEMATOCRIT 22 % (33-45); LYMPHOCYTES # (AUTO) 1.5 K/uL (0.8-4.8); LYMPHOCYTES % (AUTO) 21.8 % (20.0-44.0); MEAN CORPUSCULAR HEMOGLOBIN 28 PG (26.0-33.0); MEAN CORPUSCULAR HGB CONC 31 g/dl (31.0-36.0); MEAN CORPUSCULAR VOLUME 88 fL (82-100); MONOCYTES # (AUTO) 0.7 K/uL (0.1-1.30); MONOCYTES % (AUTO) 9.7 % (2.0-12.0); NEUTROPHILS # (AUTO) 4.3 K/uL (1.8-8.9); NEUTROPHILS % (AUTO) 60.3 % (43.0-81.0); PLATELET COUNT (AUTO) 198 K/uL (150-450); RED BLOOD CELL COUNT(AUTO) 2.54 MIL/uL (4.0-5.2); RED CELL DISTRIBUTION WIDTH 18.7 % (11.5-15.0); WHITE BLOOD COUNT (AUTO) 7.1 K/uL (4.3-11.0)
[2022-12-02 04:08] LABS: CALCIUM, SERUM 7.8 mg/dL (8.5-10.1); CARBON DIOXIDE 16 mmol/L (21-32); CHLORIDE 116 mmol/L (98-107); CREATININE 3.2 mg/dL (0.6-1.3); GLUCOSE 121 mg/dL (74-106); POTASSIUM 3.5 mmol/L (3.5-5.1); SODIUM SERUM 148 mmol/L (136-145); UREA NITROGEN, BLOOD 41 mg/dL (7-18)
[2022-12-02] MEDS: ZOSYN IVPB 2.25 G in IV D5W 50ml IV SCH ×4 (05:47→23:57)
[2022-12-02] MEDS: IV 1/2NS 1000 ML 1,000 ML IV PRN ×2 (05:48→23:59)
[2022-12-02] MEDS: GLUCERNA SHAKE 237 ML CAN PO SCH ×2 (08:00→17:00)
[2022-12-02] MEDS: BLOOD SUGAR DIAGNOSTIC 1 EACH STRIP VI SCH ×2 (08:26→14:45)
[2022-12-02] MEDS: CARVEDILOL 12.5 MG TABLET PO SCH ×2 (08:29→17:51)
[2022-12-02] MEDS: FOLIC ACID 1 MG TABLET PO SCH (08:32)
[2022-12-02] MEDS: FERROUS SULFATE (325 MG) 325 MG/TAB TABLET PO SCH ×2 (08:32→17:50)
[2022-12-02] MEDS: PANTOPRAZOLE 40 MG VIAL IV SCH ×2 (08:43→21:26)
[2022-12-02] MEDS: POLYVINYL ALCOHOL 15 ML BOTTLE EACHEYE SCH ×3 (08:43→17:53)
[2022-12-02] MEDS: MUPIROCIN OINT 2% 22 GM TUBE NS SCH ×2 (08:43→21:28)
[2022-12-02] MEDS ORDERED: ANESTHESIA TRAY IN PYXIS 1 EA TRAY MC ONE (13:31)
[2022-12-02] MEDS ORDERED: DEXTROSE 50%-WATER 50 ML DISP.SYRIN IV PRN (17:30)
[2022-12-02] MEDS: BLOOD SUGAR DIAGNOSTIC 1 EACH STRIP IN SCH (17:48)
[2022-12-02] MEDS: MONTELUKAST SODIUM (10MG) 10 MG TABLET PO SCH (21:25)
[2022-12-02] MEDS: DONEPEZIL 5 MG TABLET PO SCH (21:25)
[2022-12-02] MEDS: ATORVASTATIN 10 MG TABLET PO SCH (21:25)
[2022-12-02] MEDS: MIRTAZAPINE 15 MG TABLET PO SCH (21:26)
[2022-12-03] VITALS (10 sets, daily range): BP systolic 142–167; BP diastolic 68–89; TEMP 97.1–97.9; O2SAT 95–100
[2022-12-03] MEDS: BLOOD SUGAR DIAGNOSTIC 1 EACH STRIP IN SCH ×4 (00:33→17:14)
[2022-12-03] MEDS: INSULIN REGULAR, HUMAN 100 UNIT/ML 3 ML VIAL SQ PRN ×3 (00:33→17:16)
[2022-12-03] MEDS: IPRATROPIUM NEB FS 0.5 MG/2.5 ML AMPUL.NEB NEB SCH ×4 (01:30→19:30)
[2022-12-03] MEDS: ALBUTEROL HALF STRENGTH 1.25 MG/3 ML VIAL.NEB NEB SCH ×4 (01:30→19:30)
[2022-12-03] MEDS: ZOSYN IVPB 2.25 G in IV D5W 50ml IV SCH (05:44)
[2022-12-03 05:48] LABS: BASOPHILS # (AUTO) 0.1 K/uL (0.0-0.2); BASOPHILS % (AUTO) 1.2 % (0.0-2.0); EOSINOPHILS # (AUTO) 0.8 K/uL (0.0-0.7); EOSINOPHILS % (AUTO) 8.8 % (0.0-6.0); HEMATOCRIT 31 % (33-45); LYMPHOCYTES # (AUTO) 1.3 K/uL (0.8-4.8); LYMPHOCYTES % (AUTO) 14.1 % (20.0-44.0); MEAN CORPUSCULAR HEMOGLOBIN 28 PG (26.0-33.0); MEAN CORPUSCULAR HGB CONC 32 g/dl (31.0-36.0); MEAN CORPUSCULAR VOLUME 88 fL (82-100); MONOCYTES # (AUTO) 0.7 K/uL (0.1-1.30); MONOCYTES % (AUTO) 7.8 % (2.0-12.0); NEUTROPHILS # (AUTO) 6.5 K/uL (1.8-8.9); NEUTROPHILS % (AUTO) 68.1 % (43.0-81.0); PLATELET COUNT (AUTO) 215 K/uL (150-450); RED BLOOD CELL COUNT(AUTO) 3.55 MIL/uL (4.0-5.2); RED CELL DISTRIBUTION WIDTH 17.8 % (11.5-15.0); WHITE BLOOD COUNT (AUTO) 9.6 K/uL (4.3-11.0)
[2022-12-03 06:01] LABS: CALCIUM, SERUM 7.9 mg/dL (8.5-10.1); CARBON DIOXIDE 19 mmol/L (21-32); CHLORIDE 115 mmol/L (98-107); CREATININE 2.7 mg/dL (0.6-1.3); GLUCOSE 116 mg/dL (74-106); POTASSIUM 3.6 mmol/L (3.5-5.1); SODIUM SERUM 146 mmol/L (136-145); UREA NITROGEN, BLOOD 34 mg/dL (7-18)
[2022-12-03] MEDS: FOLIC ACID 1 MG TABLET PO SCH (08:46)
[2022-12-03] MEDS: CARVEDILOL 12.5 MG TABLET PO SCH ×2 (08:47→17:02)
[2022-12-03] MEDS: FERROUS SULFATE (325 MG) 325 MG/TAB TABLET PO SCH ×2 (08:47→17:01)
[2022-12-03] MEDS: MUPIROCIN OINT 2% 22 GM TUBE NS SCH ×2 (08:50→21:38)
[2022-12-03] MEDS: POLYVINYL ALCOHOL 15 ML BOTTLE EACHEYE SCH ×3 (08:50→17:01)
[2022-12-03] MEDS: PANTOPRAZOLE 40 MG VIAL IV SCH (08:50)
[2022-12-03] MEDS: GLUCERNA SHAKE 237 ML CAN PO SCH ×2 (09:14→17:04)
[2022-12-03] MEDS ORDERED: GLUCERNA 1.2 1,000 ML BOTTLE GT PRN ×2 (09:30)
[2022-12-03] MEDS: IV 1/2NS 1000 ML 1,000 ML IV PRN (14:00)
[2022-12-03] MEDS: ACETAMINOPHEN 325 MG TABLET PO PRN (17:02)
[2022-12-03] MEDS: PANTOPRAZOLE 40 MG/PACK PACK GT SCH (21:38)
[2022-12-03] MEDS: MIRTAZAPINE 15 MG TABLET PO SCH (21:39)
[2022-12-03] MEDS: ATORVASTATIN 10 MG TABLET PO SCH (21:39)
[2022-12-03] MEDS: MONTELUKAST SODIUM (10MG) 10 MG TABLET PO SCH (21:39)
[2022-12-03] MEDS: DONEPEZIL 5 MG TABLET PO SCH (21:40)
[2022-12-04] VITALS (8 sets, daily range): BP systolic 110–155; BP diastolic 58–89; TEMP 97.7–99.3; O2SAT 96–100
[2022-12-04] MEDS: BLOOD SUGAR DIAGNOSTIC 1 EACH STRIP IN SCH ×3 (00:23→13:17)
[2022-12-04] MEDS: INSULIN REGULAR, HUMAN 100 UNIT/ML 3 ML VIAL SQ PRN ×2 (01:08→13:15)
[2022-12-04] MEDS: IPRATROPIUM NEB FS 0.5 MG/2.5 ML AMPUL.NEB NEB SCH ×3 (01:30→13:36)
[2022-12-04] MEDS: ALBUTEROL HALF STRENGTH 1.25 MG/3 ML VIAL.NEB NEB SCH ×3 (01:30→13:36)
[2022-12-04] MEDS: IV 1/2NS 1000 ML 1,000 ML IV PRN (05:29)
[2022-12-04 05:53] LABS: BASOPHILS # (AUTO) 0.1 K/uL (0.0-0.2); BASOPHILS % (AUTO) 0.8 % (0.0-2.0); EOSINOPHILS # (AUTO) 0.6 K/uL (0.0-0.7); EOSINOPHILS % (AUTO) 5.8 % (0.0-6.0); HEMATOCRIT 34 % (33-45); HEMOGLOBIN 10.6 g/dL (11.5-14.8); LYMPHOCYTES # (AUTO) 1.3 K/uL (0.8-4.8); LYMPHOCYTES % (AUTO) 11.8 % (20.0-44.0); MEAN CORPUSCULAR HEMOGLOBIN 28 PG (26.0-33.0); MEAN CORPUSCULAR HGB CONC 32 g/dl (31.0-36.0); MEAN CORPUSCULAR VOLUME 89 fL (82-100); MONOCYTES # (AUTO) 1.1 K/uL (0.1-1.30); NEUTROPHILS % (AUTO) 71.6 % (43.0-81.0); PLATELET COUNT (AUTO) 249 K/uL (150-450); RED BLOOD CELL COUNT(AUTO) 3.81 MIL/uL (4.0-5.2); RED CELL DISTRIBUTION WIDTH 18.5 % (11.5-15.0); WHITE BLOOD COUNT (AUTO) 11.1 K/uL (4.3-11.0)
[2022-12-04 06:03] LABS: CALCIUM, SERUM 7.9 mg/dL (8.5-10.1); CARBON DIOXIDE 19 mmol/L (21-32); CHLORIDE 114 mmol/L (98-107); CREATININE 2.6 mg/dL (0.6-1.3); GLUCOSE 140 mg/dL (74-106); POTASSIUM 3.3 mmol/L (3.5-5.1); SODIUM SERUM 144 mmol/L (136-145); UREA NITROGEN, BLOOD 33 mg/dL (7-18)
[2022-12-04] MEDS ORDERED: GLUCERNA 1.2 1,000 ML BOTTLE GT PRN (08:00)
[2022-12-04] MEDS ORDERED: PROSOURCE / PROSTAT (PYXIS) 30 ML UDC GT SCH (09:00)
[2022-12-04] MEDS: FERROUS SULFATE (325 MG) 325 MG/TAB TABLET PO SCH (10:11)
[2022-12-04] MEDS: FOLIC ACID 1 MG TABLET PO SCH (10:11)
[2022-12-04] MEDS: PANTOPRAZOLE 40 MG/PACK PACK GT SCH (10:11)
[2022-12-04] MEDS: ACETAMINOPHEN 325 MG TABLET PO PRN (10:12)
[2022-12-04] MEDS: CARVEDILOL 12.5 MG TABLET PO SCH (10:12)
[2022-12-04] MEDS: MUPIROCIN OINT 2% 22 GM TUBE NS SCH (10:19)
[2022-12-04] MEDS: POLYVINYL ALCOHOL 15 ML BOTTLE EACHEYE SCH ×2 (10:48→13:18)
== END 2022-12-04 14:53 | DRG 871 ==
LOC: ER 19:15 → TELE 11-26 00:02 → ICU 11-27 13:34 → TELE1 12-02 18:53
PROVIDERS: ADMIT Student in an Organized Health Care Education/Training Program; ATTEND Internal Medicine
PROC: 30233N1 Transfusion of Nonautologous Red Blood Cells into Peripheral Vein, Percutaneous Approach (ICD-10-PCS; 2022-11-27)
PROC: 05HA33Z Insertion of Infusion Device into Left Brachial Vein, Percutaneous Approach (ICD-10-PCS; principal; 2022-11-28)
PROC: 05HC33Z Insertion of Infusion Device into Left Basilic Vein, Percutaneous Approach (ICD-10-PCS; 2022-12-01)
PROC: 0DH63UZ Insertion of Feeding Device into Stomach, Percutaneous Approach (ICD-10-PCS; 2022-12-02)
DX: A41.9 Sepsis, unspecified organism (principal); G93.41 Metabolic encephalopathy; J15.6 Pneumonia due to other Gram-negative bacteria; J69.0 Pneumonitis due to inhalation of food and vomit; N17.0 Acute kidney failure with tubular necrosis; R65.21 Severe sepsis with septic shock; J96.21 Acute and chronic respiratory failure with hypoxia; R57.8 Other shock; K29.71 Gastritis, unspecified, with bleeding; E87.0 Hyperosmolality and hypernatremia; I82.621 Acute embolism and thrombosis of deep veins of right upper extremity; N39.0 Urinary tract infection, site not specified; E87.5 Hyperkalemia; G30.9 Alzheimer's disease, unspecified; F02.80 Dementia in other diseases classified elsewhere, unspecified severity, without behavioral disturbance, psychotic disturbance, mood disturbance, and anxiety; N18.9 Chronic kidney disease, unspecified; E11.22 Type 2 diabetes mellitus with diabetic chronic kidney disease; J44.9 Chronic obstructive pulmonary disease, unspecified; R13.10 Dysphagia, unspecified; J34.2 Deviated nasal septum; Z79.4 Long term (current) use of insulin; Z79.51 Long term (current) use of inhaled steroids; Z79.82 Long term (current) use of aspirin; Z79.899 Other long term (current) drug therapy; I12.9 Hypertensive chronic kidney disease with stage 1 through stage 4 chronic kidney disease, or unspecified chronic kidney disease; D63.8 Anemia in other chronic diseases classified elsewhere; I70.0 Atherosclerosis of aorta; K80.20 Calculus of gallbladder without cholecystitis without obstruction; Z90.710 Acquired absence of both cervix and uterus; E78.5 Hyperlipidemia, unspecified; E87.70 Fluid overload, unspecified; Z22.322 Carrier or suspected carrier of Methicillin resistant Staphylococcus aureus; Z90.49 Acquired absence of other specified parts of digestive tract; B96.89 Other specified bacterial agents as the cause of diseases classified elsewhere; D72.823 Leukemoid reaction
CPT/HCPCS: 36410; 36415; 36600; 43246; 71045-TC; 76700-TC; 76770-TC; 80048-TC; 81001; 82570-TC; 82728-TC; 82962-TC; 83540-TC; 83735-TC; 83880; 84100-TC; 84300-TC; 84443-TC; 84484-TC; 85025-TC; 85027-TC; 85610-TC; 85730-TC; 86850-TC; 87040-TC; 87081-TC; 87086-TC; 92526; 92611-TC; 93307-TC; 93971-TC; 94799-TC; A4223; C9113; G0378; J1815; J1940; J2370; J2543; J2704; J3475; J3490; J7030; J7040; J7050; J7060; J7070; P9016

== ENCOUNTER 2022-12-05 16:17 | Inpatient (IN) | payer MEDICARE, OTHER ==
[~2022-12-05] VITALS: Ht 160 cm; Wt 64.9 kg
[~2022-12-05 16:17] MED LIST changes: -PRED20TA PO; -PRED5TAB48 PO
[2022-12-05 16:52] LABS: BASOPHILS # (AUTO) 0.1 K/uL (0.0-0.2); BASOPHILS % (AUTO) 1.1 % (0.0-2.0); EOSINOPHILS # (AUTO) 0.5 K/uL (0.0-0.7); EOSINOPHILS % (AUTO) 6.1 % (0.0-6.0); HEMATOCRIT 32 % (33-45); HEMOGLOBIN 10.1 g/dL (11.5-14.8); LYMPHOCYTES # (AUTO) 1.1 K/uL (0.8-4.8); LYMPHOCYTES % (AUTO) 13.9 % (20.0-44.0); MEAN CORPUSCULAR HEMOGLOBIN 28 PG (26.0-33.0); MEAN CORPUSCULAR HGB CONC 31 g/dl (31.0-36.0); MEAN CORPUSCULAR VOLUME 90 fL (82-100); MONOCYTES # (AUTO) 0.8 K/uL (0.1-1.30); MONOCYTES % (AUTO) 9.6 % (2.0-12.0); NEUTROPHILS # (AUTO) 5.7 K/uL (1.8-8.9); NEUTROPHILS % (AUTO) 69.3 % (43.0-81.0); PLATELET COUNT (AUTO) 216 K/uL (150-450); RED BLOOD CELL COUNT(AUTO) 3.57 MIL/uL (4.0-5.2); RED CELL DISTRIBUTION WIDTH 19.4 % (11.5-15.0); WHITE BLOOD COUNT (AUTO) 8.2 K/uL (4.3-11.0)
[2022-12-05] MEDS ORDERED: methylPREDNISolone SOD SUCC 125 MG/2ML VIAL ONE (17:15)
[2022-12-05] MEDS ORDERED: Magnesium 1GM/D5W 100ML PREMIX 100 ML IV ONE (17:16)
[2022-12-05 17:20] LABS: ALANINE AMINOTRANSFERASE 52 U/L (12-78); ALBUMIN 1.5 g/dL (3.4-5.0); ALKALINE PHOSPHATASE 65 U/L (46-116); ASPARTATE AMINOTRANSFERASE 14 U/L (15-37); BILIRUBIN,DIRECT 0.1 mg/dL (0.0-0.2); BILIRUBIN,TOTAL 0.2 mg/dL (0.2-1.0); CARBON DIOXIDE 21 mmol/L (21-32); CHLORIDE 113 mmol/L (98-107); CREATININE 2.7 mg/dL (0.6-1.3); GLUCOSE 275 mg/dL (74-106); NT-PRO BNP 13399 pg/mL (0-125); POTASSIUM 3.5 mmol/L (3.5-5.1); SODIUM SERUM 143 mmol/L (136-145); TOTAL PROTEIN, SERUM 4.6 g/dL (6.4-8.2); UREA NITROGEN, BLOOD 41 mg/dL (7-18)
[2022-12-05] MEDS ORDERED: IPRATROPIUM NEB FS 0.5 MG/2.5 ML AMPUL.NEB ONE (17:24)
[2022-12-05] MEDS ORDERED: ALBUTEROL FS 2.5 MG/3 ML VIAL.NEB ONE (17:24)
[2022-12-05] MEDS ORDERED: methylPREDNISolone SOD SUCC 125 MG/2ML VIAL IV ONE (17:30)
[2022-12-05] MEDS ORDERED: AZITHROMYCIN 500 MG in IV D5W 250 ML IV ONE (17:30)
[2022-12-05] MEDS ORDERED: Magnesium 1GM/D5W 100ML PREMIX 200 ML IV ONE (17:30)
[2022-12-05] MEDS ORDERED: ALBUTEROL FS 2.5 MG/3 ML VIAL.NEB CONTNEB ONE (17:30)
[2022-12-05] MEDS ORDERED: IPRATROPIUM NEB FS 0.5 MG/2.5 ML AMPUL.NEB NEB ONE (17:30)
[2022-12-05 17:34] VITALS: O2SAT 99
[2022-12-05] MEDS ORDERED: FUROSEMIDE 20 MG/2 ML VIAL IV ONE (18:00)
[2022-12-05] MEDS ORDERED: ASPIRIN 325 MG TABLET PO ONE (18:00)
[2022-12-05 18:20] VITALS: O2SAT 99
[2022-12-05] MEDS ORDERED: FUROSEMIDE 20 MG/2 ML VIAL ONE (18:48)
[2022-12-05] MEDS ORDERED: ASPIRIN 325 MG TABLET ONE (18:49)
[2022-12-05] MEDS ORDERED: ASPIRIN 300 MG/SUPP.RECT RC ONE ×2 (18:55→19:00)
[2022-12-05] MEDS ORDERED: ONDANSETRON HCL/PF 4 MG/2 ML VIAL IVP PRN (21:30)
[2022-12-05] MEDS ORDERED: Z GUARD REMEDY 4 OZ OINT TP PRN (21:30)
[2022-12-05] MEDS ORDERED: PHARMACY TO CHANGE PO MEDS TO GT/NG XX PRN (21:30)
[2022-12-05] MEDS ORDERED: DEXTROSE 50%-WATER 50 ML DISP.SYRIN IV PRN (22:00)
[2022-12-05] MEDS: DONEPEZIL 5 MG TABLET GT SCH (22:11)
[2022-12-05] MEDS: ATORVASTATIN 10 MG TABLET GT SCH (22:11)
[2022-12-05] MEDS: MIRTAZAPINE 15 MG TABLET GT SCH (22:11)
[2022-12-05] MEDS: MONTELUKAST SODIUM (10MG) 10 MG TABLET GT SCH (22:11)
[2022-12-05 23:00] VITALS: BP 119/63; TEMP 97.5; O2SAT 95
[2022-12-05] MEDS: BLOOD SUGAR DIAGNOSTIC 1 EACH STRIP IN SCH (23:50)
[2022-12-05] MEDS: INSULIN REGULAR, HUMAN 100 UNIT/ML 3 ML VIAL SQ PRN (23:56)
[2022-12-06] VITALS (20 sets, daily range): BP systolic 91–153; BP diastolic 38–82; TEMP 97.3–97.7; O2SAT 13–100
[2022-12-06] MEDS: LEVALBUTEROL HCL NEB 1.25 MG/0.5 ML VIAL.NEB NEB SCH ×4 (01:48→20:22)
[2022-12-06] MEDS: IPRATROPIUM NEB FS 0.5 MG/2.5 ML AMPUL.NEB NEB SCH ×4 (01:48→20:22)
[2022-12-06 04:16] LABS: APPEARANCE,URINE TURBID (CLEAR); BILIRUBIN,URINE 1+ (NEGATIVE); BLOOD, URINE TRACE-INTA Ery/uL (NEGATIVE); COLOR,URINE DARK YELLOW (YELLOW); KETONES,URINE NEGATIVE (NEGATIVE); LEUKOCYTE ESTERASE ,URINE 2+ (NEGATIVE); NITRITE, URINE NEGATIVE (NEGATIVE); PH,URINE 5.5 (5.0-8.0); PROTEIN,URINE 1+ mg/dl (NEGATIVE); UGLUCOSE NEGATIVE (NEGATIVE); UROBILINOGEN,URINE 0.2 EU/dL (0.2)
[2022-12-06 04:32] LABS: ADD URINE CULTURE YES; BACTERIA,URINE Few /HPF (None Seen); SQUAMOUS EPITHELIAL CELL,UR Rare /HPF (None Seen)
[2022-12-06] MEDS: BLOOD SUGAR DIAGNOSTIC 1 EACH STRIP IN SCH ×3 (05:09→17:42)
[2022-12-06] MEDS: INSULIN REGULAR, HUMAN 100 UNIT/ML 3 ML VIAL SQ PRN ×3 (05:11→17:45)
[2022-12-06] MEDS: POLYVINYL ALCOHOL 15 ML BOTTLE EACHEYE SCH ×3 (08:14→17:03)
[2022-12-06] MEDS: methylPREDNISolone SOD SUCC 40 MG/ML VIAL IV SCH ×2 (08:14→21:04)
[2022-12-06] MEDS: FERROUS SULFATE UDC 300 MG/5 ML UDC GT SCH ×2 (08:14→17:42)
[2022-12-06] MEDS: CARVEDILOL 12.5 MG TABLET GT SCH ×2 (08:14→17:43)
[2022-12-06] MEDS: PANTOPRAZOLE 40 MG/PACK PACK GT SCH (08:14)
[2022-12-06] MEDS: FOLIC ACID 1 MG TABLET GT SCH (08:15)
[2022-12-06 08:51] LABS: BASOPHILS % (AUTO) 0.6 % (0.0-2.0); EOSINOPHILS % (AUTO) 0.1 % (0.0-6.0); HEMATOCRIT 35 % (33-45); HEMOGLOBIN 10.7 g/dL (11.5-14.8); LYMPHOCYTES # (AUTO) 1.1 K/uL (0.8-4.8); LYMPHOCYTES % (AUTO) 15.1 % (20.0-44.0); MEAN CORPUSCULAR HEMOGLOBIN 28 PG (26.0-33.0); MEAN CORPUSCULAR HGB CONC 31 g/dl (31.0-36.0); MEAN CORPUSCULAR VOLUME 90 fL (82-100); MONOCYTES # (AUTO) 0.2 K/uL (0.1-1.30); MONOCYTES % (AUTO) 3.3 % (2.0-12.0); NEUTROPHILS # (AUTO) 5.7 K/uL (1.8-8.9); NEUTROPHILS % (AUTO) 80.9 % (43.0-81.0); PLATELET COUNT (AUTO) 109 K/uL (150-450); RED BLOOD CELL COUNT(AUTO) 3.83 MIL/uL (4.0-5.2); RED CELL DISTRIBUTION WIDTH 19.6 % (11.5-15.0); WHITE BLOOD COUNT (AUTO) 7.1 K/uL (4.3-11.0)
[2022-12-06] MEDS ORDERED: MAGN400O6 GT (09:03)
[2022-12-06] MEDS ORDERED: PANT40SU2 GT (09:03)
[2022-12-06] MEDS ORDERED: ZOLP5TAB2 GT (09:03)
[2022-12-06] MEDS ORDERED: MIRT-121 GT (09:03)
[2022-12-06] MEDS ORDERED: ONDA4TAB5 GT (09:03)
[2022-12-06] MEDS ORDERED: NUT.250L18 GT (09:03)
[2022-12-06] MEDS ORDERED: MAG30ORA GT (09:03)
[2022-12-06 09:38] LABS: CALCIUM, SERUM 8.1 mg/dL (8.5-10.1); CARBON DIOXIDE 15 mmol/L (21-32); CHLORIDE 113 mmol/L (98-107); CREATININE 2.9 mg/dL (0.6-1.3); GLUCOSE 301 mg/dL (74-106); PHOSPHORUS 5.5 mg/dL (2.5-4.9); POTASSIUM 4.3 mmol/L (3.5-5.1); SODIUM SERUM 142 mmol/L (136-145); UREA NITROGEN, BLOOD 46 mg/dL (7-18)
[2022-12-06 09:45] LABS: THYROID STIMULATING HORMONE 0.831 uIU/mL (0.358-3.74)
[2022-12-06] MEDS: ACETYLCYSTEINE 10% SOLN 400 MG/4 ML VIAL NEB SCH ×2 (10:44→15:09)
[2022-12-06] MEDS: GLUCERNA 1.2 1,000 ML BOTTLE NG PRN (12:43)
[2022-12-06 15:15] LABS: ABG PH 7.249 (7.350-7.450); ABG PO2 63.9 mmHg (75.0-100.0); ABG TOTAL HEMOGLOBIN 10.2 G/dL (12.0-16.0); AaDO2 83.8 mmHg; COHb 0.2 % (0.5-1.5); MetHb 0.3 % (0.0-1.5); O2Hb 91.5 % (94.0-97.0); SITE, ABG Left Radial; VENT MODE, BG 2 LPM NC
[2022-12-06] MEDS: ACETAMINOPHEN 650 MG/20.3 ML UDC PEG PRN (17:43)
[2022-12-06] MEDS: DONEPEZIL 5 MG TABLET GT SCH (21:47)
[2022-12-06] MEDS: ATORVASTATIN 10 MG TABLET GT SCH (21:47)
[2022-12-06] MEDS: MONTELUKAST SODIUM (10MG) 10 MG TABLET GT SCH (21:47)
[2022-12-06] MEDS: MIRTAZAPINE 15 MG TABLET GT SCH (21:48)
[2022-12-07] VITALS (21 sets, daily range): BP systolic 100–121; BP diastolic 53–93; TEMP 97.5–98.1; O2SAT 95–100
[2022-12-07] MEDS: INSULIN REGULAR, HUMAN 100 UNIT/ML 3 ML VIAL SQ PRN ×4 (00:22→18:22)
[2022-12-07] MEDS: BLOOD SUGAR DIAGNOSTIC 1 EACH STRIP IN SCH ×4 (00:29→18:21)
[2022-12-07] MEDS: IPRATROPIUM NEB FS 0.5 MG/2.5 ML AMPUL.NEB NEB SCH ×4 (02:22→20:22)
[2022-12-07] MEDS: LEVALBUTEROL HCL NEB 1.25 MG/0.5 ML VIAL.NEB NEB SCH ×4 (02:22→20:22)
[2022-12-07] MEDS: ACETYLCYSTEINE 10% SOLN 400 MG/4 ML VIAL NEB SCH ×3 (02:23→15:04)
[2022-12-07 04:38] LABS: BASOPHILS % (AUTO) 0.1 % (0.0-2.0); HEMATOCRIT 26 % (33-45); HEMOGLOBIN 8.4 g/dL (11.5-14.8); LYMPHOCYTES # (AUTO) 0.7 K/uL (0.8-4.8); LYMPHOCYTES % (AUTO) 7.8 % (20.0-44.0); MEAN CORPUSCULAR HEMOGLOBIN 29 PG (26.0-33.0); MEAN CORPUSCULAR HGB CONC 33 g/dl (31.0-36.0); MEAN CORPUSCULAR VOLUME 87 fL (82-100); MONOCYTES # (AUTO) 0.3 K/uL (0.1-1.30); MONOCYTES % (AUTO) 2.9 % (2.0-12.0); NEUTROPHILS % (AUTO) 89.2 % (43.0-81.0); PLATELET COUNT (AUTO) 238 K/uL (150-450); RED BLOOD CELL COUNT(AUTO) 2.93 MIL/uL (4.0-5.2); RED CELL DISTRIBUTION WIDTH 19.3 % (11.5-15.0); WHITE BLOOD COUNT (AUTO) 8.9 K/uL (4.3-11.0)
[2022-12-07 04:56] LABS: CARBON DIOXIDE 19 mmol/L (21-32); CHLORIDE 112 mmol/L (98-107); CREATININE 2.8 mg/dL (0.6-1.3); GLUCOSE 265 mg/dL (74-106); MAGNESIUM 1.9 mg/dL (1.8-2.4); PHOSPHORUS 4.7 mg/dL (2.5-4.9); POTASSIUM 3.7 mmol/L (3.5-5.1); SODIUM SERUM 142 mmol/L (136-145); UREA NITROGEN, BLOOD 50 mg/dL (7-18)
[2022-12-07 06:38] LABS: ABG OXYGEN SATURATION 97.7 % (92.0-98.5); ABG PCO2 49.1 mmHg (35.0-45.0); ABG PH 7.235 (7.350-7.450); ABG PO2 112.5 mmHg (75.0-100.0); ABG TOTAL HEMOGLOBIN 10.1 G/dL (12.0-16.0); AaDO2 43.7 mmHg; COHb 0.3 % (0.5-1.5); O2Hb 97.4 % (94.0-97.0); SITE, ABG Left Radial; VENT MODE, BG 15/5 30%
[2022-12-07] MEDS: POLYVINYL ALCOHOL 15 ML BOTTLE EACHEYE SCH ×3 (09:02→16:39)
[2022-12-07] MEDS: PANTOPRAZOLE 40 MG/PACK PACK GT SCH (09:02)
[2022-12-07] MEDS: FOLIC ACID 1 MG TABLET GT SCH (09:03)
[2022-12-07] MEDS: CARVEDILOL 12.5 MG TABLET GT SCH ×2 (09:04→16:38)
[2022-12-07] MEDS: FERROUS SULFATE UDC 300 MG/5 ML UDC GT SCH ×2 (09:04→16:39)
[2022-12-07] MEDS: methylPREDNISolone SOD SUCC 40 MG/ML VIAL IV SCH ×2 (09:04→21:53)
[2022-12-07] MEDS: GLUCERNA 1.2 1,000 ML BOTTLE NG PRN (12:37)
[2022-12-07] MEDS: DONEPEZIL 5 MG TABLET GT SCH (21:53)
[2022-12-07] MEDS: MONTELUKAST SODIUM (10MG) 10 MG TABLET GT SCH (21:54)
[2022-12-07] MEDS: ATORVASTATIN 10 MG TABLET GT SCH (22:14)
[2022-12-07] MEDS: MIRTAZAPINE 15 MG TABLET GT SCH (22:15)
[2022-12-08] VITALS (15 sets, daily range): BP systolic 105–160; BP diastolic 37–84; TEMP 97.3–98.1; O2SAT 93–100
[2022-12-08] MEDS: BLOOD SUGAR DIAGNOSTIC 1 EACH STRIP IN SCH ×4 (00:19→17:32)
[2022-12-08] MEDS: INSULIN REGULAR, HUMAN 100 UNIT/ML 3 ML VIAL SQ PRN ×4 (00:20→18:02)
[2022-12-08] MEDS: IPRATROPIUM NEB FS 0.5 MG/2.5 ML AMPUL.NEB NEB SCH ×4 (01:04→20:38)
[2022-12-08] MEDS: LEVALBUTEROL HCL NEB 1.25 MG/0.5 ML VIAL.NEB NEB SCH ×4 (01:04→20:38)
[2022-12-08] MEDS: ACETYLCYSTEINE 10% SOLN 400 MG/4 ML VIAL NEB SCH ×3 (01:04→14:16)
[2022-12-08 04:48] LABS: OCCULT BLOOD STOOL POSITIVE (NEGATIVE)
[2022-12-08 06:24] LABS: BASOPHILS % (AUTO) 0.2 % (0.0-2.0); HEMATOCRIT 33 % (33-45); HEMOGLOBIN 10.2 g/dL (11.5-14.8); LYMPHOCYTES # (AUTO) 0.9 K/uL (0.8-4.8); LYMPHOCYTES % (AUTO) 7.4 % (20.0-44.0); MEAN CORPUSCULAR HEMOGLOBIN 28 PG (26.0-33.0); MEAN CORPUSCULAR HGB CONC 31 g/dl (31.0-36.0); MEAN CORPUSCULAR VOLUME 88 fL (82-100); MONOCYTES # (AUTO) 0.8 K/uL (0.1-1.30); MONOCYTES % (AUTO) 6.5 % (2.0-12.0); NEUTROPHILS # (AUTO) 10.7 K/uL (1.8-8.9); NEUTROPHILS % (AUTO) 85.9 % (43.0-81.0); PLATELET COUNT (AUTO) 313 K/uL (150-450); RED BLOOD CELL COUNT(AUTO) 3.71 MIL/uL (4.0-5.2); RED CELL DISTRIBUTION WIDTH 19.4 % (11.5-15.0); WHITE BLOOD COUNT (AUTO) 12.5 K/uL (4.3-11.0)
[2022-12-08 07:03] LABS: CALCIUM, SERUM 8.6 mg/dL (8.5-10.1); CARBON DIOXIDE 20 mmol/L (21-32); CHLORIDE 112 mmol/L (98-107); CREATININE 2.5 mg/dL (0.6-1.3); GLUCOSE 266 mg/dL (74-106); PHOSPHORUS 4.3 mg/dL (2.5-4.9); POTASSIUM 3.9 mmol/L (3.5-5.1); SODIUM SERUM 142 mmol/L (136-145); UREA NITROGEN, BLOOD 56 mg/dL (7-18)
[2022-12-08] MEDS: POLYVINYL ALCOHOL 15 ML BOTTLE EACHEYE SCH ×3 (09:07→16:08)
[2022-12-08] MEDS: methylPREDNISolone SOD SUCC 40 MG/ML VIAL IV SCH ×2 (09:08→21:21)
[2022-12-08] MEDS: CARVEDILOL 12.5 MG TABLET GT SCH ×2 (09:09→16:12)
[2022-12-08] MEDS: FERROUS SULFATE UDC 300 MG/5 ML UDC GT SCH ×2 (09:09→16:16)
[2022-12-08] MEDS: FOLIC ACID 1 MG TABLET GT SCH (09:10)
[2022-12-08] MEDS: PANTOPRAZOLE 40 MG/PACK PACK GT SCH (09:10)
[2022-12-08 13:08] LABS: ABG BASE EXCESS -6.5 mmol/L; ABG OXYGEN SATURATION 93.4 % (92.0-98.5); ABG PCO2 40.2 mmHg (35.0-45.0); ABG PH 7.302 (7.350-7.450); ABG PO2 67.9 mmHg (75.0-100.0); ABG TOTAL HEMOGLOBIN 9.3 G/dL (12.0-16.0); AaDO2 33.7 mmHg; COHb 0.1 % (0.5-1.5); MetHb 0.3 % (0.0-1.5); SITE, ABG Left Femoral; VENT MODE, BG RA
[2022-12-08] MEDS: GLUCERNA 1.2 1,000 ML BOTTLE NG PRN (16:08)
[2022-12-08] MEDS: DONEPEZIL 5 MG TABLET GT SCH (21:22)
[2022-12-08] MEDS: ATORVASTATIN 10 MG TABLET GT SCH (21:23)
[2022-12-08] MEDS: MIRTAZAPINE 15 MG TABLET GT SCH (21:23)
[2022-12-08] MEDS: MONTELUKAST SODIUM (10MG) 10 MG TABLET GT SCH (21:23)
[2022-12-09] VITALS (16 sets, daily range): BP systolic 141–197; BP diastolic 64–107; TEMP 97.5–99; O2SAT 94–100
[2022-12-09] MEDS: BLOOD SUGAR DIAGNOSTIC 1 EACH STRIP IN SCH ×5 (00:17→23:55)
[2022-12-09] MEDS: INSULIN REGULAR, HUMAN 100 UNIT/ML 3 ML VIAL SQ PRN ×4 (00:18→17:42)
[2022-12-09] MEDS: ACETYLCYSTEINE 10% SOLN 400 MG/4 ML VIAL NEB SCH ×4 (01:25→23:15)
[2022-12-09] MEDS: LEVALBUTEROL HCL NEB 1.25 MG/0.5 ML VIAL.NEB NEB SCH ×4 (01:25→19:39)
[2022-12-09] MEDS: IPRATROPIUM NEB FS 0.5 MG/2.5 ML AMPUL.NEB NEB SCH ×4 (01:25→19:39)
[2022-12-09 07:17] LABS: BASOPHILS % (AUTO) 0.1 % (0.0-2.0); HEMATOCRIT 29 % (33-45); HEMOGLOBIN 9.1 g/dL (11.5-14.8); LYMPHOCYTES # (AUTO) 0.5 K/uL (0.8-4.8); LYMPHOCYTES % (AUTO) 5.7 % (20.0-44.0); MEAN CORPUSCULAR HEMOGLOBIN 28 PG (26.0-33.0); MEAN CORPUSCULAR HGB CONC 32 g/dl (31.0-36.0); MEAN CORPUSCULAR VOLUME 87 fL (82-100); MONOCYTES # (AUTO) 0.3 K/uL (0.1-1.30); MONOCYTES % (AUTO) 2.8 % (2.0-12.0); NEUTROPHILS # (AUTO) 8.1 K/uL (1.8-8.9); NEUTROPHILS % (AUTO) 91.4 % (43.0-81.0); PLATELET COUNT (AUTO) 269 K/uL (150-450); RED BLOOD CELL COUNT(AUTO) 3.27 MIL/uL (4.0-5.2); RED CELL DISTRIBUTION WIDTH 19.6 % (11.5-15.0); WHITE BLOOD COUNT (AUTO) 8.9 K/uL (4.3-11.0)
[2022-12-09 07:30] LABS: CALCIUM, SERUM 8.3 mg/dL (8.5-10.1); CARBON DIOXIDE 21 mmol/L (21-32); CHLORIDE 112 mmol/L (98-107); CREATININE 2.2 mg/dL (0.6-1.3); GLUCOSE 358 mg/dL (74-106); PHOSPHORUS 3.6 mg/dL (2.5-4.9); POTASSIUM 4.8 mmol/L (3.5-5.1); SODIUM SERUM 141 mmol/L (136-145); UREA NITROGEN, BLOOD 60 mg/dL (7-18)
[2022-12-09] MEDS: methylPREDNISolone SOD SUCC 40 MG/ML VIAL IV SCH ×2 (08:51→20:07)
[2022-12-09] MEDS: FERROUS SULFATE UDC 300 MG/5 ML UDC GT SCH ×2 (08:52→17:26)
[2022-12-09] MEDS: PANTOPRAZOLE 40 MG/PACK PACK GT SCH (08:52)
[2022-12-09] MEDS: FOLIC ACID 1 MG TABLET GT SCH (08:53)
[2022-12-09] MEDS: CARVEDILOL 12.5 MG TABLET GT SCH ×2 (08:53→17:26)
[2022-12-09] MEDS: POLYVINYL ALCOHOL 15 ML BOTTLE EACHEYE SCH ×3 (08:56→17:23)
[2022-12-09] MEDS: GLUCERNA 1.2 1,000 ML BOTTLE NG PRN (11:55)
[2022-12-09] MEDS: ACETAMINOPHEN 650 MG/20.3 ML UDC PEG PRN (18:46)
[2022-12-09] MEDS: hydrALAZINE HCL IV 20 MG VIAL IV PRN (20:25)
[2022-12-09] MEDS: MONTELUKAST SODIUM (10MG) 10 MG TABLET GT SCH (21:03)
[2022-12-09] MEDS: DONEPEZIL 5 MG TABLET GT SCH (21:03)
[2022-12-09] MEDS: ATORVASTATIN 10 MG TABLET GT SCH (21:03)
[2022-12-09] MEDS: MIRTAZAPINE 15 MG TABLET GT SCH (21:03)
[2022-12-10] VITALS (15 sets, daily range): BP systolic 134–187; BP diastolic 67–84; TEMP 97.5–98.1; O2SAT 94–100
[2022-12-10] MEDS: INSULIN REGULAR, HUMAN 100 UNIT/ML 3 ML VIAL SQ PRN ×6 (00:01→23:51)
[2022-12-10] MEDS: hydrALAZINE HCL IV 20 MG VIAL IV PRN (00:33)
[2022-12-10] MEDS: LEVALBUTEROL HCL NEB 1.25 MG/0.5 ML VIAL.NEB NEB SCH ×4 (01:49→20:30)
[2022-12-10] MEDS: IPRATROPIUM NEB FS 0.5 MG/2.5 ML AMPUL.NEB NEB SCH ×4 (01:49→20:31)
[2022-12-10] MEDS ORDERED: MORPHINE SULFATE INJ 2 MG/ML DISP.SYRIN IV PRN (02:30)
[2022-12-10] MEDS: ACETAMINOPHEN 650 MG/20.3 ML UDC PEG PRN ×2 (04:06→17:10)
[2022-12-10] MEDS: GLUCERNA 1.2 1,000 ML BOTTLE NG PRN ×2 (04:49→22:01)
[2022-12-10] MEDS: BLOOD SUGAR DIAGNOSTIC 1 EACH STRIP IN SCH ×4 (06:30→23:52)
[2022-12-10 07:18] LABS: HEMATOCRIT 28 % (33-45); HEMOGLOBIN 8.7 g/dL (11.5-14.8); LYMPHOCYTES # (AUTO) 0.6 K/uL (0.8-4.8); LYMPHOCYTES % (AUTO) 4.6 % (20.0-44.0); MEAN CORPUSCULAR HEMOGLOBIN 28 PG (26.0-33.0); MEAN CORPUSCULAR HGB CONC 32 g/dl (31.0-36.0); MEAN CORPUSCULAR VOLUME 88 fL (82-100); MONOCYTES # (AUTO) 0.4 K/uL (0.1-1.30); NEUTROPHILS # (AUTO) 11.4 K/uL (1.8-8.9); NEUTROPHILS % (AUTO) 92.4 % (43.0-81.0); PLATELET COUNT (AUTO) 298 K/uL (150-450); RED BLOOD CELL COUNT(AUTO) 3.12 MIL/uL (4.0-5.2); RED CELL DISTRIBUTION WIDTH 20.5 % (11.5-15.0); WHITE BLOOD COUNT (AUTO) 12.4 K/uL (4.3-11.0)
[2022-12-10 07:35] LABS: CALCIUM, SERUM 8.6 mg/dL (8.5-10.1); CARBON DIOXIDE 25 mmol/L (21-32); CHLORIDE 110 mmol/L (98-107); MAGNESIUM 2.2 mg/dL (1.8-2.4); PHOSPHORUS 3.6 mg/dL (2.5-4.9); POTASSIUM 4.6 mmol/L (3.5-5.1); SODIUM SERUM 143 mmol/L (136-145); UREA NITROGEN, BLOOD 66 mg/dL (7-18)
[2022-12-10 07:37] LABS: GLUCOSE 425 mg/dL (74-106)
[2022-12-10] MEDS: ACETYLCYSTEINE 10% SOLN 400 MG/4 ML VIAL NEB SCH ×3 (08:54→23:42)
[2022-12-10] MEDS: POLYVINYL ALCOHOL 15 ML BOTTLE EACHEYE SCH ×3 (09:00→16:02)
[2022-12-10] MEDS: FERROUS SULFATE UDC 300 MG/5 ML UDC GT SCH ×2 (09:12→16:05)
[2022-12-10] MEDS: PANTOPRAZOLE 40 MG/PACK PACK GT SCH (09:13)
[2022-12-10] MEDS: methylPREDNISolone SOD SUCC 40 MG/ML VIAL IV SCH ×2 (09:13→21:54)
[2022-12-10] MEDS: AMLODIPINE BESYLATE 5 MG TABLET PO SCH (09:13)
[2022-12-10] MEDS: FOLIC ACID 1 MG TABLET GT SCH (09:14)
[2022-12-10] MEDS: CARVEDILOL 12.5 MG TABLET GT SCH ×2 (09:14→16:05)
[2022-12-10] MEDS ORDERED: DEXTROSE 50%-WATER 50 ML DISP.SYRIN IV PRN (12:00)
[2022-12-10] MEDS: MONTELUKAST SODIUM (10MG) 10 MG TABLET GT SCH (21:50)
[2022-12-10] MEDS: ATORVASTATIN 10 MG TABLET GT SCH (21:50)
[2022-12-10] MEDS: MIRTAZAPINE 15 MG TABLET GT SCH (21:50)
[2022-12-10] MEDS: DONEPEZIL 5 MG TABLET GT SCH (21:50)
[2022-12-10] MEDS: INSULIN GLARGINE, 100 UNIT/ML CARTRIDGE SQ SCH (23:52)
[2022-12-11] VITALS (17 sets, daily range): BP systolic 137–159; BP diastolic 69–90; TEMP 97.6–99; O2SAT 94–100
[2022-12-11] MEDS: IPRATROPIUM NEB FS 0.5 MG/2.5 ML AMPUL.NEB NEB SCH ×4 (02:08→20:06)
[2022-12-11] MEDS: LEVALBUTEROL HCL NEB 1.25 MG/0.5 ML VIAL.NEB NEB SCH ×4 (02:08→20:06)
[2022-12-11] MEDS: BLOOD SUGAR DIAGNOSTIC 1 EACH STRIP IN SCH ×3 (06:03→17:03)
[2022-12-11] MEDS: INSULIN REGULAR, HUMAN 100 UNIT/ML 3 ML VIAL SQ PRN ×2 (06:05→11:43)
[2022-12-11 06:57] LABS: HEMATOCRIT 27 % (33-45); HEMOGLOBIN 8.4 g/dL (11.5-14.8); LYMPHOCYTES # (AUTO) 0.6 K/uL (0.8-4.8); MEAN CORPUSCULAR HEMOGLOBIN 28 PG (26.0-33.0); MEAN CORPUSCULAR HGB CONC 32 g/dl (31.0-36.0); MEAN CORPUSCULAR VOLUME 87 fL (82-100); MONOCYTES # (AUTO) 0.3 K/uL (0.1-1.30); MONOCYTES % (AUTO) 2.8 % (2.0-12.0); NEUTROPHILS # (AUTO) 10.8 K/uL (1.8-8.9); NEUTROPHILS % (AUTO) 92.2 % (43.0-81.0); PLATELET COUNT (AUTO) 313 K/uL (150-450); RED BLOOD CELL COUNT(AUTO) 3.05 MIL/uL (4.0-5.2); RED CELL DISTRIBUTION WIDTH 20.4 % (11.5-15.0); WHITE BLOOD COUNT (AUTO) 11.7 K/uL (4.3-11.0)
[2022-12-11 07:22] LABS: IRON, SERUM 23 ug/dl (50-175); TOTAL IRON BINDING CAPACITY 9503 ug/dl (250-450)
[2022-12-11 07:29] LABS: CALCIUM, SERUM 8.4 mg/dL (8.5-10.1); CARBON DIOXIDE 27 mmol/L (21-32); CHLORIDE 111 mmol/L (98-107); CREATININE 1.9 mg/dL (0.6-1.3); GLUCOSE 275 mg/dL (74-106); MAGNESIUM 2.1 mg/dL (1.8-2.4); PHOSPHORUS 2.9 mg/dL (2.5-4.9); POTASSIUM 5.6 mmol/L (3.5-5.1); SODIUM SERUM 145 mmol/L (136-145); UREA NITROGEN, BLOOD 73 mg/dL (7-18)
[2022-12-11 07:41] LABS: FERRITIN 225 ng/mL (8-388)
[2022-12-11] MEDS: ACETYLCYSTEINE 10% SOLN 400 MG/4 ML VIAL NEB SCH ×3 (07:55→23:30)
[2022-12-11] MEDS: methylPREDNISolone SOD SUCC 40 MG/ML VIAL IV SCH ×2 (08:46→20:21)
[2022-12-11] MEDS: FERROUS SULFATE UDC 300 MG/5 ML UDC GT SCH ×2 (08:46→16:09)
[2022-12-11] MEDS: PANTOPRAZOLE 40 MG/PACK PACK GT SCH (08:46)
[2022-12-11] MEDS: AMLODIPINE BESYLATE 5 MG TABLET PO SCH (08:47)
[2022-12-11] MEDS: FOLIC ACID 1 MG TABLET GT SCH (08:47)
[2022-12-11] MEDS: CARVEDILOL 12.5 MG TABLET GT SCH ×2 (08:47→16:14)
[2022-12-11] MEDS: POLYVINYL ALCOHOL 15 ML BOTTLE EACHEYE SCH ×3 (08:48→16:03)
[2022-12-11] MEDS ORDERED: SODIUM POLYSTYRENE SULFONATE 15 G/60 ML BOTTLE PO ONE (10:30)
[2022-12-11] MEDS: NEPRO 1,000 ML BOTTLE GT PRN (14:21)
[2022-12-11 14:54] LABS: CALCIUM, SERUM 8.7 mg/dL (8.5-10.1); CARBON DIOXIDE 30 mmol/L (21-32); CHLORIDE 111 mmol/L (98-107); GLUCOSE 209 mg/dL (74-106); POTASSIUM 5.1 mmol/L (3.5-5.1); SODIUM SERUM 146 mmol/L (136-145); UREA NITROGEN, BLOOD 76 mg/dL (7-18)
[2022-12-11] MEDS: ACETAMINOPHEN 650 MG/20.3 ML UDC PEG PRN (18:51)
[2022-12-11] MEDS: MIRTAZAPINE 15 MG TABLET GT SCH (21:32)
[2022-12-11] MEDS: MONTELUKAST SODIUM (10MG) 10 MG TABLET GT SCH (21:33)
[2022-12-11] MEDS: ATORVASTATIN 10 MG TABLET GT SCH (21:33)
[2022-12-11] MEDS: DONEPEZIL 5 MG TABLET GT SCH (21:33)
[2022-12-11] MEDS: INSULIN GLARGINE, 100 UNIT/ML CARTRIDGE SQ SCH (22:31)
[2022-12-12] VITALS (13 sets, daily range): BP systolic 146–162; BP diastolic 67–87; TEMP 98.2–98.4; O2SAT 94–99
[2022-12-12] MEDS: BLOOD SUGAR DIAGNOSTIC 1 EACH STRIP IN SCH ×5 (00:16→23:35)
[2022-12-12] MEDS: INSULIN REGULAR, HUMAN 100 UNIT/ML 3 ML VIAL SQ PRN ×5 (00:23→23:36)
[2022-12-12] MEDS: ACETAMINOPHEN 650 MG/20.3 ML UDC PEG PRN (01:45)
[2022-12-12] MEDS: LEVALBUTEROL HCL NEB 1.25 MG/0.5 ML VIAL.NEB NEB SCH ×4 (01:54→20:08)
[2022-12-12] MEDS: IPRATROPIUM NEB FS 0.5 MG/2.5 ML AMPUL.NEB NEB SCH ×4 (01:54→20:08)
[2022-12-12] MEDS: ACETYLCYSTEINE 10% SOLN 400 MG/4 ML VIAL NEB SCH ×4 (02:31→23:30)
[2022-12-12] MEDS: methylPREDNISolone SOD SUCC 40 MG/ML VIAL IV SCH ×2 (08:13→21:26)
[2022-12-12] MEDS: FERROUS SULFATE UDC 300 MG/5 ML UDC GT SCH ×2 (08:13→17:40)
[2022-12-12] MEDS: PANTOPRAZOLE 40 MG/PACK PACK GT SCH (08:13)
[2022-12-12] MEDS: AMLODIPINE BESYLATE 5 MG TABLET PO SCH (08:14)
[2022-12-12] MEDS: CARVEDILOL 12.5 MG TABLET GT SCH ×2 (08:14→17:41)
[2022-12-12] MEDS: FOLIC ACID 1 MG TABLET GT SCH (08:14)
[2022-12-12 08:25] LABS: BASOPHILS % (AUTO) 0.1 % (0.0-2.0); EOSINOPHILS % (AUTO) 0.1 % (0.0-6.0); HEMATOCRIT 30 % (33-45); HEMOGLOBIN 9.3 g/dL (11.5-14.8); LYMPHOCYTES # (AUTO) 0.8 K/uL (0.8-4.8); LYMPHOCYTES % (AUTO) 5.6 % (20.0-44.0); MEAN CORPUSCULAR HEMOGLOBIN 28 PG (26.0-33.0); MEAN CORPUSCULAR HGB CONC 31 g/dl (31.0-36.0); MEAN CORPUSCULAR VOLUME 88 fL (82-100); MONOCYTES # (AUTO) 0.8 K/uL (0.1-1.30); MONOCYTES % (AUTO) 5.6 % (2.0-12.0); NEUTROPHILS # (AUTO) 12.3 K/uL (1.8-8.9); NEUTROPHILS % (AUTO) 88.6 % (43.0-81.0); PLATELET COUNT (AUTO) 358 K/uL (150-450); RED BLOOD CELL COUNT(AUTO) 3.38 MIL/uL (4.0-5.2); RED CELL DISTRIBUTION WIDTH 20.6 % (11.5-15.0); WHITE BLOOD COUNT (AUTO) 13.9 K/uL (4.3-11.0)
[2022-12-12 08:36] LABS: CALCIUM, SERUM 8.3 mg/dL (8.5-10.1); CARBON DIOXIDE 31 mmol/L (21-32); CHLORIDE 113 mmol/L (98-107); CREATININE 1.9 mg/dL (0.6-1.3); GLUCOSE 175 mg/dL (74-106); PHOSPHORUS 3.6 mg/dL (2.5-4.9); POTASSIUM 4.6 mmol/L (3.5-5.1); SODIUM SERUM 149 mmol/L (136-145); UREA NITROGEN, BLOOD 73 mg/dL (7-18)
[2022-12-12] MEDS: POLYVINYL ALCOHOL 15 ML BOTTLE EACHEYE SCH ×3 (08:47→17:43)
[2022-12-12] MEDS ORDERED: AMLO-212 PO (11:51)
[2022-12-12] MEDS ORDERED: PRED50TA PO (11:53)
[2022-12-12] MEDS: ATORVASTATIN 10 MG TABLET GT SCH (21:26)
[2022-12-12] MEDS: MONTELUKAST SODIUM (10MG) 10 MG TABLET GT SCH (21:26)
[2022-12-12] MEDS: DONEPEZIL 5 MG TABLET GT SCH (21:27)
[2022-12-12] MEDS: MIRTAZAPINE 15 MG TABLET GT SCH (21:27)
[2022-12-12] MEDS: INSULIN GLARGINE, 100 UNIT/ML CARTRIDGE SQ SCH (22:19)
[2022-12-13] VITALS (8 sets, daily range): BP systolic 143–149; BP diastolic 68–78; TEMP 97.6–98.3; O2SAT 96–100
[2022-12-13] MEDS: NEPRO 1,000 ML BOTTLE GT PRN (01:03)
[2022-12-13] MEDS: LEVALBUTEROL HCL NEB 1.25 MG/0.5 ML VIAL.NEB NEB SCH ×2 (01:30→07:12)
[2022-12-13] MEDS: IPRATROPIUM NEB FS 0.5 MG/2.5 ML AMPUL.NEB NEB SCH ×3 (01:30→07:12)
[2022-12-13] MEDS: ACETYLCYSTEINE 10% SOLN 400 MG/4 ML VIAL NEB SCH ×2 (04:24→07:12)
[2022-12-13] MEDS: BLOOD SUGAR DIAGNOSTIC 1 EACH STRIP IN SCH ×2 (05:40→12:03)
[2022-12-13] MEDS: INSULIN REGULAR, HUMAN 100 UNIT/ML 3 ML VIAL SQ PRN ×2 (05:45→12:03)
[2022-12-13] MEDS: FERROUS SULFATE UDC 300 MG/5 ML UDC GT SCH (08:09)
[2022-12-13] MEDS: methylPREDNISolone SOD SUCC 40 MG/ML VIAL IV SCH (08:09)
[2022-12-13] MEDS: FOLIC ACID 1 MG TABLET GT SCH (08:09)
[2022-12-13] MEDS: PANTOPRAZOLE 40 MG/PACK PACK GT SCH (08:09)
[2022-12-13] MEDS: AMLODIPINE BESYLATE 5 MG TABLET PO SCH (08:10)
[2022-12-13] MEDS: CARVEDILOL 12.5 MG TABLET GT SCH (08:10)
[2022-12-13 08:48] LABS: BASOPHILS % (AUTO) 0.1 % (0.0-2.0); EOSINOPHILS # (AUTO) 0.3 K/uL (0.0-0.7); EOSINOPHILS % (AUTO) 2.3 % (0.0-6.0); HEMATOCRIT 33 % (33-45); HEMOGLOBIN 10.5 g/dL (11.5-14.8); LYMPHOCYTES % (AUTO) 14.5 % (20.0-44.0); MEAN CORPUSCULAR HEMOGLOBIN 28 PG (26.0-33.0); MEAN CORPUSCULAR HGB CONC 31 g/dl (31.0-36.0); MEAN CORPUSCULAR VOLUME 90 fL (82-100); MONOCYTES # (AUTO) 1.1 K/uL (0.1-1.30); NEUTROPHILS # (AUTO) 10.5 K/uL (1.8-8.9); NEUTROPHILS % (AUTO) 75.1 % (43.0-81.0); PLATELET COUNT (AUTO) 329 K/uL (150-450); RED BLOOD CELL COUNT(AUTO) 3.72 MIL/uL (4.0-5.2); RED CELL DISTRIBUTION WIDTH 20.6 % (11.5-15.0)
[2022-12-13 08:57] LABS: CALCIUM, SERUM 8.6 mg/dL (8.5-10.1); CARBON DIOXIDE 32 mmol/L (21-32); CHLORIDE 115 mmol/L (98-107); CREATININE 1.7 mg/dL (0.6-1.3); GLUCOSE 138 mg/dL (74-106); POTASSIUM 4.4 mmol/L (3.5-5.1); SODIUM SERUM 151 mmol/L (136-145); UREA NITROGEN, BLOOD 75 mg/dL (7-18)
[2022-12-13 09:03] LABS: ALANINE AMINOTRANSFERASE 29 U/L (12-78); ALBUMIN 1.7 g/dL (3.4-5.0); ALKALINE PHOSPHATASE 62 U/L (46-116); ASPARTATE AMINOTRANSFERASE 26 U/L (15-37); BILIRUBIN,TOTAL 0.3 mg/dL (0.2-1.0); TOTAL PROTEIN, SERUM 4.9 g/dL (6.4-8.2)
[2022-12-13] MEDS: POLYVINYL ALCOHOL 15 ML BOTTLE EACHEYE SCH ×2 (09:14→12:04)
[2022-12-13] MEDS ORDERED: IV D5W 1,000 ML IV PRN (12:30)
== END 2022-12-13 17:45 | DRG 177 ==
LOC: ER 16:19 → TELE1 19:50 → ICU 12-06 10:17 → TELE1 12-07 14:46 → MEDSG1 12-12 14:18
PROVIDERS: ADMIT Nurse Practitioner Family; ATTEND Internal Medicine
PROC: 05HC33Z Insertion of Infusion Device into Left Basilic Vein, Percutaneous Approach (ICD-10-PCS; principal; 2022-12-06)
PROC: 5A09357 Assistance with Respiratory Ventilation, Less than 24 Consecutive Hours, Continuous Positive Airway Pressure (ICD-10-PCS; 2022-12-06)
DX: J69.0 Pneumonitis due to inhalation of food and vomit (principal); E43 Unspecified severe protein-calorie malnutrition; I21.A1 Myocardial infarction type 2; N17.0 Acute kidney failure with tubular necrosis; G92.8 Other toxic encephalopathy; J96.22 Acute and chronic respiratory failure with hypercapnia; J96.21 Acute and chronic respiratory failure with hypoxia; J44.1 Chronic obstructive pulmonary disease with (acute) exacerbation; I13.0 Hypertensive heart and chronic kidney disease with heart failure and stage 1 through stage 4 chronic kidney disease, or unspecified chronic kidney disease; E87.0 Hyperosmolality and hypernatremia; E87.4 Mixed disorder of acid-base balance; I50.30 Unspecified diastolic (congestive) heart failure; Z20.822 Contact with and (suspected) exposure to COVID-19; G30.9 Alzheimer's disease, unspecified; E11.22 Type 2 diabetes mellitus with diabetic chronic kidney disease; F02.80 Dementia in other diseases classified elsewhere, unspecified severity, without behavioral disturbance, psychotic disturbance, mood disturbance, and anxiety; N18.9 Chronic kidney disease, unspecified; R13.10 Dysphagia, unspecified; Z79.51 Long term (current) use of inhaled steroids; Z79.4 Long term (current) use of insulin; Z79.82 Long term (current) use of aspirin; Z79.899 Other long term (current) drug therapy; D64.9 Anemia, unspecified; E88.09 Other disorders of plasma-protein metabolism, not elsewhere classified; Z93.1 Gastrostomy status; I70.0 Atherosclerosis of aorta; K29.70 Gastritis, unspecified, without bleeding; M89.8X9 Other specified disorders of bone, unspecified site; S40.021A Contusion of right upper arm, initial encounter; X58.XXXA Exposure to other specified factors, initial encounter; Y92.9 Unspecified place or not applicable; E78.5 Hyperlipidemia, unspecified; E11.65 Type 2 diabetes mellitus with hyperglycemia; E87.5 Hyperkalemia; F09 Unspecified mental disorder due to known physiological condition; Z86.718 Personal history of other venous thrombosis and embolism
CPT/HCPCS: 36410; 36415; 36600; 70450-TC; 71045-TC; 80048-TC; 80053-TC; 80076-TC; 81001; 82272-TC; 82607-TC; 82728-TC; 82803-TC; 82962-TC; 83540-TC; 83735-TC; 83880; 84100-TC; 84443-TC; 84484-TC; 85025-TC; 87081-TC; 87086-TC; 92526; 92611-TC; 94762-TC; 94799-TC; C1751; C9803; G0378; J0360; J0456; J1815; J1940; J2270; J2920; J2930; J3475; J7060

== ENCOUNTER 2023-04-02 | Inpatient (IN) | payer MEDICARE, OTHER ==
[~2023-04-02] VITALS: Ht 165.1 cm; Wt 90.3 kg
[~2023-04-02] MED LIST changes: -ALBU1.25 NEB; +ALBU1.257 IH; -AMLO-102 PO; +ASCO-495 GT; -ASPI-1169 PO; -ATOR20TA GT; +BALS60OI TP; +BISA10SU11 RC; -CARV12.52 GT; +COLL30OI TP; +DEXT1TAB29 GT; +DEXT50DI8 IV; +EPOE1000 SQ; -FERR325T23 GT; +FOLI0.8T2 GT; -FOLI1TAB16 GT; +GLUC1KIT IM; +INSU100V11 SQ; -INSU100V3 SQ; +INSU100V7 SQ; +IPRA0.2S9 IH; -IPRA0.2S9 NEB; +LANS30CA56 GT; +LINA5TAB GT; +MAG30ORA GT; +MAGN400O6 GT; +MELA3TAB41 GT; +METO25TA20 GT; -MIRT-121 PO; +NA P133E RC; -NUT.237L45 PO; +NYST15PO4 TP; -OMEP20CA15 PO; +ONDA4TAB5 GT; +RIVA10TA PO; +ROSU40TA PO; +ZINC50TA69 GT; +ZONI25CA GT
[2023-04-03 07:20] VITALS: BP_SYST 105; BP_SYST 123; BP_DIAS 58; BP_DIAS 69; TEMP 97.9; O2SAT 99
[2023-04-03] MEDS ORDERED: MAGNESIUM HYDROXIDE 30 ML UDC GT PRN (09:30)
[2023-04-03] MEDS: BLOOD SUGAR DIAGNOSTIC 1 EACH STRIP IN SCH (09:30)
[2023-04-03] MEDS ORDERED: hydrALAZINE HCL 25 MG TABLET GT PRN (09:30)
[2023-04-03] MEDS ORDERED: ACETAMINOPHEN 650 MG/20.3 ML UDC GT PRN (09:30)
[2023-04-03] MEDS ORDERED: BISACODYL SUPP (10 MG) 10 MG/SUPP.RECT SUPP.RECT RC PRN (09:30)
[2023-04-03] MEDS: [UNRECOGNIZED DRUG - OTHER] SQ SCH (09:30)
[2023-04-03 10:52] VITALS: O2SAT 100
[2023-04-03] MEDS: [UNRECOGNIZED DRUG - REMARK] SQ SCH (12:00)
[2023-04-03] MEDS: METOPROLOL TARTRATE 50 MG TABLET GT SCH (12:41)
[2023-04-03] MEDS: INSULIN ASPART/LISPRO 100 UNIT/ML CARTRIDGE SQ PRN (12:42)
[2023-04-03] MEDS: SEVELAMER CARBONATE 800 MG POWD.PACK GT SCH (12:42)
[2023-04-03 12:43] VITALS: BP 120/61
[2023-04-03] MEDS: IPRATROPIUM NEB FS 0.5 MG/2.5 ML AMPUL.NEB NEB SCH (12:59)
[2023-04-03] MEDS: ALBUTEROL FS 2.5 MG/0.5 ML VIAL.NEB NEB SCH (12:59)
[2023-04-03] MEDS: RIVAROXABAN 15 MG TABLET GT SCH (17:46)
[2023-04-03] MEDS: LANSOPRAZOLE 30 MG GT SCH (17:46)
[2023-04-03] MEDS: POLYVINYL ALCOHOL 15 ML BOTTLE EACHEYE SCH (17:46)
[2023-04-03] MEDS: DEXTROSE 50%-WATER 50 ML DISP.SYRIN IV PRN (18:32)
[2023-04-03 20:00] VITALS: BP 121/67; TEMP 98.3; O2SAT 99
[2023-04-03] MEDS: CRESTOR 40 MG GT SCH (21:51)
[2023-04-03] MEDS: MONTELUKAST SODIUM (10MG) 10 MG TABLET GT SCH (21:51)
[2023-04-03] MEDS: VENELEX TP SCH (21:51)
[2023-04-03] MEDS: MINERAL OIL/PETROL OINT 396 GM JAR TP SCH (21:51)
[2023-04-03] MEDS: THERAHONEY GEL 1.5 OZ TUBE TP SCH (21:51)
[2023-04-03] MEDS: DONEPEZIL 5 MG TABLET GT SCH (21:51)
[2023-04-03] MEDS: Z GUARD REMEDY 4 OZ OINT TP SCH ×3 (21:51)
[2023-04-03 23:59] VITALS: O2SAT 99
[2023-04-04] MEDS: NEPRO 1,000 ML BOTTLE GT PRN (07:15)
[2023-04-04 07:24] VITALS: BP 118/69; TEMP 100; O2SAT 100
[2023-04-04] MEDS: LINAGLIPTIN 5 MG TABLET GT SCH (09:00)
[2023-04-04] MEDS: VIT B CMPLX 3/FA/VIT C/BIOTIN 1 TAB TABLET GT SCH (09:00)
[2023-04-04] MEDS: ZONISAMIDE 50 MG GT SCH (09:00)
[2023-04-04] MEDS: FERROUS SULFATE (325 MG) 325 MG/TAB TABLET GT SCH (09:00)
[2023-04-04] MEDS: PROSOURCE / PROSTAT (PYXIS) 30 ML UDC GT SCH (09:00)
[2023-04-04 10:16] VITALS: O2SAT 99
[2023-04-04 15:56] VITALS: O2SAT 100
[2023-04-04 19:48] VITALS: O2SAT 100
[2023-04-04 20:00] VITALS: BP 97/63; TEMP 98.3; O2SAT 99
[2023-04-04 23:52] VITALS: O2SAT 100
[2023-04-05 07:58] VITALS: BP 99/52; TEMP 97.9; O2SAT 100
[2023-04-05 11:46] VITALS: O2SAT 100
[2023-04-05] MEDS: BLOOD SUGAR DIAGNOSTIC 1 EACH STRIP IN SCH (12:35)
[2023-04-05 19:58] VITALS: O2SAT 100
[2023-04-05 20:01] VITALS: BP 115/74; TEMP 99.1; O2SAT 98
[2023-04-05 22:28] VITALS: O2SAT 100
[2023-04-06] MEDS: GLUCAGON,HUMAN RECOMBINANT 1 MG/VIAL VIAL IM PRN (09:50)
[2023-04-06 10:12] VITALS: O2SAT 100
[2023-04-06] MEDS: SEVELAMER CARBONATE 800 MG POWD.PACK GT SCH (12:47)
[2023-04-06 19:32] VITALS: BP 128/63; TEMP 97.3; O2SAT 100
[2023-04-06 20:02] VITALS: O2SAT 99
[2023-04-06 23:30] VITALS: O2SAT 100
[2023-04-07] MEDS: [UNRECOGNIZED DRUG - REMARK] SQ SCH (00:39)
[2023-04-07 07:11] VITALS: BP 133/56; TEMP 98.8; O2SAT 100
[2023-04-07 10:11] VITALS: O2SAT 99
[2023-04-07 11:38] LABS: CALCIUM, SERUM 9.4 mg/dL (8.5-10.1); CARBON DIOXIDE 28 mmol/L (21-32); CHLORIDE 94 mmol/L (98-107); CREATININE 2.6 mg/dL (0.6-1.3); GLUCOSE 170 mg/dL (74-106); POTASSIUM 4.1 mmol/L (3.5-5.1); SODIUM SERUM 128 mmol/L (136-145); UREA NITROGEN, BLOOD 55 mg/dL (7-18)
[2023-04-07 11:39] LABS: BASOPHILS # (AUTO) 0.1 K/uL (0.0-0.2); BASOPHILS % (AUTO) 0.6 % (0.0-2.0); EOSINOPHILS # (AUTO) 0.3 K/uL (0.0-0.7); EOSINOPHILS % (AUTO) 2.5 % (0.0-6.0); HEMATOCRIT 30 % (33-45); HEMOGLOBIN 8.9 g/dL (11.5-14.8); LYMPHOCYTES # (AUTO) 1.3 K/uL (0.8-4.8); LYMPHOCYTES % (AUTO) 11.4 % (20.0-44.0); MEAN CORPUSCULAR HEMOGLOBIN 25 PG (26.0-33.0); MEAN CORPUSCULAR HGB CONC 30 g/dl (31.0-36.0); MEAN CORPUSCULAR VOLUME 84 fL (82-100); MONOCYTES # (AUTO) 0.9 K/uL (0.1-1.30); MONOCYTES % (AUTO) 7.8 % (2.0-12.0); NEUTROPHILS # (AUTO) 9.1 K/uL (1.8-8.9); NEUTROPHILS % (AUTO) 77.7 % (43.0-81.0); PLATELET COUNT (AUTO) 261 K/uL (150-450); RED BLOOD CELL COUNT(AUTO) 3.54 MIL/uL (4.0-5.2); RED CELL DISTRIBUTION WIDTH 20.3 % (11.5-15.0); WHITE BLOOD COUNT (AUTO) 11.8 K/uL (4.3-11.0)
[2023-04-07 19:28] VITALS: BP 122/69; TEMP 98; O2SAT 100
[2023-04-07 22:09] VITALS: O2SAT 99
[2023-04-08 09:16] VITALS: BP 106/42; TEMP 98.2; O2SAT 100
[2023-04-08 10:23] VITALS: O2SAT 99
[2023-04-08 12:05] VITALS: BP 107/40; TEMP 98.2; O2SAT 99
[2023-04-08 20:31] VITALS: BP 137/57; TEMP 98.1; O2SAT 100
[2023-04-08 22:10] VITALS: O2SAT 99
[2023-04-09 08:20] VITALS: BP 136/65; TEMP 97.7; O2SAT 99
[2023-04-09 12:16] VITALS: O2SAT 97
[2023-04-09 12:17] VITALS: O2SAT 97
[2023-04-09] MEDS ORDERED: [UNRECOGNIZED DRUG - OTHER] SQ SCH (15:30)
[2023-04-09] MEDS: TOBRAMYCIN/DEXAMETH OPHTH DORPS 2.5 ML BOTTLE OP SCH (18:08)
[2023-04-09 20:47] VITALS: BP 126/62; TEMP 97.7; O2SAT 100
[2023-04-09 23:59] VITALS: O2SAT 100; O2SAT 99
[2023-04-10] MEDS: [UNRECOGNIZED DRUG - OTHER] SQ SCH
[2023-04-10 10:22] VITALS: O2SAT 99
[2023-04-10 11:14] VITALS: BP 141/56; TEMP 98.1; O2SAT 100
[2023-04-10 15:02] VITALS: O2SAT 99
[2023-04-10 20:10] VITALS: BP 125/65; TEMP 97.9; O2SAT 100
[2023-04-10 22:53] VITALS: O2SAT 98
[2023-04-11] VITALS (8 sets, daily range): BP systolic 111–121; BP diastolic 55–95; TEMP 97.5–97.9; O2SAT 98–100
[2023-04-11] MEDS: HYDROGEN PEROXIDE 480 ML BOTTLE TP SCH (20:41)
[2023-04-11] MEDS ORDERED: HYDROGEN PEROXIDE 480 ML BOTTLE TP PRN (21:00)
[2023-04-12 07:31] VITALS: BP 119/49; TEMP 98.1; O2SAT 99
[2023-04-12 10:58] VITALS: O2SAT 99
[2023-04-12 11:00] VITALS: O2SAT 99
[2023-04-12 19:25] VITALS: BP 119/58; TEMP 98.1; O2SAT 96
[2023-04-12 22:50] VITALS: O2SAT 95
[2023-04-12 23:14] VITALS: BP 119/58; TEMP 98.1; O2SAT 100
[2023-04-13] VITALS (8 sets, daily range): BP systolic 113–126; BP diastolic 44–74; TEMP 98–98.2; O2SAT 98–99
[2023-04-14] VITALS (8 sets, daily range): BP systolic 108–116; BP diastolic 54–93; TEMP 98.1–98.2; O2SAT 98–100
[2023-04-14 13:50] LABS: ABG BASE EXCESS 7.2 mmol/L; ABG OXYGEN SATURATION 96.3 % (92.0-98.5); ABG PCO2 68.6 mmHg (35.0-45.0); ABG PH 7.323 (7.350-7.450); ABG PO2 81.1 mmHg (75.0-100.0); ABG TOTAL HEMOGLOBIN 9.6 G/dL (12.0-16.0); AaDO2 88.7 mmHg; COHb 0.8 % (0.5-1.5); MetHb 0.1 % (0.0-1.5); O2Hb 95.4 % (94.0-97.0); SITE, ABG Right Radial; VENT MODE, BG AC 18 450 35% +5
[2023-04-15] VITALS (7 sets, daily range): BP systolic 107–112; BP diastolic 49–53; TEMP 98.1–98.4; O2SAT 98–100
[2023-04-15] MEDS: ACETAMINOPHEN 650 MG/20.3 ML UDC GT PRN (18:02)
[2023-04-16 00:34] VITALS: BP 112/53; TEMP 98.1; O2SAT 100
[2023-04-16 11:00] VITALS: BP 148/89; TEMP 98.4; O2SAT 98
[2023-04-16 12:07] VITALS: O2SAT 100
[2023-04-16 12:08] VITALS: O2SAT 98
[2023-04-16 20:00] VITALS: BP 111/56; TEMP 98.3; O2SAT 99
[2023-04-16 22:29] VITALS: O2SAT 99
[2023-04-17 11:02] VITALS: O2SAT 98
[2023-04-17 11:03] VITALS: O2SAT 98
[2023-04-17 20:00] VITALS: BP 115/76; TEMP 98.3; O2SAT 99
[2023-04-17] MEDS: Z GUARD REMEDY 4 OZ OINT TP SCH (21:28)
[2023-04-17] MEDS: VITAMINS A AND D 56.7 GM TUBE TP SCH (21:28)
[2023-04-17 23:37] VITALS: O2SAT 100
[2023-04-18 12:54] VITALS: O2SAT 100
[2023-04-18 13:44] VITALS: O2SAT 99
[2023-04-18 20:00] VITALS: BP 126/71; TEMP 98.7; O2SAT 99
[2023-04-18] MEDS: Z GUARD REMEDY 4 OZ OINT TP SCH (21:30)
[2023-04-18 22:27] VITALS: O2SAT 100
[2023-04-18 22:28] VITALS: O2SAT 100
[2023-04-19 07:10] VITALS: BP 112/69; TEMP 97.6; O2SAT 98
[2023-04-19 12:11] VITALS: BP 134/57
[2023-04-19 19:46] VITALS: BP 118/55; TEMP 98.1; O2SAT 98
[2023-04-19] MEDS: MELATONIN 3 MG GT PRN (21:33)
[2023-04-19 23:36] VITALS: O2SAT 100
[2023-04-19 23:37] VITALS: O2SAT 100
[2023-04-20] MEDS: ONDANSETRON 4 MG TAB.RAPDIS GT PRN (00:13)
[2023-04-20 05:37] VITALS: BP 132/57; TEMP 98.4; O2SAT 98
[2023-04-20 10:18] VITALS: O2SAT 100
[2023-04-20 10:19] VITALS: O2SAT 100
[2023-04-20 19:48] VITALS: BP_SYST 106; BP_SYST 134; BP_DIAS 59; BP_DIAS 87; TEMP 98.1; TEMP 98.2; O2SAT 100; O2SAT 97
[2023-04-20] MEDS: APIXABAN 2.5 MG TABLET PO SCH (21:00)
[2023-04-21] VITALS (7 sets, daily range): BP systolic 120–123; BP diastolic 50–61; TEMP 97.6–97.9; O2SAT 99–100
[2023-04-22] VITALS (7 sets, daily range): BP systolic 116–142; BP diastolic 57–67; TEMP 97.5–98; O2SAT 98–100
[2023-04-23 10:25] VITALS: O2SAT 98
[2023-04-23 10:26] VITALS: O2SAT 98
[2023-04-23 20:00] VITALS: BP 104/64; TEMP 98.3; O2SAT 99
[2023-04-23 23:20] VITALS: O2SAT 100
[2023-04-24 07:42] VITALS: O2SAT 98
[2023-04-24 08:02] VITALS: BP 156/72; TEMP 98.4; O2SAT 98
[2023-04-24 11:19] VITALS: O2SAT 98
[2023-04-24 21:44] VITALS: BP 128/69; TEMP 97.5; O2SAT 100
[2023-04-24 23:05] VITALS: O2SAT 100
[2023-04-25 11:14] VITALS: O2SAT 96
[2023-04-25 11:15] VITALS: O2SAT 96
[2023-04-25 20:00] VITALS: BP 129/58; TEMP 97.5; O2SAT 99
[2023-04-25 22:25] VITALS: O2SAT 95
[2023-04-25 22:26] VITALS: O2SAT 95
[2023-04-25] MEDS: [UNRECOGNIZED DRUG - REMARK] SQ SCH (23:27)
[2023-04-26 07:26] VITALS: BP 99/52; TEMP 97.7; O2SAT 98
[2023-04-26 07:45] VITALS: O2SAT 99
[2023-04-26 11:26] VITALS: O2SAT 99
[2023-04-26 19:33] VITALS: BP 132/69; TEMP 97.5; O2SAT 96
[2023-04-26 22:32] VITALS: O2SAT 96
[2023-04-27 11:27] VITALS: O2SAT 99
[2023-04-27 14:26] VITALS: BP 132/52; TEMP 98.1; O2SAT 100
[2023-04-27 19:30] VITALS: BP 123/61; TEMP 98.1; O2SAT 98
[2023-04-27 23:44] VITALS: O2SAT 98
[2023-04-28 07:33] VITALS: BP 109/53; TEMP 98.1; O2SAT 100
[2023-04-28 10:51] VITALS: O2SAT 99
[2023-04-28 10:52] VITALS: O2SAT 99
[2023-04-28 19:57] VITALS: BP 135/70; TEMP 98.2; O2SAT 99
[2023-04-28 23:28] VITALS: O2SAT 98
[2023-04-29 07:43] VITALS: BP 128/60; TEMP 97.5; O2SAT 95
[2023-04-29 10:00] VITALS: BP 128/60; TEMP 97.5; O2SAT 97
[2023-04-29 10:50] VITALS: O2SAT 97
[2023-04-29 20:07] VITALS: BP 132/64; TEMP 97.5; O2SAT 98
[2023-04-29 23:13] VITALS: O2SAT 98
[2023-04-30 12:00] VITALS: O2SAT 94
[2023-04-30 12:01] VITALS: O2SAT 94
[2023-04-30 20:00] VITALS: BP 104/64; TEMP 98.3; O2SAT 99
[2023-04-30 22:14] VITALS: O2SAT 99
[2023-05-01 07:17] VITALS: BP 112/78; TEMP 98.1; O2SAT 98
[2023-05-01 10:50] VITALS: O2SAT 100
[2023-05-01 17:10] VITALS: O2SAT 98
[2023-05-01 20:00] VITALS: BP 148/79; TEMP 98.1; O2SAT 100
[2023-05-01 22:30] VITALS: O2SAT 99
[2023-05-02 13:38] VITALS: O2SAT 98
[2023-05-02 13:39] VITALS: O2SAT 98
[2023-05-02 15:51] LABS: ABG BASE EXCESS 6.4 mmol/L; ABG OXYGEN SATURATION 95.4 % (92.0-98.5); ABG PCO2 62.2 mmHg (35.0-45.0); ABG PH 7.348 (7.350-7.450); ABG PO2 77.7 mmHg (75.0-100.0); ABG TOTAL HEMOGLOBIN 10.3 G/dL (12.0-16.0); AaDO2 99.5 mmHg; COHb 0.5 % (0.5-1.5); MetHb 0.1 % (0.0-1.5); O2Hb 94.8 % (94.0-97.0); SITE, ABG Right Radial; VENT MODE, BG AC 10 475 35% +5
[2023-05-02 20:00] VITALS: BP 134/58; TEMP 98; O2SAT 99
[2023-05-02 23:05] VITALS: O2SAT 83; O2SAT 98
[2023-05-03 10:48] VITALS: O2SAT 76
[2023-05-03 10:49] VITALS: O2SAT 98
[2023-05-03 14:53] VITALS: BP 108/55; TEMP 97.9; O2SAT 99
[2023-05-03 19:01] VITALS: BP 144/72; TEMP 97.9; O2SAT 97
[2023-05-04 00:03] VITALS: O2SAT 100; O2SAT 81
[2023-05-04 10:44] VITALS: O2SAT 98
[2023-05-04 15:46] VITALS: O2SAT 87
[2023-05-04 18:57] VITALS: BP 134/63; TEMP 97.7; O2SAT 100
[2023-05-04 23:01] VITALS: O2SAT 74; O2SAT 98
[2023-05-04] MEDS: [UNRECOGNIZED DRUG - REMARK] SQ SCH (23:59)
[2023-05-05 07:31] VITALS: BP 136/61; TEMP 97.6; O2SAT 99
[2023-05-05 10:55] VITALS: O2SAT 80; O2SAT 94
[2023-05-05 19:38] VITALS: BP 130/72; TEMP 97.8; O2SAT 99
[2023-05-05 23:56] VITALS: O2SAT 99
[2023-05-06 08:12] VITALS: BP 126/66; TEMP 97.7; O2SAT 100
[2023-05-06 10:29] VITALS: O2SAT 100
[2023-05-06 20:00] VITALS: BP 120/66; TEMP 97.9; O2SAT 98
[2023-05-06 22:39] VITALS: O2SAT 100
[2023-05-07 20:16] VITALS: BP 140/66; TEMP 97.7; O2SAT 99
[2023-05-07] MEDS: BACI/NEOM/POLY B OINT PKT 1 UDPKT PACKET TP SCH (20:39)
[2023-05-07] MEDS: DONEPEZIL 10 MG TABLET GT SCH (21:27)
[2023-05-07 22:42] VITALS: O2SAT 99
[2023-05-08 07:24] VITALS: BP 135/55; TEMP 97.5; O2SAT 99
[2023-05-08 10:23] VITALS: O2SAT 98
[2023-05-08 10:24] VITALS: O2SAT 98
[2023-05-08 20:46] VITALS: BP 140/71; TEMP 98.1; O2SAT 98
[2023-05-08 22:53] VITALS: O2SAT 100
[2023-05-09 07:39] VITALS: BP 103/54; TEMP 97.2; O2SAT 100
[2023-05-09 10:25] VITALS: O2SAT 98
[2023-05-09 10:26] VITALS: O2SAT 98
[2023-05-09 20:44] VITALS: BP 142/76; TEMP 97.7; O2SAT 96
[2023-05-09] MEDS: APIXABAN 2.5 MG TABLET GT SCH (21:45)
[2023-05-09 22:25] VITALS: O2SAT 98
[2023-05-09 22:26] VITALS: O2SAT 98
[2023-05-10 07:11] VITALS: BP 90/56; TEMP 98.8; O2SAT 99
[2023-05-10] MEDS: PROSOURCE / PROSTAT (PYXIS) 30 ML UDC GT SCH (08:36)
[2023-05-10 10:55] VITALS: O2SAT 98
[2023-05-10 19:25] VITALS: BP 131/55; TEMP 97.9; O2SAT 99
[2023-05-10 23:26] VITALS: O2SAT 95
[2023-05-11 11:00] VITALS: O2SAT 97
[2023-05-11 12:51] VITALS: BP 117/59
[2023-05-11 14:18] VITALS: BP 145/68; TEMP 98.2; O2SAT 98
[2023-05-11 19:00] VITALS: BP 124/55; TEMP 98.1; O2SAT 98
[2023-05-11 23:24] VITALS: O2SAT 98
[2023-05-12 07:38] VITALS: BP 122/52; TEMP 97.5; O2SAT 100
[2023-05-12 10:42] VITALS: O2SAT 99
[2023-05-12 10:43] VITALS: O2SAT 99
[2023-05-12 18:18] VITALS: BP 127/53
[2023-05-12 19:07] VITALS: BP 129/59; TEMP 97.5; O2SAT 100
[2023-05-12 23:58] VITALS: O2SAT 100
[2023-05-13 07:33] VITALS: BP 122/57; TEMP 97.5; O2SAT 100
[2023-05-13 10:48] VITALS: O2SAT 99
[2023-05-13 19:58] VITALS: BP 136/58; TEMP 97.7; O2SAT 98
[2023-05-13 23:22] VITALS: O2SAT 98
[2023-05-14 08:33] VITALS: BP 113/64; TEMP 97.7; O2SAT 96
[2023-05-14 10:19] VITALS: O2SAT 98
[2023-05-14 10:20] VITALS: O2SAT 98
[2023-05-14 14:10] VITALS: O2SAT 98
[2023-05-14 21:12] VITALS: BP 118/55; TEMP 97.7; O2SAT 97
[2023-05-14 22:58] VITALS: O2SAT 98
[2023-05-15 10:34] VITALS: BP 101/45; TEMP 98.1; O2SAT 100
[2023-05-15 10:50] VITALS: O2SAT 99
[2023-05-15 10:51] VITALS: O2SAT 99
[2023-05-15 19:49] VITALS: BP 124/62; TEMP 98.8; O2SAT 99
[2023-05-15 23:03] VITALS: O2SAT 98
[2023-05-15 23:13] VITALS: O2SAT 98
[2023-05-16 12:00] VITALS: O2SAT 95
[2023-05-16 20:13] VITALS: BP 130/56; TEMP 97.7; O2SAT 98
[2023-05-16 23:00] VITALS: BP 132/55; TEMP 97.7; O2SAT 97
[2023-05-16 23:42] VITALS: O2SAT 99
[2023-05-17] VITALS (9 sets, daily range): BP systolic 115–139; BP diastolic 44–61; TEMP 97.6–98.9; O2SAT 97–100
[2023-05-17] MEDS ORDERED: ECONAZOLE NITRATE CREAM 15 GM TUBE TP PRN (17:00)
[2023-05-17] MEDS ORDERED: Z GUARD REMEDY 4 OZ OINT TP PRN (17:00)
[2023-05-17] MEDS: Z GUARD REMEDY 4 OZ OINT TP SCH (20:48)
[2023-05-17] MEDS: ECONAZOLE NITRATE CREAM 15 GM TUBE TP SCH (20:49)
[2023-05-18 04:23] VITALS: BP 125/56; TEMP 98.6; O2SAT 97
[2023-05-18 07:19] VITALS: BP 114/97; TEMP 98.1; O2SAT 95
[2023-05-18 10:28] VITALS: O2SAT 99
[2023-05-18] MEDS: MIDODRINE HCL (5MG) 5 MG TABLET PO ONE (13:15)
[2023-05-18 17:12] LABS: BASOPHILS % (AUTO) 0.5 % (0.0-2.0); EOSINOPHILS # (AUTO) 0.4 K/uL (0.0-0.7); EOSINOPHILS % (AUTO) 3.8 % (0.0-6.0); HEMATOCRIT 31 % (33-45); HEMOGLOBIN 9.2 g/dL (11.5-14.8); LYMPHOCYTES # (AUTO) 1.2 K/uL (0.8-4.8); LYMPHOCYTES % (AUTO) 13.1 % (20.0-44.0); MEAN CORPUSCULAR HEMOGLOBIN 26 PG (26.0-33.0); MEAN CORPUSCULAR HGB CONC 30 g/dl (31.0-36.0); MEAN CORPUSCULAR VOLUME 86 fL (82-100); MONOCYTES # (AUTO) 0.8 K/uL (0.1-1.30); NEUTROPHILS % (AUTO) 74.6 % (43.0-81.0); PLATELET COUNT (AUTO) 247 K/uL (150-450); RED BLOOD CELL COUNT(AUTO) 3.63 MIL/uL (4.0-5.2); RED CELL DISTRIBUTION WIDTH 20.2 % (11.5-15.0); WHITE BLOOD COUNT (AUTO) 9.4 K/uL (4.3-11.0)
[2023-05-18 17:25] LABS: CALCIUM, SERUM 9.1 mg/dL (8.5-10.1); CARBON DIOXIDE 34 mmol/L (21-32); CHLORIDE 96 mmol/L (98-107); CREATININE 2.5 mg/dL (0.6-1.3); GLUCOSE 167 mg/dL (74-106); POTASSIUM 2.9 mmol/L (3.5-5.1); SODIUM SERUM 134 mmol/L (136-145); UREA NITROGEN, BLOOD 56 mg/dL (7-18)
[2023-05-18 19:49] VITALS: BP 116/70; TEMP 97.2; O2SAT 98
[2023-05-18 22:18] LABS: EOSINOPHILS % (MANUAL) 5 % (0-4); LYMPHOCYTES % (MANUAL) 16 % (16-48); MONOCYTES % (MANUAL) 7 % (0-11.0); NEUTROPHILS % (MANUAL) 72 (42-76); PLATELET ESTIMATE ADEQUATE
[2023-05-18 22:19] LABS: ANISOCYTOSIS 1+; TARGET CELLS 1+
[2023-05-18 23:26] VITALS: O2SAT 99
[2023-05-19 07:50] VITALS: BP 99/49; TEMP 97.6; O2SAT 99
[2023-05-19 09:00] VITALS: BP 99/39
[2023-05-19] MEDS: MIDODRINE HCL (5MG) 5 MG TABLET PO SCH (09:00)
[2023-05-21] MEDS ORDERED: MIDODRINE HCL (5MG) 5 MG TABLET PO SCH (03:00)
[2023-05-23] MEDS ORDERED: APIX2.5T GT (09:48)
[2023-05-23] MEDS ORDERED: FERR325T28 GT (09:48)
[2023-05-28] MEDS ORDERED: CEFT1FRO2 IV (10:41)
[2023-05-28] MEDS ORDERED: TOBR3.5O2 EACHEYE (10:41)
[2023-05-28] MEDS ORDERED: METR250T36 PO (10:41)
[2024-03-14] MEDS ORDERED: TUBERCULIN,PURIF.PROT.DERIV. 5 TU/0.1 ML VIAL ID SCH (09:30)
== END 2023-05-19 15:20 | disposition short-term general hospital (02) | DRG 207 ==
LOC: SA → UNDOADMIN → TELE 05-19 09:36 → SA 05-19 11:55
PROVIDERS: ADMIT Internal Medicine; ATTEND Internal Medicine
PROC: 5A1955Z Respiratory Ventilation, Greater than 96 Consecutive Hours (ICD-10-PCS; principal; 2023-04-02)
DX: J96.11 Chronic respiratory failure with hypoxia (principal); N18.6 End stage renal disease; E43 Unspecified severe protein-calorie malnutrition; I12.0 Hypertensive chronic kidney disease with stage 5 chronic kidney disease or end stage renal disease; Z99.11 Dependence on respirator [ventilator] status; I82.612 Acute embolism and thrombosis of superficial veins of left upper extremity; R13.10 Dysphagia, unspecified; E11.22 Type 2 diabetes mellitus with diabetic chronic kidney disease; E78.5 Hyperlipidemia, unspecified; F03.90 Unspecified dementia, unspecified severity, without behavioral disturbance, psychotic disturbance, mood disturbance, and anxiety; G47.33 Obstructive sleep apnea (adult) (pediatric); J44.9 Chronic obstructive pulmonary disease, unspecified; I25.10 Atherosclerotic heart disease of native coronary artery without angina pectoris; J96.12 Chronic respiratory failure with hypercapnia; I69.398 Other sequelae of cerebral infarction; Z99.2 Dependence on renal dialysis; D64.9 Anemia, unspecified; E88.09 Other disorders of plasma-protein metabolism, not elsewhere classified; Z93.0 Tracheostomy status; Z93.1 Gastrostomy status; K29.70 Gastritis, unspecified, without bleeding
CPT/HCPCS: 31720; 36415; 36600; 73070-TC; 80048-TC; 82040-TC; 82803-TC; 82962-TC; 85025-TC; 90935-TC; 93971-TC; 94003-TC; 94640-TC; 94760-TC; 94762-TC; 94799-TC; A4623; A7526; J1610

== ENCOUNTER 2023-05-19 12:02 | Inpatient (IN) | payer MEDICARE, OTHER ==
[2023-05-19 12:00] VITALS: BP 135/61; TEMP 97.4; O2SAT 97
[2023-05-19] MEDS ORDERED: Medication Not On Formulary EA (Melatonin 3 MG) GT PRN (14:00)
[2023-05-19] MEDS ORDERED: BISACODYL SUPP (10 MG) 10 MG/SUPP.RECT SUPP.RECT RC PRN (14:00)
[2023-05-19] MEDS ORDERED: INSULIN REGULAR, HUMAN 100 UNIT/ML 3 ML VIAL SQ PRN (14:00)
[2023-05-19] MEDS ORDERED: ACETAMINOPHEN 325 MG TABLET PO PRN (14:00)
[2023-05-19] MEDS ORDERED: MAG HYDROX/AL HYDROX/SIMETH 30 ML UDC PO PRN (14:00)
[2023-05-19] MEDS ORDERED: MAG HYDROX/AL HYDROX/SIMETH 30 ML UDC GT PRN (14:00)
[2023-05-19] MEDS ORDERED: MAGNESIUM HYDROXIDE 30 ML UDC PO PRN (14:00)
[2023-05-19] MEDS ORDERED: ONDANSETRON HCL/PF 4 MG/2 ML VIAL IVP PRN (14:00)
[2023-05-19] MEDS ORDERED: MAGNESIUM HYDROXIDE 30 ML UDC GT PRN (14:00)
[2023-05-19] MEDS ORDERED: *INSULIN REGULAR(HUMULIN R)HUM 100 UNIT/ML VIAL SQ PRN (14:00)
[2023-05-19] MEDS ORDERED: DEXTROSE 50%-WATER 50 ML DISP.SYRIN IV PRN ×5 (14:00→17:00)
[2023-05-19] MEDS ORDERED: COLLAGENASE 30 GM TUBE TP PRN (14:00)
[2023-05-19] MEDS ORDERED: NA PHOS,M-B/NA PHOS,DI-BA 1 EA ENEMA RC PRN (14:00)
[2023-05-19] MEDS ORDERED: NYSTATIN TOP POWDER 15 GM BOTTLE TP PRN (14:00)
[2023-05-19 16:00] VITALS: BP 119/61; TEMP 96.4; O2SAT 98
[2023-05-19] MEDS ORDERED: NEPRO 1,000 ML BOTTLE GT SCH (16:00)
[2023-05-19] MEDS: NEPRO 1,000 ML BOTTLE GT PRN (16:26)
[2023-05-19] MEDS ORDERED: ONDANSETRON 4 MG TAB.RAPDIS GT PRN (16:30)
[2023-05-19] MEDS ORDERED: GLUCAGON,HUMAN RECOMBINANT 1 MG/VIAL VIAL IM PRN (16:30)
[2023-05-19] MEDS ORDERED: NYSTATIN TOP POWDER 15 GM BOTTLE TP SCH (17:00)
[2023-05-19] MEDS ORDERED: Medication Not On Formulary EA (Lansoprazole 30 MG) GT SCH (17:00)
[2023-05-19] MEDS ORDERED: COLLAGENASE 30 GM TUBE TP SCH (17:00)
[2023-05-19] MEDS ORDERED: HYDROGEN PEROXIDE 480 ML BOTTLE TP PRN (17:00)
[2023-05-19] MEDS ORDERED: ECONAZOLE NITRATE CREAM 15 GM TUBE TP PRN (17:00)
[2023-05-19] MEDS ORDERED: BLOOD SUGAR DIAGNOSTIC 1 EACH STRIP VI SCH (17:30)
[2023-05-19] MEDS: POLYVINYL ALCOHOL 15 ML BOTTLE EACHEYE SCH (17:51)
[2023-05-19] MEDS: BLOOD SUGAR DIAGNOSTIC 1 EACH STRIP IN SCH (17:52)
[2023-05-19] MEDS: PANTOPRAZOLE 40 MG/PACK PACK GT SCH (17:52)
[2023-05-19] MEDS: PROSOURCE / PROSTAT (PYXIS) 30 ML UDC GT SCH (17:53)
[2023-05-19] MEDS: MIDODRINE HCL (5MG) 5 MG TABLET PO SCH (17:54)
[2023-05-19] MEDS: INSULIN REGULAR, HUMAN 100 UNIT/ML 3 ML VIAL SQ PRN (17:55)
[2023-05-19] MEDS ORDERED: ALBUTEROL HALF STRENGTH 1.25 MG/3 ML VIAL.NEB IH SCH (19:30)
[2023-05-19 20:00] VITALS: BP 103/73; TEMP 97.7; O2SAT 100
[2023-05-19] MEDS: IPRATROPIUM NEB FS 0.5 MG/2.5 ML AMPUL.NEB IH SCH (20:16)
[2023-05-19] MEDS: ALBUTEROL FS 2.5 MG/0.5 ML VIAL.NEB NEB SCH (20:16)
[2023-05-19] MEDS: APIXABAN 2.5 MG TABLET GT SCH (20:41)
[2023-05-19] MEDS: BACI/NEOM/POLY B OINT PKT 1 UDPKT PACKET TP SCH (21:00)
[2023-05-19] MEDS: METOPROLOL TARTRATE 25 MG TABLET GT SCH (21:00)
[2023-05-19] MEDS: MINERAL OIL/PETROL OINT 396 GM JAR TP SCH (21:00)
[2023-05-19] MEDS: ATORVASTATIN 40 MG TABLET PO SCH (21:29)
[2023-05-19] MEDS: MONTELUKAST SODIUM (10MG) 10 MG TABLET GT SCH (21:29)
[2023-05-19] MEDS: HYDROGEN PEROXIDE 480 ML BOTTLE TP SCH (21:31)
[2023-05-19] MEDS: Z GUARD REMEDY 4 OZ OINT TP SCH ×2 (21:32→21:33)
[2023-05-19] MEDS: VITAMINS A AND D 56.7 GM TUBE TP SCH (21:32)
[2023-05-19] MEDS: ECONAZOLE NITRATE CREAM 15 GM TUBE TP SCH (21:32)
[2023-05-19] MEDS ORDERED: INSULIN GLARGINE HUM REC ANLOG 18 UNIT SQ SCH (22:00)
[2023-05-19] MEDS ORDERED: RIVAROXABAN 10 MG TABLET PO SCH (22:00)
[2023-05-19] MEDS ORDERED: Medication Not On Formulary EA (Rosuvastatin Calcium (Crestor) 40 MG) PO SCH (22:00)
[2023-05-19] MEDS: DONEPEZIL 5 MG TABLET GT SCH (22:45)
[2023-05-20] VITALS: BP 138/74; TEMP 97.6; O2SAT 98
[2023-05-20] MEDS: INSULIN GLARGINE, 100 UNIT/ML CARTRIDGE SQ SCH
[2023-05-20 04:00] VITALS: BP 104/46; TEMP 97.3; O2SAT 97
[2023-05-20 06:36] LABS: BASOPHILS # (AUTO) 0.1 K/uL (0.0-0.2); BASOPHILS % (AUTO) 0.9 % (0.0-2.0); EOSINOPHILS # (AUTO) 0.2 K/uL (0.0-0.7); EOSINOPHILS % (AUTO) 1.9 % (0.0-6.0); HEMATOCRIT 33 % (33-45); HEMOGLOBIN 9.9 g/dL (11.5-14.8); LYMPHOCYTES # (AUTO) 1.5 K/uL (0.8-4.8); LYMPHOCYTES % (AUTO) 14.1 % (20.0-44.0); MEAN CORPUSCULAR HEMOGLOBIN 26 PG (26.0-33.0); MEAN CORPUSCULAR HGB CONC 30 g/dl (31.0-36.0); MEAN CORPUSCULAR VOLUME 85 fL (82-100); MONOCYTES # (AUTO) 1.2 K/uL (0.1-1.30); MONOCYTES % (AUTO) 11.2 % (2.0-12.0); NEUTROPHILS # (AUTO) 7.6 K/uL (1.8-8.9); NEUTROPHILS % (AUTO) 71.9 % (43.0-81.0); PLATELET COUNT (AUTO) 249 K/uL (150-450); RED BLOOD CELL COUNT(AUTO) 3.85 MIL/uL (4.0-5.2); RED CELL DISTRIBUTION WIDTH 20.9 % (11.5-15.0); WHITE BLOOD COUNT (AUTO) 10.6 K/uL (4.3-11.0)
[2023-05-20 06:53] LABS: CALCIUM, SERUM 8.6 mg/dL (8.5-10.1); CARBON DIOXIDE 33 mmol/L (21-32); CHLORIDE 96 mmol/L (98-107); CREATININE 3.2 mg/dL (0.6-1.3); GLUCOSE 126 mg/dL (74-106); MAGNESIUM 2.7 mg/dL (1.8-2.4); PHOSPHORUS 3.4 mg/dL (2.5-4.9); POTASSIUM 3.2 mmol/L (3.5-5.1); SODIUM SERUM 135 mmol/L (136-145); UREA NITROGEN, BLOOD 70 mg/dL (7-18)
[2023-05-20 07:30] VITALS: BP 112/49; TEMP 97.3; O2SAT 100
[2023-05-20] MEDS: FERROUS SULFATE (325 MG) 325 MG/TAB TABLET GT SCH (08:59)
[2023-05-20] MEDS ORDERED: Medication Not On Formulary EA (Folic Acid/Vitamin B Comp W-C (Nephro-Vite Tablet) 0.8 M GT SCH (09:00)
[2023-05-20] MEDS: ZONISAMIDE 50 MG GT SCH (09:00)
[2023-05-20] MEDS ORDERED: Medication Not On Formulary EA (Zinc 50 MG) GT SCH (09:00)
[2023-05-20] MEDS ORDERED: LINAGLIPTIN 5 MG TABLET GT SCH (09:00)
[2023-05-20] MEDS ORDERED: NEPRO 1,000 ML BOTTLE GT PRN (10:00)
[2023-05-20] MEDS ORDERED: NEPRO 1,000 ML BOTTLE GT SCH (10:00)
[2023-05-20] MEDS: VIT B CMPLX 3/FA/VIT C/BIOTIN 1 TAB TABLET GT SCH (10:50)
[2023-05-20] MEDS ORDERED: ALBUMIN 25% 25 GM in PREMIX 1 EA IV PRN (17:30)
[2023-05-21] VITALS: BP 110/45; TEMP 97.3; O2SAT 99
[2023-05-21] MEDS: MIDODRINE HCL (5MG) 5 MG TABLET PO SCH (03:31)
[2023-05-21 07:15] LABS: BASOPHILS # (AUTO) 0.1 K/uL (0.0-0.2); EOSINOPHILS # (AUTO) 0.2 K/uL (0.0-0.7); EOSINOPHILS % (AUTO) 2.2 % (0.0-6.0); HEMATOCRIT 32 % (33-45); HEMOGLOBIN 9.6 g/dL (11.5-14.8); LYMPHOCYTES # (AUTO) 1.2 K/uL (0.8-4.8); LYMPHOCYTES % (AUTO) 12.2 % (20.0-44.0); MEAN CORPUSCULAR HEMOGLOBIN 25 PG (26.0-33.0); MEAN CORPUSCULAR HGB CONC 30 g/dl (31.0-36.0); MEAN CORPUSCULAR VOLUME 85 fL (82-100); MONOCYTES # (AUTO) 1.1 K/uL (0.1-1.30); MONOCYTES % (AUTO) 11.1 % (2.0-12.0); NEUTROPHILS # (AUTO) 7.3 K/uL (1.8-8.9); NEUTROPHILS % (AUTO) 73.5 % (43.0-81.0); PLATELET COUNT (AUTO) 278 K/uL (150-450); RED BLOOD CELL COUNT(AUTO) 3.79 MIL/uL (4.0-5.2); RED CELL DISTRIBUTION WIDTH 21.3 % (11.5-15.0); WHITE BLOOD COUNT (AUTO) 9.9 K/uL (4.3-11.0)
[2023-05-21 07:20] LABS: CALCIUM, SERUM 9.4 mg/dL (8.5-10.1); CARBON DIOXIDE 31 mmol/L (21-32); CHLORIDE 96 mmol/L (98-107); CREATININE 3.1 mg/dL (0.6-1.3); GLUCOSE 128 mg/dL (74-106); POTASSIUM 3.1 mmol/L (3.5-5.1); SODIUM SERUM 135 mmol/L (136-145); UREA NITROGEN, BLOOD 63 mg/dL (7-18)
[2023-05-21 08:00] VITALS: BP 115/61; TEMP 97.6; O2SAT 100
[2023-05-21 08:30] LABS: ABG BASE EXCESS 4.8 mmol/L; ABG OXYGEN SATURATION 96.9 % (92.0-98.5); ABG PCO2 63.1 mmHg (35.0-45.0); ABG PH 7.324 (7.350-7.450); ABG PO2 87.1 mmHg (75.0-100.0); ABG TOTAL HEMOGLOBIN 9.9 G/dL (12.0-16.0); AaDO2 89.1 mmHg; COHb 0.5 % (0.5-1.5); MetHb 0.1 % (0.0-1.5); O2Hb 96.3 % (94.0-97.0); PEEP,BG 5 cm H2O; SITE, ABG Right Radial; VENT MODE, BG AC 35%; VT, ABG 475 mL
[2023-05-21] MEDS: ALBUTEROL HALF STRENGTH 1.25 MG/3 ML VIAL.NEB NEB SCH (10:00)
[2023-05-21] MEDS: IPRATROPIUM NEB FS 0.5 MG/2.5 ML AMPUL.NEB NEB SCH (10:00)
[2023-05-21 12:00] VITALS: BP 125/55; TEMP 97.3; O2SAT 96
[2023-05-21 16:00] VITALS: BP 140/58; TEMP 97.7; O2SAT 99
[2023-05-21] MEDS ORDERED: EPOETIN ALFA-EPBX 10,000 UNIT/ML VIAL SQ SCH (17:00)
[2023-05-21] MEDS: ACETAMINOPHEN 325 MG TABLET PO PRN (18:07)
[2023-05-21 20:00] VITALS: BP 105/52; TEMP 97.4; O2SAT 100
[2023-05-22] VITALS: BP 133/63; TEMP 97.3; O2SAT 98
[2023-05-22 04:00] VITALS: BP 131/56; TEMP 97.3; O2SAT 100
[2023-05-22 06:29] LABS: BASOPHILS # (AUTO) 0.1 K/uL (0.0-0.2); BASOPHILS % (AUTO) 0.9 % (0.0-2.0); EOSINOPHILS # (AUTO) 0.2 K/uL (0.0-0.7); EOSINOPHILS % (AUTO) 3.1 % (0.0-6.0); HEMATOCRIT 33 % (33-45); HEMOGLOBIN 9.8 g/dL (11.5-14.8); LYMPHOCYTES # (AUTO) 1.2 K/uL (0.8-4.8); LYMPHOCYTES % (AUTO) 15.1 % (20.0-44.0); MEAN CORPUSCULAR HEMOGLOBIN 25 PG (26.0-33.0); MEAN CORPUSCULAR HGB CONC 29 g/dl (31.0-36.0); MEAN CORPUSCULAR VOLUME 85 fL (82-100); MONOCYTES # (AUTO) 0.8 K/uL (0.1-1.30); MONOCYTES % (AUTO) 9.8 % (2.0-12.0); NEUTROPHILS # (AUTO) 5.6 K/uL (1.8-8.9); NEUTROPHILS % (AUTO) 71.1 % (43.0-81.0); PLATELET COUNT (AUTO) 248 K/uL (150-450); RED BLOOD CELL COUNT(AUTO) 3.91 MIL/uL (4.0-5.2); RED CELL DISTRIBUTION WIDTH 21.1 % (11.5-15.0); WHITE BLOOD COUNT (AUTO) 7.8 K/uL (4.3-11.0)
[2023-05-22 07:06] LABS: CALCIUM, SERUM 9.1 mg/dL (8.5-10.1); CARBON DIOXIDE 32 mmol/L (21-32); CHLORIDE 97 mmol/L (98-107); CREATININE 2.4 mg/dL (0.6-1.3); GLUCOSE 174 mg/dL (74-106); POTASSIUM 3.4 mmol/L (3.5-5.1); SODIUM SERUM 136 mmol/L (136-145); UREA NITROGEN, BLOOD 48 mg/dL (7-18)
[2023-05-22] MEDS: POTASSIUM CL. PREMIX PERIPHER. 50 ML IV SCH (09:52)
[2023-05-22 10:15] VITALS: BP 120/55; TEMP 97.5; O2SAT 96
[2023-05-22 16:00] VITALS: BP 133/51; TEMP 97.5; O2SAT 96
[2023-05-22 20:00] VITALS: BP 113/50; TEMP 97.3; O2SAT 95
[2023-05-22 22:08] VITALS: BP 113/50; TEMP 97.3; O2SAT 95
[2023-05-23] VITALS (7 sets, daily range): BP systolic 112–137; BP diastolic 46–90; TEMP 97.3–99.3; O2SAT 95–98
[2023-05-23] MEDS ORDERED: FERR325T28 GT (09:48)
[2023-05-23] MEDS ORDERED: APIX2.5T GT (09:48)
[2023-05-24 01:00] VITALS: BP 128/64; TEMP 98.2; O2SAT 95
[2023-05-24 04:20] VITALS: BP 137/59; TEMP 98.4; O2SAT 95
[2023-05-24 07:00] VITALS: BP 125/73; TEMP 98.7; O2SAT 98
[2023-05-24 12:00] VITALS: BP 122/58; TEMP 98.6; O2SAT 98
[2023-05-24 12:29] LABS: BASOPHILS # (AUTO) 0.1 K/uL (0.0-0.2); BASOPHILS % (AUTO) 0.6 % (0.0-2.0); EOSINOPHILS # (AUTO) 0.1 K/uL (0.0-0.7); EOSINOPHILS % (AUTO) 0.7 % (0.0-6.0); HEMATOCRIT 32 % (33-45); HEMOGLOBIN 9.3 g/dL (11.5-14.8); LYMPHOCYTES # (AUTO) 1.6 K/uL (0.8-4.8); LYMPHOCYTES % (AUTO) 12.9 % (20.0-44.0); MEAN CORPUSCULAR HEMOGLOBIN 25 PG (26.0-33.0); MEAN CORPUSCULAR HGB CONC 29 g/dl (31.0-36.0); MEAN CORPUSCULAR VOLUME 87 fL (82-100); MONOCYTES # (AUTO) 1.3 K/uL (0.1-1.30); MONOCYTES % (AUTO) 10.7 % (2.0-12.0); NEUTROPHILS # (AUTO) 9.4 K/uL (1.8-8.9); NEUTROPHILS % (AUTO) 75.1 % (43.0-81.0); PLATELET COUNT (AUTO) 220 K/uL (150-450); RED BLOOD CELL COUNT(AUTO) 3.74 MIL/uL (4.0-5.2); RED CELL DISTRIBUTION WIDTH 20.9 % (11.5-15.0); WHITE BLOOD COUNT (AUTO) 12.5 K/uL (4.3-11.0)
[2023-05-24 12:40] LABS: CALCIUM, SERUM 9.1 mg/dL (8.5-10.1); CARBON DIOXIDE 29 mmol/L (21-32); CHLORIDE 99 mmol/L (98-107); CREATININE 2.2 mg/dL (0.6-1.3); GLUCOSE 207 mg/dL (74-106); POTASSIUM 3.6 mmol/L (3.5-5.1); SODIUM SERUM 134 mmol/L (136-145); UREA NITROGEN, BLOOD 44 mg/dL (7-18)
[2023-05-24 16:00] VITALS: BP 138/59; TEMP 98.9; O2SAT 98
[2023-05-24] MEDS: NYSTATIN TOP POWDER 15 GM BOTTLE TP SCH (16:45)
[2023-05-24 20:00] VITALS: BP 116/68; TEMP 98.6; O2SAT 100
[2023-05-25 04:13] VITALS: BP 143/62; TEMP 98.8; O2SAT 97
[2023-05-25 06:36] LABS: BASOPHILS # (AUTO) 0.1 K/uL (0.0-0.2); BASOPHILS % (AUTO) 0.5 % (0.0-2.0); EOSINOPHILS # (AUTO) 0.2 K/uL (0.0-0.7); EOSINOPHILS % (AUTO) 1.7 % (0.0-6.0); HEMATOCRIT 32 % (33-45); HEMOGLOBIN 9.4 g/dL (11.5-14.8); LYMPHOCYTES # (AUTO) 1.7 K/uL (0.8-4.8); LYMPHOCYTES % (AUTO) 13.7 % (20.0-44.0); MEAN CORPUSCULAR HEMOGLOBIN 25 PG (26.0-33.0); MEAN CORPUSCULAR HGB CONC 30 g/dl (31.0-36.0); MEAN CORPUSCULAR VOLUME 86 fL (82-100); MONOCYTES # (AUTO) 1.2 K/uL (0.1-1.30); MONOCYTES % (AUTO) 9.7 % (2.0-12.0); NEUTROPHILS # (AUTO) 9.1 K/uL (1.8-8.9); NEUTROPHILS % (AUTO) 74.4 % (43.0-81.0); PLATELET COUNT (AUTO) 238 K/uL (150-450); RED BLOOD CELL COUNT(AUTO) 3.72 MIL/uL (4.0-5.2); RED CELL DISTRIBUTION WIDTH 20.8 % (11.5-15.0); WHITE BLOOD COUNT (AUTO) 12.2 K/uL (4.3-11.0)
[2023-05-25 06:53] LABS: APPEARANCE,URINE TURBID (CLEAR); BILIRUBIN,URINE NEGATIVE (NEGATIVE); BLOOD, URINE 3+ Ery/uL (NEGATIVE); COLOR,URINE DARK YELLOW (YELLOW); KETONES,URINE NEGATIVE (NEGATIVE); LEUKOCYTE ESTERASE ,URINE 3+ (NEGATIVE); NITRITE, URINE NEGATIVE (NEGATIVE); PH,URINE 5.5 (5.0-8.0); PROTEIN,URINE 1+ mg/dl (NEGATIVE); UGLUCOSE NEGATIVE (NEGATIVE); UROBILINOGEN,URINE 0.2 EU/dL (0.2)
[2023-05-25 07:01] LABS: ADD URINE CULTURE YES; BACTERIA,URINE Few /HPF (None Seen); SQUAMOUS EPITHELIAL CELL,UR Rare /HPF (None Seen); WBC,URINE TOO NUMEROUS TO COUN /HPF (0-3)
[2023-05-25 07:04] LABS: CALCIUM, SERUM 9.1 mg/dL (8.5-10.1); CARBON DIOXIDE 32 mmol/L (21-32); CHLORIDE 100 mmol/L (98-107); CREATININE 1.9 mg/dL (0.6-1.3); GLUCOSE 106 mg/dL (74-106); MAGNESIUM 2.4 mg/dL (1.8-2.4); SODIUM SERUM 137 mmol/L (136-145); UREA NITROGEN, BLOOD 35 mg/dL (7-18)
[2023-05-25 08:00] VITALS: BP 141/65; TEMP 98.1; O2SAT 97
[2023-05-25] MEDS: POTASSIUM CL. PREMIX PERIPHER. 50 ML IV SCH (10:29)
[2023-05-25] MEDS ORDERED: CEFTRIAXONE 1 G in IV D5W 50 ML IV SCH (10:30)
[2023-05-25] MEDS: CEFTRIAXONE 2 G in IV D5W 100 ML IV SCH (10:48)
[2023-05-25] MEDS ORDERED: CEFEPIME HCL 2 GM in IV D5W 100 ML IV SCH (11:00)
[2023-05-25 12:00] VITALS: BP 129/57; TEMP 97.3; O2SAT 96
[2023-05-25 16:00] VITALS: BP 124/57; TEMP 98; O2SAT 97
[2023-05-25] MEDS: NEUTRA PHOS 1 POWD.PACKET NG ONE (16:02)
[2023-05-25 20:00] VITALS: BP 143/69; TEMP 97.7; O2SAT 95
[2023-05-26] VITALS: BP 134/63; TEMP 97.7; O2SAT 99
[2023-05-26 04:00] VITALS: BP 126/55; TEMP 97.8; O2SAT 100
[2023-05-26 06:09] LABS: BASOPHILS # (AUTO) 0.1 K/uL (0.0-0.2); BASOPHILS % (AUTO) 0.6 % (0.0-2.0); EOSINOPHILS # (AUTO) 0.2 K/uL (0.0-0.7); EOSINOPHILS % (AUTO) 1.7 % (0.0-6.0); HEMATOCRIT 33 % (33-45); HEMOGLOBIN 9.3 g/dL (11.5-14.8); LYMPHOCYTES # (AUTO) 1.3 K/uL (0.8-4.8); LYMPHOCYTES % (AUTO) 10.4 % (20.0-44.0); MEAN CORPUSCULAR HEMOGLOBIN 25 PG (26.0-33.0); MEAN CORPUSCULAR HGB CONC 28 g/dl (31.0-36.0); MEAN CORPUSCULAR VOLUME 90 fL (82-100); MONOCYTES # (AUTO) 1.1 K/uL (0.1-1.30); MONOCYTES % (AUTO) 8.7 % (2.0-12.0); NEUTROPHILS # (AUTO) 10.1 K/uL (1.8-8.9); NEUTROPHILS % (AUTO) 78.6 % (43.0-81.0); PLATELET COUNT (AUTO) 220 K/uL (150-450); RED BLOOD CELL COUNT(AUTO) 3.66 MIL/uL (4.0-5.2); RED CELL DISTRIBUTION WIDTH 21.1 % (11.5-15.0); WHITE BLOOD COUNT (AUTO) 12.8 K/uL (4.3-11.0)
[2023-05-26 06:23] LABS: CARBON DIOXIDE 31 mmol/L (21-32); CHLORIDE 99 mmol/L (98-107); CREATININE 1.7 mg/dL (0.6-1.3); GLUCOSE 158 mg/dL (74-106); MAGNESIUM 2.5 mg/dL (1.8-2.4); PHOSPHORUS 2.4 mg/dL (2.5-4.9); POTASSIUM 3.7 mmol/L (3.5-5.1); SODIUM SERUM 134 mmol/L (136-145); UREA NITROGEN, BLOOD 32 mg/dL (7-18)
[2023-05-26] MEDS ORDERED: TOBRAMYCIN OPHTH 5ML 5 ML BOTTLE EACHEYE SCH (08:00)
[2023-05-26 09:00] VITALS: BP 138/66; TEMP 98.1; O2SAT 96
[2023-05-26 11:55] VITALS: BP 137/62; TEMP 98.6; O2SAT 98
[2023-05-26] MEDS: TOBRAMYCIN/DEXAMETH OPHTH OINT 3.5 GM TUBE EACHEYE SCH (12:51)
[2023-05-26 16:00] VITALS: BP 116/60; TEMP 97.5; O2SAT 98
[2023-05-26] MEDS: NEUTRA PHOS 1 POWD.PACKET NG ONE (17:32)
[2023-05-26] MEDS: METRONIDAZOLE 250 MG TABLET PO SCH (17:32)
[2023-05-26 20:00] VITALS: BP 112/54; TEMP 98.1; O2SAT 100
[2023-05-27] VITALS: BP 117/46; TEMP 98.1; O2SAT 98
[2023-05-27 04:00] VITALS: BP 115/49; TEMP 97.9; O2SAT 97
[2023-05-27 07:08] LABS: BASOPHILS # (AUTO) 0.1 K/uL (0.0-0.2); BASOPHILS % (AUTO) 0.7 % (0.0-2.0); EOSINOPHILS # (AUTO) 0.2 K/uL (0.0-0.7); EOSINOPHILS % (AUTO) 2.5 % (0.0-6.0); HEMATOCRIT 32 % (33-45); HEMOGLOBIN 9.2 g/dL (11.5-14.8); LYMPHOCYTES # (AUTO) 1.2 K/uL (0.8-4.8); LYMPHOCYTES % (AUTO) 12.6 % (20.0-44.0); MEAN CORPUSCULAR HEMOGLOBIN 26 PG (26.0-33.0); MEAN CORPUSCULAR HGB CONC 29 g/dl (31.0-36.0); MEAN CORPUSCULAR VOLUME 89 fL (82-100); MONOCYTES # (AUTO) 0.9 K/uL (0.1-1.30); MONOCYTES % (AUTO) 9.6 % (2.0-12.0); NEUTROPHILS # (AUTO) 7.2 K/uL (1.8-8.9); NEUTROPHILS % (AUTO) 74.6 % (43.0-81.0); PLATELET COUNT (AUTO) 202 K/uL (150-450); RED BLOOD CELL COUNT(AUTO) 3.58 MIL/uL (4.0-5.2); RED CELL DISTRIBUTION WIDTH 20.4 % (11.5-15.0); WHITE BLOOD COUNT (AUTO) 9.7 K/uL (4.3-11.0)
[2023-05-27 07:37] LABS: CALCIUM, SERUM 9.1 mg/dL (8.5-10.1); CARBON DIOXIDE 25 mmol/L (21-32); CHLORIDE 102 mmol/L (98-107); CREATININE 1.6 mg/dL (0.6-1.3); GLUCOSE 113 mg/dL (74-106); MAGNESIUM 2.5 mg/dL (1.8-2.4); PHOSPHORUS 2.8 mg/dL (2.5-4.9); POTASSIUM 3.8 mmol/L (3.5-5.1); SODIUM SERUM 134 mmol/L (136-145); UREA NITROGEN, BLOOD 29 mg/dL (7-18)
[2023-05-27 09:21] VITALS: BP 135/62; TEMP 97.5; O2SAT 96
[2023-05-27 12:00] VITALS: BP 120/54; TEMP 97.7; O2SAT 97
[2023-05-27 16:05] VITALS: BP 106/46; TEMP 97.5; O2SAT 97
[2023-05-27 21:52] VITALS: BP 130/94; TEMP 98.4; O2SAT 95
[2023-05-28] VITALS: BP 118/65; TEMP 98.2; O2SAT 100
[2023-05-28 04:53] VITALS: BP 133/59; TEMP 97.3; O2SAT 100
[2023-05-28 07:03] LABS: BASOPHILS # (AUTO) 0.1 K/uL (0.0-0.2); BASOPHILS % (AUTO) 0.9 % (0.0-2.0); EOSINOPHILS # (AUTO) 0.3 K/uL (0.0-0.7); EOSINOPHILS % (AUTO) 2.7 % (0.0-6.0); HEMATOCRIT 34 % (33-45); LYMPHOCYTES # (AUTO) 1.8 K/uL (0.8-4.8); LYMPHOCYTES % (AUTO) 18.1 % (20.0-44.0); MEAN CORPUSCULAR HEMOGLOBIN 26 PG (26.0-33.0); MEAN CORPUSCULAR HGB CONC 29 g/dl (31.0-36.0); MEAN CORPUSCULAR VOLUME 88 fL (82-100); MONOCYTES # (AUTO) 0.9 K/uL (0.1-1.30); MONOCYTES % (AUTO) 9.1 % (2.0-12.0); NEUTROPHILS # (AUTO) 6.9 K/uL (1.8-8.9); NEUTROPHILS % (AUTO) 69.2 % (43.0-81.0); PLATELET COUNT (AUTO) 233 K/uL (150-450); RED BLOOD CELL COUNT(AUTO) 3.91 MIL/uL (4.0-5.2); RED CELL DISTRIBUTION WIDTH 20.4 % (11.5-15.0); WHITE BLOOD COUNT (AUTO) 9.9 K/uL (4.3-11.0)
[2023-05-28 07:24] LABS: CALCIUM, SERUM 9.1 mg/dL (8.5-10.1); CARBON DIOXIDE 28 mmol/L (21-32); CHLORIDE 100 mmol/L (98-107); CREATININE 1.6 mg/dL (0.6-1.3); GLUCOSE 163 mg/dL (74-106); MAGNESIUM 2.3 mg/dL (1.8-2.4); SODIUM SERUM 135 mmol/L (136-145); UREA NITROGEN, BLOOD 28 mg/dL (7-18)
[2023-05-28 08:00] VITALS: BP 100/80; TEMP 97.5; O2SAT 100
[2023-05-28] MEDS ORDERED: TOBR3.5O2 EACHEYE (10:41)
[2023-05-28] MEDS ORDERED: CEFT1FRO2 IV (10:41)
[2023-05-28] MEDS ORDERED: METR250T36 PO (10:41)
[2023-05-28 12:00] VITALS: BP 113/85; TEMP 97.4; O2SAT 100
[2023-05-28] MEDS: ALBUMIN 25% 25 GM in PREMIX 1 EA IV PRN (14:53)
[2023-05-28 16:00] VITALS: BP 116/54; TEMP 98.4; O2SAT 97
[2023-05-28 17:45] VITALS: BP 124/65
== END 2023-05-28 18:30 | DRG 291 ==
LOC: TELE 12:02
PROVIDERS: ADMIT Internal Medicine; ATTEND Nurse Practitioner Acute Care
PROC: 5A1955Z Respiratory Ventilation, Greater than 96 Consecutive Hours (ICD-10-PCS; principal; 2023-05-20)
PROC: 5A1D70Z Performance of Urinary Filtration, Intermittent, Less than 6 Hours Per Day (ICD-10-PCS; 2023-05-20)
DX: I13.2 Hypertensive heart and chronic kidney disease with heart failure and with stage 5 chronic kidney disease, or end stage renal disease (principal); E43 Unspecified severe protein-calorie malnutrition; I50.33 Acute on chronic diastolic (congestive) heart failure; N18.6 End stage renal disease; Z99.11 Dependence on respirator [ventilator] status; J96.11 Chronic respiratory failure with hypoxia; J96.12 Chronic respiratory failure with hypercapnia; E87.1 Hypo-osmolality and hyponatremia; N39.0 Urinary tract infection, site not specified; I82.612 Acute embolism and thrombosis of superficial veins of left upper extremity; G93.49 Other encephalopathy; H44.009 Unspecified purulent endophthalmitis, unspecified eye; Z99.2 Dependence on renal dialysis; F03.90 Unspecified dementia, unspecified severity, without behavioral disturbance, psychotic disturbance, mood disturbance, and anxiety; Z93.0 Tracheostomy status; Z93.1 Gastrostomy status; R13.10 Dysphagia, unspecified; D63.1 Anemia in chronic kidney disease; E88.09 Other disorders of plasma-protein metabolism, not elsewhere classified; E11.22 Type 2 diabetes mellitus with diabetic chronic kidney disease; Z79.01 Long term (current) use of anticoagulants; Z79.899 Other long term (current) drug therapy; Z79.4 Long term (current) use of insulin; Z79.51 Long term (current) use of inhaled steroids; K29.70 Gastritis, unspecified, without bleeding; I70.0 Atherosclerosis of aorta; J44.9 Chronic obstructive pulmonary disease, unspecified; I25.10 Atherosclerotic heart disease of native coronary artery without angina pectoris; E78.5 Hyperlipidemia, unspecified; N25.0 Renal osteodystrophy; Z86.73 Personal history of transient ischemic attack (TIA), and cerebral infarction without residual deficits; X58.XXXA Exposure to other specified factors, initial encounter; Y92.9 Unspecified place or not applicable; S71.112A Laceration without foreign body, left thigh, initial encounter; N76.2 Acute vulvitis; S31.010A Laceration without foreign body of lower back and pelvis without penetration into retroperitoneum, initial encounter; L98.9 Disorder of the skin and subcutaneous tissue, unspecified; S60.221A Contusion of right hand, initial encounter; N75.0 Cyst of Bartholin's gland; R60.1 Generalized edema
CPT/HCPCS: 31720; 36410; 36415; 36600; 71045-TC; 80048-TC; 81001; 82962-TC; 83735-TC; 84100-TC; 85025-TC; 87086-TC; 87340; 90935-TC; 94003-TC; 94667-TC; 94762-TC; 94799-TC; A4216; A4223; A4623; A6253; G0378; J0692; J0696; J1815; J3480; J7030; J7050; J7060; P9047

== ENCOUNTER 2023-05-28 15:11 | Inpatient (IN) | payer MEDICARE, OTHER ==
[~2023-05-28] VITALS: Ht 165.1 cm; Wt 93.9 kg
[~2023-05-28 15:11] MED LIST changes: +APIX2.5T GT; +CEFT1FRO2 IV; +DEXT50DI8 IVP; +FERR325T28 GT; +METR250T36 PO; -RIVA10TA PO; +TOBR3.5O2 EACHEYE
[2023-05-28] MEDS: BLOOD SUGAR DIAGNOSTIC 1 EACH STRIP IN SCH (20:00)
[2023-05-28] MEDS: METOPROLOL TARTRATE 50 MG TABLET GT SCH (21:00)
[2023-05-28] MEDS ORDERED: HYDROGEN PEROXIDE 480 ML BOTTLE TP PRN (21:00)
[2023-05-28] MEDS: HYDROGEN PEROXIDE 480 ML BOTTLE TP SCH (21:00)
[2023-05-28 21:13] VITALS: BP 134/70; TEMP 97.3; O2SAT 98
[2023-05-28] MEDS ORDERED: NA PHOS,M-B/NA PHOS,DI-BA 1 EA ENEMA RC PRN (21:30)
[2023-05-28] MEDS ORDERED: MAG HYDROX/AL HYDROX/SIMETH 30 ML UDC GT PRN (21:30)
[2023-05-28] MEDS ORDERED: ACETAMINOPHEN 650 MG/20 ML UDC- SA PATIENTS-FEVER ONLY GT PRN (21:30)
[2023-05-28] MEDS ORDERED: ONDANSETRON HCL 4 MG/5 ML SOLUTION GT PRN (21:30)
[2023-05-28] MEDS ORDERED: MAGNESIUM HYDROXIDE 30 ML UDC GT PRN (21:30)
[2023-05-28] MEDS ORDERED: *INSULIN ASPART NOVOLOG 100 UNIT/ML CARTRIDGE SQ PRN (21:30)
[2023-05-28] MEDS ORDERED: BISACODYL SUPP (10 MG) 10 MG/SUPP.RECT SUPP.RECT RC PRN (21:30)
[2023-05-28] MEDS ORDERED: DEXTROSE 50%-WATER 50 ML DISP.SYRIN IV PRN (21:30)
[2023-05-28] MEDS: DONEPEZIL 5 MG TABLET GT SCH (22:00)
[2023-05-28] MEDS: MONTELUKAST SODIUM (10MG) 10 MG TABLET GT SCH (22:00)
[2023-05-28] MEDS: INSULIN GLARGINE, 100 UNIT/ML CARTRIDGE SQ SCH (22:00)
[2023-05-28] MEDS: CRESTOR 40 MG GT SCH (22:00)
[2023-05-29] MEDS: TOBRAMYCIN SULFATE OPHTH OINT 3.5 GM TUBE EACHEYE SCH (01:00)
[2023-05-29] MEDS: ALBUTEROL HALF STRENGTH 1.25 MG/3 ML VIAL.NEB NEB SCH (01:30)
[2023-05-29] MEDS: IPRATROPIUM NEB FS 0.5 MG/2.5 ML AMPUL.NEB NEB SCH (01:30)
[2023-05-29] MEDS: INSULIN ASPART/LISPRO 100 UNIT/ML CARTRIDGE SQ PRN (04:13)
[2023-05-29 08:00] VITALS: BP 132/55; TEMP 97.7; O2SAT 96
[2023-05-29] MEDS: FERROUS SULFATE (325 MG) 325 MG/TAB TABLET GT SCH (08:17)
[2023-05-29] MEDS: VIT B CMPLX 3/FA/VIT C/BIOTIN 1 TAB TABLET GT SCH (08:17)
[2023-05-29] MEDS: METRONIDAZOLE 250 MG TABLET GT SCH (08:17)
[2023-05-29] MEDS: ZONISAMIDE 50 MG GT SCH (08:18)
[2023-05-29] MEDS: ZINC 50 MG GT SCH (08:18)
[2023-05-29] MEDS: LANSOPRAZOLE 30 MG GT SCH (08:18)
[2023-05-29] MEDS: ASCORBIC ACID 500 MG TABLET GT SCH (08:20)
[2023-05-29] MEDS: LINAGLIPTIN 5 MG TABLET GT SCH (08:21)
[2023-05-29] MEDS: NYSTATIN TOP POWDER 15 GM BOTTLE TP SCH (09:00)
[2023-05-29] MEDS ORDERED: POLYVINYL ALCOHOL 15 ML BOTTLE EACHEYE PRN (09:00)
[2023-05-29] MEDS: CEFTRIAXONE 1 G in IV D5W 50 ML IV SCH (09:00)
[2023-05-29] MEDS ORDERED: THERAHONEY GEL 1.5 OZ TUBE TP SCH (09:00)
[2023-05-29] MEDS: Z GUARD REMEDY 4 OZ OINT TP SCH (09:00)
[2023-05-29] MEDS ORDERED: Z GUARD REMEDY 4 OZ OINT TP SCH (09:00)
[2023-05-29] MEDS: MINERAL OIL/PETROL OINT 396 GM JAR TP SCH (09:00)
[2023-05-29 10:12] VITALS: O2SAT 98
[2023-05-29 19:19] VITALS: BP 117/56; TEMP 98.1; O2SAT 98
[2023-05-29] MEDS: DAKINS QUARTER STRENGTH (0.125%) 480 ML BOTTLE TOP SCH (21:32)
[2023-05-29 23:13] VITALS: O2SAT 97
[2023-05-30] MEDS: NEPRO 1,000 ML BOTTLE NG PRN (05:53)
[2023-05-30 10:46] VITALS: O2SAT 97
[2023-05-30] MEDS ORDERED: EPOETIN ALFA (10,000 UNIT) 10,000 UNIT/ML VIAL SQ SCH (15:00)
[2023-05-30 19:38] VITALS: BP 120/58; TEMP 98.1; O2SAT 98
[2023-05-30 23:40] VITALS: O2SAT 100
[2023-05-31 08:02] VITALS: BP 112/61; TEMP 98.1; O2SAT 97
[2023-05-31 11:47] VITALS: O2SAT 97
[2023-05-31 11:52] VITALS: O2SAT 97
[2023-05-31] MEDS: METRONIDAZOLE 500MG/ NS 100ML 500 MG in PREMIX 1 EA IV SCH (13:55)
[2023-05-31] MEDS: ACETAMINOPHEN 650 MG/20 ML UDC- SA PATIENTS-PAIN ONLY GT PRN (14:04)
[2023-05-31 19:32] VITALS: BP 117/56; TEMP 96.8; O2SAT 99
[2023-05-31] MEDS: Z GUARD REMEDY 4 OZ OINT TP SCH (21:27)
[2023-05-31] MEDS: BACI/NEOM/POLY B OINT PKT 1 UDPKT PACKET TP SCH (21:27)
[2023-05-31 23:43] VITALS: O2SAT 99
[2023-06-01 10:47] VITALS: O2SAT 98
[2023-06-01 11:00] VITALS: BP 117/67; TEMP 97.3; O2SAT 98
[2023-06-01 19:58] VITALS: BP 110/58; TEMP 98.4; O2SAT 98
[2023-06-01 22:51] VITALS: O2SAT 98
[2023-06-02 07:04] VITALS: BP 106/58; TEMP 97.7; O2SAT 100
[2023-06-02 10:35] VITALS: O2SAT 96
[2023-06-02 10:36] VITALS: O2SAT 97
[2023-06-02 20:15] VITALS: BP 95/69; TEMP 97.3; O2SAT 98
[2023-06-02 23:19] VITALS: O2SAT 98
[2023-06-03 07:30] VITALS: BP 107/66; TEMP 97.8; O2SAT 98
[2023-06-03 10:35] VITALS: O2SAT 98
[2023-06-03 20:09] VITALS: BP 104/59; TEMP 97.1; O2SAT 98
[2023-06-03] MEDS: LEVOFLOXACIN 500 MG /D5W 100ML 100 ML IV ONE (20:44)
[2023-06-03 22:26] VITALS: O2SAT 98
[2023-06-04] MEDS ORDERED: METRONIDAZOLE 500MG/ NS 100ML 100 ML IV ONE (06:16)
[2023-06-04] MEDS: LEVOFLOXACIN 500 MG /D5W 100ML 0 ML IV ONE (06:23)
[2023-06-04 10:27] VITALS: O2SAT 100
[2023-06-04] MEDS ORDERED: BISACODYL SUPP (10 MG) 10 MG/SUPP.RECT SUPP.RECT RC PRN (11:30)
[2023-06-04] MEDS ORDERED: ONDANSETRON HCL 4 MG/5 ML SOLUTION GT PRN (11:30)
[2023-06-04] MEDS: ALBUTEROL HALF STRENGTH 1.25 MG/3 ML VIAL.NEB NEB SCH (12:46)
[2023-06-04] MEDS: IPRATROPIUM NEB FS 0.5 MG/2.5 ML AMPUL.NEB NEB SCH (12:46)
[2023-06-04] MEDS: TOBRAMYCIN/DEXAMETH OPHTH OINT 3.5 GM TUBE EACHEYE SCH (12:58)
[2023-06-04] MEDS: METOPROLOL TARTRATE 50 MG TABLET GT SCH (13:00)
[2023-06-04] MEDS: INSULIN LISPRO/ASPART 100 UNIT/ML CARTRIDGE SQ PRN (13:01)
[2023-06-04] MEDS: METRONIDAZOLE 500MG/ NS 100ML 500 MG in PREMIX 1 EA IV SCH (13:30)
[2023-06-04] MEDS: THERAHONEY GEL 1.5 OZ TUBE TP SCH (21:01)
[2023-06-04] MEDS: DONEPEZIL 5 MG TABLET GT SCH (21:52)
[2023-06-04] MEDS: MONTELUKAST SODIUM (10MG) 10 MG TABLET GT SCH (21:53)
[2023-06-04] MEDS: INSULIN GLARGINE, 100 UNIT/ML CARTRIDGE SQ SCH (22:39)
[2023-06-04 23:24] VITALS: BP 91/64; TEMP 97.3; O2SAT 100
[2023-06-05 00:04] VITALS: O2SAT 98
[2023-06-05] MEDS: PANTOPRAZOLE 40 MG/PACK PACK GT SCH (05:15)
[2023-06-05 07:37] VITALS: BP 108/90; TEMP 97.5; O2SAT 100
[2023-06-05] MEDS: FERROUS SULFATE (325 MG) 325 MG/TAB TABLET GT SCH (08:23)
[2023-06-05] MEDS: VIT B CMPLX 3/FA/VIT C/BIOTIN 1 TAB TABLET GT SCH (08:25)
[2023-06-05] MEDS: ZINC SULFATE 220 MG CAPSULE GT SCH (08:26)
[2023-06-05] MEDS: LINAGLIPTIN 5 MG TABLET GT SCH (08:26)
[2023-06-05 10:27] VITALS: O2SAT 99
[2023-06-05 20:02] VITALS: BP 98/72; TEMP 97.5; O2SAT 100
[2023-06-05 23:31] VITALS: O2SAT 99
[2023-06-06 07:43] VITALS: BP 108/44; TEMP 98.2; O2SAT 98
[2023-06-06] MEDS: MIDODRINE HCL (5MG) 5 MG TABLET GT ONE (09:20)
[2023-06-06 10:48] VITALS: O2SAT 99
[2023-06-06] MEDS: MIDODRINE HCL (5MG) 5 MG TABLET GT SCH (12:00)
[2023-06-06 20:03] VITALS: BP 100/61; TEMP 97.5; O2SAT 99
[2023-06-06 23:59] VITALS: O2SAT 97
[2023-06-07] MEDS: PROSTAT (PYXIS) 30 ML UDC GT SCH (06:28)
[2023-06-07 07:43] VITALS: BP 98/38; TEMP 98.1; O2SAT 100
[2023-06-07] MEDS: NEUTRA PHOS 1 POWD.PACKET GT SCH (09:21)
[2023-06-07 10:40] VITALS: O2SAT 98
[2023-06-07] MEDS: NEPRO 1,000 ML BOTTLE NG PRN (17:27)
[2023-06-07 20:03] VITALS: BP 123/60; TEMP 99.3; O2SAT 97
[2023-06-07 23:06] VITALS: O2SAT 99
[2023-06-08 11:44] VITALS: O2SAT 98
[2023-06-08 19:49] VITALS: BP 109/55; TEMP 97.7; O2SAT 95
[2023-06-08 23:52] VITALS: O2SAT 98
[2023-06-09 10:50] VITALS: O2SAT 98
[2023-06-09 10:51] VITALS: O2SAT 98
[2023-06-09 20:01] VITALS: BP 130/59; TEMP 97.2; O2SAT 99
[2023-06-09 22:59] VITALS: O2SAT 98; O2SAT 99
[2023-06-10] MEDS: MELATONIN 3 MG GT PRN (00:31)
[2023-06-10 08:04] VITALS: BP 92/42; TEMP 97.5; O2SAT 99
[2023-06-10 10:18] VITALS: O2SAT 99
[2023-06-10 10:19] VITALS: O2SAT 99
[2023-06-10 19:36] VITALS: BP 126/63; TEMP 98.1; O2SAT 99
[2023-06-10 23:24] VITALS: O2SAT 100
[2023-06-11 10:50] VITALS: O2SAT 99
[2023-06-11 21:05] VITALS: BP 99/55; TEMP 98.4; O2SAT 99
[2023-06-11 23:56] VITALS: O2SAT 98
[2023-06-12 08:08] VITALS: BP 114/62; TEMP 96.9; O2SAT 99
[2023-06-12 08:09] VITALS: BP 114/62; TEMP 96.9; O2SAT 100
[2023-06-12 10:47] VITALS: O2SAT 98
[2023-06-12 20:00] VITALS: BP 113/69; TEMP 98.3; O2SAT 99
[2023-06-12 22:36] VITALS: O2SAT 99
[2023-06-13 20:34] VITALS: BP 136/76; TEMP 98.4; O2SAT 100
[2023-06-13 23:28] VITALS: O2SAT 98
[2023-06-14 07:33] VITALS: BP 134/61; TEMP 98; O2SAT 99
[2023-06-14 10:43] VITALS: O2SAT 99
[2023-06-14 20:29] VITALS: BP 142/70; TEMP 97.4; O2SAT 98
[2023-06-14 23:37] VITALS: O2SAT 98
[2023-06-14 23:38] VITALS: O2SAT 98
[2023-06-15 06:32] VITALS: BP 130/59; TEMP 98.6; O2SAT 96
[2023-06-15 10:33] VITALS: O2SAT 96
[2023-06-15 10:34] VITALS: O2SAT 96
[2023-06-15] MEDS: APIXABAN 2.5 MG TABLET GT SCH (17:08)
[2023-06-15 19:19] VITALS: BP 100/50; TEMP 97.5; O2SAT 99
[2023-06-15] MEDS ORDERED: APIXABAN 5 MG TABLET PO SCH (21:00)
[2023-06-15 23:49] VITALS: O2SAT 98
[2023-06-16] MEDS: FERROUS SULFATE (325 MG) 325 MG/TAB TABLET GT SCH (05:05)
[2023-06-16 07:40] VITALS: BP 149/77; TEMP 98.6; O2SAT 98
[2023-06-16 10:40] VITALS: O2SAT 98
[2023-06-16] MEDS: ZONISAMIDE 50 MG GT SCH (12:17)
[2023-06-16] MEDS: ASCORBIC ACID 500 MG TABLET GT SCH (12:18)
[2023-06-16] MEDS: ZINC SULFATE 220 MG CAPSULE GT SCH (12:18)
[2023-06-16] MEDS: LINAGLIPTIN 5 MG TABLET GT SCH (12:23)
[2023-06-16 20:08] VITALS: BP 133/64; TEMP 97.2; O2SAT 98
[2023-06-16] MEDS: APIXABAN 2.5 MG TABLET GT SCH (21:01)
[2023-06-16 23:16] VITALS: O2SAT 99
[2023-06-17] MEDS: NEUTRA PHOS 1 POWD.PACKET GT SCH (05:03)
[2023-06-17] MEDS: FERROUS SULFATE (325 MG) 325 MG/TAB TABLET GT SCH (05:03)
[2023-06-17] MEDS: VIT B CMPLX 3/FA/VIT C/BIOTIN 1 TAB TABLET GT SCH (05:03)
[2023-06-17 08:00] VITALS: BP 130/67; TEMP 97.4; O2SAT 98
[2023-06-17 10:58] VITALS: O2SAT 98
[2023-06-17 11:00] VITALS: O2SAT 98
[2023-06-17 20:14] VITALS: BP 109/55; TEMP 97.7; O2SAT 100
[2023-06-17 23:54] VITALS: O2SAT 99
[2023-06-18 13:22] VITALS: O2SAT 98
[2023-06-18 19:56] VITALS: BP 98/54; TEMP 97.1; O2SAT 97
[2023-06-19 11:03] VITALS: O2SAT 99
[2023-06-19 13:06] LABS: CALCIUM, SERUM 9.4 mg/dL (8.5-10.1); CARBON DIOXIDE 28 mmol/L (21-32); CHLORIDE 99 mmol/L (98-107); CREATININE 2.7 mg/dL (0.6-1.3); GLUCOSE 226 mg/dL (74-106); POTASSIUM 3.9 mmol/L (3.5-5.1); SODIUM SERUM 134 mmol/L (136-145); UREA NITROGEN, BLOOD 58 mg/dL (7-18)
[2023-06-19 13:17] VITALS: BP 114/54; TEMP 97; O2SAT 98
[2023-06-19 14:02] LABS: BASOPHILS # (AUTO) 0.1 K/uL (0.0-0.2); BASOPHILS % (AUTO) 0.8 % (0.0-2.0); EOSINOPHILS # (AUTO) 0.2 K/uL (0.0-0.7); EOSINOPHILS % (AUTO) 2.6 % (0.0-6.0); HEMATOCRIT 32 % (33-45); HEMOGLOBIN 9.3 g/dL (11.5-14.8); LYMPHOCYTES # (AUTO) 1.5 K/uL (0.8-4.8); MEAN CORPUSCULAR HEMOGLOBIN 27 PG (26.0-33.0); MEAN CORPUSCULAR HGB CONC 29 g/dl (31.0-36.0); MEAN CORPUSCULAR VOLUME 92 fL (82-100); MONOCYTES # (AUTO) 1.3 K/uL (0.1-1.30); NEUTROPHILS # (AUTO) 4.9 K/uL (1.8-8.9); NEUTROPHILS % (AUTO) 61.6 % (43.0-81.0); PLATELET COUNT (AUTO) 115 K/uL (150-450); RED BLOOD CELL COUNT(AUTO) 3.48 MIL/uL (4.0-5.2); RED CELL DISTRIBUTION WIDTH 23.5 % (11.5-15.0); WHITE BLOOD COUNT (AUTO) 7.9 K/uL (4.3-11.0)
[2023-06-19 15:12] LABS: ANISOCYTOSIS 1+; EOSINOPHILS % (MANUAL) 2 % (0-4); HYPOCHROMASIA 1+; LYMPHOCYTES % (MANUAL) 25 % (16-48); MONOCYTES % (MANUAL) 11 % (0-11.0); NEUTROPHILS % (MANUAL) 62 (42-76); PLATELET ESTIMATE DECREASED
[2023-06-19 20:00] VITALS: BP 105/52; TEMP 97.1; O2SAT 99
[2023-06-19 22:39] VITALS: O2SAT 99
[2023-06-20 12:59] VITALS: O2SAT 99
[2023-06-20 13:00] VITALS: O2SAT 98
[2023-06-20 20:00] VITALS: BP 109/55; TEMP 98; O2SAT 99
[2023-06-20 23:16] VITALS: O2SAT 99
[2023-06-21 07:19] VITALS: BP 106/73; TEMP 98.6; O2SAT 100
[2023-06-21 10:36] VITALS: O2SAT 98
[2023-06-21 19:07] VITALS: BP 123/54; TEMP 98.1; O2SAT 99
[2023-06-21 23:30] VITALS: O2SAT 100
[2023-06-21 23:31] VITALS: O2SAT 100
[2023-06-22 10:39] VITALS: O2SAT 100
[2023-06-22 10:40] VITALS: O2SAT 100
[2023-06-22 14:20] VITALS: BP 133/74; TEMP 97.3; O2SAT 99
[2023-06-22 19:11] VITALS: BP 97/46; TEMP 98.1; O2SAT 97
[2023-06-23] VITALS (9 sets, daily range): BP systolic 92–124; BP diastolic 48–62; TEMP 97.9; O2SAT 97–100
[2023-06-23] MEDS: MIDODRINE GT SCH (12:06)
[2023-06-24 07:28] VITALS: BP 107/60; TEMP 97.9; O2SAT 100
[2023-06-24 10:12] VITALS: O2SAT 98
[2023-06-24 20:00] VITALS: BP 97/56; TEMP 97.5; O2SAT 99
[2023-06-24 23:36] VITALS: O2SAT 99
[2023-06-25 11:20] VITALS: O2SAT 99
[2023-06-25 20:03] VITALS: BP 98/53; TEMP 97.5; O2SAT 99
[2023-06-25 22:28] VITALS: O2SAT 99
[2023-06-26 07:33] VITALS: BP 113/60; TEMP 98.6; O2SAT 100
[2023-06-26 09:28] VITALS: O2SAT 100
[2023-06-26] MEDS: MIDODRINE HCL (5MG) 5 MG TABLET GT SCH (12:59)
[2023-06-26 17:20] VITALS: O2SAT 100
[2023-06-26 19:51] VITALS: BP 104/54; TEMP 97.8; O2SAT 96
[2023-06-26 23:18] VITALS: O2SAT 98
[2023-06-27 05:15] VITALS: BP 118/87
[2023-06-27] MEDS ORDERED: NUT.237L67 GT (11:08)
[2023-06-27] MEDS ORDERED: MIDO10TA GT (11:08)
[2023-06-27] MEDS ORDERED: NEOM1OIN15 TP (11:08)
[2023-06-27] MEDS ORDERED: TOBR3.5O2 EACHEYE (11:08)
[2023-06-27] MEDS ORDERED: ZINC220C6 GT (11:08)
[2023-06-27] MEDS ORDERED: APIX2.5T GT (11:08)
[2023-06-27] MEDS ORDERED: NEUTRA PHOS PACKET GT (11:08)
[2023-06-27] MEDS ORDERED: PANT40SU2 GT (11:08)
[2023-06-27] MEDS ORDERED: AMIN30LI2 GT (11:08)
[2023-06-27] MEDS ORDERED: SODI473S8 TP (11:08)
[2023-06-27] MEDS ORDERED: ALLA266C2 TP (11:08)
[2023-06-27] MEDS ORDERED: FERR325T28 GT (11:08)
== END 2023-06-27 16:00 | disposition short-term general hospital (02) | DRG 207 ==
LOC: SA 18:40 → UNDOLOA 06-27 11:30
PROVIDERS: ADMIT Internal Medicine; ATTEND Internal Medicine
PROC: 5A1955Z Respiratory Ventilation, Greater than 96 Consecutive Hours (ICD-10-PCS; principal; 2023-05-28)
PROC: 0HBRXZZ Excision of Toe Nail, External Approach (ICD-10-PCS; 2023-06-15)
DX: J96.11 Chronic respiratory failure with hypoxia (principal); E43 Unspecified severe protein-calorie malnutrition; I50.33 Acute on chronic diastolic (congestive) heart failure; N18.6 End stage renal disease; R53.2 Functional quadriplegia; G93.40 Encephalopathy, unspecified; I13.2 Hypertensive heart and chronic kidney disease with heart failure and with stage 5 chronic kidney disease, or end stage renal disease; N39.0 Urinary tract infection, site not specified; Z99.11 Dependence on respirator [ventilator] status; J96.12 Chronic respiratory failure with hypercapnia; Z86.73 Personal history of transient ischemic attack (TIA), and cerebral infarction without residual deficits; I25.10 Atherosclerotic heart disease of native coronary artery without angina pectoris; J44.9 Chronic obstructive pulmonary disease, unspecified; E11.9 Type 2 diabetes mellitus without complications; E78.5 Hyperlipidemia, unspecified; D63.8 Anemia in other chronic diseases classified elsewhere; E11.22 Type 2 diabetes mellitus with diabetic chronic kidney disease; E88.09 Other disorders of plasma-protein metabolism, not elsewhere classified; F03.90 Unspecified dementia, unspecified severity, without behavioral disturbance, psychotic disturbance, mood disturbance, and anxiety; K29.70 Gastritis, unspecified, without bleeding; L60.3 Nail dystrophy; M24.571 Contracture, right ankle; M24.572 Contracture, left ankle; R13.10 Dysphagia, unspecified; N76.2 Acute vulvitis; Z93.1 Gastrostomy status; Z99.2 Dependence on renal dialysis
CPT/HCPCS: 31720; 36415; 80048-TC; 82962-TC; 85025-TC; 87081-TC; 94003-TC; 94760-TC; 94762-TC; 94799-TC; 97110-TC; 97530-TC; A4216; A4223; A4623; A6253; A7526; J0696; J0885; J1815; J1956; J7060

== ENCOUNTER 2023-06-27 09:45 | Inpatient (IN) | payer MEDICARE, OTHER ==
[~2023-06-27] VITALS: Ht 170.2 cm; Wt 105.2 kg
[2023-06-27] VITALS (17 sets, daily range): BP systolic 87–118; BP diastolic 41–67; TEMP 96.3; O2SAT 99–100
[2023-06-27 10:00] LABS: BASOPHILS % (AUTO) 0.5 % (0.0-2.0); EOSINOPHILS # (AUTO) 0.2 K/uL (0.0-0.7); EOSINOPHILS % (AUTO) 2.3 % (0.0-6.0); HEMATOCRIT 30 % (33-45); HEMOGLOBIN 8.9 g/dL (11.5-14.8); LYMPHOCYTES # (AUTO) 1.1 K/uL (0.8-4.8); MEAN CORPUSCULAR HEMOGLOBIN 28 PG (26.0-33.0); MEAN CORPUSCULAR HGB CONC 30 g/dl (31.0-36.0); MEAN CORPUSCULAR VOLUME 92 fL (82-100); MONOCYTES % (AUTO) 10.1 % (2.0-12.0); NEUTROPHILS # (AUTO) 7.5 K/uL (1.8-8.9); NEUTROPHILS % (AUTO) 76.1 % (43.0-81.0); RED BLOOD CELL COUNT(AUTO) 3.25 MIL/uL (4.0-5.2); RED CELL DISTRIBUTION WIDTH 24.6 % (11.5-15.0); WHITE BLOOD COUNT (AUTO) 9.8 K/uL (4.3-11.0)
[2023-06-27] MEDS ORDERED: IOHEXOL-350 100 ML VIAL IV ONE (10:00)
[2023-06-27] MEDS ORDERED: IV NS 0.9% 250 ML IV ONE (10:01)
[2023-06-27 10:02] LABS: PLATELET COUNT (AUTO) 41 K/uL (150-450)
[2023-06-27 10:08] LABS: CALCIUM, SERUM 8.7 mg/dL (8.5-10.1); CARBON DIOXIDE 27 mmol/L (21-32); CHLORIDE 99 mmol/L (98-107); CREATININE 2.4 mg/dL (0.6-1.3); GLUCOSE 194 mg/dL (74-106); POTASSIUM 4.1 mmol/L (3.5-5.1); SODIUM SERUM 132 mmol/L (136-145); UREA NITROGEN, BLOOD 55 mg/dL (7-18)
[2023-06-27 10:13] LABS: ALANINE AMINOTRANSFERASE 152 U/L (12-78); ALBUMIN 1.5 g/dL (3.4-5.0); ALKALINE PHOSPHATASE 270 U/L (46-116); ASPARTATE AMINOTRANSFERASE 160 U/L (15-37); BILIRUBIN,DIRECT 0.1 mg/dL (0.0-0.2); BILIRUBIN,TOTAL 0.3 mg/dL (0.2-1.0); TOTAL PROTEIN, SERUM 6.6 g/dL (6.4-8.2)
[2023-06-27 10:27] LABS: INR 1.33 (0.91-1.10); PROTHROMBIN TIME 13.8 SECS (9.2-11.1)
[2023-06-27 10:37] LABS: PARTIAL THROMBOPLASTIN TIME 143.2 SEC (24.3-34.3)
[2023-06-27] MEDS ORDERED: NUT.237L67 GT (11:08)
[2023-06-27] MEDS ORDERED: NEUTRA PHOS PACKET GT (11:08)
[2023-06-27] MEDS ORDERED: NEOM1OIN15 TP (11:08)
[2023-06-27] MEDS ORDERED: TOBR3.5O2 EACHEYE (11:08)
[2023-06-27] MEDS ORDERED: FERR325T28 GT (11:08)
[2023-06-27] MEDS ORDERED: PANT40SU2 GT (11:08)
[2023-06-27] MEDS ORDERED: ALLA266C2 TP (11:08)
[2023-06-27] MEDS ORDERED: AMIN30LI2 GT (11:08)
[2023-06-27] MEDS ORDERED: ZINC220C6 GT (11:08)
[2023-06-27] MEDS ORDERED: APIX2.5T GT (11:08)
[2023-06-27] MEDS ORDERED: MIDO10TA GT (11:08)
[2023-06-27] MEDS ORDERED: SODI473S8 TP (11:08)
[2023-06-27] MEDS ORDERED: CLINDAMYCIN 900 MG in IV D5W 100 ML IV ONE (11:30)
[2023-06-27] MEDS ORDERED: CLINDAMYCIN 900 MG/6 ML VIAL ONE (11:36)
[2023-06-27] MEDS ORDERED: ASPIRIN 300 MG/SUPP.RECT RC ONE (11:41)
[2023-06-27] MEDS: ASPIRIN 300 MG/SUPP.RECT RC ONE (11:46)
[2023-06-27] MEDS: CLINDAMYCIN 900 MG in IV D5W 50 ML IV ONE (11:57)
[2023-06-27] MEDS: ASPIRIN 325 MG TABLET PO ONE (12:03)
[2023-06-27] MEDS: IV NS 0.9% 1,000 ML BAG IV ONE ×2 (12:15→13:15)
[2023-06-27] MEDS ORDERED: NOREPINEPHRINE 8MG/250ML RTU 250 ML IV ONE (13:27)
[2023-06-27] MEDS: NOREPINEPHRINE 8 MG in IV D5W 242 ML IV PRN (13:33)
[2023-06-27 14:59] LABS: BAND % (MANUAL) 14 % (0.0-5.0); LYMPHOCYTES % (MANUAL) 17 % (16-48); MONOCYTES % (MANUAL) 5 % (0-11.0); NEUTROPHILS % (MANUAL) 64 (42-76); PLATELET ESTIMATE DECREASED
[2023-06-27 15:00] LABS: ANISOCYTOSIS 1+; TARGET CELLS 1+
[2023-06-27] MEDS ORDERED: DEXTROSE 50%-WATER 50 ML DISP.SYRIN IV PRN (18:30)
[2023-06-27] MEDS ORDERED: BISACODYL SUPP (10 MG) 10 MG/SUPP.RECT SUPP.RECT RC PRN (18:30)
[2023-06-27] MEDS ORDERED: ACETAMINOPHEN 325 MG TABLET MC PRN (18:30)
[2023-06-27] MEDS ORDERED: NOREPINEPHRINE 32 MG in IV NS 0.9% 218 ML IV PRN (18:30)
[2023-06-27] MEDS ORDERED: NA PHOS,M-B/NA PHOS,DI-BA 1 EA ENEMA RC PRN (18:30)
[2023-06-27] MEDS ORDERED: MAG HYDROX/AL HYDROX/SIMETH 30 ML UDC GT PRN (18:30)
[2023-06-27] MEDS ORDERED: NEPRO VAN 237 ML CAN GT SCH (18:30)
[2023-06-27] MEDS ORDERED: DEXTROSE 50%-WATER 50 ML DISP.SYRIN IVP PRN (18:30)
[2023-06-27] MEDS ORDERED: MAGNESIUM HYDROXIDE 30 ML UDC GT PRN (18:30)
[2023-06-27] MEDS ORDERED: NOREPINEPHRINE 8 MG in IV D5W 242 ML IV PRN (19:00)
[2023-06-27] MEDS: IPRATROPIUM NEB FS 0.5 MG/2.5 ML AMPUL.NEB IH SCH (19:46)
[2023-06-27] MEDS: ALBUTEROL HALF STRENGTH 1.25 MG/3 ML VIAL.NEB IH SCH (19:46)
[2023-06-27] MEDS: IV NS 0.9% 1,000 ML IV PRN (20:09)
[2023-06-27] MEDS: VANCOMYCIN 1.5 GM in IV D5W 500 ML IV ONE (20:09)
[2023-06-27] MEDS: DAKINS QUARTER STRENGTH (0.125%) 480 ML BOTTLE TOP SCH (20:23)
[2023-06-27] MEDS: NEOMY SULF/BACITRAC ZN/POLY 15 GM TUBE TP SCH (20:24)
[2023-06-27] MEDS: ATORVASTATIN 40 MG TABLET GT SCH (21:37)
[2023-06-27] MEDS: MEROPENEM 500 MG in IV NS 0.9% 50 ML IV SCH (21:37)
[2023-06-27] MEDS: MONTELUKAST SODIUM (10MG) 10 MG TABLET GT SCH (21:37)
[2023-06-27] MEDS: DONEPEZIL 5 MG TABLET GT SCH (21:37)
[2023-06-27] MEDS: APIXABAN 2.5 MG TABLET GT SCH (21:39)
[2023-06-27] MEDS: TOBRAMYCIN/DEXAMETH OPHTH OINT 3.5 GM TUBE EACHEYE SCH (21:40)
[2023-06-27] MEDS: INSULIN GLARGINE, 100 UNIT/ML CARTRIDGE SQ SCH (22:59)
[2023-06-27] MEDS ORDERED: NEPRO 1,000 ML BOTTLE GT PRN (23:00)
[2023-06-27] MEDS: NEPRO 1,000 ML BOTTLE GT PRN (23:02)
[2023-06-28] VITALS (90 sets, daily range): BP systolic 80–151; BP diastolic 37–72; TEMP 96.5–99.2; O2SAT 90–100
[2023-06-28] MEDS: BLOOD SUGAR DIAGNOSTIC 1 EACH STRIP IN SCH (00:37)
[2023-06-28] MEDS: INSULIN REGULAR, HUMAN 100 UNIT/ML 3 ML VIAL SQ PRN (01:14)
[2023-06-28] MEDS: NOREPINEPHRINE 32 MG in IV NS 0.9% 218 ML IV PRN (04:56)
[2023-06-28 06:59] LABS: BASOPHILS % (AUTO) 0.2 % (0.0-2.0); EOSINOPHILS # (AUTO) 0.1 K/uL (0.0-0.7); EOSINOPHILS % (AUTO) 0.5 % (0.0-6.0); HEMATOCRIT 34 % (33-45); HEMOGLOBIN 9.8 g/dL (11.5-14.8); LYMPHOCYTES # (AUTO) 1.3 K/uL (0.8-4.8); LYMPHOCYTES % (AUTO) 8.7 % (20.0-44.0); MEAN CORPUSCULAR HEMOGLOBIN 27 PG (26.0-33.0); MEAN CORPUSCULAR HGB CONC 29 g/dl (31.0-36.0); MEAN CORPUSCULAR VOLUME 92 fL (82-100); MONOCYTES # (AUTO) 2.9 K/uL (0.1-1.30); MONOCYTES % (AUTO) 19.2 % (2.0-12.0); NEUTROPHILS # (AUTO) 10.9 K/uL (1.8-8.9); NEUTROPHILS % (AUTO) 71.4 % (43.0-81.0); PLATELET COUNT (AUTO) 58 K/uL (150-450); RED BLOOD CELL COUNT(AUTO) 3.64 MIL/uL (4.0-5.2); RED CELL DISTRIBUTION WIDTH 24.7 % (11.5-15.0); WHITE BLOOD COUNT (AUTO) 15.3 K/uL (4.3-11.0)
[2023-06-28 07:17] LABS: ALANINE AMINOTRANSFERASE 156 U/L (12-78); ALBUMIN 1.7 g/dL (3.4-5.0); ALKALINE PHOSPHATASE 275 U/L (46-116); ASPARTATE AMINOTRANSFERASE 154 U/L (15-37); BILIRUBIN,TOTAL 0.3 mg/dL (0.2-1.0); CALCIUM, SERUM 9.3 mg/dL (8.5-10.1); CARBON DIOXIDE 23 mmol/L (21-32); CHLORIDE 99 mmol/L (98-107); CREATININE 2.6 mg/dL (0.6-1.3); GLUCOSE 158 mg/dL (74-106); MAGNESIUM 2.7 mg/dL (1.8-2.4); PHOSPHORUS 5.2 mg/dL (2.5-4.9); POTASSIUM 4.3 mmol/L (3.5-5.1); SODIUM SERUM 131 mmol/L (136-145); TOTAL PROTEIN, SERUM 7.3 g/dL (6.4-8.2); UREA NITROGEN, BLOOD 60 mg/dL (7-18)
[2023-06-28 08:18] LABS: BAND % (MANUAL) 2 % (0.0-5.0); BASOPHILS % (MANUAL) 0 % (0.0-2.0); EOSINOPHILS % (MANUAL) 2 % (0-4); LYMPHOCYTES % (MANUAL) 13 % (16-48); MONOCYTES % (MANUAL) 15 % (0-11.0); NEUTROPHILS % (MANUAL) 68 (42-76); PLATELET ESTIMATE DECREASED
[2023-06-28 08:19] LABS: ANISOCYTOSIS 1+
[2023-06-28] MEDS ORDERED: PROSOURCE / PROSTAT (PYXIS) 30 ML UDC GT SCH (09:00)
[2023-06-28 09:19] LABS: CHOLESTEROL 53 mg/dL (<200); HDL CHOLESTEROL 27 mg/dL (40-60); LDL 20 mg/dL (0-99); THYROID STIMULATING HORMONE 6.698 uIU/mL (0.358-3.74); TRIGLYCERIDES 52 mg/dL (30-150)
[2023-06-28] MEDS: FERROUS SULFATE (325 MG) 325 MG/TAB TABLET GT SCH (09:31)
[2023-06-28] MEDS: PANTOPRAZOLE 40 MG/PACK PACK GT SCH (09:32)
[2023-06-28] MEDS: ASPIRIN EC 81 MG TABLET.DR PO SCH (09:32)
[2023-06-28] MEDS: LINAGLIPTIN 5 MG TABLET GT SCH (09:32)
[2023-06-28] MEDS: MIDODRINE HCL (5MG) 5 MG TABLET GT SCH (09:33)
[2023-06-28] MEDS: PROSOURCE / PROSTAT (PYXIS) 30 ML UDC GT SCH (10:56)
[2023-06-28 13:27] LABS: APPEARANCE,URINE TURBID (CLEAR); BILIRUBIN,URINE 2+ (NEGATIVE); BLOOD, URINE 3+ Ery/uL (NEGATIVE); COLOR,URINE DARK YELLOW (YELLOW); KETONES,URINE NEGATIVE (NEGATIVE); LEUKOCYTE ESTERASE ,URINE 3+ (NEGATIVE); NITRITE, URINE POSITIVE (NEGATIVE); PH,URINE 8.5 (5.0-8.0); PROTEIN,URINE 3+ mg/dl (NEGATIVE); UGLUCOSE NEGATIVE (NEGATIVE)
[2023-06-28 13:59] LABS: ADD URINE CULTURE YES; BACTERIA,URINE Moderate /HPF (None Seen); RBC,URINE 21-50 /HPF (0-2); SQUAMOUS EPITHELIAL CELL,UR Moderate /HPF (None Seen); WBC,URINE TOO NUMEROUS TO COUN /HPF (0-3)
[2023-06-28] MEDS: VANCOMYCIN POST DIALYSIS 500MG IV PRN (18:50)
[2023-06-28 21:16] LABS: THYROID STIMULATING HORMONE 4.785 uIU/mL (0.358-3.74)
[2023-06-29] VITALS (95 sets, daily range): BP systolic 74–168; BP diastolic 14–79; TEMP 98–98.5; O2SAT 96–100
[2023-06-29] MEDS: NEPRO 1,000 ML BOTTLE GT PRN (00:06)
[2023-06-29 04:20] LABS: BASOPHILS % (AUTO) 0.3 % (0.0-2.0); EOSINOPHILS % (AUTO) 0.3 % (0.0-6.0); HEMATOCRIT 29 % (33-45); HEMOGLOBIN 8.6 g/dL (11.5-14.8); LYMPHOCYTES # (AUTO) 1.8 K/uL (0.8-4.8); MEAN CORPUSCULAR HEMOGLOBIN 27 PG (26.0-33.0); MEAN CORPUSCULAR HGB CONC 30 g/dl (31.0-36.0); MEAN CORPUSCULAR VOLUME 92 fL (82-100); NEUTROPHILS # (AUTO) 7.3 K/uL (1.8-8.9); NEUTROPHILS % (AUTO) 65.2 % (43.0-81.0); PLATELET COUNT (AUTO) 70 K/uL (150-450); RED BLOOD CELL COUNT(AUTO) 3.16 MIL/uL (4.0-5.2); WHITE BLOOD COUNT (AUTO) 11.2 K/uL (4.3-11.0)
[2023-06-29 04:30] LABS: LYMPHOCYTES % (AUTO) 20.2 % (20.0-44.0)
[2023-06-29 04:37] LABS: ALANINE AMINOTRANSFERASE 129 U/L (12-78); ALKALINE PHOSPHATASE 234 U/L (46-116); ASPARTATE AMINOTRANSFERASE 145 U/L (15-37); BILIRUBIN,TOTAL 0.3 mg/dL (0.2-1.0); CALCIUM, SERUM 8.6 mg/dL (8.5-10.1); CARBON DIOXIDE 29 mmol/L (21-32); CHLORIDE 102 mmol/L (98-107); CREATININE 2.3 mg/dL (0.6-1.3); GLUCOSE 125 mg/dL (74-106); MAGNESIUM 2.4 mg/dL (1.8-2.4); PHOSPHORUS 4.6 mg/dL (2.5-4.9); POTASSIUM 4.1 mmol/L (3.5-5.1); SODIUM SERUM 136 mmol/L (136-145); TOTAL PROTEIN, SERUM 6.3 g/dL (6.4-8.2); UREA NITROGEN, BLOOD 48 mg/dL (7-18)
[2023-06-29 04:56] LABS: ALBUMIN 1.4 g/dL (3.4-5.0)
[2023-06-29 05:18] LABS: ABG BASE EXCESS 1.2 mmol/L; ABG OXYGEN SATURATION 97.6 % (92.0-98.5); ABG PH 7.306 (7.350-7.450); ABG PO2 100.4 mmHg (75.0-100.0); ABG TOTAL HEMOGLOBIN 9.9 G/dL (12.0-16.0); MetHb 0.4 % (0.0-1.5); O2Hb 97.2 % (94.0-97.0); PEEP,BG 5 cm H2O; SITE, ABG Right Radial
[2023-06-30] VITALS (99 sets, daily range): BP systolic 80–139; BP diastolic 39–94; TEMP 97.8–98.2; O2SAT 96–100
[2023-06-30 04:54] LABS: BASOPHILS % (AUTO) 0.4 % (0.0-2.0); EOSINOPHILS # (AUTO) 0.1 K/uL (0.0-0.7); EOSINOPHILS % (AUTO) 0.7 % (0.0-6.0); HEMATOCRIT 28 % (33-45); HEMOGLOBIN 8.4 g/dL (11.5-14.8); LYMPHOCYTES % (AUTO) 16.9 % (20.0-44.0); MEAN CORPUSCULAR HEMOGLOBIN 27 PG (26.0-33.0); MEAN CORPUSCULAR HGB CONC 30 g/dl (31.0-36.0); MEAN CORPUSCULAR VOLUME 91 fL (82-100); MONOCYTES # (AUTO) 1.9 K/uL (0.1-1.30); MONOCYTES % (AUTO) 16.4 % (2.0-12.0); NEUTROPHILS # (AUTO) 7.8 K/uL (1.8-8.9); NEUTROPHILS % (AUTO) 65.6 % (43.0-81.0); PLATELET COUNT (AUTO) 78 K/uL (150-450); RED BLOOD CELL COUNT(AUTO) 3.11 MIL/uL (4.0-5.2); RED CELL DISTRIBUTION WIDTH 24.6 % (11.5-15.0); WHITE BLOOD COUNT (AUTO) 11.8 K/uL (4.3-11.0)
[2023-06-30 05:34] LABS: ALANINE AMINOTRANSFERASE 174 U/L (12-78); ALKALINE PHOSPHATASE 221 U/L (46-116); ASPARTATE AMINOTRANSFERASE 277 U/L (15-37); BILIRUBIN,TOTAL 0.3 mg/dL (0.2-1.0); CALCIUM, SERUM 8.9 mg/dL (8.5-10.1); CARBON DIOXIDE 26 mmol/L (21-32); CHLORIDE 101 mmol/L (98-107); CREATININE 2.8 mg/dL (0.6-1.3); GLUCOSE 141 mg/dL (74-106); MAGNESIUM 2.5 mg/dL (1.8-2.4); PHOSPHORUS 5.3 mg/dL (2.5-4.9); POTASSIUM 4.3 mmol/L (3.5-5.1); SODIUM SERUM 135 mmol/L (136-145); TOTAL PROTEIN, SERUM 6.3 g/dL (6.4-8.2); UREA NITROGEN, BLOOD 57 mg/dL (7-18)
[2023-06-30 05:44] LABS: ALBUMIN 1.4 g/dL (3.4-5.0)
[2023-06-30 08:11] LABS: FOLIC ACID > 20.0 ng/mL (>3.0)
[2023-06-30] MEDS: SENNOSIDES/DOCUSATE SODIUM 1 TAB TABLET PO SCH (09:51)
[2023-06-30] MEDS: POLYETHYLENE GLYCOL 3350 17 GM POWD.PACK PO SCH (09:52)
[2023-06-30 09:53] LABS: ABG BASE EXCESS -0.1 mmol/L; ABG OXYGEN SATURATION 98.3 % (92.0-98.5); ABG PCO2 56.6 mmHg (35.0-45.0); ABG PH 7.296 (7.350-7.450); ABG PO2 120.6 mmHg (75.0-100.0); ABG TOTAL HEMOGLOBIN 9.8 G/dL (12.0-16.0); AaDO2 99.5 mmHg; COHb 0.6 % (0.5-1.5); MetHb 0.3 % (0.0-1.5); O2Hb 97.4 % (94.0-97.0); SITE, ABG Right Radial; VENT MODE, BG AC 24 400 40% +5
[2023-06-30 11:37] LABS: ANISOCYTOSIS 1+; BAND % (MANUAL) 2 % (0.0-5.0); BASOPHILS % (MANUAL) 0 % (0.0-2.0); EOSINOPHILS % (MANUAL) 2 % (0-4); LYMPHOCYTES % (MANUAL) 15 % (16-48); MONOCYTES % (MANUAL) 12 % (0-11.0); NEUTROPHILS % (MANUAL) 69 (42-76); PLATELET ESTIMATE DECREASED; STOMATOCYTES 1+; TARGET CELLS 1+
[2023-07-01] VITALS (101 sets, daily range): BP systolic 74–154; BP diastolic 38–117; TEMP 97.5–98.7; O2SAT 97–100
[2023-07-01 04:46] LABS: BASOPHILS % (AUTO) 0.4 % (0.0-2.0); EOSINOPHILS # (AUTO) 0.2 K/uL (0.0-0.7); EOSINOPHILS % (AUTO) 1.9 % (0.0-6.0); HEMATOCRIT 27 % (33-45); HEMOGLOBIN 7.9 g/dL (11.5-14.8); LYMPHOCYTES # (AUTO) 1.1 K/uL (0.8-4.8); MEAN CORPUSCULAR HEMOGLOBIN 27 PG (26.0-33.0); MEAN CORPUSCULAR HGB CONC 30 g/dl (31.0-36.0); MEAN CORPUSCULAR VOLUME 91 fL (82-100); MONOCYTES # (AUTO) 0.8 K/uL (0.1-1.30); MONOCYTES % (AUTO) 9.2 % (2.0-12.0); NEUTROPHILS # (AUTO) 6.3 K/uL (1.8-8.9); NEUTROPHILS % (AUTO) 75.5 % (43.0-81.0); PLATELET COUNT (AUTO) 78 K/uL (150-450); RED BLOOD CELL COUNT(AUTO) 2.93 MIL/uL (4.0-5.2); WHITE BLOOD COUNT (AUTO) 8.4 K/uL (4.3-11.0)
[2023-07-01] MEDS: NOREPINEPHRINE 8 MG in IV D5W 250ML IV PRN (04:47)
[2023-07-01 05:08] LABS: ALANINE AMINOTRANSFERASE 256 U/L (12-78); ALKALINE PHOSPHATASE 219 U/L (46-116); ASPARTATE AMINOTRANSFERASE 469 U/L (15-37); BILIRUBIN,TOTAL 0.3 mg/dL (0.2-1.0); CALCIUM, SERUM 8.8 mg/dL (8.5-10.1); CARBON DIOXIDE 27 mmol/L (21-32); CHLORIDE 102 mmol/L (98-107); CREATININE 2.3 mg/dL (0.6-1.3); GLUCOSE 138 mg/dL (74-106); MAGNESIUM 2.3 mg/dL (1.8-2.4); PHOSPHORUS 4.7 mg/dL (2.5-4.9); POTASSIUM 4.2 mmol/L (3.5-5.1); SODIUM SERUM 135 mmol/L (136-145); TOTAL PROTEIN, SERUM 5.9 g/dL (6.4-8.2); UREA NITROGEN, BLOOD 43 mg/dL (7-18)
[2023-07-01 05:17] LABS: ALBUMIN 1.3 g/dL (3.4-5.0)
[2023-07-01 07:16] LABS: ANISOCYTOSIS 1+; BAND % (MANUAL) 2 % (0.0-5.0); BASOPHILS % (MANUAL) 0 % (0.0-2.0); EOSINOPHILS % (MANUAL) 2 % (0-4); HYPOCHROMASIA 1+; LYMPHOCYTES % (MANUAL) 16 % (16-48); MONOCYTES % (MANUAL) 7 % (0-11.0); NEUTROPHILS % (MANUAL) 73 (42-76); PLATELET ESTIMATE DECREASED; TARGET CELLS 1+
[2023-07-01] MEDS: ALBUMIN 25% 25 GM in PREMIX 1 EA IV SCH (10:03)
[2023-07-02] VITALS (102 sets, daily range): BP systolic 76–155; BP diastolic 40–89; TEMP 94.1–97.9; O2SAT 97–100
[2023-07-02] MEDS: ALBUMIN 25% 25 GM in PREMIX 1 EA IV PRN (03:38)
[2023-07-02 04:43] LABS: BASOPHILS % (AUTO) 0.4 % (0.0-2.0); EOSINOPHILS # (AUTO) 0.3 K/uL (0.0-0.7); EOSINOPHILS % (AUTO) 3.3 % (0.0-6.0); HEMATOCRIT 26 % (33-45); HEMOGLOBIN 7.9 g/dL (11.5-14.8); LYMPHOCYTES % (AUTO) 12.8 % (20.0-44.0); MEAN CORPUSCULAR HEMOGLOBIN 28 PG (26.0-33.0); MEAN CORPUSCULAR HGB CONC 31 g/dl (31.0-36.0); MEAN CORPUSCULAR VOLUME 91 fL (82-100); MONOCYTES # (AUTO) 0.8 K/uL (0.1-1.30); MONOCYTES % (AUTO) 10.1 % (2.0-12.0); NEUTROPHILS # (AUTO) 5.8 K/uL (1.8-8.9); NEUTROPHILS % (AUTO) 73.4 % (43.0-81.0); PLATELET COUNT (AUTO) 72 K/uL (150-450); WHITE BLOOD COUNT (AUTO) 7.9 K/uL (4.3-11.0)
[2023-07-02 04:57] LABS: ALANINE AMINOTRANSFERASE 221 U/L (12-78); ALBUMIN 2.8 g/dL (3.4-5.0); ALKALINE PHOSPHATASE 202 U/L (46-116); ASPARTATE AMINOTRANSFERASE 352 U/L (15-37); BILIRUBIN,TOTAL 0.4 mg/dL (0.2-1.0); CALCIUM, SERUM 9.3 mg/dL (8.5-10.1); CARBON DIOXIDE 29 mmol/L (21-32); CHLORIDE 103 mmol/L (98-107); GLUCOSE 75 mg/dL (74-106); MAGNESIUM 2.3 mg/dL (1.8-2.4); PHOSPHORUS 4.2 mg/dL (2.5-4.9); POTASSIUM 3.5 mmol/L (3.5-5.1); SODIUM SERUM 139 mmol/L (136-145); UREA NITROGEN, BLOOD 31 mg/dL (7-18)
[2023-07-02 05:54] LABS: ANISOCYTOSIS 1+; BAND % (MANUAL) 2 % (0.0-5.0); BASOPHILS % (MANUAL) 0 % (0.0-2.0); EOSINOPHILS % (MANUAL) 4 % (0-4); HYPOCHROMASIA 1+; LYMPHOCYTES % (MANUAL) 10 % (16-48); MONOCYTES % (MANUAL) 9 % (0-11.0); NEUTROPHILS % (MANUAL) 75 (42-76); PLATELET ESTIMATE DECREASED; TARGET CELLS 1+
[2023-07-02] MEDS: IPRATROPIUM NEB FS 0.5 MG/2.5 ML AMPUL.NEB IH SCH (15:00)
[2023-07-02] MEDS: ALBUTEROL HALF STRENGTH 1.25 MG/3 ML VIAL.NEB IH SCH ×2 (15:00→23:30)
[2023-07-02] MEDS: methylPREDNISolone SOD SUCC 125 MG/2ML VIAL IV SCH (16:00)
[2023-07-03] VITALS (108 sets, daily range): BP systolic 83–154; BP diastolic 36–103; TEMP 98–99.6; O2SAT 95–100
[2023-07-03 04:23] LABS: HEMATOCRIT 28 % (33-45); HEMOGLOBIN 8.4 g/dL (11.5-14.8); LYMPHOCYTES # (AUTO) 0.3 K/uL (0.8-4.8); LYMPHOCYTES % (AUTO) 3.3 % (20.0-44.0); MEAN CORPUSCULAR HEMOGLOBIN 28 PG (26.0-33.0); MEAN CORPUSCULAR HGB CONC 30 g/dl (31.0-36.0); MEAN CORPUSCULAR VOLUME 93 fL (82-100); MONOCYTES % (AUTO) 0.5 % (2.0-12.0); NEUTROPHILS % (AUTO) 96.2 % (43.0-81.0); PLATELET COUNT (AUTO) 86 K/uL (150-450); RED BLOOD CELL COUNT(AUTO) 3.04 MIL/uL (4.0-5.2); RED CELL DISTRIBUTION WIDTH 24.7 % (11.5-15.0); WHITE BLOOD COUNT (AUTO) 9.3 K/uL (4.3-11.0)
[2023-07-03 04:49] LABS: ALANINE AMINOTRANSFERASE 193 U/L (12-78); ALBUMIN 2.5 g/dL (3.4-5.0); ALKALINE PHOSPHATASE 214 U/L (46-116); ASPARTATE AMINOTRANSFERASE 274 U/L (15-37); BILIRUBIN,TOTAL 0.5 mg/dL (0.2-1.0); CALCIUM, SERUM 9.1 mg/dL (8.5-10.1); CARBON DIOXIDE 27 mmol/L (21-32); CHLORIDE 102 mmol/L (98-107); CREATININE 2.3 mg/dL (0.6-1.3); GLUCOSE 178 mg/dL (74-106); MAGNESIUM 2.5 mg/dL (1.8-2.4); PHOSPHORUS 6.1 mg/dL (2.5-4.9); POTASSIUM 4.9 mmol/L (3.5-5.1); SODIUM SERUM 136 mmol/L (136-145); TOTAL PROTEIN, SERUM 6.9 g/dL (6.4-8.2); UREA NITROGEN, BLOOD 36 mg/dL (7-18)
[2023-07-03 08:27] LABS: ABG BASE EXCESS -3.8 mmol/L; ABG OXYGEN SATURATION 92.6 % (92.0-98.5); ABG PCO2 75.8 mmHg (35.0-45.0); ABG PH 7.149 (7.350-7.450); ABG PO2 76.9 mmHg (75.0-100.0); ABG TOTAL HEMOGLOBIN 9.5 G/dL (12.0-16.0); AaDO2 121.1 mmHg; COHb 0.8 % (0.5-1.5); MetHb 0.4 % (0.0-1.5); O2Hb 91.5 % (94.0-97.0); SITE, ABG Right Radial
[2023-07-03] MEDS: methylPREDNISolone SOD SUCC 40 MG/ML VIAL IV SCH (08:57)
[2023-07-03 11:36] LABS: ANISOCYTOSIS 1+; BAND % (MANUAL) 3 % (0.0-5.0); BASOPHILS % (MANUAL) 0 % (0.0-2.0); EOSINOPHILS % (MANUAL) 0 % (0-4); HYPOCHROMASIA 1+; LYMPHOCYTES % (MANUAL) 9 % (16-48); MONOCYTES % (MANUAL) 4 % (0-11.0); NEUTROPHILS % (MANUAL) 84 (42-76); PLATELET ESTIMATE DECREASED
[2023-07-03 11:37] LABS: STOMATOCYTES FEW
[2023-07-03] MEDS ORDERED: ALBUMIN 25% 25 GM in PREMIX 1 EA IV PRN (14:30)
[2023-07-04] VITALS (53 sets, daily range): BP systolic 98–153; BP diastolic 42–89; TEMP 96.8–206.2; O2SAT 95–100
[2023-07-04] MEDS: IV NS 0.9% 250 ML IV PRN (06:54)
[2023-07-04 08:57] LABS: ABG BASE EXCESS 0.7 mmol/L; ABG OXYGEN SATURATION 96.5 % (92.0-98.5); ABG PCO2 55.3 mmHg (35.0-45.0); ABG PH 7.311 (7.350-7.450); ABG PO2 89.8 mmHg (75.0-100.0); ABG TOTAL HEMOGLOBIN 8.1 G/dL (12.0-16.0); AaDO2 131.8 mmHg; COHb 0.8 % (0.5-1.5); O2Hb 95.7 % (94.0-97.0); SITE, ABG Right Radial
[2023-07-04] MEDS: CITRIC ACID/SODIUM CITRATE (BICITRA)15 ML UDC PO SCH (10:45)
[2023-07-05] VITALS (49 sets, daily range): BP systolic 64–131; BP diastolic 19–84; TEMP 97.5–98.1; O2SAT 89–100
[2023-07-05 09:19] LABS: CALCIUM, SERUM 8.6 mg/dL (8.5-10.1); CHLORIDE 104 mmol/L (98-107); CREATININE 2.7 mg/dL (0.6-1.3); GLUCOSE 230 mg/dL (74-106); POTASSIUM 3.9 mmol/L (3.5-5.1); SODIUM SERUM 141 mmol/L (136-145); UREA NITROGEN, BLOOD 60 mg/dL (7-18)
[2023-07-05 09:32] LABS: CARBON DIOXIDE 31 mmol/L (21-32)
[2023-07-05 09:33] LABS: ABG BASE EXCESS -0.9 mmol/L; ABG OXYGEN SATURATION 96.7 % (92.0-98.5); ABG PCO2 52.7 mmHg (35.0-45.0); ABG PH 7.305 (7.350-7.450); ABG PO2 91.1 mmHg (75.0-100.0); ABG TOTAL HEMOGLOBIN 8.1 G/dL (12.0-16.0); AaDO2 133.5 mmHg; MetHb 0.1 % (0.0-1.5); O2Hb 95.6 % (94.0-97.0); SITE, ABG Right Radial; VENT MODE, BG AC 24 40% fIo2; VT, ABG 425 mL
[2023-07-05 09:57] LABS: BASOPHILS % (AUTO) 0.1 % (0.0-2.0); HEMATOCRIT 25 % (33-45); HEMOGLOBIN 7.4 g/dL (11.5-14.8); LYMPHOCYTES # (AUTO) 0.8 K/uL (0.8-4.8); LYMPHOCYTES % (AUTO) 9.2 % (20.0-44.0); MEAN CORPUSCULAR HEMOGLOBIN 27 PG (26.0-33.0); MEAN CORPUSCULAR HGB CONC 30 g/dl (31.0-36.0); MEAN CORPUSCULAR VOLUME 93 fL (82-100); MONOCYTES # (AUTO) 0.5 K/uL (0.1-1.30); MONOCYTES % (AUTO) 5.8 % (2.0-12.0); NEUTROPHILS # (AUTO) 7.5 K/uL (1.8-8.9); NEUTROPHILS % (AUTO) 84.9 % (43.0-81.0); PLATELET COUNT (AUTO) 137 K/uL (150-450); RED BLOOD CELL COUNT(AUTO) 2.69 MIL/uL (4.0-5.2); RED CELL DISTRIBUTION WIDTH 23.3 % (11.5-15.0); WHITE BLOOD COUNT (AUTO) 8.9 K/uL (4.3-11.0)
[2023-07-06] VITALS (23 sets, daily range): BP systolic 106–132; BP diastolic 46–66; TEMP 97.4–98.1; O2SAT 97–100
[2023-07-06 04:35] LABS: BASOPHILS % (AUTO) 0.1 % (0.0-2.0); HEMATOCRIT 25 % (33-45); HEMOGLOBIN 7.5 g/dL (11.5-14.8); LYMPHOCYTES # (AUTO) 0.7 K/uL (0.8-4.8); MEAN CORPUSCULAR HEMOGLOBIN 28 PG (26.0-33.0); MEAN CORPUSCULAR HGB CONC 30 g/dl (31.0-36.0); MEAN CORPUSCULAR VOLUME 92 fL (82-100); MONOCYTES # (AUTO) 0.3 K/uL (0.1-1.30); MONOCYTES % (AUTO) 3.8 % (2.0-12.0); NEUTROPHILS # (AUTO) 7.7 K/uL (1.8-8.9); NEUTROPHILS % (AUTO) 88.1 % (43.0-81.0); PLATELET COUNT (AUTO) 164 K/uL (150-450); RED BLOOD CELL COUNT(AUTO) 2.69 MIL/uL (4.0-5.2); RED CELL DISTRIBUTION WIDTH 23.7 % (11.5-15.0); WHITE BLOOD COUNT (AUTO) 8.7 K/uL (4.3-11.0)
[2023-07-06 04:49] LABS: CALCIUM, SERUM 8.8 mg/dL (8.5-10.1); CARBON DIOXIDE 31 mmol/L (21-32); CHLORIDE 101 mmol/L (98-107); CREATININE 2.2 mg/dL (0.6-1.3); GLUCOSE 189 mg/dL (74-106); MAGNESIUM 2.1 mg/dL (1.8-2.4); PHOSPHORUS 4.5 mg/dL (2.5-4.9); POTASSIUM 3.4 mmol/L (3.5-5.1); SODIUM SERUM 139 mmol/L (136-145); UREA NITROGEN, BLOOD 51 mg/dL (7-18)
[2023-07-06] MEDS: methylPREDNISolone SOD SUCC 40 MG/ML VIAL IV SCH (08:44)
[2023-07-06] MEDS: POTASSIUM CHLORIDE 20 MEQ POWDER PACKET PO ONE (09:49)
[2023-07-07] VITALS (7 sets, daily range): BP systolic 109–132; BP diastolic 49–66; TEMP 97.1–98.2; O2SAT 100
[2023-07-07 09:34] LABS: ABG BASE EXCESS 3.9 mmol/L; ABG OXYGEN SATURATION 97.9 % (92.0-98.5); ABG PCO2 63.2 mmHg (35.0-45.0); ABG PH 7.309 (7.350-7.450); ABG PO2 113.2 mmHg (75.0-100.0); ABG TOTAL HEMOGLOBIN 8.7 G/dL (12.0-16.0); AaDO2 99.3 mmHg; MetHb 0.3 % (0.0-1.5); O2Hb 96.6 % (94.0-97.0); SITE, ABG Left Radial; VENT MODE, BG AC 24 425 40%
[2023-07-08] VITALS: BP 126/48; TEMP 97.5; O2SAT 100
[2023-07-08 04:00] VITALS: BP 134/49; TEMP 97.4; O2SAT 100
[2023-07-08 08:00] VITALS: BP 123/64; TEMP 97.7; O2SAT 100
[2023-07-08 08:29] LABS: CALCIUM, SERUM 8.5 mg/dL (8.5-10.1); CARBON DIOXIDE 26 mmol/L (21-32); CHLORIDE 99 mmol/L (98-107); CREATININE 2.3 mg/dL (0.6-1.3); GLUCOSE 242 mg/dL (74-106); POTASSIUM 3.9 mmol/L (3.5-5.1); SODIUM SERUM 134 mmol/L (136-145); UREA NITROGEN, BLOOD 61 mg/dL (7-18)
[2023-07-08] MEDS: methylPREDNISolone SOD SUCC 40 MG/ML VIAL IV SCH (08:34)
[2023-07-08 12:00] VITALS: BP 115/60; TEMP 97.6; O2SAT 100
[2023-07-08] MEDS: ONDANSETRON HCL/PF 4 MG/2 ML VIAL IVP PRN (15:47)
[2023-07-08 16:00] VITALS: BP 125/73; TEMP 97.5; O2SAT 100
[2023-07-08 20:00] VITALS: BP 104/39; TEMP 96.3; O2SAT 100
[2023-07-09] VITALS (8 sets, daily range): BP systolic 100–120; BP diastolic 41–98; TEMP 96.4–97.9; O2SAT 99–100
[2023-07-09 07:06] LABS: METHYLMALONIC ACID 712 nmol/L (0-378)
[2023-07-09 07:20] LABS: CALCIUM, SERUM 8.3 mg/dL (8.5-10.1); CARBON DIOXIDE 29 mmol/L (21-32); CHLORIDE 101 mmol/L (98-107); CREATININE 2.6 mg/dL (0.6-1.3); GLUCOSE 165 mg/dL (74-106); POTASSIUM 3.4 mmol/L (3.5-5.1); SODIUM SERUM 140 mmol/L (136-145); UREA NITROGEN, BLOOD 76 mg/dL (7-18)
[2023-07-10] VITALS (7 sets, daily range): BP systolic 97–131; BP diastolic 48–65; TEMP 97–98; O2SAT 98–100
[2023-07-10 07:45] LABS: CALCIUM, SERUM 8.5 mg/dL (8.5-10.1); CARBON DIOXIDE 28 mmol/L (21-32); CHLORIDE 105 mmol/L (98-107); GLUCOSE 106 mg/dL (74-106); POTASSIUM 3.9 mmol/L (3.5-5.1); SODIUM SERUM 142 mmol/L (136-145); UREA NITROGEN, BLOOD 51 mg/dL (7-18)
[2023-07-10 09:03] LABS: ABG BASE EXCESS 3.1 mmol/L; ABG OXYGEN SATURATION 97.1 % (92.0-98.5); ABG PCO2 60.8 mmHg (35.0-45.0); ABG PH 7.312 (7.350-7.450); ABG PO2 100.9 mmHg (75.0-100.0); ABG TOTAL HEMOGLOBIN 8.2 G/dL (12.0-16.0); COHb 0.8 % (0.5-1.5); MetHb 0.2 % (0.0-1.5); O2Hb 96.1 % (94.0-97.0); PEEP,BG 0 cm H2O; SITE, ABG Right Radial; VENT MODE, BG AC 24 425. 35% +-0; VT, ABG 425 mL
[2023-07-10] MEDS: ACETAMINOPHEN 650 MG/20.3 ML UDC GT PRN (19:48)
[2023-07-11] VITALS: BP 111/42; TEMP 97.2; O2SAT 98
[2023-07-11 04:00] VITALS: BP 104/48; TEMP 97.4; O2SAT 100
[2023-07-11 06:55] LABS: CALCIUM, SERUM 8.5 mg/dL (8.5-10.1); CARBON DIOXIDE 27 mmol/L (21-32); CHLORIDE 104 mmol/L (98-107); CREATININE 2.4 mg/dL (0.6-1.3); GLUCOSE 209 mg/dL (74-106); POTASSIUM 4.2 mmol/L (3.5-5.1); SODIUM SERUM 141 mmol/L (136-145); UREA NITROGEN, BLOOD 72 mg/dL (7-18)
[2023-07-11 08:00] VITALS: BP 108/33; TEMP 97.4; O2SAT 100
[2023-07-11 12:00] VITALS: BP 117/43; TEMP 97.6; O2SAT 100
[2023-07-11 16:00] VITALS: BP 109/37; TEMP 97.2; O2SAT 99
[2023-07-11 20:00] VITALS: BP 120/57; TEMP 97.5; O2SAT 100
[2023-07-12] VITALS: BP 124/53; TEMP 97.3; O2SAT 99
[2023-07-12 04:00] VITALS: BP 103/55; TEMP 97.1; O2SAT 100
[2023-07-12] MEDS ORDERED: PHARMACY TO CHANGE PO MEDS TO GT/NG XX PRN (04:30)
[2023-07-12] MEDS ORDERED: POLYETHYLENE GLYCOL 3350 17 GM POWD.PACK GT SCH (04:31)
[2023-07-12 04:57] VITALS: TEMP 98.4; O2SAT 99
[2023-07-12] MEDS: Z GUARD REMEDY 4 OZ OINT TP PRN (06:17)
[2023-07-12 07:09] LABS: CALCIUM, SERUM 8.6 mg/dL (8.5-10.1); CARBON DIOXIDE 30 mmol/L (21-32); CHLORIDE 105 mmol/L (98-107); CREATININE 2.4 mg/dL (0.6-1.3); GLUCOSE 181 mg/dL (74-106); POTASSIUM 3.4 mmol/L (3.5-5.1); SODIUM SERUM 142 mmol/L (136-145); UREA NITROGEN, BLOOD 68 mg/dL (7-18)
[2023-07-12 08:00] VITALS: BP 109/50; TEMP 97.3; O2SAT 100
[2023-07-12] MEDS: ASPIRIN 81 MG TAB.CHEW GT SCH (08:47)
[2023-07-12] MEDS: CITRIC ACID/SODIUM CITRATE (BICITRA)15 ML UDC GT SCH (08:47)
[2023-07-12] MEDS: SENNOSIDES/DOCUSATE SODIUM 1 TAB TABLET GT SCH (08:58)
[2023-07-12] MEDS: POTASSIUM CL. PREMIX PERIPHER. 50 ML IV SCH (10:53)
[2023-07-12 12:00] VITALS: BP 111/63; TEMP 97.2; O2SAT 100
[2023-07-12 16:00] VITALS: BP 118/74; TEMP 96.5; O2SAT 100
== END 2023-07-12 16:15 | DRG 870 ==
LOC: ER 09:48 → ICU 17:21 → TELE-TD 07-06 14:28 → TELE1 07-08 14:19
PROVIDERS: ADMIT Nurse Practitioner Acute Care; ATTEND Internal Medicine
PROC: 5A1955Z Respiratory Ventilation, Greater than 96 Consecutive Hours (ICD-10-PCS; principal; 2023-06-27)
PROC: 05HB33Z Insertion of Infusion Device into Right Basilic Vein, Percutaneous Approach (ICD-10-PCS; 2023-06-27)
PROC: B54MZZA Ultrasonography of Right Upper Extremity Veins, Guidance (ICD-10-PCS; 2023-06-27)
PROC: 5A1D70Z Performance of Urinary Filtration, Intermittent, Less than 6 Hours Per Day (ICD-10-PCS; 2023-06-28)
DX: A41.9 Sepsis, unspecified organism (principal); N18.6 End stage renal disease; R65.21 Severe sepsis with septic shock; J96.22 Acute and chronic respiratory failure with hypercapnia; J15.69 Pneumonia due to other Gram-negative bacteria; G93.41 Metabolic encephalopathy; S42.332A Displaced oblique fracture of shaft of humerus, left arm, initial encounter for closed fracture; D68.59 Other primary thrombophilia; I13.2 Hypertensive heart and chronic kidney disease with heart failure and with stage 5 chronic kidney disease, or end stage renal disease; I50.32 Chronic diastolic (congestive) heart failure; Z99.11 Dependence on respirator [ventilator] status; N39.0 Urinary tract infection, site not specified; J90 Pleural effusion, not elsewhere classified; J44.0 Chronic obstructive pulmonary disease with (acute) lower respiratory infection; Z99.2 Dependence on renal dialysis; R29.736 NIHSS score 36; I95.9 Hypotension, unspecified; D63.8 Anemia in other chronic diseases classified elsewhere; D69.6 Thrombocytopenia, unspecified; E78.5 Hyperlipidemia, unspecified; E83.39 Other disorders of phosphorus metabolism; E83.41 Hypermagnesemia; E88.09 Other disorders of plasma-protein metabolism, not elsewhere classified; R13.10 Dysphagia, unspecified; Z79.82 Long term (current) use of aspirin; Z87.440 Personal history of urinary (tract) infections; Z93.0 Tracheostomy status; Z79.01 Long term (current) use of anticoagulants; Z93.1 Gastrostomy status; E11.22 Type 2 diabetes mellitus with diabetic chronic kidney disease; I25.10 Atherosclerotic heart disease of native coronary artery without angina pectoris; K29.70 Gastritis, unspecified, without bleeding; R91.8 Other nonspecific abnormal finding of lung field; L89.151 Pressure ulcer of sacral region, stage 1; S71.102A Unspecified open wound, left thigh, initial encounter; X58.XXXA Exposure to other specified factors, initial encounter; Y93.9 Activity, unspecified; Y92.129 Unspecified place in nursing home as the place of occurrence of the external cause; E66.9 Obesity, unspecified; Z68.36 Body mass index [BMI] 36.0-36.9, adult; Z74.09 Other reduced mobility; R60.9 Edema, unspecified; S30.814A Abrasion of vagina and vulva, initial encounter; I65.21 Occlusion and stenosis of right carotid artery; I69.392 Facial weakness following cerebral infarction; Z79.4 Long term (current) use of insulin; F02.80 Dementia in other diseases classified elsewhere, unspecified severity, without behavioral disturbance, psychotic disturbance, mood disturbance, and anxiety; G30.9 Alzheimer's disease, unspecified; Z20.822 Contact with and (suspected) exposure to COVID-19
CPT/HCPCS: 31720; 36410; 36415; 36600; 70450-TC; 70496-TC; 70498-TC; 71045-TC; 73060-TC; 74018; 76705-TC; 80048-TC; 80053-TC; 80061-TC; 80076-TC; 80202-TC; 81001; 82140-TC; 82607-TC; 82803-TC; 82962-TC; 83735-TC; 83921; 84100-TC; 84439-TC; 84443-TC; 84484-TC; 85025-TC; 85730-TC; 87040-TC; 87081-TC; 87086-TC; 90935-TC; 93307-TC; 94002-TC; 94003-TC; 94760-TC; 94762-TC; 94799-TC; 95819-TC; 99082-TC; A4216; A4223; A4623; A6253; A6403; A7526; G0378; J1815; J2185; J2920; J2930; J3370; J3371; J3480; J3490; J7030; J7050; J7060; P9047; Q9967

== ENCOUNTER 2023-07-10 12:54 | Inpatient (IN) | payer MEDICARE, OTHER ==
[~2023-07-10] VITALS: Ht 165.1 cm; Wt 96.2 kg
[~2023-07-10 12:54] MED LIST changes: +ALLA266C2 TP; +AMIN30LI2 GT; -BALS60OI TP; -CEFT1FRO2 IV; -COLL30OI TP; -DEXT1TAB29 GT; -DEXT50DI8 IVP; -EPOE1000 SQ; -GLUC1KIT IM; -LANS30CA56 GT; -METR250T36 PO; +MIDO10TA GT; +NEOM1OIN15 TP; +NEUTRA PHOS PACKET GT; +NUT.237L67 GT; -NYST15PO4 TP; +PANT40SU2 GT; +SODI473S8 TP; +ZINC220C6 GT; -ZINC50TA69 GT
[2023-07-12] MEDS ORDERED: ACETAMINOPHEN 650 MG/20.3 ML UDC PO PRN ×2 (19:30)
[2023-07-12] MEDS ORDERED: MAGNESIUM HYDROXIDE 30 ML UDC GT PRN (19:30)
[2023-07-12] MEDS ORDERED: NA PHOS,M-B/NA PHOS,DI-BA 1 EA ENEMA RC PRN (19:30)
[2023-07-12] MEDS ORDERED: BISACODYL SUPP (10 MG) 10 MG/SUPP.RECT SUPP.RECT RC PRN (19:30)
[2023-07-12] MEDS ORDERED: ACETAMINOPHEN 650 MG/20.3 ML UDC GT PRN (19:34)
[2023-07-12 19:43] VITALS: BP 107/58; TEMP 97.3; O2SAT 96
[2023-07-12] MEDS ORDERED: MAG HYDROX/AL HYDROX/SIMETH 30 ML UDC GT PRN (20:00)
[2023-07-12] MEDS: MIDODRINE HCL (5MG) 5 MG TABLET GT SCH (20:00)
[2023-07-12] MEDS ORDERED: DEXTROSE 50%-WATER 50 ML DISP.SYRIN IV PRN (20:00)
[2023-07-12] MEDS: PROSOURCE / PROSTAT (PYXIS) 30 ML UDC GT SCH (21:55)
[2023-07-12] MEDS: ATORVASTATIN 40 MG TABLET GT SCH (21:55)
[2023-07-12] MEDS: CITRIC ACID/SODIUM CITRATE (BICITRA)15 ML UDC GT SCH (21:55)
[2023-07-12] MEDS: MONTELUKAST SODIUM (10MG) 10 MG TABLET GT SCH (21:55)
[2023-07-12] MEDS: POLYETHYLENE GLYCOL 3350 17 GM POWD.PACK GT SCH (21:55)
[2023-07-12] MEDS: APIXABAN 2.5 MG TABLET GT SCH (21:55)
[2023-07-12] MEDS: SENNOSIDES 8.6 MG TABLET GT SCH (21:55)
[2023-07-12] MEDS: DONEPEZIL 5 MG TABLET GT SCH (21:55)
[2023-07-12] MEDS: INSULIN GLARGINE, 100 UNIT/ML CARTRIDGE SQ SCH (22:13)
[2023-07-12 22:54] VITALS: O2SAT 100
[2023-07-12] MEDS: IPRATROPIUM NEB FS 0.5 MG/2.5 ML AMPUL.NEB NEB SCH (22:58)
[2023-07-12] MEDS: ALBUTEROL HALF STRENGTH 1.25 MG/3 ML VIAL.NEB NEB SCH (22:58)
[2023-07-12 23:57] VITALS: BP 110/58; TEMP 97.7; O2SAT 100
[2023-07-13] VITALS (8 sets, daily range): BP systolic 100–121; BP diastolic 55–88; TEMP 97.2–97.5; O2SAT 96–100
[2023-07-13] MEDS: BLOOD SUGAR DIAGNOSTIC 1 EACH STRIP IN SCH (00:12)
[2023-07-13] MEDS: INSULIN REGULAR, HUMAN 100 UNIT/ML 3 ML VIAL SQ PRN (00:13)
[2023-07-13] MEDS: PANTOPRAZOLE 40 MG/PACK PACK GT SCH (05:36)
[2023-07-13] MEDS: LINAGLIPTIN 5 MG TABLET GT SCH (13:40)
[2023-07-13] MEDS: FERROUS SULFATE (325 MG) 325 MG/TAB TABLET GT SCH (13:40)
[2023-07-13] MEDS: ASPIRIN 81 MG TAB.CHEW GT SCH (13:40)
[2023-07-13] MEDS: VITS A AND D/WHITE PET/LANOLIN 5 GM PACKET TP SCH (14:06)
[2023-07-13] MEDS: DAKINS QUARTER STRENGTH (0.125%) 480 ML BOTTLE TOP SCH (14:06)
[2023-07-13] MEDS: Z GUARD REMEDY 4 OZ OINT TP SCH ×3 (14:06)
[2023-07-13] MEDS: ACETAMINOPHEN 650 MG/20.3 ML UDC GT PRN (18:06)
[2023-07-14] VITALS (10 sets, daily range): BP systolic 104–115; BP diastolic 45–84; TEMP 97.1–97.6; O2SAT 98–100
[2023-07-14] MEDS: NEPRO 1,000 ML BOTTLE GT PRN (03:53)
[2023-07-15 08:00] VITALS: BP 94/53; TEMP 98; O2SAT 100
[2023-07-15 10:28] VITALS: O2SAT 98
[2023-07-15 10:48] VITALS: O2SAT 96
[2023-07-15 12:00] VITALS: BP 100/49; TEMP 97.4; O2SAT 98
[2023-07-15 17:00] VITALS: BP 97/50; TEMP 97.2; O2SAT 99
[2023-07-15 20:00] VITALS: BP 132/64; TEMP 98.8; O2SAT 99
[2023-07-16] VITALS (7 sets, daily range): BP systolic 112–143; BP diastolic 55–81; TEMP 97.5; O2SAT 99–100
[2023-07-16] MEDS ORDERED: NEPRO 1,000 ML BOTTLE GT PRN ×2 (14:55→15:23)
[2023-07-17 07:32] VITALS: TEMP 96.4; O2SAT 100
[2023-07-17 10:57] VITALS: O2SAT 100
[2023-07-17] MEDS ORDERED: CITR30SO GT (14:04)
[2023-07-17] MEDS ORDERED: ATOR80TA GT (14:04)
[2023-07-17] MEDS ORDERED: ASPI-1169 GT (14:04)
[2023-07-17] MEDS ORDERED: MIDODRINE GT (14:04)
[2023-07-17] MEDS ORDERED: BLOO-668 IN (14:04)
[2023-07-17] MEDS ORDERED: [UNRECOGNIZED DRUG - OTHER] GT (14:04)
[2023-07-17] MEDS ORDERED: POLY17PO4 GT (14:04)
[2023-07-17] MEDS ORDERED: SENN-261 GT (14:04)
[2023-07-17] MEDS ORDERED: *INS REG3 SQ (14:04)
[2023-07-17] MEDS ORDERED: PETR113O TP (14:04)
[2023-07-19 07:28] VITALS: BP 113/87; TEMP 97.2; O2SAT 100
[2023-07-23 21:00] VITALS: BP 99/34; TEMP 97.5; O2SAT 96
[2023-07-23] MEDS ORDERED: MAGNESIUM HYDROXIDE 30 ML UDC GT PRN (21:00)
[2023-07-23] MEDS: CITRIC ACID/SODIUM CITRATE (BICITRA)15 ML UDC GT SCH (21:00)
[2023-07-23] MEDS: PROSOURCE / PROSTAT (PYXIS) 30 ML UDC GT SCH (21:00)
[2023-07-23] MEDS ORDERED: MAG HYDROX/AL HYDROX/SIMETH 30 ML UDC GT PRN (21:00)
[2023-07-23] MEDS ORDERED: NA PHOS,M-B/NA PHOS,DI-BA 1 EA ENEMA RC PRN (21:00)
[2023-07-23] MEDS: APIXABAN 2.5 MG TABLET GT SCH (21:00)
[2023-07-23] MEDS ORDERED: BISACODYL SUPP (10 MG) 10 MG/SUPP.RECT SUPP.RECT RC PRN (21:00)
[2023-07-23] MEDS ORDERED: DEXTROSE 50%-WATER 50 ML DISP.SYRIN IV PRN (21:00)
[2023-07-23] MEDS ORDERED: ACETAMINOPHEN 650 MG/20.3 ML UDC GT PRN ×2 (21:00)
[2023-07-23] MEDS: INSULIN GLARGINE, 100 UNIT/ML CARTRIDGE SQ SCH (22:00)
[2023-07-23 22:17] VITALS: O2SAT 98
[2023-07-23] MEDS: POLYETHYLENE GLYCOL 3350 17 GM POWD.PACK GT SCH (22:52)
[2023-07-23] MEDS: DONEPEZIL 5 MG TABLET GT SCH (22:52)
[2023-07-23] MEDS: NEPRO 1,000 ML BOTTLE GT PRN (22:52)
[2023-07-23] MEDS: SENNOSIDES 8.6 MG TABLET GT SCH (22:52)
[2023-07-23] MEDS: ATORVASTATIN 40 MG TABLET GT SCH (22:52)
[2023-07-23] MEDS: MONTELUKAST SODIUM (10MG) 10 MG TABLET GT SCH (22:52)
[2023-07-23] MEDS: IPRATROPIUM NEB FS 0.5 MG/2.5 ML AMPUL.NEB NEB SCH (23:57)
[2023-07-23] MEDS: ALBUTEROL HALF STRENGTH 1.25 MG/3 ML VIAL.NEB NEB SCH (23:57)
[2023-07-24] VITALS (8 sets, daily range): BP systolic 74–114; BP diastolic 34–77; TEMP 96.5–97.5; O2SAT 97–100
[2023-07-24] MEDS: BLOOD SUGAR DIAGNOSTIC 1 EACH STRIP IN SCH
[2023-07-24] MEDS: INSULIN REGULAR, HUMAN 100 UNIT/ML 3 ML VIAL SQ PRN (02:21)
[2023-07-24] MEDS: MIDODRINE HCL (5MG) 5 MG TABLET GT SCH (04:00)
[2023-07-24] MEDS: PANTOPRAZOLE 40 MG/PACK PACK GT SCH (06:27)
[2023-07-24] MEDS: ASPIRIN 81 MG TAB.CHEW GT SCH (08:54)
[2023-07-24] MEDS: FERROUS SULFATE (325 MG) 325 MG/TAB TABLET GT SCH (08:55)
[2023-07-24] MEDS: VITS A AND D/WHITE PET/LANOLIN 5 GM PACKET TP SCH (09:00)
[2023-07-24] MEDS: Z GUARD REMEDY 4 OZ OINT TP SCH ×3 (09:00)
[2023-07-24] MEDS: DAKINS QUARTER STRENGTH (0.125%) 480 ML BOTTLE TOP SCH (09:00)
[2023-07-24] MEDS: HYDROCORTISONE SOD SUCCINATE 100 MG/2 ML VIAL IV SCH (12:00)
[2023-07-24] MEDS: LINAGLIPTIN 5 MG TABLET GT SCH (12:22)
[2023-07-24] MEDS: IV NS 0.9% 500 ML IV ONE (12:42)
== END 2023-07-25 08:00 | disposition short-term general hospital (02) | DRG 207 ==
LOC: SA 07-12 16:40
PROVIDERS: ADMIT Internal Medicine; ATTEND Internal Medicine
PROC: 5A1955Z Respiratory Ventilation, Greater than 96 Consecutive Hours (ICD-10-PCS; principal; 2023-07-12)
DX: J96.22 Acute and chronic respiratory failure with hypercapnia (principal); G93.41 Metabolic encephalopathy; N18.6 End stage renal disease; D68.59 Other primary thrombophilia; I13.2 Hypertensive heart and chronic kidney disease with heart failure and with stage 5 chronic kidney disease, or end stage renal disease; I50.32 Chronic diastolic (congestive) heart failure; Z99.11 Dependence on respirator [ventilator] status; E27.40 Unspecified adrenocortical insufficiency; E11.9 Type 2 diabetes mellitus without complications; D63.8 Anemia in other chronic diseases classified elsewhere; E11.22 Type 2 diabetes mellitus with diabetic chronic kidney disease; E78.5 Hyperlipidemia, unspecified; E88.09 Other disorders of plasma-protein metabolism, not elsewhere classified; F02.80 Dementia in other diseases classified elsewhere, unspecified severity, without behavioral disturbance, psychotic disturbance, mood disturbance, and anxiety; G30.9 Alzheimer's disease, unspecified; J44.9 Chronic obstructive pulmonary disease, unspecified; Z99.2 Dependence on renal dialysis; L89.90 Pressure ulcer of unspecified site, unspecified stage; I25.10 Atherosclerotic heart disease of native coronary artery without angina pectoris; R13.10 Dysphagia, unspecified; Z87.440 Personal history of urinary (tract) infections; Z93.0 Tracheostomy status; Z93.1 Gastrostomy status; D72.829 Elevated white blood cell count, unspecified; I95.3 Hypotension of hemodialysis; Z86.73 Personal history of transient ischemic attack (TIA), and cerebral infarction without residual deficits
CPT/HCPCS: 31720; 82962-TC; 94002; 94003-TC; 94760-TC; 94762-TC; 94799-TC; 97110-TC; A4223; A4623; A6253; A7526; J1720; J1815; J7040

== ENCOUNTER 2023-07-17 12:30 | Inpatient (IN) | payer MEDICARE, OTHER ==
[2023-07-14] MEDS: MIDODRINE HCL (5MG) 5 MG TABLET GT SCH (12:00)
[~2023-07-17] VITALS: Ht 160 cm; Wt 95.7 kg
[2023-07-17] VITALS (20 sets, daily range): BP systolic 76–140; BP diastolic 25–100; TEMP 96.6–97; O2SAT 96–100
[2023-07-17 13:32] LABS: CALCIUM, SERUM 8.5 mg/dL (8.5-10.1); CARBON DIOXIDE 32 mmol/L (21-32); CHLORIDE 103 mmol/L (98-107); GLUCOSE 143 mg/dL (74-106); POTASSIUM 3.7 mmol/L (3.5-5.1); SODIUM SERUM 138 mmol/L (136-145); UREA NITROGEN, BLOOD 56 mg/dL (7-18)
[2023-07-17 13:35] LABS: INR 1.24 (0.91-1.10); PARTIAL THROMBOPLASTIN TIME 33.6 SEC (24.3-34.3); PROTHROMBIN TIME 12.7 SECS (9.2-11.1)
[2023-07-17] MEDS ORDERED: SENN-261 GT (14:04)
[2023-07-17] MEDS ORDERED: [UNRECOGNIZED DRUG - OTHER] GT (14:04)
[2023-07-17] MEDS ORDERED: CITR30SO GT (14:04)
[2023-07-17] MEDS ORDERED: *INS REG3 SQ (14:04)
[2023-07-17] MEDS ORDERED: MIDODRINE GT (14:04)
[2023-07-17] MEDS ORDERED: ATOR80TA GT (14:04)
[2023-07-17] MEDS ORDERED: ASPI-1169 GT (14:04)
[2023-07-17] MEDS ORDERED: POLY17PO4 GT (14:04)
[2023-07-17] MEDS ORDERED: BLOO-668 IN (14:04)
[2023-07-17] MEDS ORDERED: PETR113O TP (14:04)
[2023-07-17 14:24] LABS: BASOPHILS # (AUTO) 0.1 K/uL (0.0-0.2); BASOPHILS % (AUTO) 2.2 % (0.0-2.0); EOSINOPHILS # (AUTO) 0.1 K/uL (0.0-0.7); EOSINOPHILS % (AUTO) 3.3 % (0.0-6.0); LYMPHOCYTES # (AUTO) 0.4 K/uL (0.8-4.8); LYMPHOCYTES % (AUTO) 9.4 % (20.0-44.0); MEAN CORPUSCULAR HEMOGLOBIN 29 PG (26.0-33.0); MEAN CORPUSCULAR HGB CONC 29 g/dl (31.0-36.0); MEAN CORPUSCULAR VOLUME 98 fL (82-100); MONOCYTES # (AUTO) 0.5 K/uL (0.1-1.30); MONOCYTES % (AUTO) 11.4 % (2.0-12.0); NEUTROPHILS # (AUTO) 3.3 K/uL (1.8-8.9); NEUTROPHILS % (AUTO) 73.7 % (43.0-81.0); PLATELET COUNT (AUTO) 150 K/uL (150-450); RED BLOOD CELL COUNT(AUTO) 2.01 MIL/uL (4.0-5.2); RED CELL DISTRIBUTION WIDTH 24.2 % (11.5-15.0); WHITE BLOOD COUNT (AUTO) 4.4 K/uL (4.3-11.0)
[2023-07-17] MEDS: IV NS 0.9% 1,000 ML BAG IV ONE ×2 (14:30→14:32)
[2023-07-17 14:32] LABS: HEMATOCRIT 20 % (33-45); HEMOGLOBIN 5.7 g/dL (11.5-14.8)
[2023-07-17] MEDS ORDERED: NOREPINEPHRINE 8MG/250ML RTU 250 ML IV ONE (15:09)
[2023-07-17] MEDS: NOREPINEPHRINE 8 MG in IV D5W 242 ML IV PRN ×2 (15:20→19:00)
[2023-07-17] MEDS ORDERED: MAGNESIUM HYDROXIDE 30 ML UDC PO PRN (17:30)
[2023-07-17] MEDS ORDERED: NOREPINEPHRINE 8 MG in IV D5W 242 ML IV PRN (17:30)
[2023-07-17] MEDS ORDERED: MAG HYDROX/AL HYDROX/SIMETH 30 ML UDC PO PRN (17:30)
[2023-07-17] MEDS ORDERED: ZOLPIDEM TARTRATE 5 MG TABLET PO PRN (17:30)
[2023-07-17] MEDS ORDERED: ONDANSETRON HCL/PF 4 MG/2 ML VIAL IVP PRN (17:30)
[2023-07-17 18:46] LABS: BAND % (MANUAL) 2 % (0.0-5.0); EOSINOPHILS % (MANUAL) 5 % (0-4); LYMPHOCYTES % (MANUAL) 12 % (16-48); MONOCYTES % (MANUAL) 9 % (0-11.0); NEUTROPHILS % (MANUAL) 72 (42-76)
[2023-07-17 18:47] LABS: ANISOCYTOSIS 2+; HYPOCHROMASIA 1+; PLATELET ESTIMATE ADEQUATE
[2023-07-17] MEDS ORDERED: DEXTROSE 50%-WATER 50 ML DISP.SYRIN IV PRN (19:30)
[2023-07-17] MEDS: MEROPENEM 500 MG in IV NS 0.9% 50 ML IV SCH (21:10)
[2023-07-17] MEDS: Z GUARD REMEDY 4 OZ OINT TP SCH (21:11)
[2023-07-17] MEDS: ACETAMINOPHEN 325 MG TABLET PO PRN (23:30)
[2023-07-17] MEDS: BLOOD SUGAR DIAGNOSTIC 1 EACH STRIP IN SCH (23:42)
[2023-07-18] VITALS (70 sets, daily range): BP systolic 50–159; BP diastolic 25–119; TEMP 97–99; O2SAT 94–100
[2023-07-18] MEDS: MORPHINE SULFATE INJ 2 MG/ML DISP.SYRIN IV PRN (02:06)
[2023-07-18 04:36] LABS: BASOPHILS # (AUTO) 0.1 K/uL (0.0-0.2); BASOPHILS % (AUTO) 0.7 % (0.0-2.0); EOSINOPHILS # (AUTO) 0.2 K/uL (0.0-0.7); HEMATOCRIT 25 % (33-45); HEMOGLOBIN 7.8 g/dL (11.5-14.8); LYMPHOCYTES # (AUTO) 0.7 K/uL (0.8-4.8); LYMPHOCYTES % (AUTO) 8.1 % (20.0-44.0); MEAN CORPUSCULAR HEMOGLOBIN 29 PG (26.0-33.0); MEAN CORPUSCULAR HGB CONC 31 g/dl (31.0-36.0); MEAN CORPUSCULAR VOLUME 95 fL (82-100); MONOCYTES # (AUTO) 1.5 K/uL (0.1-1.30); MONOCYTES % (AUTO) 17.1 % (2.0-12.0); NEUTROPHILS # (AUTO) 6.5 K/uL (1.8-8.9); NEUTROPHILS % (AUTO) 72.1 % (43.0-81.0); PLATELET COUNT (AUTO) 179 K/uL (150-450); RED BLOOD CELL COUNT(AUTO) 2.65 MIL/uL (4.0-5.2); RED CELL DISTRIBUTION WIDTH 21.6 % (11.5-15.0)
[2023-07-18 04:55] LABS: CALCIUM, SERUM 8.4 mg/dL (8.5-10.1); CARBON DIOXIDE 27 mmol/L (21-32); CHLORIDE 101 mmol/L (98-107); CREATININE 2.2 mg/dL (0.6-1.3); GLUCOSE 151 mg/dL (74-106); MAGNESIUM 1.9 mg/dL (1.8-2.4); PHOSPHORUS 3.6 mg/dL (2.5-4.9); POTASSIUM 3.5 mmol/L (3.5-5.1); SODIUM SERUM 137 mmol/L (136-145); UREA NITROGEN, BLOOD 55 mg/dL (7-18)
[2023-07-18 05:10] LABS: THYROID STIMULATING HORMONE 4.279 uIU/mL (0.358-3.74)
[2023-07-18 06:32] LABS: BAND % (MANUAL) 11 % (0.0-5.0); EOSINOPHILS % (MANUAL) 1 % (0-4); LYMPHOCYTES % (MANUAL) 2 % (16-48); MONOCYTES % (MANUAL) 20 % (0-11.0); NEUTROPHILS % (MANUAL) 66 (42-76)
[2023-07-18 06:33] LABS: PLATELET ESTIMATE ADEQU
[2023-07-18 06:34] LABS: ANISOCYTOSIS 1+; OVALOCYTES 1+; TARGET CELLS 1+
[2023-07-18] MEDS: INSULIN REGULAR, HUMAN 100 UNIT/ML 3 ML VIAL SQ PRN (06:39)
[2023-07-18] MEDS: THERAHONEY GEL 1.5 OZ TUBE TP SCH (09:33)
[2023-07-18] MEDS: HYDROCORTISONE SOD SUCCINATE 100 MG/2 ML VIAL IV SCH (10:22)
[2023-07-18] MEDS: MIDODRINE HCL (5MG) 5 MG TABLET PO SCH (10:23)
[2023-07-18] MEDS: NEPRO 1,000 ML BOTTLE GT PRN (19:55)
[2023-07-18] MEDS: IV NS 0.9% 250 ML IV PRN (20:43)
[2023-07-18] MEDS: Z GUARD REMEDY 4 OZ OINT TP PRN (20:51)
[2023-07-19] VITALS (87 sets, daily range): BP systolic 85–149; BP diastolic 36–86; TEMP 97.7–98.9; O2SAT 93–100
[2023-07-19] MEDS ORDERED: ACETAMINOPHEN 325 MG TABLET PO PRN
[2023-07-19] MEDS ORDERED: NA PHOS,M-B/NA PHOS,DI-BA 1 EA ENEMA RC PRN
[2023-07-19] MEDS ORDERED: MAGNESIUM HYDROXIDE 30 ML UDC GT PRN
[2023-07-19] MEDS ORDERED: BISACODYL SUPP (10 MG) 10 MG/SUPP.RECT SUPP.RECT RC PRN
[2023-07-19] MEDS ORDERED: MAG HYDROX/AL HYDROX/SIMETH 30 ML UDC GT PRN
[2023-07-19] MEDS: ALBUTEROL HALF STRENGTH 1.25 MG/3 ML VIAL.NEB IH SCH (01:20)
[2023-07-19] MEDS: IPRATROPIUM NEB FS 0.5 MG/2.5 ML AMPUL.NEB IH SCH (01:21)
[2023-07-19 03:49] LABS: BASOPHILS % (AUTO) 0.3 % (0.0-2.0); HEMATOCRIT 22 % (33-45); MEAN CORPUSCULAR HEMOGLOBIN 29 PG (26.0-33.0); MEAN CORPUSCULAR HGB CONC 31 g/dl (31.0-36.0); MEAN CORPUSCULAR VOLUME 94 fL (82-100); MONOCYTES # (AUTO) 0.7 K/uL (0.1-1.30); MONOCYTES % (AUTO) 8.3 % (2.0-12.0); NEUTROPHILS % (AUTO) 80.4 % (43.0-81.0); PLATELET COUNT (AUTO) 181 K/uL (150-450); RED BLOOD CELL COUNT(AUTO) 2.35 MIL/uL (4.0-5.2); RED CELL DISTRIBUTION WIDTH 22.4 % (11.5-15.0); WHITE BLOOD COUNT (AUTO) 8.7 K/uL (4.3-11.0)
[2023-07-19 04:20] LABS: CALCIUM, SERUM 8.9 mg/dL (8.5-10.1); CARBON DIOXIDE 28 mmol/L (21-32); CHLORIDE 102 mmol/L (98-107); CREATININE 1.8 mg/dL (0.6-1.3); GLUCOSE 197 mg/dL (74-106); MAGNESIUM 1.8 mg/dL (1.8-2.4); PHOSPHORUS 3.2 mg/dL (2.5-4.9); POTASSIUM 3.6 mmol/L (3.5-5.1); SODIUM SERUM 140 mmol/L (136-145); UREA NITROGEN, BLOOD 44 mg/dL (7-18)
[2023-07-19 04:52] LABS: HEMOGLOBIN 6.9 g/dL (11.5-14.8)
[2023-07-19 05:51] LABS: BAND % (MANUAL) 2 % (0.0-5.0)
[2023-07-19 05:52] LABS: LYMPHOCYTES % (MANUAL) 15 % (16-48); MONOCYTES % (MANUAL) 6 % (0-11.0)
[2023-07-19 05:53] LABS: ANISOCYTOSIS 1+; HYPOCHROMASIA 1+; NEUTROPHILS % (MANUAL) 77 (42-76); PLATELET ESTIMATE ADEQUATE
[2023-07-19] MEDS: CITRIC ACID/SODIUM CITRATE (BICITRA)15 ML UDC GT SCH (08:12)
[2023-07-19] MEDS: FERROUS SULFATE (325 MG) 325 MG/TAB TABLET GT SCH (08:13)
[2023-07-19] MEDS ORDERED: ATORVASTATIN 40 MG TABLET GT SCH (09:00)
[2023-07-19 16:20] LABS: BASOPHILS % (AUTO) 0.2 % (0.0-2.0); HEMATOCRIT 25 % (33-45); HEMOGLOBIN 7.9 g/dL (11.5-14.8); LYMPHOCYTES % (AUTO) 10.5 % (20.0-44.0); MEAN CORPUSCULAR HEMOGLOBIN 29 PG (26.0-33.0); MEAN CORPUSCULAR HGB CONC 31 g/dl (31.0-36.0); MEAN CORPUSCULAR VOLUME 92 fL (82-100); MONOCYTES # (AUTO) 0.8 K/uL (0.1-1.30); MONOCYTES % (AUTO) 8.8 % (2.0-12.0); NEUTROPHILS # (AUTO) 7.6 K/uL (1.8-8.9); NEUTROPHILS % (AUTO) 80.5 % (43.0-81.0); PLATELET COUNT (AUTO) 148 K/uL (150-450); RED BLOOD CELL COUNT(AUTO) 2.72 MIL/uL (4.0-5.2); RED CELL DISTRIBUTION WIDTH 23.4 % (11.5-15.0); WHITE BLOOD COUNT (AUTO) 9.4 K/uL (4.3-11.0)
[2023-07-19 19:05] LABS: ANISOCYTOSIS 1+; BAND % (MANUAL) 4 % (0.0-5.0); LYMPHOCYTES % (MANUAL) 13 % (16-48); MONOCYTES % (MANUAL) 5 % (0-11.0); NEUTROPHILS % (MANUAL) 78 (42-76); PLATELET ESTIMATE ADEQUATE
[2023-07-19 19:06] LABS: TARGET CELLS 1+
[2023-07-19] MEDS: MONTELUKAST SODIUM (10MG) 10 MG TABLET GT SCH (21:13)
[2023-07-19] MEDS: DONEPEZIL 5 MG TABLET GT SCH (21:13)
[2023-07-19] MEDS: ATORVASTATIN 40 MG TABLET GT SCH (21:13)
[2023-07-19] MEDS: INSULIN GLARGINE, 100 UNIT/ML CARTRIDGE SQ SCH (21:58)
[2023-07-19] MEDS ORDERED: Medication Not On Formulary EA (Donepezil Hcl 10 MG) GT SCH (22:00)
[2023-07-19] MEDS ORDERED: Medication Not On Formulary EA (Atorvastatin Calcium (Lipitor) 80 MG) GT SCH (22:00)
[2023-07-19] MEDS ORDERED: INSULIN GLARGINE HUM REC ANLOG 18 UNIT SQ SCH (22:00)
[2023-07-20] VITALS (47 sets, daily range): BP systolic 78–118; BP diastolic 51–76; TEMP 96.5–97.6; O2SAT 97–100
[2023-07-20 03:59] LABS: BASOPHILS # (AUTO) 0.1 K/uL (0.0-0.2); BASOPHILS % (AUTO) 0.8 % (0.0-2.0); EOSINOPHILS % (AUTO) 0.3 % (0.0-6.0); HEMATOCRIT 25 % (33-45); HEMOGLOBIN 7.6 g/dL (11.5-14.8); LYMPHOCYTES # (AUTO) 0.5 K/uL (0.8-4.8); LYMPHOCYTES % (AUTO) 5.8 % (20.0-44.0); MEAN CORPUSCULAR HEMOGLOBIN 29 PG (26.0-33.0); MEAN CORPUSCULAR HGB CONC 31 g/dl (31.0-36.0); MEAN CORPUSCULAR VOLUME 92 fL (82-100); MONOCYTES # (AUTO) 0.6 K/uL (0.1-1.30); MONOCYTES % (AUTO) 6.5 % (2.0-12.0); NEUTROPHILS # (AUTO) 8.1 K/uL (1.8-8.9); NEUTROPHILS % (AUTO) 86.6 % (43.0-81.0); PLATELET COUNT (AUTO) 153 K/uL (150-450); RED BLOOD CELL COUNT(AUTO) 2.67 MIL/uL (4.0-5.2); WHITE BLOOD COUNT (AUTO) 9.3 K/uL (4.3-11.0)
[2023-07-20 04:24] LABS: CALCIUM, SERUM 8.7 mg/dL (8.5-10.1); CARBON DIOXIDE 31 mmol/L (21-32); CHLORIDE 103 mmol/L (98-107); CREATININE 2.6 mg/dL (0.6-1.3); GLUCOSE 255 mg/dL (74-106); MAGNESIUM 2.1 mg/dL (1.8-2.4); PHOSPHORUS 3.7 mg/dL (2.5-4.9); POTASSIUM 3.3 mmol/L (3.5-5.1); SODIUM SERUM 140 mmol/L (136-145); UREA NITROGEN, BLOOD 54 mg/dL (7-18)
[2023-07-20 04:33] LABS: ANISOCYTOSIS 1+; BAND % (MANUAL) 12 % (0.0-5.0); LYMPHOCYTES % (MANUAL) 7 % (16-48); MONOCYTES % (MANUAL) 6 % (0-11.0); NEUTROPHILS % (MANUAL) 75 (42-76); PLATELET ESTIMATE ADEQUATE; TARGET CELLS 1+
[2023-07-20] MEDS: METOCLOPRAMIDE HCL 10 MG/2 ML VIAL IV SCH (14:22)
[2023-07-20] MEDS ORDERED: ACETAMINOPHEN 650 MG/20.3 ML UDC GT PRN (14:30)
[2023-07-20] MEDS: MIDODRINE HCL (5MG) 5 MG TABLET GT SCH (16:10)
[2023-07-20] MEDS: VANCOMYCIN HCL 1.25 GM in IV D5W 250 ML IV ONE (21:00)
[2023-07-20] MEDS: ALBUMIN 25% 25 GM in PREMIX 1 EA IV PRN (21:27)
[2023-07-20] MEDS: ALBUMIN 25% 100 ML IV ONE (21:28)
[2023-07-20] MEDS: IPRATROPIUM NEB FS 0.5 MG/2.5 ML AMPUL.NEB IH SCH (23:27)
[2023-07-20] MEDS: ALBUTEROL HALF STRENGTH 1.25 MG/3 ML VIAL.NEB IH SCH (23:27)
[2023-07-21] VITALS (20 sets, daily range): BP systolic 109–145; BP diastolic 58–91; TEMP 96.7–97.9; O2SAT 96–100
[2023-07-21] MEDS ORDERED: VANCOMYCIN 500 MG VIAL ONE (00:22)
[2023-07-21] MEDS: VANCOMYCIN POST DIALYSIS 500MG IV PRN (00:32)
[2023-07-21 04:47] LABS: BASOPHILS % (AUTO) 0.1 % (0.0-2.0); HEMATOCRIT 24 % (33-45); HEMOGLOBIN 7.8 g/dL (11.5-14.8); LYMPHOCYTES # (AUTO) 0.5 K/uL (0.8-4.8); LYMPHOCYTES % (AUTO) 5.4 % (20.0-44.0); MEAN CORPUSCULAR HEMOGLOBIN 30 PG (26.0-33.0); MEAN CORPUSCULAR HGB CONC 32 g/dl (31.0-36.0); MEAN CORPUSCULAR VOLUME 91 fL (82-100); MONOCYTES # (AUTO) 0.4 K/uL (0.1-1.30); MONOCYTES % (AUTO) 4.7 % (2.0-12.0); NEUTROPHILS # (AUTO) 8.2 K/uL (1.8-8.9); NEUTROPHILS % (AUTO) 89.8 % (43.0-81.0); PLATELET COUNT (AUTO) 139 K/uL (150-450); RED BLOOD CELL COUNT(AUTO) 2.62 MIL/uL (4.0-5.2); WHITE BLOOD COUNT (AUTO) 9.2 K/uL (4.3-11.0)
[2023-07-21 05:10] LABS: CALCIUM, SERUM 8.6 mg/dL (8.5-10.1); CARBON DIOXIDE 28 mmol/L (21-32); CHLORIDE 103 mmol/L (98-107); GLUCOSE 219 mg/dL (74-106); MAGNESIUM 2.2 mg/dL (1.8-2.4); PHOSPHORUS 2.8 mg/dL (2.5-4.9); POTASSIUM 3.5 mmol/L (3.5-5.1); SODIUM SERUM 139 mmol/L (136-145); UREA NITROGEN, BLOOD 50 mg/dL (7-18)
[2023-07-21 16:50] LABS: OCCULT BLOOD STOOL POSITIVE (NEGATIVE)
[2023-07-21] MEDS: VANCOMYCIN 500 MG in IV D5W 100ml IV ONE (17:28)
[2023-07-22] VITALS: BP 119/70; TEMP 97.2; O2SAT 96
[2023-07-22 04:00] VITALS: BP 130/70; TEMP 97.2; O2SAT 96
[2023-07-22 08:00] VITALS: BP 118/75; TEMP 98.2; O2SAT 96
[2023-07-22 10:17] LABS: HEMATOCRIT 25 % (33-45); HEMOGLOBIN 7.7 g/dL (11.5-14.8); LYMPHOCYTES # (AUTO) 0.6 K/uL (0.8-4.8); LYMPHOCYTES % (AUTO) 5.6 % (20.0-44.0); MEAN CORPUSCULAR HEMOGLOBIN 28 PG (26.0-33.0); MEAN CORPUSCULAR HGB CONC 31 g/dl (31.0-36.0); MEAN CORPUSCULAR VOLUME 92 fL (82-100); MONOCYTES # (AUTO) 0.6 K/uL (0.1-1.30); NEUTROPHILS # (AUTO) 9.1 K/uL (1.8-8.9); NEUTROPHILS % (AUTO) 88.4 % (43.0-81.0); PLATELET COUNT (AUTO) 137 K/uL (150-450); RED BLOOD CELL COUNT(AUTO) 2.71 MIL/uL (4.0-5.2); RED CELL DISTRIBUTION WIDTH 23.7 % (11.5-15.0); WHITE BLOOD COUNT (AUTO) 10.3 K/uL (4.3-11.0)
[2023-07-22 10:27] LABS: CALCIUM, SERUM 8.7 mg/dL (8.5-10.1); CARBON DIOXIDE 32 mmol/L (21-32); CHLORIDE 101 mmol/L (98-107); CREATININE 2.4 mg/dL (0.6-1.3); GLUCOSE 328 mg/dL (74-106); MAGNESIUM 2.2 mg/dL (1.8-2.4); PHOSPHORUS 3.5 mg/dL (2.5-4.9); POTASSIUM 3.6 mmol/L (3.5-5.1); SODIUM SERUM 139 mmol/L (136-145); UREA NITROGEN, BLOOD 68 mg/dL (7-18); VANCOMYCIN,TROUGH 13 ug/ml (10-20)
[2023-07-22 12:00] VITALS: BP 117/60; TEMP 97.8; O2SAT 97
[2023-07-22 12:43] LABS: BAND % (MANUAL) 4 % (0.0-5.0); LYMPHOCYTES % (MANUAL) 5 % (16-48); METAMYELOCYTES % 1 % (0-0); MONOCYTES % (MANUAL) 4 % (0-11.0); MYELOCYTES % 1 % (0-0); NEUTROPHILS % (MANUAL) 85 (42-76)
[2023-07-22 12:44] LABS: ANISOCYTOSIS 1+; TARGET CELLS 1+
[2023-07-22 12:45] LABS: PLATELET ESTIMATE DECRE
[2023-07-22 16:00] VITALS: BP 104/59; TEMP 98.2; O2SAT 99
[2023-07-22] MEDS: VANCOMYCIN 1 GM in IV D5W 250ml IV ONE (17:11)
[2023-07-22 20:00] VITALS: BP 113/43; TEMP 98.1; O2SAT 99
[2023-07-23] VITALS: BP 87/40; TEMP 97.7; O2SAT 99
[2023-07-23 04:00] VITALS: BP 125/48; TEMP 97.5; O2SAT 96
[2023-07-23 08:00] VITALS: BP 120/35; TEMP 96.9; O2SAT 96
[2023-07-23 09:06] LABS: BASOPHILS % (AUTO) 0.2 % (0.0-2.0); HEMATOCRIT 25 % (33-45); HEMOGLOBIN 7.5 g/dL (11.5-14.8); LYMPHOCYTES # (AUTO) 0.6 K/uL (0.8-4.8); LYMPHOCYTES % (AUTO) 5.5 % (20.0-44.0); MEAN CORPUSCULAR HEMOGLOBIN 28 PG (26.0-33.0); MEAN CORPUSCULAR HGB CONC 30 g/dl (31.0-36.0); MEAN CORPUSCULAR VOLUME 94 fL (82-100); MONOCYTES # (AUTO) 0.5 K/uL (0.1-1.30); MONOCYTES % (AUTO) 4.7 % (2.0-12.0); NEUTROPHILS # (AUTO) 10.3 K/uL (1.8-8.9); NEUTROPHILS % (AUTO) 89.6 % (43.0-81.0); PLATELET COUNT (AUTO) 120 K/uL (150-450); RED BLOOD CELL COUNT(AUTO) 2.68 MIL/uL (4.0-5.2); RED CELL DISTRIBUTION WIDTH 23.4 % (11.5-15.0); WHITE BLOOD COUNT (AUTO) 11.5 K/uL (4.3-11.0)
[2023-07-23 09:12] LABS: CARBON DIOXIDE 29 mmol/L (21-32); CHLORIDE 105 mmol/L (98-107); CREATININE 1.9 mg/dL (0.6-1.3); GLUCOSE 269 mg/dL (74-106); MAGNESIUM 1.9 mg/dL (1.8-2.4); PHOSPHORUS 3.1 mg/dL (2.5-4.9); POTASSIUM 3.2 mmol/L (3.5-5.1); SODIUM SERUM 142 mmol/L (136-145); UREA NITROGEN, BLOOD 55 mg/dL (7-18)
[2023-07-23 12:00] VITALS: BP 95/31; TEMP 97.3; O2SAT 96
[2023-07-23 12:05] LABS: ANISOCYTOSIS 1+; BAND % (MANUAL) 1 % (0.0-5.0); HYPOCHROMASIA 1+; LYMPHOCYTES % (MANUAL) 5 % (16-48); MONOCYTES % (MANUAL) 1 % (0-11.0); NEUTROPHILS % (MANUAL) 93 (42-76); OVALOCYTES 1+; PLATELET ESTIMATE DECREASED; TARGET CELLS 2+
[2023-07-23] MEDS ORDERED: HYDROCORTISONE SOD SUCCINATE 100 MG/2 ML VIAL IV SCH (15:30)
[2023-07-23 16:00] VITALS: BP 117/54; TEMP 97.2; O2SAT 96
[2023-07-23] MEDS: HYDROCORTISONE SOD SUCCINATE 100 MG/2 ML VIAL IV SCH (16:04)
[2023-07-23 16:14] VITALS: BP 117/54
== END 2023-07-23 20:00 | DRG 870 ==
LOC: ER 12:35 → ICU 16:56 → TELE-TD 07-21 12:35 → TELE1 07-22 12:27
PROVIDERS: ADMIT Student in an Organized Health Care Education/Training Program; ATTEND Student in an Organized Health Care Education/Training Program
PROC: 5A1955Z Respiratory Ventilation, Greater than 96 Consecutive Hours (ICD-10-PCS; principal; 2023-07-17)
PROC: 05HY33Z Insertion of Infusion Device into Upper Vein, Percutaneous Approach (ICD-10-PCS; 2023-07-17)
PROC: 30233N1 Transfusion of Nonautologous Red Blood Cells into Peripheral Vein, Percutaneous Approach (ICD-10-PCS; 2023-07-17)
PROC: 5A1D70Z Performance of Urinary Filtration, Intermittent, Less than 6 Hours Per Day (ICD-10-PCS; 2023-07-18)
DX: A41.9 Sepsis, unspecified organism (principal); R65.21 Severe sepsis with septic shock; N18.6 End stage renal disease; R57.1 Hypovolemic shock; S42.302A Unspecified fracture of shaft of humerus, left arm, initial encounter for closed fracture; I13.2 Hypertensive heart and chronic kidney disease with heart failure and with stage 5 chronic kidney disease, or end stage renal disease; I50.32 Chronic diastolic (congestive) heart failure; D68.69 Other thrombophilia; E44.0 Moderate protein-calorie malnutrition; G93.40 Encephalopathy, unspecified; L03.116 Cellulitis of left lower limb; Z99.11 Dependence on respirator [ventilator] status; E27.40 Unspecified adrenocortical insufficiency; J96.11 Chronic respiratory failure with hypoxia; D50.9 Iron deficiency anemia, unspecified; Z74.09 Other reduced mobility; E11.22 Type 2 diabetes mellitus with diabetic chronic kidney disease; E78.5 Hyperlipidemia, unspecified; E88.09 Other disorders of plasma-protein metabolism, not elsewhere classified; E87.6 Hypokalemia; R13.10 Dysphagia, unspecified; Z86.73 Personal history of transient ischemic attack (TIA), and cerebral infarction without residual deficits; Z87.440 Personal history of urinary (tract) infections; Z93.1 Gastrostomy status; Z99.2 Dependence on renal dialysis; Z93.0 Tracheostomy status; Z87.01 Personal history of pneumonia (recurrent); I25.10 Atherosclerotic heart disease of native coronary artery without angina pectoris; J44.9 Chronic obstructive pulmonary disease, unspecified; L89.156 Pressure-induced deep tissue damage of sacral region; L98.8 Other specified disorders of the skin and subcutaneous tissue; K29.70 Gastritis, unspecified, without bleeding; X58.XXXA Exposure to other specified factors, initial encounter; Y93.9 Activity, unspecified; S40.012A Contusion of left shoulder, initial encounter; G30.9 Alzheimer's disease, unspecified; F02.80 Dementia in other diseases classified elsewhere, unspecified severity, without behavioral disturbance, psychotic disturbance, mood disturbance, and anxiety; Y92.129 Unspecified place in nursing home as the place of occurrence of the external cause
CPT/HCPCS: 31720; 36415; 36569; 71045-TC; 80048-TC; 80202-TC; 82272-TC; 82533; 82962-TC; 83735-TC; 84100-TC; 84443-TC; 84484-TC; 85025-TC; 85730-TC; 86850-TC; 87040-TC; 87081-TC; 90935-TC; 93970-TC; 94003-TC; 94760-TC; 94762-TC; 94799-TC; A4216; A4223; A4623; A7526; G0378; J1720; J1815; J2185; J2270; J2765; J3370; J7030; J7050; J7060; P9016; P9047

== ENCOUNTER 2023-07-24 20:05 | Inpatient (IN) | payer MEDICARE, OTHER ==
[~2023-07-24] VITALS: Ht 170.2 cm; Wt 74.8 kg
[~2023-07-24 20:05] MED LIST changes: +*INS REG3 SQ; -ASCO-495 GT; +ASPI-1169 GT; +ATOR80TA GT; +BLOO-668 IN; +CITR30SO GT; -FOLI0.8T2 GT; -INSU100V11 SQ; -MELA3TAB41 GT; -METO25TA20 GT; -MIDO10TA GT; +MIDODRINE GT; -NEOM1OIN15 TP; -NEUTRA PHOS PACKET GT; -ONDA4TAB5 GT; +PETR113O TP; -POLY15DR40 EACHEYE; +POLY17PO4 GT; -ROSU40TA PO; +SENN-261 GT; -TOBR3.5O2 EACHEYE; -ZINC220C6 GT; -ZONI25CA GT; +[UNRECOGNIZED DRUG - OTHER] GT
[2023-07-24 20:50] LABS: BASOPHILS % (AUTO) 0.1 % (0.0-2.0); EOSINOPHILS % (AUTO) 0.2 % (0.0-6.0); HEMATOCRIT 25 % (33-45); HEMOGLOBIN 7.3 g/dL (11.5-14.8); LYMPHOCYTES # (AUTO) 0.8 K/uL (0.8-4.8); LYMPHOCYTES % (AUTO) 4.8 % (20.0-44.0); MEAN CORPUSCULAR HEMOGLOBIN 28 PG (26.0-33.0); MEAN CORPUSCULAR HGB CONC 30 g/dl (31.0-36.0); MEAN CORPUSCULAR VOLUME 93 fL (82-100); MONOCYTES # (AUTO) 0.8 K/uL (0.1-1.30); MONOCYTES % (AUTO) 4.5 % (2.0-12.0); NEUTROPHILS # (AUTO) 15.4 K/uL (1.8-8.9); NEUTROPHILS % (AUTO) 90.4 % (43.0-81.0); PLATELET COUNT (AUTO) 117 K/uL (150-450); RED BLOOD CELL COUNT(AUTO) 2.64 MIL/uL (4.0-5.2); RED CELL DISTRIBUTION WIDTH 23.5 % (11.5-15.0)
[2023-07-24] MEDS: IV NS 0.9% 500 ML BAG IV ONE (20:58)
[2023-07-24 21:00] LABS: CALCIUM, SERUM 8.4 mg/dL (8.5-10.1); CARBON DIOXIDE 30 mmol/L (21-32); CHLORIDE 104 mmol/L (98-107); CREATININE 1.8 mg/dL (0.6-1.3); GLUCOSE 227 mg/dL (74-106); POTASSIUM 3.3 mmol/L (3.5-5.1); SODIUM SERUM 136 mmol/L (136-145); UREA NITROGEN, BLOOD 61 mg/dL (7-18)
[2023-07-24 21:06] LABS: ALANINE AMINOTRANSFERASE 53 U/L (12-78); ALKALINE PHOSPHATASE 146 U/L (46-116); ASPARTATE AMINOTRANSFERASE 53 U/L (15-37); BILIRUBIN,DIRECT 0.2 mg/dL (0.0-0.2); BILIRUBIN,TOTAL 0.4 mg/dL (0.2-1.0); TOTAL PROTEIN, SERUM 4.9 g/dL (6.4-8.2)
[2023-07-24] MEDS ORDERED: PIPERACI/TAZO 3.375GM/D5W 50ML PB IV ONE (21:14)
[2023-07-24] MEDS ORDERED: VANCOMYCIN 1 GM /D5W 250 ML PB IV ONE (21:14)
[2023-07-24 21:16] LABS: INR 1.18 (0.91-1.10); PROTHROMBIN TIME 12.1 SECS (9.2-11.1)
[2023-07-24] MEDS: PIPERACILLIN /TAZOBACTAM 3.375 G in IV D5W 50 ML IV ONE (21:30)
[2023-07-24 21:35] LABS: LACTIC ACID 1.1 mmol/L (0.4-2.0)
[2023-07-24 22:03] LABS: PARTIAL THROMBOPLASTIN TIME 38.4 SEC (24.3-34.3)
[2023-07-24] MEDS: VANCOMYCIN 1 GM in IV D5W 250 ML IV ONE (22:13)
[2023-07-24] MEDS ORDERED: ASPIRIN 325 MG TABLET ONE (22:17)
[2023-07-24] MEDS: ASPIRIN 325 MG TABLET GT ONE (22:40)
[2023-07-24] MEDS: IV NS 0.9% 500 ML IV ONE (23:04)
[2023-07-24] MEDS ORDERED: NOREPINEPHRINE 8MG/250ML RTU 250 ML IV ONE (23:31)
[2023-07-24] MEDS: NOREPINEPHRINE 8 MG in IV D5W 242 ML IV PRN (23:48)
[2023-07-25] VITALS (88 sets, daily range): BP systolic 57–137; BP diastolic 11–111; TEMP 91.4–97; O2SAT 86–100
[2023-07-25] MEDS ORDERED: NOREPINEPHRINE 32 MG in IV NS 0.9% 218 ML IV PRN (00:30)
[2023-07-25] MEDS ORDERED: ONDANSETRON HCL/PF 4 MG/2 ML VIAL IVP PRN (00:30)
[2023-07-25] MEDS ORDERED: MAG HYDROX/AL HYDROX/SIMETH 30 ML UDC GT PRN (00:30)
[2023-07-25] MEDS ORDERED: ACETAMINOPHEN 325 MG TABLET MC PRN (00:30)
[2023-07-25] MEDS ORDERED: NEPRO VAN 237 ML CAN GT SCH (00:30)
[2023-07-25] MEDS ORDERED: Z GUARD REMEDY 4 OZ OINT TP PRN (00:30)
[2023-07-25] MEDS: NOREPINEPHRINE 4 MG/4 ML AMPUL IV ONE ×2 (01:01→05:38)
[2023-07-25] MEDS: NOREPINEPHRINE 32 MG in IV NS 0.9% 218 ML IV PRN (01:13)
[2023-07-25] MEDS: MEROPENEM 500MG/NS 50 ML PB IV ONE (01:14)
[2023-07-25] MEDS: MEROPENEM 500 MG in IV NS 0.9% 50 ML IV SCH ×2 (01:15→10:15)
[2023-07-25] MEDS: IV NS 0.9% 1,000 ML IV PRN (01:16)
[2023-07-25] MEDS ORDERED: MEROPENEM 500 MG in IV NS 0.9% 50 ML IV SCH (01:32)
[2023-07-25] MEDS: IPRATROPIUM NEB FS 0.5 MG/2.5 ML AMPUL.NEB IH SCH ×2 (01:58→08:50)
[2023-07-25] MEDS: ALBUTEROL HALF STRENGTH 1.25 MG/3 ML VIAL.NEB IH SCH (01:58)
[2023-07-25] MEDS ORDERED: NEPRO 1,000 ML BOTTLE GT PRN (05:30)
[2023-07-25] MEDS ORDERED: ACETAMINOPHEN 650 MG/20.3 ML UDC GT PRN (06:00)
[2023-07-25] MEDS: VANCOMYCIN 500 MG in IV D5W 100ml IV SCH (07:00)
[2023-07-25 07:29] LABS: HEMATOCRIT 26 % (33-45); HEMOGLOBIN 7.9 g/dL (11.5-14.8); LYMPHOCYTES # (AUTO) 0.8 K/uL (0.8-4.8); LYMPHOCYTES % (AUTO) 4.8 % (20.0-44.0); MEAN CORPUSCULAR HEMOGLOBIN 28 PG (26.0-33.0); MEAN CORPUSCULAR HGB CONC 30 g/dl (31.0-36.0); MEAN CORPUSCULAR VOLUME 93 fL (82-100); MONOCYTES # (AUTO) 1.5 K/uL (0.1-1.30); MONOCYTES % (AUTO) 8.2 % (2.0-12.0); NEUTROPHILS # (AUTO) 15.3 K/uL (1.8-8.9); PLATELET COUNT (AUTO) 130 K/uL (150-450); RED BLOOD CELL COUNT(AUTO) 2.85 MIL/uL (4.0-5.2); RED CELL DISTRIBUTION WIDTH 22.9 % (11.5-15.0); WHITE BLOOD COUNT (AUTO) 17.7 K/uL (4.3-11.0)
[2023-07-25] MEDS: PHENYLEPHRINE 100 MG in IV NS 0.9% 240 ML IV PRN (07:45)
[2023-07-25 08:09] LABS: ALANINE AMINOTRANSFERASE 59 U/L (12-78); ALBUMIN 2.1 g/dL (3.4-5.0); ALKALINE PHOSPHATASE 162 U/L (46-116); ASPARTATE AMINOTRANSFERASE 66 U/L (15-37); BILIRUBIN,TOTAL 0.5 mg/dL (0.2-1.0); CALCIUM, SERUM 8.6 mg/dL (8.5-10.1); CARBON DIOXIDE 28 mmol/L (21-32); CHLORIDE 103 mmol/L (98-107); CREATININE 2.1 mg/dL (0.6-1.3); GLUCOSE 218 mg/dL (74-106); PHOSPHORUS 4.2 mg/dL (2.5-4.9); POTASSIUM 3.5 mmol/L (3.5-5.1); SODIUM SERUM 139 mmol/L (136-145); TOTAL PROTEIN, SERUM 5.5 g/dL (6.4-8.2); UREA NITROGEN, BLOOD 63 mg/dL (7-18)
[2023-07-25 08:45] LABS: CHOLESTEROL 59 mg/dL (<200); HDL CHOLESTEROL 36 mg/dL (40-60); LDL 16 mg/dL (0-99); THYROID STIMULATING HORMONE 4.314 uIU/mL (0.358-3.74); TRIGLYCERIDES 50 mg/dL (30-150)
[2023-07-25] MEDS: LINAGLIPTIN 5 MG TABLET GT SCH (08:55)
[2023-07-25] MEDS: ASPIRIN 81 MG TAB.CHEW GT SCH (08:55)
[2023-07-25] MEDS: FERROUS SULFATE UDC 300 MG/5 ML UDC GT SCH (08:56)
[2023-07-25] MEDS: MIDODRINE HCL (5MG) 5 MG TABLET GT SCH (08:56)
[2023-07-25] MEDS: CITRIC ACID/SODIUM CITRATE (BICITRA)15 ML UDC GT SCH (08:56)
[2023-07-25] MEDS: PANTOPRAZOLE 40 MG/PACK PACK GT SCH (08:56)
[2023-07-25] MEDS: THERAHONEY GEL 1.5 OZ TUBE TP SCH (08:57)
[2023-07-25] MEDS: DAKINS QUARTER STRENGTH (0.125%) 480 ML BOTTLE TOP SCH (08:57)
[2023-07-25] MEDS: HYDROCORTISONE SOD SUCCINATE 100 MG/2 ML VIAL IV SCH (09:00)
[2023-07-25] MEDS ORDERED: FERROUS SULFATE (325 MG) 325 MG/TAB TABLET GT SCH (09:00)
[2023-07-25] MEDS: APIXABAN 2.5 MG TABLET GT SCH (09:36)
[2023-07-25] MEDS: NEPRO 1,000 ML BOTTLE GT PRN (09:58)
[2023-07-25] MEDS: IV NS 0.9% 1,000 ML IV ONE ×2 (10:10→11:09)
[2023-07-25] MEDS ORDERED: IV NS 0.9% 500 ML IV ONE (10:30)
[2023-07-25] MEDS: VASOPRESSIN INJ 40 UNIT in IV NS 0.9% 38 ML IV PRN (11:08)
[2023-07-25 14:55] LABS: ABG BASE EXCESS -1.5 mmol/L; ABG OXYGEN SATURATION 95.7 % (92.0-98.5); ABG PCO2 60.3 mmHg (35.0-45.0); ABG PH 7.252 (7.350-7.450); ABG PO2 85.8 mmHg (75.0-100.0); ABG TOTAL HEMOGLOBIN 8.4 G/dL (12.0-16.0); AaDO2 93.7 mmHg; COHb 0.1 % (0.5-1.5); MetHb 0.4 % (0.0-1.5); O2Hb 95.2 % (94.0-97.0); PEEP,BG 0 cm H2O; SITE, ABG Right Radial; VT, ABG 475 mL
[2023-07-25 15:56] LABS: BAND % (MANUAL) 1 % (0.0-5.0); LYMPHOCYTES % (MANUAL) 10 % (16-48); MONOCYTES % (MANUAL) 8 % (0-11.0); NEUTROPHILS % (MANUAL) 81 (42-76)
[2023-07-25 15:57] LABS: ANISOCYTOSIS 1+; OVALOCYTES 1+; PLATELET ESTIMATE DECREASED; TARGET CELLS 1+
[2023-07-25] MEDS: PROSOURCE / PROSTAT (PYXIS) 30 ML UDC GT SCH (17:01)
[2023-07-25] MEDS: IV NS 0.9% 250 ML IV ONE (19:15)
[2023-07-25] MEDS: ATORVASTATIN 40 MG TABLET GT SCH (21:27)
[2023-07-25] MEDS: DONEPEZIL 5 MG TABLET GT SCH (21:28)
[2023-07-25] MEDS: SENNOSIDES 8.6 MG TABLET GT SCH (21:28)
[2023-07-25] MEDS: MONTELUKAST SODIUM (10MG) 10 MG TABLET GT SCH (21:39)
[2023-07-25] MEDS: INSULIN GLARGINE, 100 UNIT/ML CARTRIDGE SQ SCH (23:31)
[2023-07-26] VITALS (80 sets, daily range): BP systolic 51–131; BP diastolic 22–86; TEMP 94–98; O2SAT 92–100
[2023-07-26 05:28] LABS: HEMATOCRIT 22 % (33-45); LYMPHOCYTES # (AUTO) 0.5 K/uL (0.8-4.8); LYMPHOCYTES % (AUTO) 2.1 % (20.0-44.0); MEAN CORPUSCULAR HEMOGLOBIN 28 PG (26.0-33.0); MEAN CORPUSCULAR HGB CONC 29 g/dl (31.0-36.0); MEAN CORPUSCULAR VOLUME 94 fL (82-100); MONOCYTES # (AUTO) 1.2 K/uL (0.1-1.30); MONOCYTES % (AUTO) 4.6 % (2.0-12.0); NEUTROPHILS # (AUTO) 24.4 K/uL (1.8-8.9); NEUTROPHILS % (AUTO) 93.3 % (43.0-81.0); PLATELET COUNT (AUTO) 95 K/uL (150-450); RED BLOOD CELL COUNT(AUTO) 2.31 MIL/uL (4.0-5.2); RED CELL DISTRIBUTION WIDTH 22.9 % (11.5-15.0); WHITE BLOOD COUNT (AUTO) 26.1 K/uL (4.3-11.0)
[2023-07-26 05:40] LABS: HEMOGLOBIN 6.4 g/dL (11.5-14.8)
[2023-07-26 05:48] LABS: SODIUM SERUM 139 mmol/L (136-145)
[2023-07-26 05:49] LABS: CALCIUM, SERUM 8.4 mg/dL (8.5-10.1); CARBON DIOXIDE 27 mmol/L (21-32); CHLORIDE 105 mmol/L (98-107); CREATININE 2.2 mg/dL (0.6-1.3); GLUCOSE 245 mg/dL (74-106); PHOSPHORUS 5.1 mg/dL (2.5-4.9); POTASSIUM 4.2 mmol/L (3.5-5.1); UREA NITROGEN, BLOOD 72 mg/dL (7-18)
[2023-07-26 06:01] LABS: BAND % (MANUAL) 6 % (0.0-5.0); LYMPHOCYTES % (MANUAL) 2 % (16-48); MONOCYTES % (MANUAL) 1 % (0-11.0); NEUTROPHILS % (MANUAL) 91 (42-76)
[2023-07-26 06:03] LABS: PLATELET ESTIMATE DECREASED
[2023-07-26 06:04] LABS: ANISOCYTOSIS 1+; TARGET CELLS 1+
[2023-07-26 06:05] LABS: HYPOCHROMASIA 2+; OVALOCYTES 1+
[2023-07-27] VITALS (83 sets, daily range): BP systolic 58–150; BP diastolic 32–114; TEMP 96.5–98; O2SAT 89–100
[2023-07-27 08:10] LABS: MEAN CORPUSCULAR VOLUME 94 fL (82-100); MONOCYTES # (AUTO) 0.7 K/uL (0.1-1.30); MONOCYTES % (AUTO) 2.7 % (2.0-12.0)
[2023-07-27 08:24] LABS: BASOPHILS % (AUTO) 0.1 % (0.0-2.0); HEMATOCRIT 22 % (33-45); LYMPHOCYTES # (AUTO) 0.5 K/uL (0.8-4.8); LYMPHOCYTES % (AUTO) 2.2 % (20.0-44.0); MEAN CORPUSCULAR HEMOGLOBIN 29 PG (26.0-33.0); MEAN CORPUSCULAR HGB CONC 31 g/dl (31.0-36.0); PLATELET COUNT (AUTO) 100 K/uL (150-450); RED BLOOD CELL COUNT(AUTO) 2.31 MIL/uL (4.0-5.2); RED CELL DISTRIBUTION WIDTH 20.3 % (11.5-15.0); WHITE BLOOD COUNT (AUTO) 25.2 K/uL (4.3-11.0)
[2023-07-27 08:29] LABS: HEMOGLOBIN 6.6 g/dL (11.5-14.8)
[2023-07-27 08:38] LABS: CALCIUM, SERUM 7.9 mg/dL (8.5-10.1); CARBON DIOXIDE 24 mmol/L (21-32); CHLORIDE 106 mmol/L (98-107); CREATININE 2.6 mg/dL (0.6-1.3); GLUCOSE 367 mg/dL (74-106); POTASSIUM 4.6 mmol/L (3.5-5.1); SODIUM SERUM 140 mmol/L (136-145)
[2023-07-27 08:44] LABS: UREA NITROGEN, BLOOD 90 mg/dL (7-18)
[2023-07-27 11:53] LABS: ANISOCYTOSIS 1+; HYPOCHROMASIA 1+; LYMPHOCYTES % (MANUAL) 1 % (16-48); MONOCYTES % (MANUAL) 4 % (0-11.0); NEUTROPHILS % (MANUAL) 95 (42-76); PLATELET ESTIMATE DECREASED; STOMATOCYTES 1+
[2023-07-27 11:54] LABS: OVALOCYTES 1+
[2023-07-27] MEDS: VANCOMYCIN 500 MG in IV D5W 100 ML IV PRN (23:16)
[2023-07-27] MEDS ORDERED: ALBUTEROL HALF STRENGTH 1.25 MG/3 ML VIAL.NEB NEB SCH (23:30)
[2023-07-27] MEDS: ALBUTEROL HALF STRENGTH 1.25 MG/3 ML VIAL.NEB NEB SCH (23:35)
[2023-07-28] VITALS (74 sets, daily range): BP systolic 70–136; BP diastolic 20–102; TEMP 97.2–98; O2SAT 79–100
[2023-07-28 05:02] LABS: HEMATOCRIT 27 % (33-45); HEMOGLOBIN 8.5 g/dL (11.5-14.8); LYMPHOCYTES # (AUTO) 0.4 K/uL (0.8-4.8); LYMPHOCYTES % (AUTO) 1.6 % (20.0-44.0); MEAN CORPUSCULAR HEMOGLOBIN 28 PG (26.0-33.0); MEAN CORPUSCULAR HGB CONC 31 g/dl (31.0-36.0); MEAN CORPUSCULAR VOLUME 91 fL (82-100); MONOCYTES # (AUTO) 0.6 K/uL (0.1-1.30); MONOCYTES % (AUTO) 2.4 % (2.0-12.0); PLATELET COUNT (AUTO) 102 K/uL (150-450); RED BLOOD CELL COUNT(AUTO) 2.98 MIL/uL (4.0-5.2); RED CELL DISTRIBUTION WIDTH 19.1 % (11.5-15.0)
[2023-07-28 05:29] LABS: CALCIUM, SERUM 8.2 mg/dL (8.5-10.1); CARBON DIOXIDE 24 mmol/L (21-32); CHLORIDE 103 mmol/L (98-107); CREATININE 2.1 mg/dL (0.6-1.3); GLUCOSE 393 mg/dL (74-106); POTASSIUM 3.5 mmol/L (3.5-5.1); SODIUM SERUM 139 mmol/L (136-145); UREA NITROGEN, BLOOD 74 mg/dL (7-18)
[2023-07-28 06:48] LABS: LYMPHOCYTES % (MANUAL) 1 % (16-48); MONOCYTES % (MANUAL) 3 % (0-11.0); NEUTROPHILS % (MANUAL) 96 (42-76)
[2023-07-28 06:49] LABS: ANISOCYTOSIS 2+; HYPOCHROMASIA 2+
[2023-07-28 06:51] LABS: PLATELET ESTIMATE DECRE
[2023-07-28] MEDS ORDERED: CITRIC ACID/SODIUM CITRATE (BICITRA)15 ML UDC PO SCH (10:30)
[2023-07-29] VITALS (60 sets, daily range): BP systolic 55–139; BP diastolic 25–87; TEMP 97.5–98; O2SAT 89–100
[2023-07-29] MEDS: IV NS 0.9% 250 ML IV PRN (03:17)
[2023-07-29 05:09] LABS: BASOPHILS % (AUTO) 0.2 % (0.0-2.0); HEMATOCRIT 28 % (33-45); HEMOGLOBIN 8.6 g/dL (11.5-14.8); LYMPHOCYTES # (AUTO) 0.4 K/uL (0.8-4.8); LYMPHOCYTES % (AUTO) 1.9 % (20.0-44.0); MEAN CORPUSCULAR HEMOGLOBIN 29 PG (26.0-33.0); MEAN CORPUSCULAR HGB CONC 31 g/dl (31.0-36.0); MEAN CORPUSCULAR VOLUME 92 fL (82-100); MONOCYTES # (AUTO) 0.5 K/uL (0.1-1.30); MONOCYTES % (AUTO) 2.9 % (2.0-12.0); NEUTROPHILS # (AUTO) 17.8 K/uL (1.8-8.9); PLATELET COUNT (AUTO) 114 K/uL (150-450); RED BLOOD CELL COUNT(AUTO) 2.99 MIL/uL (4.0-5.2); RED CELL DISTRIBUTION WIDTH 19.7 % (11.5-15.0); WHITE BLOOD COUNT (AUTO) 18.7 K/uL (4.3-11.0)
[2023-07-29 05:19] LABS: CALCIUM, SERUM 8.3 mg/dL (8.5-10.1); CARBON DIOXIDE 27 mmol/L (21-32); CHLORIDE 106 mmol/L (98-107); CREATININE 2.3 mg/dL (0.6-1.3); GLUCOSE 329 mg/dL (74-106); POTASSIUM 3.2 mmol/L (3.5-5.1); SODIUM SERUM 141 mmol/L (136-145)
[2023-07-29 05:30] LABS: UREA NITROGEN, BLOOD 80 mg/dL (7-18)
[2023-07-29] MEDS: POTASSIUM CL. PREMIX PERIPHER. 50 ML IV SCH (07:55)
[2023-07-29] MEDS: NYSTATIN CREAM 15 GM TUBE TP SCH (08:26)
[2023-07-29 23:19] LABS: HEMOGLOBIN 8.4 g/dL (11.5-14.8)
[2023-07-30] VITALS (56 sets, daily range): BP systolic 58–123; BP diastolic 23–93; TEMP 97.8–98.2; O2SAT 90–99
[2023-07-30 07:26] LABS: BASOPHILS # (AUTO) 0.2 K/uL (0.0-0.2); BASOPHILS % (AUTO) 1.2 % (0.0-2.0); HEMATOCRIT 28 % (33-45); HEMOGLOBIN 8.7 g/dL (11.5-14.8); LYMPHOCYTES # (AUTO) 0.2 K/uL (0.8-4.8); LYMPHOCYTES % (AUTO) 1.4 % (20.0-44.0); MEAN CORPUSCULAR HEMOGLOBIN 29 PG (26.0-33.0); MEAN CORPUSCULAR HGB CONC 31 g/dl (31.0-36.0); MEAN CORPUSCULAR VOLUME 93 fL (82-100); MONOCYTES # (AUTO) 0.6 K/uL (0.1-1.30); MONOCYTES % (AUTO) 3.6 % (2.0-12.0); NEUTROPHILS # (AUTO) 15.2 K/uL (1.8-8.9); NEUTROPHILS % (AUTO) 93.8 % (43.0-81.0); PLATELET COUNT (AUTO) 99 K/uL (150-450); RED BLOOD CELL COUNT(AUTO) 2.99 MIL/uL (4.0-5.2); RED CELL DISTRIBUTION WIDTH 19.6 % (11.5-15.0); WHITE BLOOD COUNT (AUTO) 16.2 K/uL (4.3-11.0)
[2023-07-30 07:38] LABS: CALCIUM, SERUM 8.9 mg/dL (8.5-10.1); CARBON DIOXIDE 24 mmol/L (21-32); CHLORIDE 104 mmol/L (98-107); CREATININE 2.4 mg/dL (0.6-1.3); GLUCOSE 272 mg/dL (74-106); POTASSIUM 3.5 mmol/L (3.5-5.1); SODIUM SERUM 139 mmol/L (136-145)
[2023-07-30 07:42] LABS: UREA NITROGEN, BLOOD 87 mg/dL (7-18)
[2023-07-30 09:45] LABS: ABG OXYGEN SATURATION 97.7 % (92.0-98.5); ABG PCO2 49.5 mmHg (35.0-45.0); ABG PH 7.281 (7.350-7.450); ABG TOTAL HEMOGLOBIN 10.2 G/dL (12.0-16.0); COHb 0.4 % (0.5-1.5); MetHb 0.1 % (0.0-1.5); O2Hb 97.2 % (94.0-97.0); PEEP,BG 0 cm H2O; SITE, ABG Right Radial; VENT MODE, BG AC 35%; VT, ABG 525 mL
[2023-07-30 09:50] LABS: ABG BASE EXCESS -6.5 mmol/L; ABG OXYGEN SATURATION 81.6 % (92.0-98.5); ABG PH 7.135 (7.350-7.450); ABG PO2 52.6 mmHg (75.0-100.0); ABG TOTAL HEMOGLOBIN 9.9 G/dL (12.0-16.0); AaDO2 152.1 mmHg; COHb 0.6 % (0.5-1.5); MetHb 0.3 % (0.0-1.5); O2Hb 80.9 % (94.0-97.0); PEEP,BG 0 cm H2O; VT, ABG 475 mL
[2023-07-30] MEDS: ALBUMIN 25% 25 GM in PREMIX 1 EA IV ONE (19:05)
[2023-07-31] VITALS (94 sets, daily range): BP systolic 48–132; BP diastolic 18–96; TEMP 96.3–96.7; O2SAT 87–100
[2023-07-31 07:49] LABS: CALCIUM, SERUM 8.3 mg/dL (8.5-10.1); CARBON DIOXIDE 26 mmol/L (21-32); CHLORIDE 103 mmol/L (98-107); CREATININE 2.3 mg/dL (0.6-1.3); GLUCOSE 264 mg/dL (74-106); POTASSIUM 3.3 mmol/L (3.5-5.1); SODIUM SERUM 140 mmol/L (136-145)
[2023-07-31 07:52] LABS: HEMATOCRIT 25 % (33-45); HEMOGLOBIN 7.9 g/dL (11.5-14.8); LYMPHOCYTES # (AUTO) 0.3 K/uL (0.8-4.8); LYMPHOCYTES % (AUTO) 2.6 % (20.0-44.0); MEAN CORPUSCULAR HEMOGLOBIN 29 PG (26.0-33.0); MEAN CORPUSCULAR HGB CONC 31 g/dl (31.0-36.0); MEAN CORPUSCULAR VOLUME 92 fL (82-100); MONOCYTES # (AUTO) 0.7 K/uL (0.1-1.30); MONOCYTES % (AUTO) 6.4 % (2.0-12.0); NEUTROPHILS # (AUTO) 9.7 K/uL (1.8-8.9); PLATELET COUNT (AUTO) 73 K/uL (150-450); RED BLOOD CELL COUNT(AUTO) 2.76 MIL/uL (4.0-5.2); RED CELL DISTRIBUTION WIDTH 19.8 % (11.5-15.0); WHITE BLOOD COUNT (AUTO) 10.7 K/uL (4.3-11.0)
[2023-07-31 08:00] LABS: UREA NITROGEN, BLOOD 82 mg/dL (7-18)
[2023-07-31] MEDS: POTASSIUM CHLORIDE 20 MEQ POWDER PACKET GT ONE (13:37)
[2023-07-31 15:46] LABS: LYMPHOCYTES % (MANUAL) 4 % (16-48); MONOCYTES % (MANUAL) 4 % (0-11.0); NEUTROPHILS % (MANUAL) 92 (42-76); PLATELET ESTIMATE DECREASED
[2023-07-31 15:47] LABS: ANISOCYTOSIS 1+
[2023-08-01] VITALS (93 sets, daily range): BP systolic 75–154; BP diastolic 23–99; TEMP 96.5–98.3; O2SAT 93–100
[2023-08-01 07:16] LABS: BASOPHILS % (AUTO) 0.2 % (0.0-2.0); EOSINOPHILS % (AUTO) 0.1 % (0.0-6.0); HEMATOCRIT 23 % (33-45); HEMOGLOBIN 7.3 g/dL (11.5-14.8); LYMPHOCYTES # (AUTO) 0.3 K/uL (0.8-4.8); LYMPHOCYTES % (AUTO) 4.1 % (20.0-44.0); MEAN CORPUSCULAR HEMOGLOBIN 29 PG (26.0-33.0); MEAN CORPUSCULAR HGB CONC 31 g/dl (31.0-36.0); MEAN CORPUSCULAR VOLUME 94 fL (82-100); MONOCYTES # (AUTO) 0.4 K/uL (0.1-1.30); MONOCYTES % (AUTO) 6.3 % (2.0-12.0); NEUTROPHILS # (AUTO) 5.8 K/uL (1.8-8.9); NEUTROPHILS % (AUTO) 89.3 % (43.0-81.0); PLATELET COUNT (AUTO) 70 K/uL (150-450); RED BLOOD CELL COUNT(AUTO) 2.49 MIL/uL (4.0-5.2); RED CELL DISTRIBUTION WIDTH 19.1 % (11.5-15.0); WHITE BLOOD COUNT (AUTO) 6.5 K/uL (4.3-11.0)
[2023-08-01 07:57] LABS: CALCIUM, SERUM 7.9 mg/dL (8.5-10.1); CARBON DIOXIDE 27 mmol/L (21-32); CHLORIDE 106 mmol/L (98-107); CREATININE 2.5 mg/dL (0.6-1.3); GLUCOSE 238 mg/dL (74-106); MAGNESIUM 1.7 mg/dL (1.8-2.4); PHOSPHORUS 5.3 mg/dL (2.5-4.9); POTASSIUM 3.4 mmol/L (3.5-5.1); SODIUM SERUM 143 mmol/L (136-145)
[2023-08-01 07:59] LABS: UREA NITROGEN, BLOOD 84 mg/dL (7-18)
[2023-08-01] MEDS: Magnesium 1GM/D5W 100ML PREMIX 100 ML IV SCH (10:08)
[2023-08-01 11:16] LABS: BAND % (MANUAL) 5 % (0.0-5.0); LYMPHOCYTES % (MANUAL) 4 % (16-48); MONOCYTES % (MANUAL) 6 % (0-11.0); NEUTROPHILS % (MANUAL) 85 (42-76); PLATELET ESTIMATE DECREASED
[2023-08-01 11:17] LABS: ANISOCYTOSIS 1+; HYPOCHROMASIA 1+; STOMATOCYTES 1+; TEAR DROP CELLS OCC
[2023-08-01] MEDS: POTASSIUM CHLORIDE 20 MEQ POWDER PACKET NG SCH (11:52)
[2023-08-01] MEDS ORDERED: DEXTROSE 50%-WATER 50 ML DISP.SYRIN IV PRN (14:30)
[2023-08-01] MEDS: BLOOD SUGAR DIAGNOSTIC 1 EACH STRIP IN SCH (18:12)
[2023-08-02] VITALS (96 sets, daily range): BP systolic 66–149; BP diastolic 20–85; TEMP 96.5–97.9; O2SAT 91–100
[2023-08-02] MEDS: INSULIN REGULAR, HUMAN 100 UNIT/ML 3 ML VIAL SQ PRN (00:48)
[2023-08-02 04:52] LABS: CALCIUM, SERUM 8.1 mg/dL (8.5-10.1); CARBON DIOXIDE 26 mmol/L (21-32); CHLORIDE 106 mmol/L (98-107); CREATININE 2.7 mg/dL (0.6-1.3); GLUCOSE 290 mg/dL (74-106); PHOSPHORUS 5.3 mg/dL (2.5-4.9); POTASSIUM 3.6 mmol/L (3.5-5.1); SODIUM SERUM 144 mmol/L (136-145)
[2023-08-02 05:09] LABS: UREA NITROGEN, BLOOD 103 mg/dL (7-18)
[2023-08-02 05:18] LABS: HEMATOCRIT 22 % (33-45); LYMPHOCYTES # (AUTO) 0.2 K/uL (0.8-4.8); LYMPHOCYTES % (AUTO) 2.6 % (20.0-44.0); MEAN CORPUSCULAR HEMOGLOBIN 30 PG (26.0-33.0); MEAN CORPUSCULAR HGB CONC 31 g/dl (31.0-36.0); MEAN CORPUSCULAR VOLUME 94 fL (82-100); MONOCYTES # (AUTO) 0.5 K/uL (0.1-1.30); MONOCYTES % (AUTO) 7.1 % (2.0-12.0); NEUTROPHILS # (AUTO) 6.7 K/uL (1.8-8.9); NEUTROPHILS % (AUTO) 90.3 % (43.0-81.0); PLATELET COUNT (AUTO) 73 K/uL (150-450); RED BLOOD CELL COUNT(AUTO) 2.36 MIL/uL (4.0-5.2); RED CELL DISTRIBUTION WIDTH 19.5 % (11.5-15.0); WHITE BLOOD COUNT (AUTO) 7.5 K/uL (4.3-11.0)
[2023-08-02 05:32] LABS: HEMOGLOBIN 6.9 g/dL (11.5-14.8)
[2023-08-02 08:30] LABS: ABG BASE EXCESS -4.4 mmol/L; ABG OXYGEN SATURATION 93.8 % (92.0-98.5); ABG PCO2 42.3 mmHg (35.0-45.0); ABG PH 7.321 (7.350-7.450); ABG TOTAL HEMOGLOBIN 7.5 G/dL (12.0-16.0); COHb 0.3 % (0.5-1.5); MetHb 0.6 % (0.0-1.5); PEEP,BG 5 cm H2O; SITE, ABG Right Brachial; VT, ABG 500 mL
[2023-08-02 08:45] LABS: BAND % (MANUAL) 17 % (0.0-5.0); LYMPHOCYTES % (MANUAL) 5 % (16-48); MONOCYTES % (MANUAL) 5 % (0-11.0); NEUTROPHILS % (MANUAL) 73 (42-76)
[2023-08-02 08:46] LABS: ANISOCYTOSIS 1+; OVALOCYTES 1+; PLATELET ESTIMATE DECREASED; STOMATOCYTES 1+
[2023-08-03] VITALS (87 sets, daily range): BP systolic 75–128; BP diastolic 20–74; TEMP 96–98.4; O2SAT 84–99
[2023-08-03 05:09] LABS: BASOPHILS % (AUTO) 0.1 % (0.0-2.0); HEMATOCRIT 26 % (33-45); HEMOGLOBIN 8.1 g/dL (11.5-14.8); LYMPHOCYTES # (AUTO) 0.2 K/uL (0.8-4.8); LYMPHOCYTES % (AUTO) 1.8 % (20.0-44.0); MEAN CORPUSCULAR HEMOGLOBIN 29 PG (26.0-33.0); MEAN CORPUSCULAR HGB CONC 32 g/dl (31.0-36.0); MEAN CORPUSCULAR VOLUME 91 fL (82-100); MONOCYTES # (AUTO) 0.8 K/uL (0.1-1.30); MONOCYTES % (AUTO) 6.3 % (2.0-12.0); NEUTROPHILS # (AUTO) 12.3 K/uL (1.8-8.9); NEUTROPHILS % (AUTO) 91.8 % (43.0-81.0); PLATELET COUNT (AUTO) 71 K/uL (150-450); RED BLOOD CELL COUNT(AUTO) 2.79 MIL/uL (4.0-5.2); RED CELL DISTRIBUTION WIDTH 18.2 % (11.5-15.0); WHITE BLOOD COUNT (AUTO) 13.4 K/uL (4.3-11.0)
[2023-08-03 06:02] LABS: CALCIUM, SERUM 7.6 mg/dL (8.5-10.1); CARBON DIOXIDE 25 mmol/L (21-32); CHLORIDE 104 mmol/L (98-107); CREATININE 2.2 mg/dL (0.6-1.3); GLUCOSE 248 mg/dL (74-106); MAGNESIUM 1.8 mg/dL (1.8-2.4); PHOSPHORUS 4.3 mg/dL (2.5-4.9); POTASSIUM 3.1 mmol/L (3.5-5.1); SODIUM SERUM 142 mmol/L (136-145)
[2023-08-03 06:05] LABS: UREA NITROGEN, BLOOD 83 mg/dL (7-18)
[2023-08-03] MEDS ORDERED: POTASSIUM CL. PREMIX PERIPHER. 50 ML IV SCH (10:00)
[2023-08-03 10:26] LABS: ANISOCYTOSIS 1+; BAND % (MANUAL) 16 % (0.0-5.0); LYMPHOCYTES % (MANUAL) 2 % (16-48); MONOCYTES % (MANUAL) 9 % (0-11.0); NEUTROPHILS % (MANUAL) 73 (42-76)
[2023-08-03 10:32] LABS: TARGET CELLS 1+
[2023-08-03] MEDS: POTASSIUM CHLORIDE 20 MEQ POWDER PACKET NG SCH (11:50)
[2023-08-04] VITALS (72 sets, daily range): BP systolic 64–129; BP diastolic 15–79; TEMP 97.2–97.8; O2SAT 85–98
[2023-08-04] MEDS: VASOPRESSIN INJ 20 UNIT/ML VIAL ONE (03:05)
[2023-08-04 05:08] LABS: BASOPHILS % (AUTO) 0.2 % (0.0-2.0); HEMATOCRIT 23 % (33-45); HEMOGLOBIN 7.1 g/dL (11.5-14.8); LYMPHOCYTES # (AUTO) 0.3 K/uL (0.8-4.8); LYMPHOCYTES % (AUTO) 1.6 % (20.0-44.0); MEAN CORPUSCULAR HEMOGLOBIN 29 PG (26.0-33.0); MEAN CORPUSCULAR HGB CONC 31 g/dl (31.0-36.0); MEAN CORPUSCULAR VOLUME 92 fL (82-100); MONOCYTES # (AUTO) 0.5 K/uL (0.1-1.30); MONOCYTES % (AUTO) 3.3 % (2.0-12.0); NEUTROPHILS # (AUTO) 15.4 K/uL (1.8-8.9); NEUTROPHILS % (AUTO) 94.9 % (43.0-81.0); PLATELET COUNT (AUTO) 71 K/uL (150-450); RED BLOOD CELL COUNT(AUTO) 2.46 MIL/uL (4.0-5.2); RED CELL DISTRIBUTION WIDTH 18.3 % (11.5-15.0); WHITE BLOOD COUNT (AUTO) 16.2 K/uL (4.3-11.0)
[2023-08-04 05:50] LABS: CALCIUM, SERUM 7.7 mg/dL (8.5-10.1); CARBON DIOXIDE 24 mmol/L (21-32); CHLORIDE 106 mmol/L (98-107); CREATININE 2.4 mg/dL (0.6-1.3); GLUCOSE 197 mg/dL (74-106); MAGNESIUM 1.9 mg/dL (1.8-2.4); PHOSPHORUS 4.9 mg/dL (2.5-4.9); POTASSIUM 3.3 mmol/L (3.5-5.1); SODIUM SERUM 143 mmol/L (136-145)
[2023-08-04 05:51] LABS: UREA NITROGEN, BLOOD 94 mg/dL (7-18)
[2023-08-04 06:59] LABS: NEUTROPHILS % (MANUAL) 77 (42-76)
[2023-08-04 07:00] LABS: ANISOCYTOSIS 1+; BAND % (MANUAL) 18 % (0.0-5.0); LYMPHOCYTES % (MANUAL) 2 % (16-48); METAMYELOCYTES % 1 % (0-0); MONOCYTES % (MANUAL) 2 % (0-11.0); PLATELET ESTIMATE DECREASED
[2023-08-04 07:01] LABS: OVALOCYTES 1+; STOMATOCYTES 1+
[2023-08-05] VITALS (61 sets, daily range): BP systolic 56–117; BP diastolic 13–59; TEMP 97.2–97.3; O2SAT 91–98
[2023-08-05 05:24] LABS: EOSINOPHILS % (AUTO) 0.1 % (0.0-6.0); LYMPHOCYTES # (AUTO) 0.2 K/uL (0.8-4.8); LYMPHOCYTES % (AUTO) 1.5 % (20.0-44.0); MEAN CORPUSCULAR HEMOGLOBIN 29 PG (26.0-33.0); MEAN CORPUSCULAR HGB CONC 31 g/dl (31.0-36.0); MEAN CORPUSCULAR VOLUME 94 fL (82-100); MONOCYTES # (AUTO) 0.2 K/uL (0.1-1.30); MONOCYTES % (AUTO) 1.2 % (2.0-12.0); NEUTROPHILS # (AUTO) 13.4 K/uL (1.8-8.9); NEUTROPHILS % (AUTO) 97.2 % (43.0-81.0); PLATELET COUNT (AUTO) 59 K/uL (150-450); RED BLOOD CELL COUNT(AUTO) 2.12 MIL/uL (4.0-5.2); RED CELL DISTRIBUTION WIDTH 19.2 % (11.5-15.0); WHITE BLOOD COUNT (AUTO) 13.8 K/uL (4.3-11.0)
[2023-08-05 05:27] LABS: HEMATOCRIT 20 % (33-45); HEMOGLOBIN 6.2 g/dL (11.5-14.8)
[2023-08-05 05:33] LABS: CALCIUM, SERUM 8.7 mg/dL (8.5-10.1); CARBON DIOXIDE 23 mmol/L (21-32); CHLORIDE 107 mmol/L (98-107); CREATININE 2.6 mg/dL (0.6-1.3); GLUCOSE 229 mg/dL (74-106); MAGNESIUM 1.9 mg/dL (1.8-2.4); PHOSPHORUS 5.9 mg/dL (2.5-4.9); POTASSIUM 3.8 mmol/L (3.5-5.1); SODIUM SERUM 143 mmol/L (136-145)
[2023-08-05 05:36] LABS: UREA NITROGEN, BLOOD 112 mg/dL (7-18)
[2023-08-05 07:49] LABS: ANISOCYTOSIS 1+; BAND % (MANUAL) 14 % (0.0-5.0); LYMPHOCYTES % (MANUAL) 1 % (16-48); MONOCYTES % (MANUAL) 5 % (0-11.0); NEUTROPHILS % (MANUAL) 80 (42-76); PLATELET ESTIMATE DECREASED; TARGET CELLS 1+
[2023-08-05] MEDS: MORPHINE SULFATE INJ 4 MG/ML DISP.SYRIN IV PRN (19:22)
[2023-08-05] MEDS ORDERED: DC PROPOFOL WHEN EXTUBATED XX ONE (19:30)
== END 2023-08-05 20:01 | DRG 870 ==
LOC: ER 20:07 → TELE 23:21 → ICU 23:42
PROVIDERS: ADMIT Nurse Practitioner Acute Care; ATTEND Nurse Practitioner Acute Care
PROC: 5A1955Z Respiratory Ventilation, Greater than 96 Consecutive Hours (ICD-10-PCS; principal; 2023-07-24)
PROC: 5A1D70Z Performance of Urinary Filtration, Intermittent, Less than 6 Hours Per Day (ICD-10-PCS; 2023-07-26)
PROC: 30233N1 Transfusion of Nonautologous Red Blood Cells into Peripheral Vein, Percutaneous Approach (ICD-10-PCS; 2023-07-26)
DX: A41.9 Sepsis, unspecified organism (principal); I21.4 Non-ST elevation (NSTEMI) myocardial infarction; N18.6 End stage renal disease; R53.2 Functional quadriplegia; R65.21 Severe sepsis with septic shock; J15.69 Pneumonia due to other Gram-negative bacteria; K29.71 Gastritis, unspecified, with bleeding; S42.302A Unspecified fracture of shaft of humerus, left arm, initial encounter for closed fracture; I13.2 Hypertensive heart and chronic kidney disease with heart failure and with stage 5 chronic kidney disease, or end stage renal disease; J44.0 Chronic obstructive pulmonary disease with (acute) lower respiratory infection; J96.10 Chronic respiratory failure, unspecified whether with hypoxia or hypercapnia; G93.40 Encephalopathy, unspecified; Z99.11 Dependence on respirator [ventilator] status; I50.32 Chronic diastolic (congestive) heart failure; D68.59 Other primary thrombophilia; L03.116 Cellulitis of left lower limb; J95.851 Ventilator associated pneumonia; E87.4 Mixed disorder of acid-base balance; E44.0 Moderate protein-calorie malnutrition; E27.40 Unspecified adrenocortical insufficiency; Z66 Do not resuscitate; Z51.5 Encounter for palliative care; E11.22 Type 2 diabetes mellitus with diabetic chronic kidney disease; E11.65 Type 2 diabetes mellitus with hyperglycemia; F02.80 Dementia in other diseases classified elsewhere, unspecified severity, without behavioral disturbance, psychotic disturbance, mood disturbance, and anxiety; G30.9 Alzheimer's disease, unspecified; Z99.2 Dependence on renal dialysis; Z93.0 Tracheostomy status; Z93.1 Gastrostomy status; Z86.73 Personal history of transient ischemic attack (TIA), and cerebral infarction without residual deficits; R13.10 Dysphagia, unspecified; D50.9 Iron deficiency anemia, unspecified; Z79.4 Long term (current) use of insulin; Z79.82 Long term (current) use of aspirin; Z79.01 Long term (current) use of anticoagulants; Z79.51 Long term (current) use of inhaled steroids; I25.10 Atherosclerotic heart disease of native coronary artery without angina pectoris; E88.09 Other disorders of plasma-protein metabolism, not elsewhere classified; X58.XXXA Exposure to other specified factors, initial encounter; I95.3 Hypotension of hemodialysis; Y92.9 Unspecified place or not applicable; D69.6 Thrombocytopenia, unspecified; M89.8X9 Other specified disorders of bone, unspecified site; E83.51 Hypocalcemia; E87.6 Hypokalemia; R53.1 Weakness; Z87.440 Personal history of urinary (tract) infections; Z87.19 Personal history of other diseases of the digestive system; L89.156 Pressure-induced deep tissue damage of sacral region; K29.70 Gastritis, unspecified, without bleeding; Y84.8 Other medical procedures as the cause of abnormal reaction of the patient, or of later complication, without mention of misadventure at the time of the procedure; E78.5 Hyperlipidemia, unspecified; D63.1 Anemia in chronic kidney disease; Z79.84 Long term (current) use of oral hypoglycemic drugs; Z79.899 Other long term (current) drug therapy; S71.102A Unspecified open wound, left thigh, initial encounter; S71.101A Unspecified open wound, right thigh, initial encounter; Z74.09 Other reduced mobility
CPT/HCPCS: 31720; 36415; 36600; 71045-TC; 80048-TC; 80053-TC; 80061-TC; 80076-TC; 80202-TC; 82803-TC; 82962-TC; 83605-TC; 83735-TC; 84100-TC; 84443-TC; 84484-TC; 85025-TC; 85027-TC; 85730-TC; 86850-TC; 87040-TC; 87081-TC; 90935-TC; 94003-TC; 94762-TC; 94799-TC; 99082-TC; A4216; A4217; A4223; A4623; A6403; A7526; G0378; J1720; J1815; J2185; J2270; J2543; J3370; J3475; J3480; J3490; J7030; J7040; J7050; J7060; P9016; P9047